=== PATIENT | female | born 1950 | race African-American/Black ===

== ENCOUNTER 2021-12-28 10:40 | Inpatient (IN) | payer MEDICARE, SELFPAY ==
[2021-12-28 11:19] VITALS: BP 149/77; BP 177/110; PULSE 91; PULSE 92; RESP 16; TEMP 36.7; O2SAT 92; O2SAT 99; BMI 21.9
[2021-12-28 11:50] LABS: Appearance Urine CLEAR; Color Urine STRAW; Glucose Urine UA NEG (NEG); Leukocyte Esterase Urine NEG (NEG); Nitrite Urine NEG (NEG); Urine Blood NEG (NEG); Urine Ketones NEG (NEG); Urine Protein TRACE MG/DL (NEG-TRACE)
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
[2021-12-28 12:11] LABS: Amphetamine Screen Urine Not Detected (Not Detect); Barbiturates, Urine Not Detected (Not Detect); Benzodiazepines Screen Urine Not Detected (Not Detect); Cocaine Screen Urine Not Detected (Not Detect); Opiate Screen Urine Not Detected (Not Detect); Phencyclidine Screen Urine Not Detected (Not Detect)
[2021-12-28 12:12] LABS: Cannabinoid Screen Urine Not Detected (Not Detect); Fentanyl, urine Not Detected (Not Detect)
[2021-12-28 14:20] LABS: MANUAL DIFF FLAG NO
[2021-12-28 14:29] LABS: Basophils Percent Auto 0.3 % (0-2); Eosinophils Absolute Auto 0.1 X10*3/uL (0.0-0.4); Eosinophils Percent Auto 0.9 % (0-4); Hematocrit 38.1 % (37.0-47.0); Hemoglobin 12.5 g/dl (12.0-16.0); Imm Gran Abs Auto 0.01 X10*3/uL (0.00-0.03); Imm Gran Pct Auto 0.2 % (0.0-0.4); Lymphocytes Absolute Auto 1.4 X10*3/uL (1.2-4.9); Lymphocytes Percent Auto 23.5 % (20-40); Mean Corpuscular HGB Conc 32.8 g/dl (31.0-35.0); Mean Corpuscular Hemoglobin 25.4 pg (27.0-33.0); Mean Corpuscular Volume 77.4 fL (80.0-98.0); Mean Platelet Volume 10.9 fL (9.4-12.3); Monocytes Absolute Auto 0.4 X10*3/uL (0.1-1.2); Monocytes Percent Auto 6.4 % (2-11); Neutrophils Percent Auto 68.7 % (45-73); Platelet Count 260 X10*3/uL (160-400); Red Blood Count 4.92 X10*6/uL (4.20-5.50); Red Cell Distribution Width 14.6 % (11.0-16.0); White Blood Count 5.8 X10*3/uL (4.8-10.8)
[2021-12-28 14:43] LABS: Alanine Aminotransferase 19 U/L (0-31); Albumin Level 4.1 g/dL (3.5-5.0); Alkaline Phosphatase 120 U/L (39-117); Anion Gap 12 (12-20); Aspartate Amino Transferase 28 U/L (5-31); Bilirubin Direct 0.2 mg/dL (0.0-0.5); Bilirubin Total 0.4 mg/dL (0.0-1.0); Blood Urea Nitrogen 53 mg/dL (9-16); Calcium 9.2 mg/dL (8.4-10.2); Carbon Dioxide 27 mmol/L (22-29); Chloride 107 mmol/L (96-108); Creatinine Clr Calc Pharmacy 30.9; Estimated Glomerular Filt Rate 39; Glucose Random 87 mg/dL (60-115); Potassium 3.9 mmol/L (3.3-5.1); Sodium 142 mmol/L (135-145); Total Protein 6.9 g/dL (6.5-8.0)
--- NOTE | 2021-12-28 16:02 | PC.NURSE ---
Pt noted to be vigorously self-dialoguing in the community room, muttering profanities, and generally appearing angry. Making paranoid statements about people killing her off .
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
[2021-12-28 19:09] VITALS: RESP 18
[2021-12-28] MEDS: Ziprasidone Mesylate 20 MG VIAL IM (19:09)
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
[2021-12-28 19:24] VITALS: RESP 16
[2021-12-28 19:39] VITALS: RESP 16
[2021-12-28 19:54] VITALS: RESP 12
[2021-12-28 20:09] VITALS: RESP 12
--- NOTE | 2021-12-28 21:39 | PHA.MEDREC ---
Patient not cooperative to interview, only able to verify amlodipine from pharmacy history Pharmacy Consult ? Medication Reconciliation Pharmacy has completed the medication reconciliation.
[2021-12-29] MEDS: OLANZapine ODT 10 MG TAB.RAPDIS 5 MG TRANSLINGU ×3 (00:32→19:57)
[2021-12-29 00:53] LABS: COVID-19 Test Negative (Negative); IDNOW Serial# 16C4AD1C
--- NOTE | 2021-12-29 06:21 | PC.NURSE ---
Patient received Geodon 20 mg IM at 1909 for aggressive behavior, with positive effect, @ 0017 patient loud and disruptive pRN Olanzapine 5 mg administered and followed by next dose 0610 with + effect, patient's thought content is paranoid, thought process tangential, behavior unpredictable, VSS, disposition per N is section 12 inpatient bed search, med rec completed/pending provider's approval, will continue to monitor.
[2021-12-29 06:35] VITALS: RESP 20
--- NOTE | 2021-12-29 07:18 | PC.NURSE ---
patient appears to remain asleep at present respirations are even and unlabored patient appears in no distress
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
[2021-12-29 07:48] VITALS: BP 118/74; PULSE 91; RESP 17; TEMP 36.2
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
[2021-12-29] MEDS: OLANZapine 10 MG VIAL IM (15:20)
[2021-12-29] MEDS: diphenhydrAMINE HCL 50 MG/ML VIAL IM (17:03)
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
[2021-12-30] VITALS (7 sets, daily range): BP systolic 89–129; BP diastolic 50–97; PULSE 76–116; RESP 15–20; TEMP 36.9–37; O2SAT 93–96
--- NOTE | 2021-12-30 09:00 | MHC.CLN ---
NUTRITION CHANGED DIET TO 2 GRAM SODIUM DUE TO DX CKD. BUN=54 (12/28/21).
[2021-12-30] MEDS: LORazepam 2 MG/ML VIAL IM (09:28)
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
[2021-12-30 14:10] LABS: MANUAL DIFF FLAG NO
[2021-12-30 14:13] LABS: Basophils Percent Auto 0.5 % (0-2); Eosinophils Absolute Auto 0.1 X10*3/uL (0.0-0.4); Hematocrit 36.8 % (37.0-47.0); Imm Gran Abs Auto 0.01 X10*3/uL (0.00-0.03); Imm Gran Pct Auto 0.2 % (0.0-0.4); Lymphocytes Percent Auto 22.4 % (20-40); Mean Corpuscular HGB Conc 32.6 g/dl (31.0-35.0); Mean Corpuscular Hemoglobin 25.4 pg (27.0-33.0); Mean Corpuscular Volume 77.8 fL (80.0-98.0); Mean Platelet Volume 10.6 fL (9.4-12.3); Monocytes Absolute Auto 0.3 X10*3/uL (0.1-1.2); Monocytes Percent Auto 6.1 % (2-11); Neutrophils Percent Auto 68.8 % (45-73); Platelet Count 211 X10*3/uL (160-400); Red Blood Count 4.73 X10*6/uL (4.20-5.50); Red Cell Distribution Width 14.8 % (11.0-16.0); White Blood Count 4.4 X10*3/uL (4.8-10.8)
[2021-12-30 14:31] LABS: Estimated Average Glucose 117 mg/dL; Hemoglobin A1c % 5.7 %
[2021-12-30 14:34] LABS: Alanine Aminotransferase 14 U/L (0-31); Albumin Level 3.5 g/dL (3.5-5.0); Alkaline Phosphatase 105 U/L (39-117); Anion Gap 10 (12-20); Aspartate Amino Transferase 28 U/L (5-31); Bilirubin Direct 0.2 mg/dL (0.0-0.5); Bilirubin Total 0.5 mg/dL (0.0-1.0); Blood Urea Nitrogen 24 mg/dL (9-16); Calcium 8.7 mg/dL (8.4-10.2); Carbon Dioxide 26 mmol/L (22-29); Chloride 112 mmol/L (96-108); Creatinine Clr Calc Pharmacy 33.8; Estimated Glomerular Filt Rate 43; Glucose Random 128 mg/dL (60-115); Sodium 144 mmol/L (135-145); Total Protein 6.1 g/dL (6.5-8.0)
[2021-12-30 14:50] LABS: Thyroid Stimulating Hormone 0.25 uIU/mL (0.32-4.0)
[2021-12-31 06:00] VITALS: BP 114/62; PULSE 80; RESP 18; TEMP 38; O2SAT 94
[2021-12-31 08:00] VITALS: TEMP 37.1
[2021-12-31] MEDS: chlorproMAZINE HCl 25 MG TABLET 50 MG PO (15:27)
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
[2021-12-31 20:04] VITALS: BP 140/75; PULSE 100; TEMP 36.9; O2SAT 95
[2022-01-01 05:57] VITALS: BMI 17.2
[2022-01-01 08:20] VITALS: BMI 17.3
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
--- NOTE | 2022-01-01 14:49 | MHC.CLN ---
NUTRITION DIET=2 GRAM SODIUM. PATIENT WITH CKD STAGE 3. HX DISORDERED EATING-RESTRICTING. ADDING ENSURE TID TO PROVIDE ADDITIONAL 1050 KCALS, 60 G PROTEIN. BMI=17.3, UNDERWEIGHT. FOLLOW FOR INTAKE AND WEIGHT.
[2022-01-01 14:51] VITALS: BMI 17.3
[2022-01-01 18:00] VITALS: RESP 17
--- NOTE | 2022-01-01 21:57 | PC.NURSE ---
Pt visible in the milieu, alternating between self dialoguing and making accusatory statements towards pt's and staff, calling others homicidal maniacs unable to be redirected. Refusing medications.
[2022-01-02] MEDS: diphenhydrAMINE HCL 50 MG/ML VIAL IM (11:24)
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
[2022-01-02] MEDS: chlorproMAZINE HCl 25 MG TABLET 50 MG PO ×2 (16:26→22:35)
[2022-01-02] MEDS: OLANZapine ODT 10 MG TAB.RAPDIS 5 MG TRANSLINGU (22:35)
[2022-01-03 06:00] VITALS: BP 134/74; PULSE 89; RESP 16; TEMP 36.6; O2SAT 98
--- NOTE | 2022-01-03 13:09 | HO.PSYCHPN ---
Subjective Subjective Date of Service: 01/03/22 Reason For Visit: Pychosis Agitation Subjective Notes: Section 12B Interim History: Per nursing, pt only slept 3 hrs. Continues to decline scheduled medications. Pt paranoid, and verbally aggressive when someone approaches her but is less intrusive to others today. When asked how she was doing pt told this marketing copywriter I'm fine leave me alone! Pt increasingly irritable as marketing copywriter asked questions. She continued talking to someone who is not there, very guarded and suspicious about others. Medication Compliance: No Side effects from medications: No Review of Systems Review of Systems Yes Unobtainable due to mental status and Other (Uncooperative) Mental Status Exam Mental Status Exam Narrative: Alert but not oriented, floridly psychotic. Petite, unkempt/ disheveled, frail, in hospital attire, appears older than stated age. Intense eye contact, inattentive. No Tics or Tremors. No abnormal involuntary movements. Agitated, uncooperative, difficult to engage. Speech is elevated, non-stop self dialoguing, raised vocal volume. No prolonged speech latency or dysarthria. Affect is animated. Denies SI/SIB/HI upon inquiry. Presents with AH, paranoia. Thoughts are disorganized. Insight/ Judgment is poor. Diagnostics Vital Signs (24Hr): Vital Signs - 24 hr 01/03/22 06:00 Temperature 97.9 F Pulse Rate 89 Respiratory Rate 16 Blood Pressure 134/74 Pulse Oximetry 98 Oxygen Delivery Method Room Air BMI result Body Mass Index 17.3 Labs Results: 12/30/21 14:06 12/30/21 14:06 Medications Medications Current Medications Acetaminophen (Acetaminophen 325 Mg Tablet) 650 mg PO Q6H PRN PRN Reason: Headache/Pain Mild Scale (1-3) Al Hydroxide/Mg Hydroxide (Magnesium Hydrox/Alum Hydrox 30 Ml Oral.Susp) 30 ml PO Q6H PRN PRN Reason: Heartburn/Nausea Chlorpromazine HCl (Chlorpromazine Hcl 25 Mg Tablet) 50 mg PO TID [facility] Last Admin: 01/03/22 08:56 Dose: Not Given Docusate Sodium (Docusate Sodium 100 Mg Capsule) 100 mg PO BID [facility] Last Admin: 01/03/22 08:36 Dose: Not Given Hydroxyzine HCl (Hydroxyzine Hcl 25 Mg Tablet) 25 mg PO Q6H PRN PRN Reason: Anxiety Magnesium Hydroxide (Milk Of Magnesia 30 Ml Oral.Susp) 30 ml PO DAILY PRN PRN Reason: Constipation Olanzapine (Olanzapine Odt 10 Mg Tab.Rapdis) 5 mg TRANSLINGU Q6H PRN PRN Reason: agitation, psychosis Last Admin: 12/29/21 06:10 Dose: 5 mg Olanzapine (Olanzapine Odt 10 Mg Tab.Rapdis) 5 mg TRANSLINGU BEDTIME [facility] Last Admin: 01/02/22 22:35 Dose: 5 mg Pharmacy Consult (Consult Rx Perform Med Rec) 1 each MISCELLANE ONCE PRN PRN Reason: Consult order Trazodone HCl (Trazodone Hcl 50 Mg Tablet) 50 mg PO BEDTIME PRN PRN Reason: Insomnia Allergies Allergies Allergy/AdvReac Type Severity Reaction Status Date / Time benztropine [From COGENTIN] Allergy Unknown STOMACHPAIN Verified 09/29/21 16:15 /SWELLING haloperidol [From HALDOL] Allergy Unknown STOMACH Verified 09/29/21 16:15 PAIN SWELLING Assessment & Plan Assessment & Plan (1) Schizophrenia, chronic condition: Status: Acute Code(s): F20.9 - Schizophrenia, unspecified (2) Benign essential hypertension: Status: Acute Code(s): I10 - Essential (primary) hypertension (3) Chronic kidney disease (CKD): Qualifiers: Chronic kidney disease stage: stage 3 (moderate) Chronic kidney disease stage 3 subtype: stage 3b (GFR 30-44) Qualified Code(s): N18.32 - Chronic kidney disease, stage 3b Status: Acute Code(s): N18.9 - Chronic kidney disease, unspecified (4) History of cervical cancer: Status: Acute Code(s): Z85.41 - Personal history of malignant neoplasm of cervix uteri Plan Elderly female with a long history of schizophrenia with several ancillary services provided by [facility] and connected with [facility] ACSS program. Plan 1. Gather collateral information. 2. Continue with psychotropics. 3. Start Thorazine 50 mg po tid. 4. Bloodwork with Cr wnl/. 5. Filing for 7 and 8 6. Chemical restraint today AM. 7. Colace 100 mg po bid 01/02- Thorazine 100mg IM for severe agitation/aggression. declines medications, paranoid delusions, talking to someone who is not there. Not sleeping, significant agitation. Pt declines scheduled medications. 01/03 continues to present as paranoid, guarded and suspicious of everyone on the unit, but less intrusive. Pt has not slept more than 3 hrs, in past 48hrs. declined EKG, monitor intake, labs I spent minutes with the patient and/or on the patient floor today, greater than?50% of which was spent counseling/coordinating care. Reason for contiued inpatient stay Substantial Risk for: harm to others and inability to function
[2022-01-04] MEDS: diphenhydrAMINE HCL 50 MG/ML VIAL IM (02:55)
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
[2022-01-04 06:00] VITALS: BP 144/81; PULSE 113; RESP 20; TEMP 36.4; O2SAT 91
[2022-01-04] MEDS: Docusate Sodium 100 MG CAPSULE PO (07:53)
[2022-01-04] MEDS: chlorproMAZINE HCl 25 MG TABLET 50 MG PO (07:53)
[2022-01-04 09:58] VITALS: BMI 17.4
[2022-01-04] MEDS: OLANZapine ODT 10 MG TAB.RAPDIS 5 MG TRANSLINGU (10:07)
[2022-01-04] MEDS: hydrOXYzine HCL 25 MG TABLET PO (10:08)
[2022-01-04 10:14] VITALS: BP 133/70; PULSE 104; RESP 16; TEMP 36.7; O2SAT 96
--- NOTE | 2022-01-04 11:35 | MHC.CLN ---
NUTRITION DIET=2 GRAM SODIUM. PATIENT WITH CKD STAGE 3. HX DISORDERED EATING-RESTRICTING. ENSURE TID PROVIDES ADDITIONAL 1050 KCALS, 60 G PROTEIN. BMI=17.3, UNDERWEIGHT. STAFF REPORTS THAT PATIENT IS EATING WELL. FOLLOW FOR INTAKE AND WEIGHT.
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
[2022-01-04 18:00] VITALS: BP 157/75; PULSE 104
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
[2022-01-05 18:00] VITALS: RESP 18
[2022-01-06] MEDS: chlorproMAZINE HCl 25 MG TABLET 50 MG PO (00:52)
[2022-01-06] MEDS: OLANZapine ODT 10 MG TAB.RAPDIS 5 MG TRANSLINGU (00:53)
--- NOTE | 2022-01-06 12:39 | MHC.CLN ---
F/U WEIGHT TODAY=43.4 KG. WEIGHT APPEARS STABLE SINCE ADMISSION. STAFF REPORTS THAT PATIENT DID NOT EAT MEALS YESTERDAY. DISLIKES/DOES NOT WANT SUPPLEMENT. DIET=2 GRAM SODIUM DUE TO DX CKD STAGE 3. HX DISORDERED EATING-RESTRICTING. CONTINUE TO FOLLOW WEIGHT AND INTAKE.
--- NOTE | 2022-01-06 14:24 | HO.PSYCHPN ---
Subjective Subjective Date of Service: 01/06/22 Reason For Visit: Pychosis Agitation Subjective Notes: Section 7, Section 8 and Section 12B Interim History: The nursing staff reported the patient has refused her medications, she slept poorly last night. On interview she reminds aggressive, hostile, delusional very difficult to be redirected. Mental Status Exam Mental Status Exam Patient Appearance: Disheveled and Unkempt Patient Orientation: Person Level of Consciousness: Restless and Inappropriate Patient Behavior: Guarded, Suspicious, Belligerent and Uncooperative Mood Description: Hostile Affect Description: Labile Ability to Follow Directions: Good Speech Pattern: Rapid and Loud Hallucinations: Auditory Delusions: Paranoid Ideation Thought Process: Distracted Thought Content: positive for [place], positive for Perseveration, positive for Thought Blocking and positive for Disorganized Judgement: Poor Diagnostics Vital Signs (24Hr): Vital Signs - 24 hr 01/05/22 18:00 Respiratory Rate 18 BMI result Body Mass Index 17.4 Labs Results: 12/30/21 14:06 12/30/21 14:06 Medications Medications Current Medications Acetaminophen (Acetaminophen 325 Mg Tablet) 650 mg PO Q6H PRN PRN Reason: Headache/Pain Mild Scale (1-3) Al Hydroxide/Mg Hydroxide (Magnesium Hydrox/Alum Hydrox 30 Ml Oral.Susp) 30 ml PO Q6H PRN PRN Reason: Heartburn/Nausea Chlorpromazine HCl (Chlorpromazine Hcl 25 Mg Tablet) 50 mg PO TID [facility] Last Admin: 01/06/22 08:42 Dose: Not Given Docusate Sodium (Docusate Sodium 100 Mg Capsule) 100 mg PO BID [facility] Last Admin: 01/06/22 08:43 Dose: Not Given Hydroxyzine HCl (Hydroxyzine Hcl 25 Mg Tablet) 25 mg PO Q6H PRN PRN Reason: Anxiety Last Admin: 01/04/22 10:08 Dose: 25 mg Magnesium Hydroxide (Milk Of Magnesia 30 Ml Oral.Susp) 30 ml PO DAILY PRN PRN Reason: Constipation Olanzapine (Olanzapine Odt 10 Mg Tab.Rapdis) 5 mg TRANSLINGU Q6H PRN PRN Reason: agitation, psychosis Last Admin: 01/04/22 10:07 Dose: 5 mg Olanzapine (Olanzapine Odt 10 Mg Tab.Rapdis) 5 mg TRANSLINGU BEDTIME [facility] Last Admin: 01/06/22 00:53 Dose: 5 mg Pharmacy Consult (Consult Rx Perform Med Rec) 1 each MISCELLANE ONCE PRN PRN Reason: Consult order Trazodone HCl (Trazodone Hcl 50 Mg Tablet) 50 mg PO BEDTIME PRN PRN Reason: Insomnia Allergies Allergies Allergy/AdvReac Type Severity Reaction Status Date / Time benztropine [From COGENTIN] Allergy Unknown STOMACHPAIN Verified 09/29/21 16:15 /SWELLING haloperidol [From HALDOL] Allergy Unknown STOMACH Verified 09/29/21 16:15 PAIN SWELLING Assessment & Plan Assessment & Plan (1) Schizophrenia, chronic condition: Status: Acute Code(s): F20.9 - Schizophrenia, unspecified (2) Benign essential hypertension: Status: Acute Code(s): I10 - Essential (primary) hypertension (3) Chronic kidney disease (CKD): Qualifiers: Chronic kidney disease stage: stage 3 (moderate) Chronic kidney disease stage 3 subtype: stage 3b (GFR 30-44) Qualified Code(s): N18.32 - Chronic kidney disease, stage 3b Status: Acute Code(s): N18.9 - Chronic kidney disease, unspecified (4) History of cervical cancer: Status: Acute Code(s): Z85.41 - Personal history of malignant neoplasm of cervix uteri Plan Elderly female with a long history of schizophrenia with several ancillary services provided by [facility] and connected with [facility] ACSS program. Plan 1. Gather collateral information. 2. Continue with psychotropics. 3. Start Thorazine 50 mg po tid. 4. Bloodwork with Cr wnl/. 5. Filing for 7 and 8 6. Get collateral information with [facility] regarding guardianship and [place] order I spent ___20_ minutes with the patient and/or on the patient floor today, greater than?50% of which was spent counseling/coordinating care. Reason for contiued inpatient stay Substantial Risk for: inability to function, rapid decompensation and med/psych decompensation
[2022-01-06 18:00] VITALS: RESP 16
[2022-01-07 07:30] VITALS: BP 125/61; PULSE 104; RESP 14; O2SAT 100
--- NOTE | 2022-01-07 11:08 | P.PNPSI_ITS ---
Subjective Subjective Date of Service: 01/07/22 Reason For Visit: Pychosis Agitation Subjective Notes: Section 7, Section 8 and Section 12B Interim History: The nursing staff reported the patient was awake all night long, she has refused her medications she remains very aggressive and delusional. She is aware that we have a court hearing today o'clock p.m.. Mental Status Exam Mental Status Exam Patient Appearance: Disheveled and Unkempt Patient Orientation: Person and Situation Level of Consciousness: Restless Patient Behavior: Suspicious Mood Description: Angry Affect Description: Labile Patient Cognition Impaired: Yes Ability to Follow Directions: Poor Speech Pattern: Rapid and Loud Hallucinations: Auditory Delusions: Paranoid Ideation and Grandiose Thought Process: Distracted Thought Content: positive for Poverty of Content Judgement: Poor Diagnostics Vital Signs (24Hr): Vital Signs - 24 hr 01/06/22 18:00 01/07/22 07:30 Pulse Rate 104 H Respiratory Rate 16 14 Blood Pressure 125/61 Pulse Oximetry 100 Oxygen Delivery Method Room Air BMI result Body Mass Index 17.4 Labs Results: 12/30/21 14:06 12/30/21 14:06 Medications Medications Current Medications Acetaminophen (Acetaminophen 325 Mg Tablet) 650 mg PO Q6H PRN PRN Reason: Headache/Pain Mild Scale (1-3) Al Hydroxide/Mg Hydroxide (Magnesium Hydrox/Alum Hydrox 30 Ml Oral.Susp) 30 ml PO Q6H PRN PRN Reason: Heartburn/Nausea Chlorpromazine HCl (Chlorpromazine Hcl 25 Mg Tablet) 50 mg PO TID [facility] Last Admin: 01/07/22 10:21 Dose: Not Given Docusate Sodium (Docusate Sodium 100 Mg Capsule) 100 mg PO BID REJI Last Admin: 01/07/22 10:21 Dose: Not Given Hydroxyzine HCl (Hydroxyzine Hcl 25 Mg Tablet) 25 mg PO Q6H PRN PRN Reason: Anxiety Last Admin: 01/04/22 10:08 Dose: 25 mg Magnesium Hydroxide (Milk Of Magnesia 30 Ml Oral.Susp) 30 ml PO DAILY PRN PRN Reason: Constipation Olanzapine (Olanzapine Odt 10 Mg Tab.Rapdis) 5 mg TRANSLINGU Q6H PRN PRN Reason: agitation, psychosis Last Admin: 01/04/22 10:07 Dose: 5 mg Olanzapine (Olanzapine Odt 10 Mg Tab.Rapdis) 5 mg TRANSLINGU BEDTIME REJI Last Admin: 01/07/22 00:57 Dose: Not Given Pharmacy Consult (Consult Rx Perform Med Rec) 1 each MISCELLANE ONCE PRN PRN Reason: Consult order Trazodone HCl (Trazodone Hcl 50 Mg Tablet) 50 mg PO BEDTIME PRN PRN Reason: Insomnia Allergies Allergies Allergy/AdvReac Type Severity Reaction Status Date / Time benztropine [From COGENTIN] Allergy Unknown STOMACHPAIN Verified 09/29/21 16:15 /SWELLING haloperidol [From HALDOL] Allergy Unknown STOMACH Verified 09/29/21 16:15 PAIN SWELLING Assessment & Plan Assessment & Plan (1) Schizophrenia, chronic condition: Status: Acute Code(s): F20.9 - Schizophrenia, unspecified (2) Benign essential hypertension: Status: Acute Code(s): I10 - Essential (primary) hypertension (3) Chronic kidney disease (CKD): Qualifiers: Chronic kidney disease stage: stage 3 (moderate) Chronic kidney disease stage 3 subtype: stage 3b (GFR 30-44) Qualified Code(s): N18.32 - Chronic kidney disease, stage 3b Status: Acute Code(s): N18.9 - Chronic kidney disease, unspecified (4) History of cervical cancer: Status: Acute Code(s): Z85.41 - Personal history of malignant neoplasm of cervix uteri Plan Elderly female with a long history of schizophrenia with several ancillary services provided by [facility] and connected with [facility] ACSS program. Plan 1. Gather collateral information. 2. Continue with psychotropics. 3. Start Thorazine 50 mg po tid. 4. Bloodwork with Cr wnl/. 5. Filing for 7 and 8 6. Get collateral information with [facility] regarding guardianship and [place] order I spent __20____ minutes with the patient and/or on the patient floor today, greater than?50% of which was spent counseling/coordinating care. Reason for contiued inpatient stay Substantial Risk for: harm to others, inability to function, rapid decompensation and med/psych decompensation
[2022-01-07 13:46] VITALS: BMI 17.5
--- NOTE | 2022-01-07 16:35 | HE.PHANOTE ---
RE DARYL SPOKE TO DR HARLEY. PATIENT IS ON INVEGA SUSTENNA AT HOME PER HIS OUTPATIENT SAMPLER RADIOACTIVE WASTE
[2022-01-07] MEDS: Midazolam HCl/PF 2 MG/2 ML VIAL 4 MG IM (17:05)
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
[2022-01-07 18:00] VITALS: RESP 16
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
[2022-01-08] MEDS: chlorproMAZINE HCl 25 MG TABLET 50 MG PO ×2 (08:22→20:30)
--- NOTE | 2022-01-08 11:26 | P.PNPSI_ITS ---
Subjective Subjective Date of Service: 01/08/22 Reason For Visit: Pychosis Agitation Subjective Notes: Conditional Voluntary Interim History: The nursing staff reported the patient was agitated in the morning and they called me early in the morning for medication restrain. She received IM so in an emergency basis last night and today in the morning. Today in the morning she was lower while, angry and grossly disorganized. We will start with Sharonda Wood as per court order. Mental Status Exam Mental Status Exam Patient Appearance: Unkempt Patient Orientation: Person and Situation Level of Consciousness: Alert Patient Behavior: Guarded and Verbal Threats Mood Description: Withdrawn Affect Description: Labile Patient Cognition Impaired: Yes Ability to Follow Directions: Good Speech Pattern: Clear Hallucinations: Auditory Delusions: Paranoid Ideation Thought Process: Illogical and Evasive Thought Content: positive for [place] Judgement: Poor Diagnostics Vital Signs (24Hr): Vital Signs - 24 hr 01/07/22 18:00 Respiratory Rate 16 BMI result Body Mass Index 17.5 Labs Results: 12/30/21 14:06 12/30/21 14:06 Medications Medications Current Medications Acetaminophen (Acetaminophen 325 Mg Tablet) 650 mg PO Q6H PRN PRN Reason: Headache/Pain Mild Scale (1-3) Al Hydroxide/Mg Hydroxide (Magnesium Hydrox/Alum Hydrox 30 Ml Oral.Susp) 30 ml PO Q6H PRN PRN Reason: Heartburn/Nausea Chlorpromazine HCl (Chlorpromazine Hcl 25 Mg Tablet) 50 mg PO TID [facility] Last Admin: 01/08/22 08:22 Dose: 50 mg Docusate Sodium (Docusate Sodium 100 Mg Capsule) 100 mg PO BID [facility] Last Admin: 01/07/22 22:12 Dose: Not Given Hydroxyzine HCl (Hydroxyzine Hcl 25 Mg Tablet) 25 mg PO Q6H PRN PRN Reason: Anxiety Last Admin: 01/04/22 10:08 Dose: 25 mg Magnesium Hydroxide (Milk Of Magnesia 30 Ml Oral.Susp) 30 ml PO DAILY PRN PRN Reason: Constipation Olanzapine (Olanzapine Odt 10 Mg Tab.Rapdis) 5 mg TRANSLINGU Q6H PRN PRN Reason: agitation, psychosis Last Admin: 01/04/22 10:07 Dose: 5 mg Olanzapine (Olanzapine Odt 10 Mg Tab.Rapdis) 5 mg TRANSLINGU BEDTIME [facility] Last Admin: 01/07/22 22:12 Dose: Not Given Pharmacy Consult (Consult Rx Perform Med Rec) 1 each MISCELLANE ONCE PRN PRN Reason: Consult order Trazodone HCl (Trazodone Hcl 50 Mg Tablet) 50 mg PO BEDTIME PRN PRN Reason: Insomnia Allergies Allergies Allergy/AdvReac Type Severity Reaction Status Date / Time benztropine [From COGENTIN] Allergy Unknown STOMACHPAIN Verified 09/29/21 16:15 /SWELLING haloperidol [From HALDOL] Allergy Unknown STOMACH Verified 09/29/21 16:15 PAIN SWELLING Assessment & Plan Assessment & Plan (1) Schizophrenia, chronic condition: Status: Acute Code(s): F20.9 - Schizophrenia, unspecified (2) Benign essential hypertension: Status: Acute Code(s): I10 - Essential (primary) hypertension (3) Chronic kidney disease (CKD): Qualifiers: Chronic kidney disease stage: stage 3 (moderate) Chronic kidney disease stage 3 subtype: stage 3b (GFR 30-44) Qualified Code(s): N18.32 - Chronic kidney disease, stage 3b Status: Acute Code(s): N18.9 - Chronic kidney disease, unspecified (4) History of cervical cancer: Status: Acute Code(s): Z85.41 - Personal history of malignant neoplasm of cervix uteri Plan Elderly female with a long history of schizophrenia with several ancillary services provided by [facility] and connected with [facility] ACSS program. Plan 1. Gather collateral information. 2. Continue with psychotropics. 3. Invega Sustenna 234 mg IM today and another 234 in 5 days. I spent ___20___ minutes with the patient and/or on the patient floor today, greater than?50% of which was spent counseling/coordinating care. Reason for contiued inpatient stay Substantial Risk for: inability to function, rapid decompensation and med/psych decompensation
[2022-01-08] MEDS: Paliperidone Palmitate 234 MG/1.5 ML SYRINGE IM (11:54)
--- NOTE | 2022-01-08 13:29 | MHC.CLN ---
F/U STAFF REPORTS PATIENT WITH VARIABLE INTAKE. DISLIKES/DOES NOT WANT SUPPLEMENT. DIET=2 GRAM SODIUM DUE TO DX CKD STAGE 3. HX DISORDERED EATING-RESTRICTING. CONTINUE TO PROVIDE FOOD PREFERENCES ABLE. CONTINUE TO FOLLOW WEIGHT AND INTAKE. RD TO FOLLOW WEEKLY.
[2022-01-08 18:00] VITALS: BP 147/58; PULSE 108; RESP 20; O2SAT 92
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
[2022-01-08] MEDS: OLANZapine ODT 10 MG TAB.RAPDIS 5 MG TRANSLINGU (20:46)
[2022-01-08] MEDS: traZODone HCL 50 MG TABLET PO (20:46)
[2022-01-08] MEDS: Docusate Sodium 100 MG CAPSULE PO (20:46)
[2022-01-09 08:20] VITALS: BP 133/69; PULSE 100; RESP 18; O2SAT 95
--- NOTE | 2022-01-09 09:29 | HO.PSYCHPN ---
Subjective Subjective Date of Service: 01/09/22 Reason For Visit: Pychosis Agitation Subjective Notes: Section 7 and Section 8 Interim History: According to the nursing staff, the patient has been up all night long and agitated and pacing the hallway. She received Thorazine IM several times in the last 48 hours with limited effectiveness. She to her medications at bedtime. On interview she remains delusional, aggressive and hostile. Needed to be medicated due to agitation. Mental Status Exam Mental Status Exam Patient Appearance: Appropriate Patient Orientation: Person and Situation Level of Consciousness: Awake Patient Behavior: Belligerent and Verbal Threats Mood Description: Hostile and Apprehensive Affect Description: Angry Patient Cognition Impaired: Yes Ability to Follow Directions: Poor Speech Pattern: Clear, Rapid and Loud Hallucinations: Auditory Delusions: Paranoid Ideation Thought Content: positive for Poverty of Content Judgement: Poor Diagnostics Vital Signs (24Hr): Vital Signs - 24 hr 01/08/22 18:00 01/09/22 08:20 Pulse Rate 108 H 100 Respiratory Rate 20 18 Blood Pressure 147/58 H 133/69 Pulse Oximetry 92 95 Oxygen Delivery Method Room Air Room Air BMI result Body Mass Index 17.5 Labs Results: 12/30/21 14:06 12/30/21 14:06 Medications Medications Current Medications Acetaminophen (Acetaminophen 325 Mg Tablet) 650 mg PO Q6H PRN PRN Reason: Headache/Pain Mild Scale (1-3) Al Hydroxide/Mg Hydroxide (Magnesium Hydrox/Alum Hydrox 30 Ml Oral.Susp) 30 ml PO Q6H PRN PRN Reason: Heartburn/Nausea Chlorpromazine HCl (Chlorpromazine Hcl 25 Mg Tablet) 50 mg PO TID [facility] Last Admin: 01/09/22 09:27 Dose: Not Given Docusate Sodium (Docusate Sodium 100 Mg Capsule) 100 mg PO BID [facility] Last Admin: 01/09/22 09:27 Dose: Not Given Hydroxyzine HCl (Hydroxyzine Hcl 25 Mg Tablet) 25 mg PO Q6H PRN PRN Reason: Anxiety Last Admin: 01/04/22 10:08 Dose: 25 mg Magnesium Hydroxide (Milk Of Magnesia 30 Ml Oral.Susp) 30 ml PO DAILY PRN PRN Reason: Constipation Olanzapine (Olanzapine Odt 10 Mg Tab.Rapdis) 5 mg TRANSLINGU Q6H PRN PRN Reason: agitation, psychosis Last Admin: 01/04/22 10:07 Dose: 5 mg Olanzapine (Olanzapine Odt 10 Mg Tab.Rapdis) 5 mg TRANSLINGU BEDTIME REJI Last Admin: 01/08/22 20:46 Dose: 5 mg Pharmacy Consult (Consult Rx Perform Med Rec) 1 each MISCELLANE ONCE PRN PRN Reason: Consult order Trazodone HCl (Trazodone Hcl 50 Mg Tablet) 50 mg PO BEDTIME PRN PRN Reason: Insomnia Last Admin: 01/08/22 20:46 Dose: 50 mg Allergies Allergies Allergy/AdvReac Type Severity Reaction Status Date / Time benztropine [From COGENTIN] Allergy Unknown STOMACHPAIN Verified 09/29/21 16:15 /SWELLING haloperidol [From HALDOL] Allergy Unknown STOMACH Verified 09/29/21 16:15 PAIN SWELLING Assessment & Plan Assessment & Plan (1) Schizophrenia, chronic condition: Status: Acute Code(s): F20.9 - Schizophrenia, unspecified (2) Benign essential hypertension: Status: Acute Code(s): I10 - Essential (primary) hypertension (3) Chronic kidney disease (CKD): Qualifiers: Chronic kidney disease stage: stage 3 (moderate) Chronic kidney disease stage 3 subtype: stage 3b (GFR 30-44) Qualified Code(s): N18.32 - Chronic kidney disease, stage 3b Status: Acute Code(s): N18.9 - Chronic kidney disease, unspecified (4) History of cervical cancer: Status: Acute Code(s): Z85.41 - Personal history of malignant neoplasm of cervix uteri Plan Elderly female with a long history of schizophrenia with several ancillary services provided by [facility] and connected with [facility] ACSS program. Plan 1. Gather collateral information. 2. Continue with psychotropics. 3. Invega Sustenna 234 mg IM today and another 234 in 5 days. 4. Thorazine 100 mg, Benadryl 50 mg and Versed 4 mg IM now I spent __20____ minutes with the patient and/or on the patient floor today, greater than?50% of which was spent counseling/coordinating care. Reason for contiued inpatient stay Substantial Risk for: inability to function, rapid decompensation and med/psych decompensation
[2022-01-09] MEDS: Midazolam HCl/PF 2 MG/2 ML VIAL 4 MG IM (11:30)
[2022-01-09] MEDS: diphenhydrAMINE HCL 50 MG/ML VIAL 100 MG IM (11:30)
[2022-01-09 11:45] VITALS: BP 113/55; PULSE 96; RESP 14; O2SAT 94
[2022-01-09 12:00] VITALS: BP 120/57; PULSE 90; RESP 16; TEMP 37.3; O2SAT 95
[2022-01-09 12:15] VITALS: PULSE 84; RESP 16
[2022-01-09 12:30] VITALS: BP 129/63; PULSE 88; RESP 16; O2SAT 96
[2022-01-09 20:00] VITALS: BP 118/59; PULSE 97; RESP 16; O2SAT 94
[2022-01-09] MEDS: Docusate Sodium 100 MG CAPSULE PO (20:15)
[2022-01-10 05:26] VITALS: BP 127/71; PULSE 94; RESP 20; TEMP 36.3; O2SAT 96
[2022-01-10 06:17] VITALS: BMI 17.4
[2022-01-10] MEDS: chlorproMAZINE HCl 25 MG TABLET 50 MG PO ×2 (08:35→20:31)
[2022-01-10] MEDS: Docusate Sodium 100 MG CAPSULE PO (08:35)
--- NOTE | 2022-01-10 10:00 | HO.PSYCHPN ---
Subjective Subjective Date of Service: 01/10/22 Reason For Visit: Pychosis Agitation Subjective Notes: Section 7 and Section 8 Interim History: The nursing staff reported the patient slept only 4 hours after being medicated IM yesterday in the morning due to agitation and violence. She was compliant partially of her treatment she was seen walking in the hallways but more pleasant and cooperative today in the morning. On interview the patient was less irritable than yesterday but later on, she was violent and agitated unable to descalate. Mental Status Exam Mental Status Exam Patient Appearance: Appropriate Patient Orientation: Person and Situation Level of Consciousness: Awake Patient Behavior: Guarded and Passive Mood Description: Suspicious Affect Description: Labile Patient Cognition Impaired: Yes Ability to Follow Directions: Good Speech Pattern: Clear Hallucinations: Auditory Delusions: Paranoid Ideation and Grandiose Perceptual Disturbances: Hallucinations Thought Process: Racing, Distracted and Evasive Thought Content: positive for Loose Associations Judgement: Fair Diagnostics Vital Signs (24Hr): Vital Signs - 24 hr 01/09/22 11:45 01/09/22 12:00 01/09/22 12:15 Temperature 99.1 F Pulse Rate 96 90 84 Respiratory Rate 14 16 16 Blood Pressure 113/55 L 120/57 L Pulse Oximetry 94 95 Oxygen Delivery Method Room Air Room Air 01/09/22 12:30 01/09/22 20:00 01/10/22 05:26 Temperature 97.4 F Pulse Rate 88 97 94 Respiratory Rate 16 16 20 Blood Pressure 129/63 118/59 L 127/71 Pulse Oximetry 96 94 96 Oxygen Delivery Method Room Air Room Air Room Air BMI result Body Mass Index 17.4 Labs Results: 12/30/21 14:06 12/30/21 14:06 Medications Medications Current Medications Acetaminophen (Acetaminophen 325 Mg Tablet) 650 mg PO Q6H PRN PRN Reason: Headache/Pain Mild Scale (1-3) Al Hydroxide/Mg Hydroxide (Magnesium Hydrox/Alum Hydrox 30 Ml Oral.Susp) 30 ml PO Q6H PRN PRN Reason: Heartburn/Nausea Chlorpromazine HCl (Chlorpromazine Hcl 25 Mg Tablet) 50 mg PO TID [facility] Last Admin: 01/10/22 08:35 Dose: 25 mg Docusate Sodium (Docusate Sodium 100 Mg Capsule) 100 mg PO BID [facility] Last Admin: 01/10/22 08:35 Dose: 100 mg Hydroxyzine HCl (Hydroxyzine Hcl 25 Mg Tablet) 25 mg PO Q6H PRN PRN Reason: Anxiety Last Admin: 01/04/22 10:08 Dose: 25 mg Magnesium Hydroxide (Milk Of Magnesia 30 Ml Oral.Susp) 30 ml PO DAILY PRN PRN Reason: Constipation Olanzapine (Olanzapine Odt 10 Mg Tab.Rapdis) 5 mg TRANSLINGU Q6H PRN PRN Reason: agitation, psychosis Last Admin: 01/04/22 10:07 Dose: 5 mg Olanzapine (Olanzapine Odt 10 Mg Tab.Rapdis) 5 mg TRANSLINGU BEDTIME REJI Last Admin: 01/09/22 20:16 Dose: Not Given Pharmacy Consult (Consult Rx Perform Med Rec) 1 each MISCELLANE ONCE PRN PRN Reason: Consult order Trazodone HCl (Trazodone Hcl 50 Mg Tablet) 50 mg PO BEDTIME PRN PRN Reason: Insomnia Last Admin: 01/08/22 20:46 Dose: 50 mg Allergies Allergies Allergy/AdvReac Type Severity Reaction Status Date / Time benztropine [From COGENTIN] Allergy Unknown STOMACHPAIN Verified 09/29/21 16:15 /SWELLING haloperidol [From HALDOL] Allergy Unknown STOMACH Verified 09/29/21 16:15 PAIN SWELLING Assessment & Plan Assessment & Plan (1) Schizophrenia, chronic condition: Status: Acute Code(s): F20.9 - Schizophrenia, unspecified (2) Benign essential hypertension: Status: Acute Code(s): I10 - Essential (primary) hypertension (3) Chronic kidney disease (CKD): Qualifiers: Chronic kidney disease stage: stage 3 (moderate) Chronic kidney disease stage 3 subtype: stage 3b (GFR 30-44) Qualified Code(s): N18.32 - Chronic kidney disease, stage 3b Status: Acute Code(s): N18.9 - Chronic kidney disease, unspecified (4) History of cervical cancer: Status: Acute Code(s): Z85.41 - Personal history of malignant neoplasm of cervix uteri Plan Elderly female with a long history of schizophrenia with several ancillary services provided by [facility] and connected with [facility] ACSS program. Plan 1. Gather collateral information. 2. Continue with psychotropics. 3. Invega Sustenna 234 mg IM today and another 234 in 5 days. 4. Observe behavior and try to medicated aggressively whenever she becomes aggressive with Thorazine 100 mg, Benadryl 100 mg and Versed 4 mg, there is no Ativan IM at this moment. I spent ___20___ minutes with the patient and/or on the patient floor today, greater than?50% of which was spent counseling/coordinating care. Reason for contiued inpatient stay Substantial Risk for: harm to self, harm to others, inability to function, rapid decompensation and med/psych decompensation
[2022-01-10] MEDS: Midazolam HCl/PF 2 MG/2 ML VIAL 4 MG IM (11:35)
[2022-01-10] MEDS: diphenhydrAMINE HCL 50 MG/ML VIAL 100 MG IM (11:35)
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
[2022-01-10 18:00] VITALS: BP 122/60; PULSE 96; RESP 20; TEMP 36.8; O2SAT 97
[2022-01-10] MEDS: OLANZapine ODT 10 MG TAB.RAPDIS 5 MG TRANSLINGU ×2 (20:29→20:30)
[2022-01-11] MEDS: chlorproMAZINE HCl 25 MG TABLET 50 MG PO (08:24)
[2022-01-11] MEDS: OLANZapine ODT 10 MG TAB.RAPDIS 5 MG TRANSLINGU (08:24)
[2022-01-11] MEDS: Docusate Sodium 100 MG CAPSULE PO (08:26)
[2022-01-11] MEDS: hydrOXYzine HCL 25 MG TABLET PO (08:26)
--- NOTE | 2022-01-11 11:31 | P.PNPSI_ITS ---
Subjective Subjective Date of Service: 01/11/22 Reason For Visit: Pychosis Agitation Subjective Notes: Section 7 and Section 8 Interim History: The patient remains aggressive and delusional, very loud. Today in the morning p.o. medications were offered and she took it. Even though, she remains grossly disorganized and loud. No changes in her mental status Mental Status Exam Mental Status Exam Patient Appearance: Unkempt Patient Orientation: Person and Situation Level of Consciousness: Restless Patient Behavior: Guarded and Suspicious Mood Description: Hostile Affect Description: Angry Patient Cognition Impaired: Yes Ability to Follow Directions: Poor Speech Pattern: Rapid and Loud Hallucinations: Auditory Delusions: Paranoid Ideation, Grandiose and Bizarre Thought Process: Illogical Thought Content: positive for Thought Blocking and positive for Incoherent Judgement: Poor Diagnostics Vital Signs (24Hr): Vital Signs - 24 hr 01/10/22 18:00 Temperature 98.3 F Pulse Rate 96 Respiratory Rate 20 Blood Pressure 122/60 Pulse Oximetry 97 Oxygen Delivery Method Room Air BMI result Body Mass Index 17.4 Labs Results: 12/30/21 14:06 12/30/21 14:06 Medications Medications Current Medications Acetaminophen (Acetaminophen 325 Mg Tablet) 650 mg PO Q6H PRN PRN Reason: Headache/Pain Mild Scale (1-3) Al Hydroxide/Mg Hydroxide (Magnesium Hydrox/Alum Hydrox 30 Ml Oral.Susp) 30 ml PO Q6H PRN PRN Reason: Heartburn/Nausea Chlorpromazine HCl (Chlorpromazine Hcl 25 Mg Tablet) 50 mg PO TID [facility] Last Admin: 01/11/22 08:24 Dose: 50 mg Docusate Sodium (Docusate Sodium 100 Mg Capsule) 100 mg PO BID [facility] Last Admin: 01/11/22 08:26 Dose: 100 mg Hydroxyzine HCl (Hydroxyzine Hcl 25 Mg Tablet) 25 mg PO Q6H PRN PRN Reason: Anxiety Last Admin: 01/11/22 08:26 Dose: 25 mg Magnesium Hydroxide (Milk Of Magnesia 30 Ml Oral.Susp) 30 ml PO DAILY PRN PRN Reason: Constipation Olanzapine (Olanzapine Odt 10 Mg Tab.Rapdis) 5 mg TRANSLINGU Q6H PRN PRN Reason: agitation, psychosis Last Admin: 01/11/22 08:24 Dose: 5 mg Olanzapine (Olanzapine Odt 10 Mg Tab.Rapdis) 5 mg TRANSLINGU BEDTIME [facility]JI Last Admin: 01/10/22 20:29 Dose: 5 mg Pharmacy Consult (Consult Rx Perform Med Rec) 1 each MISCELLANE ONCE PRN PRN Reason: Consult order Trazodone HCl (Trazodone Hcl 50 Mg Tablet) 50 mg PO BEDTIME PRN PRN Reason: Insomnia Last Admin: 01/08/22 20:46 Dose: 50 mg Allergies Allergies Allergy/AdvReac Type Severity Reaction Status Date / Time benztropine [From COGENTIN] Allergy Unknown STOMACHPAIN Verified 09/29/21 16:15 /SWELLING haloperidol [From HALDOL] Allergy Unknown STOMACH Verified 09/29/21 16:15 PAIN SWELLING Assessment & Plan Assessment & Plan (1) Schizophrenia, chronic condition: Status: Acute Code(s): F20.9 - Schizophrenia, unspecified (2) Benign essential hypertension: Status: Acute Code(s): I10 - Essential (primary) hypertension (3) Chronic kidney disease (CKD): Qualifiers: Chronic kidney disease stage: stage 3 (moderate) Chronic kidney disease stage 3 subtype: stage 3b (GFR 30-44) Qualified Code(s): N18.32 - Chronic kidney disease, stage 3b Status: Acute Code(s): N18.9 - Chronic kidney disease, unspecified (4) History of cervical cancer: Status: Acute Code(s): Z85.41 - Personal history of malignant neoplasm of cervix uteri Plan Elderly female with a long history of schizophrenia with several ancillary services provided by [facility] [place]NOTE 2] and connected with [facility] ACSS program. Plan 1. Gather collateral information. 2. Continue with psychotropics. 3. Invega Sustenna 234 mg IM today and another 234 in 5 days. 4. Observe behavior and try to medicated aggressively whenever she becomes a ggressive with Thorazine 100 mg, Benadryl 100 mg and Versed 4 mg, there is no Ativan IM at this moment. I spent __20____ minutes with the patient and/or on the patient floor today, greater than?50% of which was spent counseling/coordinating care. Reason for contiued inpatient stay Substantial Risk for: harm to others, inability to function, rapid decompensation and med/psych decompensation
[2022-01-11 18:00] VITALS: BP 111/56; PULSE 102; RESP 14; O2SAT 97
[2022-01-12 07:30] VITALS: BP 132/78; PULSE 99; RESP 16; TEMP 36.3; O2SAT 95
[2022-01-12] MEDS: chlorproMAZINE HCl 25 MG TABLET 50 MG PO (08:09)
--- NOTE | 2022-01-12 13:51 | P.PNPSI_ITS ---
Subjective Subjective Date of Service: 01/12/22 Reason For Visit: Pychosis Agitation Subjective Notes: Section 7 and Section 8 Interim History: The nursing staff reported the patient has taking medications in the morning. She remains delusional, hostile. Later in the morning she was disrespectful and intrusive I ordered p.o. medications that she refused but later she de-escaleted by herself no need of IM at this moment. Mental Status Exam Mental Status Exam Patient Appearance: Well Grooomed Patient Orientation: Person and Situation Level of Consciousness: Awake Patient Behavior: Belligerent Mood Description: Hostile and Angry Affect Description: Labile Patient Cognition Impaired: Yes Ability to Follow Directions: Good Speech Pattern: Clear, Rapid and Loud Hallucinations: Auditory Delusions: Paranoid Ideation Thought Process: Distracted Thought Content: positive for [place] Judgement: Poor Diagnostics Vital Signs (24Hr): Vital Signs - 24 hr 01/11/22 18:00 01/12/22 07:30 Temperature 97.4 F Pulse Rate 102 H 99 Respiratory Rate 14 16 Blood Pressure 111/56 L 132/78 Pulse Oximetry 97 95 Oxygen Delivery Method Room Air Room Air BMI result Body Mass Index 17.4 Labs Results: 12/30/21 14:06 12/30/21 14:06 Medications Medications Current Medications Acetaminophen (Acetaminophen 325 Mg Tablet) 650 mg PO Q6H PRN PRN Reason: Headache/Pain Mild Scale (1-3) Al Hydroxide/Mg Hydroxide (Magnesium Hydrox/Alum Hydrox 30 Ml Oral.Susp) 30 ml PO Q6H PRN PRN Reason: Heartburn/Nausea Chlorpromazine HCl (Chlorpromazine Hcl 25 Mg Tablet) 50 mg PO TID [facility] Last Admin: 01/12/22 08:09 Dose: 50 mg Docusate Sodium (Docusate Sodium 100 Mg Capsule) 100 mg PO BID [facility] Last Admin: 01/12/22 08:11 Dose: Not Given Hydroxyzine HCl (Hydroxyzine Hcl 25 Mg Tablet) 25 mg PO Q6H PRN PRN Reason: Anxiety Last Admin: 01/11/22 08:26 Dose: 25 mg Magnesium Hydroxide (Milk Of Magnesia 30 Ml Oral.Susp) 30 ml PO DAILY PRN PRN Reason: Constipation Olanzapine (Olanzapine Odt 10 Mg Tab.Rapdis) 5 mg TRANSLINGU Q6H PRN PRN Reason: agitation, psychosis Last Admin: 01/11/22 08:24 Dose: 5 mg Olanzapine (Olanzapine Odt 10 Mg Tab.Rapdis) 5 mg TRANSLINGU BEDTIME REJI Last Admin: 01/11/22 23:26 Dose: Not Given Pharmacy Consult (Consult Rx Perform Med Rec) 1 each MISCELLANE ONCE PRN PRN Reason: Consult order Trazodone HCl (Trazodone Hcl 50 Mg Tablet) 50 mg PO BEDTIME PRN PRN Reason: Insomnia Last Admin: 01/08/22 20:46 Dose: 50 mg Allergies Allergies Allergy/AdvReac Type Severity Reaction Status Date / Time benztropine [From COGENTIN] Allergy Unknown STOMACHPAIN Verified 09/29/21 16:15 /SWELLING haloperidol [From HALDOL] Allergy Unknown STOMACH Verified 09/29/21 16:15 PAIN SWELLING Assessment & Plan Assessment & Plan (1) Schizophrenia, chronic condition: Status: Acute Code(s): F20.9 - Schizophrenia, unspecified (2) Benign essential hypertension: Status: Acute Code(s): I10 - Essential (primary) hypertension (3) Chronic kidney disease (CKD): Qualifiers: Chronic kidney disease stage: stage 3 (moderate) Chronic kidney disease stage 3 subtype: stage 3b (GFR 30-44) Qualified Code(s): N18.32 - Chronic kidney disease, stage 3b Status: Acute Code(s): N18.9 - Chronic kidney disease, unspecified (4) History of cervical cancer: Status: Acute Code(s): Z85.41 - Personal history of malignant neoplasm of cervix uteri Plan Elderly female with a long history of schizophrenia with several ancillary services provided by [facility] and connected with [facility] ACSS program. Plan 1. Gather collateral information. 2. Continue with psychotropics. 3. Invega Sustenna 234 mg IM today and another 234 tomorrow. 4. Observe behavior and try to medicated aggressively whenever she becomes aggressive with Thorazine 100 mg, Benadryl 100 mg and Versed 4 mg, there is no Ativan IM at this moment. I spent ___20___ minutes with the patient and/or on the patient floor today, greater than?50% of which was spent counseling/coordinating care. Reason for contiued inpatient stay Substantial Risk for: inability to function, rapid decompensation and med/psych decompensation
[2022-01-13] MEDS: Docusate Sodium 100 MG CAPSULE PO ×2 (06:33→20:07)
[2022-01-13] MEDS: OLANZapine ODT 10 MG TAB.RAPDIS 5 MG TRANSLINGU ×2 (06:34→20:07)
[2022-01-13] MEDS: chlorproMAZINE HCl 25 MG TABLET 50 MG PO ×3 (09:04→20:07)
[2022-01-13] MEDS: Paliperidone Palmitate 234 MG/1.5 ML SYRINGE IM (10:09)
--- NOTE | 2022-01-13 11:55 | HO.PSYCHPN ---
Subjective Subjective Date of Service: 01/13/22 Reason For Visit: Pychosis Agitation Subjective Notes: Conditional Voluntary Interim History: The nursing staff reported that yesterday the patient was yelling to another peer for wearing a black hat. She has not slept last night but she has been able to take care of herself in his basic ADL less. Today in the morning she was loud but able to calm herself down. She took medications inconsistently. Mental Status Exam Mental Status Exam Patient Appearance: Appropriate Patient Orientation: Person and Situation Level of Consciousness: Awake Patient Behavior: Cooperative Mood Description: Withdrawn Affect Description: Constricted Patient Cognition Impaired: Yes Ability to Follow Directions: Good Speech Pattern: Clear Hallucinations: Auditory Delusions: Paranoid Ideation Thought Process: Distracted and Goal Oriented Thought Content: positive for [place] and positive for Poverty of Content Judgement: Fair Diagnostics Vital Signs (24Hr): Vital Signs - 24 hr 01/12/22 18:00 Oxygen Delivery Method Room Air BMI result Body Mass Index 17.4 Labs Results: 12/30/21 14:06 12/30/21 14:06 Medications Medications Current Medications Acetaminophen (Acetaminophen 325 Mg Tablet) 650 mg PO Q6H PRN PRN Reason: Headache/Pain Mild Scale (1-3) Al Hydroxide/Mg Hydroxide (Magnesium Hydrox/Alum Hydrox 30 Ml Oral.Susp) 30 ml PO Q6H PRN PRN Reason: Heartburn/Nausea Chlorpromazine HCl (Chlorpromazine Hcl 25 Mg Tablet) 50 mg PO TID [facility] Last Admin: 01/13/22 09:04 Dose: 50 mg Docusate Sodium (Docusate Sodium 100 Mg Capsule) 100 mg PO BID [facility] Last Admin: 01/13/22 06:33 Dose: 100 mg Hydroxyzine HCl (Hydroxyzine Hcl 25 Mg Tablet) 25 mg PO Q6H PRN PRN Reason: Anxiety Last Admin: 01/11/22 08:26 Dose: 25 mg Magnesium Hydroxide (Milk Of Magnesia 30 Ml Oral.Susp) 30 ml PO DAILY PRN PRN Reason: Constipation Olanzapine (Olanzapine Odt 10 Mg Tab.Rapdis) 5 mg TRANSLINGU Q6H PRN PRN Reason: agitation, psychosis Last Admin: 01/13/22 06:34 Dose: 5 mg Olanzapine (Olanzapine Odt 10 Mg Tab.Rapdis) 5 mg TRANSLINGU BEDTIME [facility] Last Admin: 01/13/22 00:24 Dose: Not Given Paliperidone Palmitate (Paliperidone Palmitate 234 Mg/1.5 Ml Syringe) 234 mg IM Q30D REJI Last Admin: 01/13/22 10:09 Dose: 234 mg Pharmacy Consult (Consult Rx Perform Med Rec) 1 each MISCELLANE ONCE PRN PRN Reason: Consult order Trazodone HCl (Trazodone Hcl 50 Mg Tablet) 50 mg PO BEDTIME PRN PRN Reason: Insomnia Last Admin: 01/08/22 20:46 Dose: 50 mg Allergies Allergies Allergy/AdvReac Type Severity Reaction Status Date / Time benztropine [From COGENTIN] Allergy Unknown STOMACHPAIN Verified 09/29/21 16:15 /SWELLING haloperidol [From HALDOL] Allergy Unknown STOMACH Verified 09/29/21 16:15 PAIN SWELLING Assessment & Plan Assessment & Plan (1) Schizophrenia, chronic condition: Status: Acute Code(s): F20.9 - Schizophrenia, unspecified (2) Benign essential hypertension: Status: Acute Code(s): I10 - Essential (primary) hypertension (3) Chronic kidney disease (CKD): Qualifiers: Chronic kidney disease stage: stage 3 (moderate) Chronic kidney disease stage 3 subtype: stage 3b (GFR 30-44) Qualified Code(s): N18.32 - Chronic kidney disease, stage 3b Status: Acute Code(s): N18.9 - Chronic kidney disease, unspecified (4) History of cervical cancer: Status: Acute Code(s): Z85.41 - Personal history of malignant neoplasm of cervix uteri Plan Elderly female with a long history of schizophrenia with several ancillary services provided by [facility] and connected with [facility] ACSS program. Plan 1. Gather collateral information. 2. Continue with psychotropics. 3. Invega Sustenna 234 mg IM today and another 234 tomorrow. 4. Observe behavior and try to medicated aggressively whenever she becomes aggressive with Thorazine 100 mg, Benadryl 100 mg and Versed 4 mg, there is no Ativan IM at this moment. I spent __20____ minutes with the patient and/or on the patient floor today, greater than?50% of which was spent counseling/coordinating care. Reason for contiued inpatient stay Substantial Risk for: inability to function, rapid decompensation and med/psych decompensation
[2022-01-13 18:00] VITALS: BP 135/69; PULSE 101; TEMP 37.5; O2SAT 95
[2022-01-14 06:00] VITALS: BP 124/83; PULSE 100; RESP 18; TEMP 36.4; O2SAT 98
[2022-01-14 06:40] VITALS: BMI 17.3
[2022-01-14] MEDS: Docusate Sodium 100 MG CAPSULE PO (09:41)
--- NOTE | 2022-01-14 10:56 | HO.PSYCHPN ---
Subjective Subjective Date of Service: 01/14/22 Reason For Visit: Pychosis Agitation Subjective Notes: Conditional Voluntary Interim History: The patient remains verbally abusive, paranoid and difficult to manage. She yesterday she had her 2nd dose of Invega Sustenna 234 to target psychosis as per Section 7 and 8. On interview the patient was irritable. Mental Status Exam Mental Status Exam Patient Appearance: Appropriate Patient Orientation: Person, Place and Situation Level of Consciousness: Awake Patient Behavior: Guarded and Cooperative Mood Description: Hostile Affect Description: Constricted Patient Cognition Impaired: Yes Ability to Follow Directions: Good Speech Pattern: Clear Hallucinations: Auditory Delusions: Paranoid Ideation and Grandiose Thought Process: Distracted and Evasive Thought Content: positive for [place] Judgement: Fair Diagnostics Vital Signs (24Hr): Vital Signs - 24 hr 01/13/22 18:00 Temperature 99.5 F Pulse Rate 101 H Blood Pressure 135/69 Pulse Oximetry 95 Oxygen Delivery Method Room Air BMI result Body Mass Index 17.3 Labs Results: 12/30/21 14:06 12/30/21 14:06 Medications Medications Current Medications Acetaminophen (Acetaminophen 325 Mg Tablet) 650 mg PO Q6H PRN PRN Reason: Headache/Pain Mild Scale (1-3) Al Hydroxide/Mg Hydroxide (Magnesium Hydrox/Alum Hydrox 30 Ml Oral.Susp) 30 ml PO Q6H PRN PRN Reason: Heartburn/Nausea Chlorpromazine HCl (Chlorpromazine Hcl 25 Mg Tablet) 50 mg PO TID [facility] Last Admin: 01/14/22 09:41 Dose: Not Given Docusate Sodium (Docusate Sodium 100 Mg Capsule) 100 mg PO BID [facility] Last Admin: 01/14/22 09:41 Dose: 100 mg Hydroxyzine HCl (Hydroxyzine Hcl 25 Mg Tablet) 25 mg PO Q6H PRN PRN Reason: Anxiety Last Admin: 01/11/22 08:26 Dose: 25 mg Magnesium Hydroxide (Milk Of Magnesia 30 Ml Oral.Susp) 30 ml PO DAILY PRN PRN Reason: Constipation Olanzapine (Olanzapine Odt 10 Mg Tab.Rapdis) 5 mg TRANSLINGU Q6H PRN PRN Reason: agitation, psychosis Last Admin: 01/13/22 06:34 Dose: 5 mg Olanzapine (Olanzapine Odt 10 Mg Tab.Rapdis) 5 mg TRANSLINGU BEDTIME [facility] Last Admin: 01/13/22 20:07 Dose: 5 mg Paliperidone Palmitate (Paliperidone Palmitate 234 Mg/1.5 Ml Syringe) 234 mg IM Q30D [facility]JI Last Admin: 01/13/22 10:09 Dose: 234 mg Pharmacy Consult (Consult Rx Perform Med Rec) 1 each MISCELLANE ONCE PRN PRN Reason: Consult order Trazodone HCl (Trazodone Hcl 50 Mg Tablet) 50 mg PO BEDTIME PRN PRN Reason: Insomnia Last Admin: 01/08/22 20:46 Dose: 50 mg Allergies Allergies Allergy/AdvReac Type Severity Reaction Status Date / Time benztropine [From COGENTIN] Allergy Unknown STOMACHPAIN Verified 09/29/21 16:15 /SWELLING haloperidol [From HALDOL] Allergy Unknown STOMACH Verified 09/29/21 16:15 PAIN SWELLING Assessment & Plan Assessment & Plan (1) Schizophrenia, chronic condition: Status: Acute Code(s): F20.9 - Schizophrenia, unspecified (2) Benign essential hypertension: Status: Acute Code(s): I10 - Essential (primary) hypertension (3) Chronic kidney disease (CKD): Qualifiers: Chronic kidney disease stage: stage 3 (moderate) Chronic kidney disease stage 3 subtype: stage 3b (GFR 30-44) Qualified Code(s): N18.32 - Chronic kidney disease, stage 3b Status: Acute Code(s): N18.9 - Chronic kidney disease, unspecified (4) History of cervical cancer: Status: Acute Code(s): Z85.41 - Personal history of malignant neoplasm of cervix uteri Plan Elderly female with a long history of schizophrenia with several ancillary services provided by [facility] and connected with [facility] ACSS program. Plan 1. Gather collateral information. 2. Continue with psychotropics. 3. Invega Sustenna 234 mg IM today and another 234 tomorrow. 4. Observe behavior and try to medicated aggressively whenever she becomes aggressive with Thorazine 100 mg, Benadryl 100 mg and Versed 4 mg, there is no Ativan IM at this moment. I spent ___20___ minutes with the patient and/or on the patient floor today, greater than?50% of which was spent counseling/coordinating care. Reason for contiued inpatient stay Substantial Risk for: harm to others, inability to function, rapid decompensation and med/psych decompensation
[2022-01-15] MEDS: Docusate Sodium 100 MG CAPSULE PO (08:01)
[2022-01-15 08:13] VITALS: BP 121/64; PULSE 103; RESP 16; TEMP 36.6; O2SAT 96
[2022-01-15] MEDS: chlorproMAZINE HCl 25 MG TABLET 50 MG PO ×2 (10:17→14:33)
--- NOTE | 2022-01-15 12:18 | HO.PSYCHPN ---
Subjective Subjective Date of Service: 01/15/22 Reason For Visit: Pychosis Agitation Subjective Notes: Section 7 and Section 8 Interim History: The nursing staff reported the patient has been yelling at staff, she has provocative and angry at times she has refused medications and she is very and unconsistent with her Thorazine p.o. she has already received 2 doses of Invega Sustenna last dose last Tuesday. On interview she remains angry, provocative and still psychotic. Mental Status Exam Mental Status Exam Patient Appearance: Appropriate Patient Orientation: Person and Situation Level of Consciousness: Inappropriate and Combative Patient Behavior: Aggressive and Restless Mood Description: Hostile Affect Description: Labile Patient Cognition Impaired: Yes Ability to Follow Directions: Good Speech Pattern: Clear Hallucinations: Auditory Delusions: Paranoid Ideation and Ideas of Reference Thought Process: Illogical and Distracted Thought Content: positive for [place] and positive for Loose Associations Judgement: Fair Diagnostics Vital Signs (24Hr): Vital Signs - 24 hr 01/14/22 18:00 01/15/22 08:13 Temperature 97.8 F Pulse Rate 103 H Respiratory Rate 16 Blood Pressure 121/64 Pulse Oximetry 96 Oxygen Delivery Method Room Air Room Air BMI result Body Mass Index 17.3 Labs Results: 12/30/21 14:06 12/30/21 14:06 Medications Medications Current Medications Acetaminophen (Acetaminophen 325 Mg Tablet) 650 mg PO Q6H PRN PRN Reason: Headache/Pain Mild Scale (1-3) Al Hydroxide/Mg Hydroxide (Magnesium Hydrox/Alum Hydrox 30 Ml Oral.Susp) 30 ml PO Q6H PRN PRN Reason: Heartburn/Nausea Chlorpromazine HCl (Chlorpromazine Hcl 25 Mg Tablet) 50 mg PO TID [facility] Last Admin: 01/15/22 10:17 Dose: 50 mg Docusate Sodium (Docusate Sodium 100 Mg Capsule) 100 mg PO BID [facility] Last Admin: 01/15/22 08:01 Dose: 100 mg Hydroxyzine HCl (Hydroxyzine Hcl 25 Mg Tablet) 25 mg PO Q6H PRN PRN Reason: Anxiety Last Admin: 01/11/22 08:26 Dose: 25 mg Magnesium Hydroxide (Milk Of Magnesia 30 Ml Oral.Susp) 30 ml PO DAILY PRN PRN Reason: Constipation Olanzapine (Olanzapine Odt 10 Mg Tab.Rapdis) 5 mg TRANSLINGU Q6H PRN PRN Reason: agitation, psychosis Last Admin: 01/13/22 06:34 Dose: 5 mg Olanzapine (Olanzapine Odt 10 Mg Tab.Rapdis) 5 mg TRANSLINGU BEDTIME [facility] Last Admin: 01/14/22 22:39 Dose: Not Given Paliperidone Palmitate (Paliperidone Palmitate 234 Mg/1.5 Ml Syringe) 234 mg IM Q30D [facility] Last Admin: 01/13/22 10:09 Dose: 234 mg Pharmacy Consult (Consult Rx Perform Med Rec) 1 each MISCELLANE ONCE PRN PRN Reason: Consult order Trazodone HCl (Trazodone Hcl 50 Mg Tablet) 50 mg PO BEDTIME PRN PRN Reason: Insomnia Last Admin: 01/08/22 20:46 Dose: 50 mg Allergies Allergies Allergy/AdvReac Type Severity Reaction Status Date / Time benztropine [From COGENTIN] Allergy Unknown STOMACHPAIN Verified 09/29/21 16:15 /SWELLING haloperidol [From HALDOL] Allergy Unknown STOMACH Verified 09/29/21 16:15 PAIN SWELLING Assessment & Plan Assessment & Plan (1) Schizophrenia, chronic condition: Status: Acute Code(s): F20.9 - Schizophrenia, unspecified (2) Benign essential hypertension: Status: Acute Code(s): I10 - Essential (primary) hypertension (3) Chronic kidney disease (CKD): Qualifiers: Chronic kidney disease stage: stage 3 (moderate) Chronic kidney disease stage 3 subtype: stage 3b (GFR 30-44) Qualified Code(s): N18.32 - Chronic kidney disease, stage 3b Status: Acute Code(s): N18.9 - Chronic kidney disease, unspecified (4) History of cervical cancer: Status: Acute Code(s): Z85.41 - Personal history of malignant neoplasm of cervix uteri Plan Elderly female with a long history of schizophrenia with several ancillary services provided by [facility] and connected with [facility] ACSS program. Plan 1. Gather collateral information. 2. Continue with psychotropics. 3. Invega Sustenna 234 mg IM today and another 234 tomorrow. 4. Observe behavior and try to medicated aggressively whenever she becomes aggressive with Thorazine 100 mg, Benadryl 100 mg and Versed 4 mg, there is no Ativan IM at this moment. I spent __20____ minutes with the patient and/or on the patient floor today, greater than?50% of which was spent counseling/coordinating care. Reason for contiued inpatient stay Substantial Risk for: inability to function, rapid decompensation and med/psych decompensation
--- NOTE | 2022-01-15 16:24 | MHC.CLN ---
F/U STAFF REPORTS PATIENT WITH VARIABLE INTAKE. NO CHANGES TO NUTRITIONAL INTAKE NOTED. DIET=2 GRAM SODIUM DUE TO DX CKD STAGE 3. HX DISORDERED EATING-RESTRICTING. CONTINUE TO PROVIDE FOOD PREFERENCES ABLE. CONTINUE TO FOLLOW WEIGHT AND INTAKE. RD TO FOLLOW WEEKLY.
[2022-01-16 09:45] VITALS: BP 126/85; PULSE 105; RESP 18; TEMP 36.9; O2SAT 95
[2022-01-16] MEDS: chlorproMAZINE HCl 25 MG TABLET 50 MG PO ×2 (09:45→15:40)
[2022-01-16] MEDS: Docusate Sodium 100 MG CAPSULE PO (13:33)
--- NOTE | 2022-01-16 17:46 | HO.PSYCHPN ---
Subjective Subjective Date of Service: 01/16/22 Reason For Visit: Pychosis Agitation Interim History: The nursing staff reported the patient continues irritable. On approach and when asking how patient is doing she says none of your business! in a hostile manner. She is dismissive and irritable. She is inconsistent with her Thorazine p.o. she has already received 2 doses of Invega Sustenna last dose last Tuesday. On interview she remains angry, provocative and still psychotic. Review of Systems Review of Systems Yes Unobtainable due to mental status and Other (Uncooperative) Mental Status Exam Mental Status Exam Narrative: Alert but not oriented, floridly psychotic. Petite, unkempt/ disheveled, frail, in hospital attire, appears older than stated age. Intense eye contact, inattentive. No Tics or Tremors. No abnormal involuntary movements. Agitated, uncooperative, difficult to engage. Speech is elevated, non-stop self dialoguing, raised vocal volume. No prolonged speech latency or dysarthria. Affect is animated. Denies SI/SIB/HI upon inquiry. Presents with AH, paranoia. Thoughts are disorganized. Insight/ Judgment is poor. Patient Appearance: Appropriate Patient Orientation: Person and Situation Level of Consciousness: Inappropriate and Combative Patient Behavior: Aggressive and Restless Mood Description: Hostile Affect Description: Labile Patient Cognition Impaired: Yes Ability to Follow Directions: Good Speech Pattern: Clear Diagnostics Vital Signs (24Hr): Vital Signs - 24 hr 01/16/22 09:45 Temperature 98.4 F Pulse Rate 105 H Respiratory Rate 18 Blood Pressure 126/85 Pulse Oximetry 95 Oxygen Delivery Method Room Air BMI result Body Mass Index 17.3 Labs Results: 12/30/21 14:06 12/30/21 14:06 Medications Medications Current Medications Acetaminophen (Acetaminophen 325 Mg Tablet) 650 mg PO Q6H PRN PRN Reason: Headache/Pain Mild Scale (1-3) Al Hydroxide/Mg Hydroxide (Magnesium Hydrox/Alum Hydrox 30 Ml Oral.Susp) 30 ml PO Q6H PRN PRN Reason: Heartburn/Nausea Chlorpromazine HCl (Chlorpromazine Hcl 25 Mg Tablet) 50 mg PO TID [facility] Last Admin: 01/16/22 15:40 Dose: 50 mg Docusate Sodium (Docusate Sodium 100 Mg Capsule) 100 mg PO BID [facility] Last Admin: 01/16/22 13:33 Dose: 100 mg Hydroxyzine HCl (Hydroxyzine Hcl 25 Mg Tablet) 25 mg PO Q6H PRN PRN Reason: Anxiety Last Admin: 01/11/22 08:26 Dose: 25 mg Magnesium Hydroxide (Milk Of Magnesia 30 Ml Oral.Susp) 30 ml PO DAILY PRN PRN Reason: Constipation Olanzapine (Olanzapine Odt 10 Mg Tab.Rapdis) 5 mg TRANSLINGU Q6H PRN PRN Reason: agitation, psychosis Last Admin: 01/13/22 06:34 Dose: 5 mg Olanzapine (Olanzapine Odt 10 Mg Tab.Rapdis) 5 mg TRANSLINGU BEDTIME [facility] Last Admin: 01/16/22 02:09 Dose: Not Given Paliperidone Palmitate (Paliperidone Palmitate 234 Mg/1.5 Ml Syringe) 234 mg IM Q30D [facility] Last Admin: 01/13/22 10:09 Dose: 234 mg Pharmacy Consult (Consult Rx Perform Med Rec) 1 each MISCELLANE ONCE PRN PRN Reason: Consult order Trazodone HCl (Trazodone Hcl 50 Mg Tablet) 50 mg PO BEDTIME PRN PRN Reason: Insomnia Last Admin: 01/08/22 20:46 Dose: 50 mg Allergies Allergies Allergy/AdvReac Type Severity Reaction Status Date / Time benztropine [From COGENTIN] Allergy Unknown STOMACHPAIN Verified 09/29/21 16:15 /SWELLING haloperidol [From HALDOL] Allergy Unknown STOMACH Verified 09/29/21 16:15 PAIN SWELLING Assessment & Plan Assessment & Plan (1) Schizophrenia, chronic condition: Status: Acute Code(s): F20.9 - Schizophrenia, unspecified (2) Benign essential hypertension: Status: Acute Code(s): I10 - Essential (primary) hypertension (3) Chronic kidney disease (CKD): Qualifiers: Chronic kidney disease stage: stage 3 (moderate) Chronic kidney disease stage 3 subtype: stage 3b (GFR 30-44) Qualified Code(s): N18.32 - Chronic kidney disease, stage 3b Status: Acute Code(s): N18.9 - Chronic kidney disease, unspecified (4) History of cervical cancer: Status: Acute Code(s): Z85.41 - Personal history of malignant neoplasm of cervix uteri Plan Elderly female with a long history of schizophrenia with several ancillary services provided by [facility] and connected with [facility] ACSS program. Plan 1. Gather collateral information. 2. Continue with psychotropics. 3. Invega Sustenna 234 mg IM today and another 234 tomorrow. 4. Observe behavior and try to medicated aggressively whenever she becomes aggressive with Thorazine 100 mg, Benadryl 100 mg and Versed 4 mg, there is no Ativan IM at this moment. 01/16: Continue current treatment plan. I spent minutes with the patient and/or on the patient floor today, greater than?50% of which was spent counseling/coordinating care. Reason for contiued inpatient stay Substantial Risk for: harm to others, inability to function and rapid decompensation
[2022-01-16 18:00] VITALS: RESP 16
[2022-01-17] MEDS: Docusate Sodium 100 MG CAPSULE PO ×2 (08:34→19:45)
--- NOTE | 2022-01-17 14:34 | P.PNPSI_ITS ---
Subjective Subjective Date of Service: 01/17/22 Reason For Visit: Pychosis Agitation Interim History: Patient loudly asks if this proposal writer is the doctor upon coming on the unit and says I don't need medications for mind control. I need medications for my heart. This is why we're going to the pretrial! Patient continues irritable and angry. She is paranoid and hostile. She is inconsistent with her Thorazine p.o. she has already received 2 doses of Invega Sustenna last dose last Tuesday. On interview she remains angry, provocative and still psychotic. Review of Systems Review of Systems Yes Unobtainable due to mental status and Other (Uncooperative) Mental Status Exam Mental Status Exam Narrative: Alert but not oriented, floridly psychotic. Petite, unkempt/ disheveled, frail, in hospital attire, appears older than stated age. Intense eye contact, inattentive. No Tics or Tremors. No abnormal involuntary movements. Agitated, u ncooperative, difficult to engage. Speech is elevated, non-stop self dialoguing, raised vocal volume. No prolonged speech latency or dysarthria. Affect is animated. Denies SI/SIB/HI upon inquiry. Presents with AH, paranoia. Thoughts are disorganized. Insight/ Judgment is poor. Patient Appearance: Appropriate Patient Orientation: Person and Situation Level of Consciousness: Inappropriate and Combative Patient Behavior: Aggressive and Restless Mood Description: Hostile Affect Description: Labile Patient Cognition Impaired: Yes Ability to Follow Directions: Good Speech Pattern: Clear Diagnostics Vital Signs (24Hr): Vital Signs - 24 hr 01/16/22 18:00 Respiratory Rate 16 BMI result Body Mass Index 17.3 Labs Results: 12/30/21 14:06 12/30/21 14:06 Medications Medications Current Medications Acetaminophen (Acetaminophen 325 Mg Tablet) 650 mg PO Q6H PRN PRN Reason: Headache/Pain Mild Scale (1-3) Al Hydroxide/Mg Hydroxide (Magnesium Hydrox/Alum Hydrox 30 Ml Oral.Susp) 30 ml PO Q6H PRN PRN Reason: Heartburn/Nausea Chlorpromazine HCl (Chlorpromazine Hcl 25 Mg Tablet) 50 mg PO TID [facility] Last Admin: 01/17/22 08:34 Dose: Not Given Docusate Sodium (Docusate Sodium 100 Mg Capsule) 100 mg PO BID [facility] Last Admin: 01/17/22 08:34 Dose: 100 mg Hydroxyzine HCl (Hydroxyzine Hcl 25 Mg Tablet) 25 mg PO Q6H PRN PRN Reason: Anxiety Last Admin: 01/11/22 08:26 Dose: 25 mg Magnesium Hydroxide (Milk Of Magnesia 30 Ml Oral.Susp) 30 ml PO DAILY PRN PRN Reason: Constipation Olanzapine (Olanzapine Odt 10 Mg Tab.Rapdis) 5 mg TRANSLINGU Q6H PRN PRN Reason: agitation, psychosis Last Admin: 01/13/22 06:34 Dose: 5 mg Olanzapine (Olanzapine Odt 10 Mg Tab.Rapdis) 5 mg TRANSLINGU BEDTIME [facility] Last Admin: 01/16/22 23:39 Dose: Not Given Paliperidone Palmitate (Paliperidone Palmitate 234 Mg/1.5 Ml Syringe) 234 mg IM Q30D [facility] Last Admin: 01/13/22 10:09 Dose: 234 mg Pharmacy Consult (Consult Rx Perform Med Rec) 1 each MISCELLANE ONCE PRN PRN Reason: Consult order Trazodone HCl (Trazodone Hcl 50 Mg Tablet) 50 mg PO BEDTIME PRN PRN Reason: Insomnia Last Admin: 01/08/22 20:46 Dose: 50 mg Allergies Allergies Allergy/AdvReac Type Severity Reaction Status Date / Time benztropine [From COGENTIN] Allergy Unknown STOMACHPAIN Verified 09/29/21 16:15 /SWELLING haloperidol [From HALDOL] Allergy Unknown STOMACH Verified 09/29/21 16:15 PAIN SWELLING Assessment & Plan Assessment & Plan (1) Schizophrenia, chronic condition: Status: Acute Code(s): F20.9 - Schizophrenia, unspecified (2) Benign essential hypertension: Status: Acute Code(s): I10 - Essential (primary) hypertension (3) Chronic kidney disease (CKD): Qualifiers: Chronic kidney disease stage: stage 3 (moderate) Chronic kidney disease stage 3 subtype: stage 3b (GFR 30-44) Qualified Code(s): N18.32 - Chronic kidney disease, stage 3b Status: Acute Code(s): N18.9 - Chronic kidney disease, unspecified (4) History of cervical cancer: Status: Acute Code(s): Z85.41 - Personal history of malignant neoplasm of cervix uteri Plan Elderly female with a long history of schizophrenia with several ancillary services provided by [facility] and connected with [facility] ACSS program. Plan 1. Gather collateral information. 2. Continue with psychotropics. 3. Invega Sustenna 234 mg IM today and another 234 tomorrow. 4. Observe behavior and try to medicated aggressively whenever she becomes aggressive with Thorazine 100 mg, Benadryl 100 mg and Versed 4 mg, there is no Ativan IM at this moment. 01/16: Continue current treatment plan. 01/17: Continue treatment plan. I spent minutes with the patient and/or on the patient floor today, greater than?50% of which was spent counseling/coordinating care. Reason for contiued inpatient stay Substantial Risk for: inability to function and rapid decompensation
[2022-01-17 19:21] VITALS: BP 130/61; PULSE 89; RESP 18; O2SAT 97
[2022-01-18 06:00] VITALS: BP 127/85; PULSE 96; RESP 18; TEMP 36.6; O2SAT 97
[2022-01-18] MEDS: chlorproMAZINE HCl 25 MG TABLET 50 MG PO ×3 (09:36→21:58)
[2022-01-18] MEDS: Docusate Sodium 100 MG CAPSULE PO ×2 (10:08→21:58)
--- NOTE | 2022-01-18 13:28 | P.PNPSI_ITS ---
Subjective Subjective Date of Service: 01/18/22 Reason For Visit: Pychosis Agitation Subjective Notes: Conditional Voluntary Interim History: The nursing staff reported the patient has been his out over the weekend, delusional confrontational at times but less violent. On Tuesday they tried to get that shower with encouragement. On interview the patient reports that she does not want to take medications and she needed to be redirected on boundaries. I explained her that I can not stop her Thorazine if she wants. According to the staff they have noticed some drooling. Mental Status Exam Mental Status Exam Patient Appearance: Disheveled Patient Orientation: Person and Situation Level of Consciousness: Awake Patient Behavior: Cooperative Mood Description: Withdrawn Affect Description: Blunted Patient Cognition Impaired: Yes Ability to Follow Directions: Fair Speech Pattern: Clear Hallucinations: None Delusions: Paranoid Ideation Thought Process: Distracted Thought Content: positive for [place] and positive for Loose Associations Judgement: Poor Diagnostics Vital Signs (24Hr): Vital Signs - 24 hr 01/17/22 19:21 01/18/22 06:00 Temperature 97.9 F Pulse Rate 89 96 Respiratory Rate 18 18 Blood Pressure 130/61 127/85 Pulse Oximetry 97 97 Oxygen Delivery Method Room Air Room Air BMI result Body Mass Index 17.3 Labs Results: 12/30/21 14:06 12/30/21 14:06 Medications Medications Current Medications Acetaminophen (Acetaminophen 325 Mg Tablet) 650 mg PO Q6H PRN PRN Reason: Headache/Pain Mild Scale (1-3) Al Hydroxide/Mg Hydroxide (Magnesium Hydrox/Alum Hydrox 30 Ml Oral.Susp) 30 ml PO Q6H PRN PRN Reason: Heartburn/Nausea Chlorpromazine HCl (Chlorpromazine Hcl 25 Mg Tablet) 50 mg PO TID [facility] Last Admin: 01/18/22 09:36 Dose: 50 mg Docusate Sodium (Docusate Sodium 100 Mg Capsule) 100 mg PO BID [facility] Last Admin: 01/18/22 10:08 Dose: 100 mg Hydroxyzine HCl (Hydroxyzine Hcl 25 Mg Tablet) 25 mg PO Q6H PRN PRN Reason: Anxiety Last Admin: 01/11/22 08:26 Dose: 25 mg Magnesium Hydroxide (Milk Of Magnesia 30 Ml Oral.Susp) 30 ml PO DAILY PRN PRN Reason: Constipation Olanzapine (Olanzapine Odt 10 Mg Tab.Rapdis) 5 mg TRANSLINGU Q6H PRN PRN Reason: agitation, psychosis Last Admin: 01/13/22 06:34 Dose: 5 mg Olanzapine (Olanzapine Odt 10 Mg Tab.Rapdis) 5 mg TRANSLINGU BEDTIME [facility] Last Admin: 01/17/22 19:47 Dose: Not Given Paliperidone Palmitate (Paliperidone Palmitate 234 Mg/1.5 Ml Syringe) 234 mg IM Q30D [facility] Last Admin: 01/13/22 10:09 Dose: 234 mg Pharmacy Consult (Consult Rx Perform Med Rec) 1 each MISCELLANE ONCE PRN PRN Reason: Consult order Trazodone HCl (Trazodone Hcl 50 Mg Tablet) 50 mg PO BEDTIME PRN PRN Reason: Insomnia Last Admin: 01/08/22 20:46 Dose: 50 mg Allergies Allergies Allergy/AdvReac Type Severity Reaction Status Date / Time benztropine [From COGENTIN] Allergy Unknown STOMACHPAIN Verified 09/29/21 16:15 /SWELLING haloperidol [From HALDOL] Allergy Unknown STOMACH Verified 09/29/21 16:15 PAIN SWELLING Assessment & Plan Assessment & Plan (1) Schizophrenia, chronic condition: Status: Acute Code(s): F20.9 - Schizophrenia, unspecified (2) Benign essential hypertension: Status: Acute Code(s): I10 - Essential (primary) hypertension (3) Chronic kidney disease (CKD): Qualifiers: Chronic kidney disease stage: stage 3 (moderate) Chronic kidney disease stage 3 subtype: stage 3b (GFR 30-44) Qualified Code(s): N18.32 - Chronic kidney disease, stage 3b Status: Acute Code(s): N18.9 - Chronic kidney disease, unspecified (4) History of cervical cancer: Status: Acute Code(s): Z85.41 - Personal history of malignant neoplasm of cervix uteri Plan Elderly female with a long history of schizophrenia with several ancillary services provided by [facility] and connected with [facility] ACSS program. Plan 1. Gather collateral information. 2. Discontinue Thorazine due to EPS 3. Invega Sustenna 234 mg IM today and another 234 tomorrow. 4. Observe behavior and try to medicated aggressively whenever she becomes aggressive with Thorazine 100 mg, Benadryl 100 mg and Versed 4 mg, there is no Ativan IM at this moment. I spent __20____ minutes with the patient and/or on the patient floor today, greater than?50% of which was spent counseling/coordinating care. Reason for contiued inpatient stay Substantial Risk for: inability to function, rapid decompensation and med/psych decompensation
[2022-01-18 18:00] VITALS: BP 104/57; PULSE 81; TEMP 36.6; O2SAT 96
[2022-01-18] MEDS: OLANZapine ODT 10 MG TAB.RAPDIS 5 MG TRANSLINGU (21:58)
[2022-01-19 06:00] VITALS: BP 133/83; PULSE 108; RESP 18; TEMP 36.7; O2SAT 95
[2022-01-19] MEDS: Docusate Sodium 100 MG CAPSULE PO (07:38)
[2022-01-19] MEDS: chlorproMAZINE HCl 25 MG TABLET 50 MG PO (07:38)
--- NOTE | 2022-01-19 11:11 | P.PNPSI_ITS ---
Subjective Subjective Date of Service: 01/19/22 Reason For Visit: Pychosis Agitation Subjective Notes: Section 7 and Section 8 Interim History: The nursing staff reported the patient slept well. Had been medication compliant but still with verbal outburst and angry at times. Today in the morning she was more pleasant and cooperative she looks slightly sedated with some EPS so I tell her to stop the Thorazine. No new symptoms Mental Status Exam Mental Status Exam Patient Appearance: Well Grooomed Patient Orientation: Person and Situation Level of Consciousness: Awake and Alert Patient Behavior: Guarded and Suspicious Mood Description: Withdrawn Affect Description: Constricted Patient Cognition Impaired: Yes Ability to Follow Directions: Good Speech Pattern: Clear Hallucinations: None Delusions: Not Present Thought Process: Distracted Thought Content: positive for [place] and positive for Poverty of Content Judgement: Fair Diagnostics Vital Signs (24Hr): Vital Signs - 24 hr 01/18/22 18:00 01/19/22 06:00 Temperature 97.8 F 98.1 F Pulse Rate 81 108 H Respiratory Rate 18 Blood Pressure 104/57 L 133/83 Pulse Oximetry 96 95 Oxygen Delivery Method Room Air BMI result Body Mass Index 17.3 Labs Results: 12/30/21 14:06 12/30/21 14:06 Medications Medications Current Medications Acetaminophen (Acetaminophen 325 Mg Tablet) 650 mg PO Q6H PRN PRN Reason: Headache/Pain Mild Scale (1-3) Al Hydroxide/Mg Hydroxide (Magnesium Hydrox/Alum Hydrox 30 Ml Oral.Susp) 30 ml PO Q6H PRN PRN Reason: Heartburn/Nausea Docusate Sodium (Docusate Sodium 100 Mg Capsule) 100 mg PO BID [facility] Last Admin: 01/19/22 07:38 Dose: 100 mg Hydroxyzine HCl (Hydroxyzine Hcl 25 Mg Tablet) 25 mg PO Q6H PRN PRN Reason: Anxiety Last Admin: 01/11/22 08:26 Dose: 25 mg Magnesium Hydroxide (Milk Of Magnesia 30 Ml Oral.Susp) 30 ml PO DAILY PRN PRN Reason: Constipation Olanzapine (Olanzapine Odt 10 Mg Tab.Rapdis) 5 mg TRANSLINGU Q6H PRN PRN Reason: agitation, psychosis Last Admin: 01/13/22 06:34 Dose: 5 mg Olanzapine (Olanzapine Odt 10 Mg Tab.Rapdis) 5 mg TRANSLINGU BEDTIME [facility] Last Admin: 08/08/22 21:58 Dose: 5 mg Paliperidone Palmitate (Paliperidone Palmitate 234 Mg/1.5 Ml Syringe) 234 mg IM Q30D [facility] Last Admin: 01/13/22 10:09 Dose: 234 mg Pharmacy Consult (Consult Rx Perform Med Rec) 1 each MISCELLANE ONCE PRN PRN Reason: Consult order Trazodone HCl (Trazodone Hcl 50 Mg Tablet) 50 mg PO BEDTIME PRN PRN Reason: Insomnia Last Admin: 01/08/22 20:46 Dose: 50 mg Allergies Allergies Allergy/AdvReac Type Severity Reaction Status Date / Time benztropine [From COGENTIN] Allergy Unknown STOMACHPAIN Verified 09/29/21 16:15 /SWELLING haloperidol [From HALDOL] Allergy Unknown STOMACH Verified 09/29/21 16:15 PAIN SWELLING Assessment & Plan Assessment & Plan (1) Schizophrenia, chronic condition: Status: Acute Code(s): F20.9 - Schizophrenia, unspecified (2) Benign essential hypertension: Status: Acute Code(s): I10 - Essential (primary) hypertension (3) Chronic kidney disease (CKD): Qualifiers: Chronic kidney disease stage: stage 3 (moderate) Chronic kidney disease stage 3 subtype: stage 3b (GFR 30-44) Qualified Code(s): N18.32 - Chronic kidney disease, stage 3b Status: Acute Code(s): N18.9 - Chronic kidney disease, unspecified (4) History of cervical cancer: Status: Acute Code(s): Z85.41 - Personal history of malignant neoplasm of cervix uteri Plan Elderly female with a long history of schizophrenia with several ancillary services provided by [facility] and connected with [facility] ACSS program. Plan 1. Gather collateral information. 2. Discontinue Thorazine due to EPS 3. Invega Sustenna 234 mg IM once a month. 4. Observe behavior and try to medicated aggressively whenever she becomes aggr essive with Thorazine 100 mg, Benadryl 100 mg and Versed 4 mg, there is no Ativan IM at this moment. 5. Bloodowork for tomorrow. I spent __20____ minutes with the patient and/or on the patient floor today, greater than?50% of which was spent counseling/coordinating care. Reason for contiued inpatient stay Substantial Risk for: inability to function, rapid decompensation and med/psych decompensation
[2022-01-19 20:11] VITALS: RESP 19
[2022-01-20 09:14] LABS: MANUAL DIFF FLAG NO
[2022-01-20 09:24] LABS: Hematocrit 36.1 % (37.0-47.0); Hemoglobin 11.6 g/dl (12.0-16.0); Imm Gran Abs Auto 0.01 X10*3/uL (0.00-0.03); Imm Gran Pct Auto 0.2 % (0.0-0.4); Lymphocytes Percent Auto 22.2 % (20-40); Mean Corpuscular HGB Conc 32.1 g/dl (31.0-35.0); Mean Corpuscular Hemoglobin 25.1 pg (27.0-33.0); Mean Platelet Volume 9.9 fL (9.4-12.3); Monocytes Absolute Auto 0.4 X10*3/uL (0.1-1.2); Monocytes Percent Auto 7.7 % (2-11); Neutrophils Absolute Auto 3.2 x10*3/uL (2.0-8.3); Neutrophils Percent Auto 69.9 % (45-73); Red Blood Count 4.63 X10*6/uL (4.20-5.50); Red Cell Distribution Width 14.6 % (11.0-16.0); White Blood Count 4.5 X10*3/uL (4.8-10.8)
[2022-01-20 09:25] LABS: Estimated Average Glucose 123 mg/dL; Hemoglobin A1c % 5.9 %
[2022-01-20 09:32] LABS: Alanine Aminotransferase 11 U/L (0-31); Albumin Level 3.5 g/dL (3.5-5.0); Alkaline Phosphatase 96 U/L (39-117); Anion Gap 14 (12-20); Aspartate Amino Transferase 16 U/L (5-31); Bilirubin Direct < 0.2 mg/dL (0.0-0.5); Bilirubin Total 0.2 mg/dL (0.0-1.0); Blood Urea Nitrogen 20 mg/dL (9-16); Carbon Dioxide 27 mmol/L (22-29); Chloride 106 mmol/L (96-108); Cholesterol 164 mg/dL; Estimated Glomerular Filt Rate 51; Glucose Random 123 mg/dL (60-115); HDL Cholesterol 49 mg/dL; LDL Cholesterol Calculated 104 mg/dl; Potassium 4.7 mmol/L (3.3-5.1); Sodium 142 mmol/L (135-145); Total Protein 6.6 g/dL (6.5-8.0); Triglycerides 55 mg/dL
[2022-01-20 09:35] LABS: Platelet Count 419 X10*3/uL (160-400)
[2022-01-20 09:52] LABS: Thyroid Stimulating Hormone 0.13 uIU/mL (0.32-4.0)
[2022-01-20] MEDS: Docusate Sodium 100 MG CAPSULE PO ×2 (11:13→19:37)
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
--- NOTE | 2022-01-20 14:30 | PC.NURSE ---
Patient visible on unit. Interacting appropriately with peers. Presents as cheerful and cooperative. Good behavioral control. Attended/participated in groups. Med compliant.
[2022-01-20 17:55] VITALS: BMI 17.5
[2022-01-20 18:00] VITALS: BP 100/57; PULSE 84; RESP 16; TEMP 36.5; O2SAT 96
[2022-01-20] MEDS: OLANZapine ODT 10 MG TAB.RAPDIS 5 MG TRANSLINGU (19:36)
[2022-01-21 06:00] VITALS: BP 124/63; PULSE 91; RESP 17; TEMP 35.9; O2SAT 97
[2022-01-21] MEDS: Docusate Sodium 100 MG CAPSULE PO ×2 (09:42→21:04)
--- NOTE | 2022-01-21 11:29 | P.PNPSI_ITS ---
Subjective Subjective Date of Service: 01/21/22 Reason For Visit: Pychosis Agitation Subjective Notes: Conditional Voluntary Interim History: The nursing staff reported the patient had a good day yesterday she was slightly anxious and angry but easily redirectable, less psychotic and a violent. On interview the patient denies new symptoms she feels better. We discussed the possibility of discontinuing Zyprexa since she is doing very well with Invega Sustenna Mental Status Exam Mental Status Exam Patient Appearance: Appropriate Patient Orientation: Person Level of Consciousness: Awake Patient Behavior: Cooperative Mood Description: Withdrawn Affect Description: Labile Patient Cognition Impaired: Yes Ability to Follow Directions: Good Speech Pattern: Clear Hallucinations: None Delusions: Paranoid Ideation Thought Process: Distracted and Evasive Thought Content: positive for [place] and positive for Loose Associations Judgement: Fair Diagnostics Vital Signs (24Hr): Vital Signs - 24 hr 01/20/22 18:00 01/21/22 06:00 Temperature 97.7 F 96.7 F L Pulse Rate 84 91 Respiratory Rate 16 17 Blood Pressure 100/57 L 124/63 Pulse Oximetry 96 97 Oxygen Delivery Method Room Air Room Air BMI result Body Mass Index 17.5 Labs Results: 01/20/22 09:08 01/20/22 09:08 Labs: Laboratory Results - last 48 hr 01/20/22 01/20/22 01/20/22 09:08 09:08 09:08 WBC 4.5 L RBC 4.63 Hgb 11.6 L Hct 36.1 L MCV 78.0 L MCH 25.1 L MCHC 32.1 RDW 14.6 Plt Count 419 H D MPV 9.9 Immature Gran % (Auto) 0.2 Neut % (Auto) 69.9 Lymph % (Auto) 22.2 Gates % (Auto) 7.7 Eos % (Auto) 0.0 Baso % (Auto) 0.0 Lymph # (Auto) 1.0 L Gates # (Auto) 0.4 Eos # (Auto) 0.0 Baso # (Auto) 0.0 Abs Immat Gran (auto) 0.01 Absolute Neuts (auto) 3.2 Absolute Nucleated RBC 0.000 Nucleated RBC % (auto) 0.0 Sodium 142 Potassium 4.7 Chloride 106 Carbon Dioxide 27 Anion Gap 14 BUN 20 H Creatinine 1.06 Estim Creat Clear Calc 34.0 Estimated GFR 51 Random Glucose 123 H Estimat Average Glucose 123 Hemoglobin A1c % 5.9 Calcium 9.0 Total Bilirubin 0.2 Direct Bilirubin < 0.2 AST 16 D ALT 11 Alkaline Phosphatase 96 Total Protein 6.6 Albumin 3.5 Triglycerides 55 Cholesterol 164 LDL Cholesterol, Calc 104 HDL Cholesterol 49 TSH 0.13 L Medications Medications Current Medications Acetaminophen (Acetaminophen 325 Mg Tablet) 650 mg PO Q6H PRN PRN Reason: Headache/Pain Mild Scale (1-3) Al Hydroxide/Mg Hydroxide (Magnesium Hydrox/Alum Hydrox 30 Ml Oral.Susp) 30 ml PO Q6H PRN PRN Reason: Heartburn/Nausea Docusate Sodium (Docusate Sodium 100 Mg Capsule) 100 mg PO BID [facility] Last Admin: 01/21/22 09:42 Dose: 100 mg Hydroxyzine HCl (Hydroxyzine Hcl 25 Mg Tablet) 25 mg PO Q6H PRN PRN Reason: Anxiety Last Admin: 01/11/22 08:26 Dose: 25 mg Magnesium Hydroxide (Milk Of Magnesia 30 Ml Oral.Susp) 30 ml PO DAILY PRN PRN Reason: Constipation Olanzapine (Olanzapine Odt 10 Mg Tab.Rapdis) 5 mg TRANSLINGU Q6H PRN PRN Reason: agitation, psychosis Last Admin: 01/13/22 06:34 Dose: 5 mg Olanzapine (Olanzapine Odt 10 Mg Tab.Rapdis) 5 mg TRANSLINGU BEDTIME [facility] Last Admin: 01/20/22 19:36 Dose: 5 mg Paliperidone Palmitate (Paliperidone Palmitate 234 Mg/1.5 Ml Syringe) 234 mg IM Q30D [facility] Last Admin: 01/13/22 10:09 Dose: 234 mg Pharmacy Consult (Consult Rx Perform Med Rec) 1 each MISCELLANE ONCE PRN PRN Reason: Consult order Trazodone HCl (Trazodone Hcl 50 Mg Tablet) 50 mg PO BEDTIME PRN PRN Reason: Insomnia Last Admin: 01/08/22 20:46 Dose: 50 mg Allergies Allergies Allergy/AdvReac Type Severity Reaction Status Date / Time benztropine [From COGENTIN] Allergy Unknown STOMACHPAIN Verified 09/29/21 16:15 /SWELLING haloperidol [From HALDOL] Allergy Unknown STOMACH Verified 09/29/21 16:15 PAIN SWELLING Assessment & Plan Assessment & Plan (1) Schizophrenia, chronic condition: Status: Acute Code(s): F20.9 - Schizophrenia, unspecified (2) Benign essential hypertension: Status: Acute Code(s): I10 - Essential (primary) hypertension (3) Chronic kidney disease (CKD): Qualifiers: Chronic kidney disease stage: stage 3 (moderate) Chronic kidney disease stage 3 subtype: stage 3b (GFR 30-44) Qualified Code(s): N18.32 - Chronic kidney disease, stage 3b Status: Acute Code(s): N18.9 - Chronic kidney disease, unspecified (4) History of cervical cancer: Status: Acute Code(s): Z85.41 - Personal history of malignant neoplasm of cervix uteri Plan Elderly female with a long history of schizophrenia with several ancillary services provided by [facility] and connected with [facility] ACSS program. Plan 1. Gather collateral information. 2. Discontinue Thorazine due to EPS 3. Invega Sustenna 234 mg IM once a month. 4. Observe behavior and try to medicated aggressively whenever she becomes aggressive with Thorazine 100 mg, Benadryl 100 mg and Versed 4 mg, there is no Ativan IM at this moment. 5. Bloodowork normal and CT scan within normal limits 6. Zyprexa was discontinued today due to over-sedation. I spent ____20__ minutes with the patient and/or on the patient floor today, greater than?50% of which was spent counseling/coordinating care. Reason for contiued inpatient stay Substantial Risk for: inability to function, rapid decompensation and med/psych decompensation
[2022-01-21 18:00] VITALS: BP 123/68; PULSE 90; RESP 18; TEMP 36.2; O2SAT 92
[2022-01-22] MEDS: Docusate Sodium 100 MG CAPSULE PO ×2 (08:02→19:51)
--- NOTE | 2022-01-22 13:41 | MHC.CLN ---
F/U DIET=2 GRAM SODIUM DUE TO DX CKD STAGE 3. HX DISORDERED EATING-RESTRICTING. CONTINUE TO PROVIDE FOOD PREFERENCES ABLE. CONTINUES WITH VARIABLE INTAKE. REVIEW OF WEIGHT HX SHOWS WEIGHT STABLE SINCE ADMISSION TO UNIT (EXCLUDING WEIGHT IN ED). CONTINUE TO FOLLOW WEIGHT AND INTAKE. RD TO FOLLOW WEEKLY.
--- NOTE | 2022-01-22 17:33 | P.PNPSI_ITS ---
Subjective Subjective Date of Service: 01/22/22 Reason For Visit: Pychosis Agitation Subjective Notes: Johnson Warning Interim History: Spoke with team, pt is overall cooperative, calm, no behavioral concerns. Per RN, she does perseverate on her weight when she is being weighed. I spoke with pt, sleep is good, she is eating alright. Mood is good. Pt insists she talked to Dr. Woodard today even though it was explained he is out today and I am covering, says she doesnt want to talk to me. Although she is able to ask me for a multivitamin, which was started. Medication Compliance: Yes Side effects from medications: No Attending Groups: Intermittent Review of Systems Acute medical concerns: No Medical Review of Systems: unchanged Mental Status Exam Mental Status Exam Narrative: Patient Appearance: Appropriate Patient Orientation: Person Level of Consciousness: Awake Patient Behavior: Cooperative Mood Description: Withdrawn Affect Description: Labile Patient Cognition Impaired: Yes Ability to Follow Directions: Good Speech Pattern: Clear Hallucinations: None Delusions: Paranoid Ideation Thought Process: Distracted and Evasive Thought Content: positive for [place] and positive for Loose Associations Judgement: Fair Diagnostics Vital Signs (24Hr): Vital Signs - 24 hr 01/21/22 18:00 Temperature 97.2 F Pulse Rate 90 Respiratory Rate 18 Blood Pressure 123/68 Pulse Oximetry 92 Oxygen Delivery Method Room Air BMI result Body Mass Index 17.5 Labs Results: 01/20/22 09:08 01/20/22 09:08 Medications Medications Current Medications Acetaminophen (Acetaminophen 325 Mg Tablet) 650 mg PO Q6H PRN PRN Reason: Headache/Pain Mild Scale (1-3) Al Hydroxide/Mg Hydroxide (Magnesium Hydrox/Alum Hydrox 30 Ml Oral.Susp) 30 ml PO Q6H PRN PRN Reason: Heartburn/Nausea Docusate Sodium (Docusate Sodium 100 Mg Capsule) 100 mg PO BID [facility] Last Admin: 01/22/22 08:02 Dose: 100 mg Hydroxyzine HCl (Hydroxyzine Hcl 25 Mg Tablet) 25 mg PO Q6H PRN PRN Reason: Anxiety Last Admin: 01/11/22 08:26 Dose: 25 mg Magnesium Hydroxide (Milk Of Magnesia 30 Ml Oral.Susp) 30 ml PO DAILY PRN PRN Reason: Constipation Olanzapine (Olanzapine Odt 10 Mg Tab.Rapdis) 5 mg TRANSLINGU Q6H PRN PRN Reason: agitation, psychosis Last Admin: 01/13/22 06:34 Dose: 5 mg Paliperidone Palmitate (Paliperidone Palmitate 234 Mg/1.5 Ml Syringe) 234 mg IM Q30D [facility] Last Admin: 01/13/22 10:09 Dose: 234 mg Pharmacy Consult (Consult Rx Perform Med Rec) 1 each MISCELLANE ONCE PRN PRN Reason: Consult order Trazodone HCl (Trazodone Hcl 50 Mg Tablet) 50 mg PO BEDTIME PRN PRN Reason: Insomnia Last Admin: 01/08/22 20:46 Dose: 50 mg Allergies Allergies Allergy/AdvReac Type Severity Reaction Status Date / Time benztropine [From COGENTIN] Allergy Unknown STOMACHPAIN Verified 09/29/21 16:15 /SWELLING haloperidol [From HALDOL] Allergy Unknown STOMACH Verified 09/29/21 16:15 PAIN SWELLING Assessment & Plan Assessment & Plan (1) Schizophrenia, chronic condition: Status: Acute Code(s): F20.9 - Schizophrenia, unspecified (2) Benign essential hypertension: Status: Acute Code(s): I10 - Essential (primary) hypertension (3) Chronic kidney disease (CKD): Qualifiers: Chronic kidney disease stage: stage 3 (moderate) Chronic kidney disease stage 3 subtype: stage 3b (GFR 30-44) Qualified Code(s): N18.32 - Chronic kidney disease, stage 3b Status: Acute Code(s): N18.9 - Chronic kidney disease, unspecified (4) History of cervical cancer: Status: Acute Code(s): Z85.41 - Personal history of malignant neoplasm of cervix uteri Plan Elderly female with a long history of schizophrenia with several ancillary services provided by [facility] and connected with [facility] ACSS program. Plan 1. Gather collateral information. 2. Discontinue Thorazine due to EPS 3. Invega Sustenna 234 mg IM once a month. 4. Observe behavior and try to medicated aggressively whenever she becomes aggressive with Thorazine 100 mg, Benadryl 100 mg and Versed 4 mg, there is no Ativan IM at this moment. 5. Bloodowork normal and CT scan within normal limits 6. Zyprexa was discontinued today due to over-sedation. I spent minutes with the patient and/or on the patient floor today, greater than?50% of which was spent counseling/coordinating care. Patient educated on: medication risk/benefits and therapeutic strategies Reason for contiued inpatient stay Substantial Risk for: inability to function and med/psych decompensation
[2022-01-22 18:00] VITALS: BP 113/61; PULSE 87; RESP 17; TEMP 36.6; O2SAT 99
[2022-01-23 07:30] VITALS: BP 135/70; PULSE 89; RESP 18; TEMP 36.2; O2SAT 100
[2022-01-23] MEDS: Multivitamin TABLET 1 TAB PO (08:24)
[2022-01-23] MEDS: Docusate Sodium 100 MG CAPSULE PO ×2 (08:24→20:16)
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
[2022-01-24 07:30] VITALS: BP 132/68; PULSE 88; RESP 18; TEMP 36.2; O2SAT 96
[2022-01-24] MEDS: Docusate Sodium 100 MG CAPSULE PO (08:20)
[2022-01-24] MEDS: Multivitamin TABLET 1 TAB PO (08:20)
--- NOTE | 2022-01-24 09:51 | HO.PSYCHPN ---
Subjective Subjective Date of Service: 01/24/22 Reason For Visit: Pychosis Agitation Interim History: Pleasant. Engaged. Reports that she is feeling more calm and well cared for. Denies feeling paranoid. No depression. No medication concerns. Asking appropriate questions around dispo planning and would like Jordin Mckeon as part of discharge meeting. Medication Compliance: Yes Side effects from medications: No Attending Groups: Yes Review of Systems Acute medical concerns: No Review of Systems Review of Systems Unremarkable Mental Status Exam Mental Status Exam Narrative: Pleasant. Engaged. Organized. Euthymic. No SI. No HI. No overt psychosis. Insight and judgment appears fair Diagnostics Vital Signs (24Hr): Vital Signs - 24 hr 01/24/22 07:30 Temperature 97.1 F Pulse Rate 88 Respiratory Rate 18 Blood Pressure 132/68 Pulse Oximetry 96 Oxygen Delivery Method Room Air BMI result Body Mass Index 17.5 Labs Results: 01/20/22 09:08 01/20/22 09:08 Medications Medications Current Medications Acetaminophen (Acetaminophen 325 Mg Tablet) 650 mg PO Q6H PRN PRN Reason: Headache/Pain Mild Scale (1-3) Al Hydroxide/Mg Hydroxide (Magnesium Hydrox/Alum Hydrox 30 Ml Oral.Susp) 30 ml PO Q6H PRN PRN Reason: Heartburn/Nausea Docusate Sodium (Docusate Sodium 100 Mg Capsule) 100 mg PO BID [facility] Last Admin: 01/24/22 08:20 Dose: 100 mg Hydroxyzine HCl (Hydroxyzine Hcl 25 Mg Tablet) 25 mg PO Q6H PRN PRN Reason: Anxiety Last Admin: 01/11/22 08:26 Dose: 25 mg Magnesium Hydroxide (Milk Of Magnesia 30 Ml Oral.Susp) 30 ml PO DAILY PRN PRN Reason: Constipation Multivitamins/Vitamin C (Multivitamin Tablet) 1 tab PO DAILY [facility] Last Admin: 01/24/22 08:20 Dose: 1 tab Olanzapine (Olanzapine Odt 10 Mg Tab.Rapdis) 5 mg TRANSLINGU Q6H PRN PRN Reason: agitation, psychosis Last Admin: 01/13/22 06:34 Dose: 5 mg Paliperidone Palmitate (Paliperidone Palmitate 234 Mg/1.5 Ml Syringe) 234 mg IM Q30D [facility] Last Admin: 01/13/22 10:09 Dose: 234 mg Pharmacy Consult (Consult Rx Perform Med Rec) 1 each MISCELLANE ONCE PRN PRN Reason: Consult order Trazodone HCl (Trazodone Hcl 50 Mg Tablet) 50 mg PO BEDTIME PRN PRN Reason: Insomnia Last Admin: 01/08/22 20:46 Dose: 50 mg Allergies Allergies Allergy/AdvReac Type Severity Reaction Status Date / Time benztropine [From COGENTIN] Allergy Unknown STOMACHPAIN Verified 09/29/21 16:15 /SWELLING haloperidol [From HALDOL] Allergy Unknown STOMACH Verified 09/29/21 16:15 PAIN SWELLING Assessment & Plan Assessment & Plan (1) Schizophrenia, chronic condition: Status: Acute Code(s): F20.9 - Schizophrenia, unspecified (2) Benign essential hypertension: Status: Acute Code(s): I10 - Essential (primary) hypertension (3) Chronic kidney disease (CKD): Qualifiers: Chronic kidney disease stage: stage 3 (moderate) Chronic kidney disease stage 3 subtype: stage 3b (GFR 30-44) Qualified Code(s): N18.32 - Chronic kidney disease, stage 3b Status: Acute Code(s): N18.9 - Chronic kidney disease, unspecified (4) History of cervical cancer: Status: Acute Code(s): Z85.41 - Personal history of malignant neoplasm of cervix uteri Plan Elderly female with a long history of schizophrenia with several ancillary services provided by [facility] and connected with [facility] ACSS program. Plan 1. Gather collateral information. 2. Discontinue Thorazine due to EPS 3. Invega Sustenna 234 mg IM once a month. 4. Observe behavior and try to medicated aggressively whenever she becomes aggressive with Thorazine 100 mg, Benadryl 100 mg and Versed 4 mg, there is no Ativan IM at this moment. 5. Bloodowork normal and CT scan within normal limits 6. Zyprexa was discontinued today due to over-sedation. 01/24/2022: Would like Jordin Mckeon as part of discharge meeting. I spent minutes with the patient and/or on the patient floor today, greater than?50% of which was spent counseling/coordinating care. Reason for contiued inpatient stay Substantial Risk for: rapid decompensation
[2022-01-24 18:00] VITALS: RESP 14
--- NOTE | 2022-01-24 18:20 | PC.NURSE ---
PATIENT PRESENTS PLEASANT AND COOPERATIVE. GOOD BEHAVIORAL CONTROL. PARTICIPATING IN GROUPS. INTERACTING APPROPRIATELY WITH PEERS. HAS GAINED INSIGHT INTO HER SITUATION ACKNOWLEDGING THE REASONS SHE IS HERE ACCURATELY. PATIENT STATED TO TW, I AM SANE. I KNOW WHY I WAS BROUGHT HERE AND I AM READY TO LEAVE.' PATIENT IS PERSEVERATING ON WEIGHT AND REQUESTING TO BE WEIGHED MULTIPLE TIMES DURING THE SHIFT. SHE HAS BEEN TOLD SHE MAY BE WEIGHED NO MORE THAN 2 TIMES DAILY.
[2022-01-25] MEDS: Docusate Sodium 100 MG CAPSULE PO ×3 (01:55→21:49)
[2022-01-25 06:00] VITALS: BP 119/61; PULSE 107; RESP 16; TEMP 36.6; O2SAT 95
[2022-01-25] MEDS: Multivitamin TABLET 1 TAB PO (09:10)
--- NOTE | 2022-01-25 14:58 | P.PNPSI_ITS ---
Subjective Subjective Date of Service: 01/25/22 Reason For Visit: Pychosis Agitation Subjective Notes: Section 7 and Section 8 Interim History: The nursing staff reported the patient has being miss violent, still irritable at times but very easily redirectable. Occupational therapy reported that she has attended a few groups that she participates fairly well. The social work faculty member reported will have a provider meeting next . Mental Status Exam Mental Status Exam Patient Appearance: Well Grooomed Patient Orientation: Person and Situation Level of Consciousness: Awake Patient Behavior: Cooperative Mood Description: Withdrawn Affect Description: Labile Patient Cognition Impaired: Yes Ability to Follow Directions: Good Speech Pattern: Clear Hallucinations: None Delusions: Not Present Thought Process: Distracted Thought Content: positive for [place] and positive for [place] Judgement: Fair Diagnostics Vital Signs (24Hr): Vital Signs - 24 hr 01/24/22 18:00 01/25/22 06:00 Temperature 97.8 F Pulse Rate 107 H Respiratory Rate 14 16 Blood Pressure 119/61 Pulse Oximetry 95 Oxygen Delivery Method Room Air BMI result Body Mass Index 17.5 Labs Results: 01/20/22 09:08 01/20/22 09:08 Medications Medications Current Medications Acetaminophen (Acetaminophen 325 Mg Tablet) 650 mg PO Q6H PRN PRN Reason: Headache/Pain Mild Scale (1-3) Al Hydroxide/Mg Hydroxide (Magnesium Hydrox/Alum Hydrox 30 Ml Oral.Susp) 30 ml PO Q6H PRN PRN Reason: Heartburn/Nausea Docusate Sodium (Docusate Sodium 100 Mg Capsule) 100 mg PO BID [facility] Last Admin: 01/25/22 09:10 Dose: 100 mg Hydroxyzine HCl (Hydroxyzine Hcl 25 Mg Tablet) 25 mg PO Q6H PRN PRN Reason: Anxiety Last Admin: 01/11/22 08:26 Dose: 25 mg Magnesium Hydroxide (Milk Of Magnesia 30 Ml Oral.Susp) 30 ml PO DAILY PRN PRN Reason: Constipation Multivitamins/Vitamin C (Multivitamin Tablet) 1 tab PO DAILY [facility] Last Admin: 01/25/22 09:10 Dose: 1 tab Olanzapine (Olanzapine Odt 10 Mg Tab.Rapdis) 5 mg TRANSLINGU Q6H PRN PRN Reason: agitation, psychosis Last Admin: 01/13/22 06:34 Dose: 5 mg Paliperidone Palmitate (Paliperidone Palmitate 234 Mg/1.5 Ml Syringe) 234 mg IM Q30D [facility] Last Admin: 01/13/22 10:09 Dose: 234 mg Pharmacy Consult (Consult Rx Perform Med Rec) 1 each MISCELLANE ONCE PRN PRN Reason: Consult order Trazodone HCl (Trazodone Hcl 50 Mg Tablet) 50 mg PO BEDTIME PRN PRN Reason: Insomnia Last Admin: 01/08/22 20:46 Dose: 50 mg Allergies Allergies Allergy/AdvReac Type Severity Reaction Status Date / Time benztropine [From COGENTIN] Allergy Unknown STOMACHPAIN Verified 09/29/21 16:15 /SWELLING haloperidol [From HALDOL] Allergy Unknown STOMACH Verified 09/29/21 16:15 PAIN SWELLING Assessment & Plan Assessment & Plan (1) Schizophrenia, chronic condition: Status: Acute Code(s): F20.9 - Schizophrenia, unspecified (2) Benign essential hypertension: Status: Acute Code(s): I10 - Essential (primary) hypertension (3) Chronic kidney disease (CKD): Qualifiers: Chronic kidney disease stage: stage 3 (moderate) Chronic kidney disease stage 3 subtype: stage 3b (GFR 30-44) Qualified Code(s): N18.32 - Chronic kidney disease, stage 3b Status: Acute Code(s): N18.9 - Chronic kidney disease, unspecified (4) History of cervical cancer: Status: Acute Code(s): Z85.41 - Personal history of malignant neoplasm of cervix uteri Plan Elderly female with a long history of schizophrenia with several ancillary services provided by [facility] and connected with [facility] ACSS program. Plan 1. Gather collateral information. 2. Discontinue Thorazine due to EPS 3. Invega Sustenna 234 mg IM once a month. 4. Observe behavior and try to medicated aggressively whenever she becomes aggressive with Thorazine 100 mg, Benadryl 100 mg and Versed 4 mg, there is no Ativan IM at this moment. 5. Bloodowork normal and CT scan within normal limits 6. Zyprexa was discontinued due to over-sedation. 01/24/2022: Would like Jordin Mckeon as part of discharge meeting. I spent __20____ minutes with the patient and/or on the patient floor today, greater than?50% of which was spent counseling/coordinating care. Reason for contiued inpatient stay Substantial Risk for: inability to function, rapid decompensation and med/psych decompensation
[2022-01-25 18:00] VITALS: RESP 16
[2022-01-26 06:00] VITALS: BP 123/65; PULSE 88; RESP 16; TEMP 36.4; O2SAT 95
[2022-01-26] MEDS: Docusate Sodium 100 MG CAPSULE PO ×2 (08:04→21:30)
[2022-01-26] MEDS: Multivitamin TABLET 1 TAB PO (08:04)
--- NOTE | 2022-01-26 15:28 | HO.PSYCHPN ---
Subjective Subjective Date of Service: 01/26/22 Reason For Visit: Pychosis Agitation Subjective Notes: Section 7 and Section 8 Interim History: The nursing staff reported the patient slept well, she has been taking her medications and she was more appropriate yesterday. The social insurance administrator reported that she had an interview with her yesterday and she is excited to wait for that and providers meeting next . On interview the patient denies new symptoms she looks more organized but still internally preoccupied Mental Status Exam Mental Status Exam Patient Appearance: Well Grooomed Patient Orientation: Person and Situation Level of Consciousness: Awake Patient Behavior: Cooperative Mood Description: Withdrawn Affect Description: Labile Patient Cognition Impaired: Yes Ability to Follow Directions: Good Speech Pattern: Clear Hallucinations: None Delusions: Paranoid Ideation Thought Process: Distracted Thought Content: positive for [place] Judgement: Fair Diagnostics Vital Signs (24Hr): Vital Signs - 24 hr 01/25/22 18:00 01/26/22 06:00 Temperature 97.5 F Pulse Rate 88 Respiratory Rate 16 16 Blood Pressure 123/65 Pulse Oximetry 95 Oxygen Delivery Method Room Air BMI result Body Mass Index 17.5 Labs Results: 01/20/22 09:08 01/20/22 09:08 Medications Medications Current Medications Acetaminophen (Acetaminophen 325 Mg Tablet) 650 mg PO Q6H PRN PRN Reason: Headache/Pain Mild Scale (1-3) Al Hydroxide/Mg Hydroxide (Magnesium Hydrox/Alum Hydrox 30 Ml Oral.Susp) 30 ml PO Q6H PRN PRN Reason: Heartburn/Nausea Docusate Sodium (Docusate Sodium 100 Mg Capsule) 100 mg PO BID [facility] Last Admin: 01/26/22 08:04 Dose: 100 mg Hydroxyzine HCl (Hydroxyzine Hcl 25 Mg Tablet) 25 mg PO Q6H PRN PRN Reason: Anxiety Last Admin: 01/11/22 08:26 Dose: 25 mg Magnesium Hydroxide (Milk Of Magnesia 30 Ml Oral.Susp) 30 ml PO DAILY PRN PRN Reason: Constipation Multivitamins/Vitamin C (Multivitamin Tablet) 1 tab PO DAILY REJI Last Admin: 01/26/22 08:04 Dose: 1 tab Olanzapine (Olanzapine Odt 10 Mg Tab.Rapdis) 5 mg TRANSLINGU Q6H PRN PRN Reason: agitation, psychosis Last Admin: 01/13/22 06:34 Dose: 5 mg Paliperidone Palmitate (Paliperidone Palmitate 234 Mg/1.5 Ml Syringe) 234 mg IM Q30D [facility] Last Admin: 01/13/22 10:09 Dose: 234 mg Pharmacy Consult (Consult Rx Perform Med Rec) 1 each MISCELLANE ONCE PRN PRN Reason: Consult order Trazodone HCl (Trazodone Hcl 50 Mg Tablet) 50 mg PO BEDTIME PRN PRN Reason: Insomnia Last Admin: 01/08/22 20:46 Dose: 50 mg Allergies Allergies Allergy/AdvReac Type Severity Reaction Status Date / Time benztropine [From COGENTIN] Allergy Unknown STOMACHPAIN Verified 09/29/21 16:15 /SWELLING haloperidol [From HALDOL] Allergy Unknown STOMACH Verified 09/29/21 16:15 PAIN SWELLING Assessment & Plan Assessment & Plan (1) Schizophrenia, chronic condition: Status: Acute Code(s): F20.9 - Schizophrenia, unspecified (2) Benign essential hypertension: Status: Acute Code(s): I10 - Essential (primary) hypertension (3) Chronic kidney disease (CKD): Qualifiers: Chronic kidney disease stage: stage 3 (moderate) Chronic kidney disease stage 3 subtype: stage 3b (GFR 30-44) Qualified Code(s): N18.32 - Chronic kidney disease, stage 3b Status: Acute Code(s): N18.9 - Chronic kidney disease, unspecified (4) History of cervical cancer: Status: Acute Code(s): Z85.41 - Personal history of malignant neoplasm of cervix uteri Plan Elderly female with a long history of schizophrenia with several ancillary services provided by [facility] and connected with [facility] ACSS program. Plan 1. Gather collateral information. 2. Discontinue Thorazine due to EPS 3. Invega Sustenna 234 mg IM once a month. 4. Observe behavior and try to medicated aggressively whenever she becomes aggressive with Thorazine 100 mg, Benadryl 100 mg and Versed 4 mg, there is no Ativan IM at this moment. 5. Bloodowork normal and CT scan within normal limits 6. Zyprexa was discontinued due to over-sedation. 01/24/2022: Would like Jordin Mckeon as part of discharge meeting. I spent ___20___ minutes with the patient and/or on the patient floor today, greater than?50% of which was spent counseling/coordinating care. Reason for contiued inpatient stay Substantial Risk for: inability to function, rapid decompensation and med/psych decompensation
[2022-01-27 06:00] VITALS: BP 128/72; PULSE 92; RESP 16; TEMP 36.1; O2SAT 97
[2022-01-27] MEDS: Multivitamin TABLET 1 TAB PO (07:46)
[2022-01-27] MEDS: Docusate Sodium 100 MG CAPSULE PO ×2 (07:46→20:19)
--- NOTE | 2022-01-27 13:34 | HO.PSYCHPN ---
Subjective Subjective Date of Service: 01/27/22 Reason For Visit: Pychosis Agitation Interim History: The nursing staff reported the patient has been more organized, even insightful into her condition and the circumstances how she ended up here. On interview the patient was excited that she is going to have a meeting with her providers in the community tomorrow. Mental Status Exam Mental Status Exam Patient Appearance: Appropriate Patient Orientation: Person and Situation Level of Consciousness: Awake Patient Behavior: Cooperative Mood Description: Withdrawn Affect Description: Constricted Patient Cognition Impaired: Yes Ability to Follow Directions: Good Speech Pattern: Clear Hallucinations: None Delusions: Paranoid Ideation Thought Process: Distracted and Slowed Thinking Thought Content: positive for [place] and positive for Circumstantial Judgement: Fair Diagnostics Vital Signs (24Hr): Vital Signs - 24 hr 01/27/22 06:00 Temperature 96.9 F Pulse Rate 92 Respiratory Rate 16 Blood Pressure 128/72 Pulse Oximetry 97 Oxygen Delivery Method Room Air BMI result Body Mass Index 17.5 Labs Results: 01/20/22 09:08 01/20/22 09:08 Medications Medications Current Medications Acetaminophen (Acetaminophen 325 Mg Tablet) 650 mg PO Q6H PRN PRN Reason: Headache/Pain Mild Scale (1-3) Al Hydroxide/Mg Hydroxide (Magnesium Hydrox/Alum Hydrox 30 Ml Oral.Susp) 30 ml PO Q6H PRN PRN Reason: Heartburn/Nausea Docusate Sodium (Docusate Sodium 100 Mg Capsule) 100 mg PO BID [facility] Last Admin: 01/27/22 07:46 Dose: 100 mg Hydroxyzine HCl (Hydroxyzine Hcl 25 Mg Tablet) 25 mg PO Q6H PRN PRN Reason: Anxiety Last Admin: 01/11/22 08:26 Dose: 25 mg Magnesium Hydroxide (Milk Of Magnesia 30 Ml Oral.Susp) 30 ml PO DAILY PRN PRN Reason: Constipation Multivitamins/Vitamin C (Multivitamin Tablet) 1 tab PO DAILY [facility] Last Admin: 01/27/22 07:46 Dose: 1 tab Olanzapine (Olanzapine Odt 10 Mg Tab.Rapdis) 5 mg TRANSLINGU Q6H PRN PRN Reason: agitation, psychosis Last Admin: 01/13/22 06:34 Dose: 5 mg Paliperidone Palmitate (Paliperidone Palmitate 234 Mg/1.5 Ml Syringe) 234 mg IM Q30D [facility] Last Admin: 01/13/22 10:09 Dose: 234 mg Pharmacy Consult (Consult Rx Perform Med Rec) 1 each MISCELLANE ONCE PRN PRN Reason: Consult order Trazodone HCl (Trazodone Hcl 50 Mg Tablet) 50 mg PO BEDTIME PRN PRN Reason: Insomnia Last Admin: 01/08/22 20:46 Dose: 50 mg Allergies Allergies Allergy/AdvReac Type Severity Reaction Status Date / Time benztropine [From COGENTIN] Allergy Unknown STOMACHPAIN Verified 09/29/21 16:15 /SWELLING haloperidol [From HALDOL] Allergy Unknown STOMACH Verified 09/29/21 16:15 PAIN SWELLING Assessment & Plan Assessment & Plan (1) Schizophrenia, chronic condition: Status: Acute Code(s): F20.9 - Schizophrenia, unspecified (2) Benign essential hypertension: Status: Acute Code(s): I10 - Essential (primary) hypertension (3) Chronic kidney disease (CKD): Qualifiers: Chronic kidney disease stage: stage 3 (moderate) Chronic kidney disease stage 3 subtype: stage 3b (GFR 30-44) Qualified Code(s): N18.32 - Chronic kidney disease, stage 3b Status: Acute Code(s): N18.9 - Chronic kidney disease, unspecified (4) History of cervical cancer: Status: Acute Code(s): Z85.41 - Personal history of malignant neoplasm of cervix uteri Plan Elderly female with a long history of schizophrenia with several ancillary services provided by [facility] and connected with [facility] ACSS program. Plan 1. Gather collateral information. 2. Discontinue Thorazine due to EPS 3. Invega Sustenna 234 mg IM once a month. 4. Observe behavior and try to medicated aggressively whenever she becomes aggressive with Thorazine 100 mg, Benadryl 100 mg and Versed 4 mg, there is no Ativan IM at this moment. 5. Bloodowork normal and CT scan within normal limits 6. Zyprexa was discontinued due to over-sedation. 7. Meeting tomorrow with providers of the community I spent ___20___ minutes with the patient and/or on the patient floor today, greater than?50% of which was spent counseling/coordinating care. Reason for contiued inpatient stay Substantial Risk for: inability to function, rapid decompensation and med/psych decompensation
[2022-01-28 05:41] VITALS: BMI 17.2
[2022-01-28 06:00] VITALS: BP 129/58; PULSE 89; RESP 16; TEMP 36.1; O2SAT 96
[2022-01-28 07:00] VITALS: BMI 17.2
[2022-01-28] MEDS: Docusate Sodium 100 MG CAPSULE PO ×2 (08:08→21:57)
[2022-01-28] MEDS: Multivitamin TABLET 1 TAB PO (08:08)
--- NOTE | 2022-01-28 12:27 | P.PNPSI_ITS ---
Subjective Subjective Date of Service: 01/28/22 Reason For Visit: Pychosis Agitation Subjective Notes: Section 7 and Section 8 Interim History: The nursing staff reported the patient has been focusing on her weight she wants to wait up to 3 times a day. No evidence of exacerbation of psychosis, she slept well. OT reported that she refused to the [place] she scored tree 0.5 on the Regulo test. Today we had a meeting with providers from [facility] and apparently she is not at baseline yet she is much better but she is not 100% functional with residual psychosis. During the meeting it was clear that the patient does not have any insight into her condition and she stated that she does not want to have medications that she does not have a mental illness and she is waiting for the hearing on February. Apparently, according to [facility] staff, Invega Sustenna was not covered but I called [facility] and it is covered. Mental Status Exam Mental Status Exam Patient Appearance: Appropriate Patient Orientation: Person and Situation Level of Consciousness: Awake Patient Behavior: Cooperative Mood Description: Withdrawn Affect Description: Constricted Patient Cognition Impaired: Yes Ability to Follow Directions: Good Speech Pattern: Clear Memory Description: Intact Hallucinations: None Delusions: Paranoid Ideation Thought Process: Slowed Thinking Thought Content: positive for [place] Judgement: Poor Diagnostics Vital Signs (24Hr): Vital Signs - 24 hr 01/28/22 06:00 Temperature 97 F Pulse Rate 89 Respiratory Rate 16 Blood Pressure 129/58 L Pulse Oximetry 96 Oxygen Delivery Method Room Air BMI result Body Mass Index 17.2 Labs Results: 01/20/22 09:08 01/20/22 09:08 Medications Medications Current Medications Acetaminophen (Acetaminophen 325 Mg Tablet) 650 mg PO Q6H PRN PRN Reason: Headache/Pain Mild Scale (1-3) Al Hydroxide/Mg Hydroxide (Magnesium Hydrox/Alum Hydrox 30 Ml Oral.Susp) 30 ml PO Q6H PRN PRN Reason: Heartburn/Nausea Docusate Sodium (Docusate Sodium 100 Mg Capsule) 100 mg PO BID [facility] Last Admin: 01/28/22 08:08 Dose: 100 mg Hydroxyzine HCl (Hydroxyzine Hcl 25 Mg Tablet) 25 mg PO Q6H PRN PRN Reason: Anxiety Last Admin: 01/11/22 08:26 Dose: 25 mg Magnesium Hydroxide (Milk Of Magnesia 30 Ml Oral.Susp) 30 ml PO DAILY PRN PRN Reason: Constipation Multivitamins/Vitamin C (Multivitamin Tablet) 1 tab PO DAILY [facility] Last Admin: 01/28/22 08:08 Dose: 1 tab Olanzapine (Olanzapine Odt 10 Mg Tab.Rapdis) 5 mg TRANSLINGU Q6H PRN PRN Reason: agitation, psychosis Last Admin: 01/13/22 06:34 Dose: 5 mg Paliperidone Palmitate (Paliperidone Palmitate 234 Mg/1.5 Ml Syringe) 234 mg IM Q30D [facility] Last Admin: 01/13/22 10:09 Dose: 234 mg Pharmacy Consult (Consult Rx Perform Med Rec) 1 each MISCELLANE ONCE PRN PRN Reason: Consult order Trazodone HCl (Trazodone Hcl 50 Mg Tablet) 50 mg PO BEDTIME PRN PRN Reason: Insomnia Last Admin: 01/08/22 20:46 Dose: 50 mg Allergies Allergies Allergy/AdvReac Type Severity Reaction Status Date / Time benztropine [From COGENTIN] Allergy Unknown STOMACHPAIN Verified 09/29/21 16:15 /SWELLING haloperidol [From HALDOL] Allergy Unknown STOMACH Verified 09/29/21 16:15 PAIN SWELLING Assessment & Plan Assessment & Plan (1) Schizophrenia, chronic condition: Status: Acute Code(s): F20.9 - Schizophrenia, unspecified (2) Benign essential hypertension: Status: Acute Code(s): I10 - Essential (primary) hypertension (3) Chronic kidney disease (CKD): Qualifiers: Chronic kidney disease stage: stage 3 (moderate) Chronic kidney disease stage 3 subtype: stage 3b (GFR 30-44) Qualified Code(s): N18.32 - Chronic kidney disease, stage 3b Status: Acute Code(s): N18.9 - Chronic kidney disease, unspecified (4) History of cervical cancer: Status: Acute Code(s): Z85.41 - Personal history of malignant neoplasm of cervix uteri Plan Elderly female with a long history of schizophrenia with several ancillary services provided by [facility] and connected with [facility] ACSS program. Plan 1. Gather collateral information. 2. Discontinue Thorazine due to EPS 3. Invega Sustenna 234 mg IM once a month. 4. Observe behavior and try to medicated aggressively whenever she becomes aggressive with Thorazine 100 mg, Benadryl 100 mg and Versed 4 mg, there is no Ativan IM at this moment. 5. Bloodowork normal and CT scan within normal limits 6. Zyprexa was discontinued due to over-sedation. 7. Meeting tomorrow with providers of the community I spent ___20___ minutes with the patient and/or on the patient floor today, greater than?50% of which was spent counseling/coordinating care. Reason for contiued inpatient stay Substantial Risk for: inability to function, rapid decompensation and med/psych decompensation
[2022-01-29 07:30] VITALS: BP 143/67; PULSE 88; RESP 16; TEMP 36.8; O2SAT 95
[2022-01-29] MEDS: Multivitamin TABLET 1 TAB PO (07:46)
[2022-01-29] MEDS: Docusate Sodium 100 MG CAPSULE PO ×2 (07:46→22:47)
--- NOTE | 2022-01-29 11:19 | HO.PSYCHPN ---
Subjective Subjective Date of Service: 01/29/22 Reason For Visit: Pychosis Agitation Subjective Notes: Section 7 and Section 8 Interim History: The nursing staff reported the patient requests to wait herself several times a day. According to [facility], she had a past history of anorexia nervosa. Yesterday in the meeting, the staff that knows her for several years reported that she is not at her baseline and she still is slightly irritable. She refused to have the [place] yesterday. On interview the patient denies new symptoms she is aware of the discharge plan for next week. Mental Status Exam Mental Status Exam Patient Appearance: Appropriate Patient Orientation: Person and Situation Level of Consciousness: Awake Patient Behavior: Cooperative Mood Description: Withdrawn Affect Description: Labile Patient Cognition Impaired: Yes Ability to Follow Directions: Good Speech Pattern: Clear Hallucinations: None Delusions: Paranoid Ideation Thought Process: Distracted Thought Content: positive for [place] Judgement: Fair Diagnostics Vital Signs (24Hr): BMI result Body Mass Index 17.2 Labs Results: 01/20/22 09:08 01/20/22 09:08 Medications Medications Current Medications Acetaminophen (Acetaminophen 325 Mg Tablet) 650 mg PO Q6H PRN PRN Reason: Headache/Pain Mild Scale (1-3) Al Hydroxide/Mg Hydroxide (Magnesium Hydrox/Alum Hydrox 30 Ml Oral.Susp) 30 ml PO Q6H PRN PRN Reason: Heartburn/Nausea Docusate Sodium (Docusate Sodium 100 Mg Capsule) 100 mg PO BID [facility] Last Admin: 01/29/22 07:46 Dose: 100 mg Hydroxyzine HCl (Hydroxyzine Hcl 25 Mg Tablet) 25 mg PO Q6H PRN PRN Reason: Anxiety Last Admin: 01/11/22 08:26 Dose: 25 mg Magnesium Hydroxide (Milk Of Magnesia 30 Ml Oral.Susp) 30 ml PO DAILY PRN PRN Reason: Constipation Multivitamins/Vitamin C (Multivitamin Tablet) 1 tab PO DAILY [facility] Last Admin: 01/29/22 07:46 Dose: 1 tab Olanzapine (Olanzapine Odt 10 Mg Tab.Rapdis) 5 mg TRANSLINGU Q6H PRN PRN Reason: agitation, psychosis Last Admin: 01/13/22 06:34 Dose: 5 mg Paliperidone Palmitate (Paliperidone Palmitate 234 Mg/1.5 Ml Syringe) 234 mg IM Q30D [facility] Last Admin: 01/13/22 10:09 Dose: 234 mg Pharmacy Consult (Consult Rx Perform Med Rec) 1 each MISCELLANE ONCE PRN PRN Reason: Consult order Trazodone HCl (Trazodone Hcl 50 Mg Tablet) 50 mg PO BEDTIME PRN PRN Reason: Insomnia Last Admin: 01/08/22 20:46 Dose: 50 mg Allergies Allergies Allergy/AdvReac Type Severity Reaction Status Date / Time benztropine [From COGENTIN] Allergy Unknown STOMACHPAIN Verified 09/29/21 16:15 /SWELLING haloperidol [From HALDOL] Allergy Unknown STOMACH Verified 09/29/21 16:15 PAIN SWELLING Assessment & Plan Assessment & Plan (1) Schizophrenia, chronic condition: Status: Acute Code(s): F20.9 - Schizophrenia, unspecified (2) Benign essential hypertension: Status: Acute Code(s): I10 - Essential (primary) hypertension (3) Chronic kidney disease (CKD): Qualifiers: Chronic kidney disease stage: stage 3 (moderate) Chronic kidney disease stage 3 subtype: stage 3b (GFR 30-44) Qualified Code(s): N18.32 - Chronic kidney disease, stage 3b Status: Acute Code(s): N18.9 - Chronic kidney disease, unspecified (4) History of cervical cancer: Status: Acute Code(s): Z85.41 - Personal history of malignant neoplasm of cervix uteri Plan Elderly female with a long history of schizophrenia with several ancillary services provided by [facility] and connected with [facility] ACSS program. Plan 1. Gather collateral information. 2. Discontinue Thorazine due to EPS 3. Invega Sustenna 234 mg IM once a month. 4. Observe behavior and try to medicated aggressively whenever she becomes aggressive with Thorazine 100 mg, Benadryl 100 mg and Versed 4 mg, there is no Ativan IM at this moment. 5. Bloodowork normal and CT scan within normal limits 6. Zyprexa was discontinued due to over-sedation. 7. Meeting tomorrow with providers of the community I spent ___20___ minutes with the patient and/or on the patient floor today, greater than?50% of which was spent counseling/coordinating care. Reason for contiued inpatient stay Substantial Risk for: inability to function, rapid decompensation and med/psych decompensation
--- NOTE | 2022-01-29 14:19 | MHC.CLN ---
F/U DIET=2 GRAM SODIUM DUE TO DX CKD STAGE 3. HX DISORDERED EATING-RESTRICTING. CONTINUES WITH VARIABLE INTAKE. CURRENTLY FIXATED ON BEING WEIGHED THREE TIMES PER DAY. WEIGHT APPEARS STABLE SINCE ADMISSION (EXCLUDING WEIGHT IN ED). PATIENT WITH HX OF NOT WANTING SUPPLEMENT. CONTINUE TO FOLLOW WEIGHT AND INTAKE. RD TO FOLLOW WEEKLY.
--- NOTE | 2022-01-29 16:19 | PC.NURSE ---
Pt. perseverating over being weighed multiple times. Noted to only eat one of 2 bananas at breakfast and some liquids. Pt. reports her desire is to go down to a weight of 94 pounds even, vs. the 94.2 she currently weighs. Pt. with known hx. of eating disorder. When staff attempted to discuss preoccupation with weight she initially became agitated and defensive, but then reapproached staff and divulged that she did have an active eating disorder and understood that she has been making poor choices. She worked with [employer] to modify her food orders to incorporate more protein and agreed to a dietary consult, which was placed. Pt. also with good insight into situation that led to her hospitalization, but states she does not want a guardian.
[2022-01-29 18:00] VITALS: BP 106/62; PULSE 86; RESP 18; TEMP 36.3; O2SAT 93
[2022-01-30 06:00] VITALS: BP 133/78; PULSE 83; RESP 16; TEMP 36.3; O2SAT 97
[2022-01-30] MEDS: Docusate Sodium 100 MG CAPSULE PO ×2 (08:16→20:49)
[2022-01-30] MEDS: Multivitamin TABLET 1 TAB PO (08:16)
--- NOTE | 2022-01-30 09:02 | P.PNPSI_ITS ---
Subjective Subjective Date of Service: 01/30/22 Reason For Visit: Pychosis Agitation Subjective Notes: [place] Warning Interim History: I spoke with pt's team, she is focused on her weight, slept well. I spoke with pt. She says she wants a nutritional consult, however per staff reporter this has already occurred. States she is leaving . Mood is pretty good. Says she doesnt want to eat more today. Feels safe. No med changes. Medication Compliance: Yes Side effects from medications: No Attending Groups: Intermittent Review of Systems Acute medical concerns: No Medical Review of Systems: unchanged Mental Status Exam Mental Status Exam Narrative: Patient Appearance: Appropriate Patient Orientation: Person and Situation Level of Consciousness: Awake Patient Behavior: Cooperative Mood Description: Withdrawn Affect Description: Labile Patient Cognition Impaired: Yes Ability to Follow Directions: Good Speech Pattern: Clear Hallucinations: None Delusions: Paranoid Ideation Thought Process: Distracted Thought Content: positive for [place] Judgement: Fair Diagnostics Vital Signs (24Hr): Vital Signs - 24 hr 01/29/22 18:00 Temperature 97.3 F Pulse Rate 86 Respiratory Rate 18 Blood Pressure 106/62 Pulse Oximetry 93 Oxygen Delivery Method Room Air BMI result Body Mass Index 17.2 Labs Results: 01/20/22 09:08 01/20/22 09:08 Medications Medications Current Medications Acetaminophen (Acetaminophen 325 Mg Tablet) 650 mg PO Q6H PRN PRN Reason: Headache/Pain Mild Scale (1-3) Al Hydroxide/Mg Hydroxide (Magnesium Hydrox/Alum Hydrox 30 Ml Oral.Susp) 30 ml PO Q6H PRN PRN Reason: Heartburn/Nausea Docusate Sodium (Docusate Sodium 100 Mg Capsule) 100 mg PO BID [facility] Last Admin: 01/30/22 08:16 Dose: 100 mg Hydroxyzine HCl (Hydroxyzine Hcl 25 Mg Tablet) 25 mg PO Q6H PRN PRN Reason: Anxiety Last Admin: 01/11/22 08:26 Dose: 25 mg Magnesium Hydroxide (Milk Of Magnesia 30 Ml Oral.Susp) 30 ml PO DAILY PRN PRN Reason: Constipation Multivitamins/Vitamin C (Multivitamin Tablet) 1 tab PO DAILY [facility] Last Admin: 01/30/22 08:16 Dose: 1 tab Olanzapine (Olanzapine Odt 10 Mg Tab.Rapdis) 5 mg TRANSLINGU Q6H PRN PRN Reason: agitation, psychosis Last Admin: 01/13/22 06:34 Dose: 5 mg Paliperidone Palmitate (Paliperidone Palmitate 234 Mg/1.5 Ml Syringe) 234 mg IM Q30D [facility] Last Admin: 01/13/22 10:09 Dose: 234 mg Pharmacy Consult (Consult Rx Perform Med Rec) 1 each MISCELLANE ONCE PRN PRN Reason: Consult order Trazodone HCl (Trazodone Hcl 50 Mg Tablet) 50 mg PO BEDTIME PRN PRN Reason: Insomnia Last Admin: 01/08/22 20:46 Dose: 50 mg Allergies Allergies Allergy/AdvReac Type Severity Reaction Status Date / Time benztropine [From COGENTIN] Allergy Unknown STOMACHPAIN Verified 09/29/21 16:15 /SWELLING haloperidol [From HALDOL] Allergy Unknown STOMACH Verified 09/29/21 16:15 PAIN SWELLING Assessment & Plan Assessment & Plan (1) Schizophrenia, chronic condition: Status: Acute Code(s): F20.9 - Schizophrenia, unspecified (2) Benign essential hypertension: Status: Acute Code(s): I10 - Essential (primary) hypertension (3) Chronic kidney disease (CKD): Qualifiers: Chronic kidney disease stage: stage 3 (moderate) Chronic kidney disease stage 3 subtype: stage 3b (GFR 30-44) Qualified Code(s): N18.32 - Chronic kidney disease, stage 3b Status: Acute Code(s): N18.9 - Chronic kidney disease, unspecified (4) History of cervical cancer: Status: Acute Code(s): Z85.41 - Personal history of malignant neoplasm of cervix uteri Plan Elderly female with a long history of schizophrenia with several ancillary services provided by [facility] and connected with [facility] ACSS program. Plan 1. Gather collateral information. 2. Discontinue Thorazine due to EPS 3. Invega Sustenna 234 mg IM once a month. 4. Observe behavior and try to medicated aggressively whenever she becomes aggressive with Thorazine 100 mg, Benadryl 100 mg and Versed 4 mg, there is no Ativan IM at this moment. 5. Bloodowork normal and CT scan within normal limits 6. Zyprexa was discontinued due to over-sedation. 7. Meeting tomorrow with providers of the community I spent minutes with the patient and/or on the patient floor today, greater than?50% of which was spent counseling/coordinating care. Patient educated on: other Reason for contiued inpatient stay Substantial Risk for: inability to function and med/psych decompensation
[2022-01-30 18:00] VITALS: BP 123/60; PULSE 77; RESP 18; TEMP 36.2; O2SAT 94
[2022-01-31 06:00] VITALS: BP 129/61; PULSE 73; RESP 17; TEMP 36.9; O2SAT 98
[2022-01-31] MEDS: Docusate Sodium 100 MG CAPSULE PO ×2 (08:45→19:55)
[2022-01-31] MEDS: Multivitamin TABLET 1 TAB PO (08:45)
--- NOTE | 2022-01-31 17:42 | HO.PSYCHPN ---
Subjective Subjective Date of Service: 01/31/22 Reason For Visit: Pychosis Agitation Interim History: I spoke with pt's team, she slept well, is fixated on her weight, otherwise social and visible with milieu. I spoke with pt, she says she worries about her weight, wants a kaiawhina for when she leaves, ate dinner, mood is good, she is pleasant. Says she feels safe. Denies SI/SIB/HI. No med changes. Mental Status Exam Mental Status Exam Narrative: Patient Appearance: Appropriate Patient Orientation: Person and Situation Level of Consciousness: Awake Patient Behavior: Cooperative Mood Description: Withdrawn Affect Description: Labile Patient Cognition Impaired: Yes Ability to Follow Directions: Good Speech Pattern: Clear Hallucinations: None Delusions: Paranoid Ideation Thought Process: Distracted Thought Content: positive for [place] Judgement: Fair Diagnostics Vital Signs (24Hr): Vital Signs - 24 hr 01/30/22 18:00 01/31/22 06:00 Temperature 97.1 F 98.4 F Pulse Rate 77 73 Respiratory Rate 18 17 Blood Pressure 123/60 129/61 Pulse Oximetry 94 98 Oxygen Delivery Method Room Air Room Air BMI result Body Mass Index 17.2 Labs Results: 01/20/22 09:08 01/20/22 09:08 Medications Medications Current Medications Acetaminophen (Acetaminophen 325 Mg Tablet) 650 mg PO Q6H PRN PRN Reason: Headache/Pain Mild Scale (1-3) Al Hydroxide/Mg Hydroxide (Magnesium Hydrox/Alum Hydrox 30 Ml Oral.Susp) 30 ml PO Q6H PRN PRN Reason: Heartburn/Nausea Docusate Sodium (Docusate Sodium 100 Mg Capsule) 100 mg PO BID [facility] Last Admin: 01/31/22 08:45 Dose: 100 mg Hydroxyzine HCl (Hydroxyzine Hcl 25 Mg Tablet) 25 mg PO Q6H PRN PRN Reason: Anxiety Last Admin: 01/11/22 08:26 Dose: 25 mg Magnesium Hydroxide (Milk Of Magnesia 30 Ml Oral.Susp) 30 ml PO DAILY PRN PRN Reason: Constipation Multivitamins/Vitamin C (Multivitamin Tablet) 1 tab PO DAILY [facility] Last Admin: 01/31/22 08:45 Dose: 1 tab Olanzapine (Olanzapine Odt 10 Mg Tab.Rapdis) 5 mg TRANSLINGU Q6H PRN PRN Reason: agitation, psychosis Last Admin: 01/13/22 06:34 Dose: 5 mg Paliperidone Palmitate (Paliperidone Palmitate 234 Mg/1.5 Ml Syringe) 234 mg IM Q30D REJI Last Admin: 01/13/22 10:09 Dose: 234 mg Pharmacy Consult (Consult Rx Perform Med Rec) 1 each MISCELLANE ONCE PRN PRN Reason: Consult order Trazodone HCl (Trazodone Hcl 50 Mg Tablet) 50 mg PO BEDTIME PRN PRN Reason: Insomnia Last Admin: 01/08/22 20:46 Dose: 50 mg Allergies Allergies Allergy/AdvReac Type Severity Reaction Status Date / Time benztropine [From COGENTIN] Allergy Unknown STOMACHPAIN Verified 09/29/21 16:15 /SWELLING haloperidol [From HALDOL] Allergy Unknown STOMACH Verified 09/29/21 16:15 PAIN SWELLING Assessment & Plan Assessment & Plan (1) Schizophrenia, chronic condition: Status: Acute Code(s): F20.9 - Schizophrenia, unspecified (2) Benign essential hypertension: Status: Acute Code(s): I10 - Essential (primary) hypertension (3) Chronic kidney disease (CKD): Qualifiers: Chronic kidney disease stage: stage 3 (moderate) Chronic kidney disease stage 3 subtype: stage 3b (GFR 30-44) Qualified Code(s): N18.32 - Chronic kidney disease, stage 3b Status: Acute Code(s): N18.9 - Chronic kidney disease, unspecified (4) History of cervical cancer: Status: Acute Code(s): Z85.41 - Personal history of malignant neoplasm of cervix uteri Plan Elderly female with a long history of schizophrenia with several ancillary services provided by [facility] and connected with [facility] ACSS program. Plan 1. Gather collateral information. 2. Discontinue Thorazine due to EPS 3. Invega Sustenna 234 mg IM once a month. 4. Observe behavior and try to medicated aggressively whenever she becomes aggressive with Thorazine 100 mg, Benadryl 100 mg and Versed 4 mg, there is no Ativan IM at this moment. 5. Bloodowork normal and CT scan within normal limits 6. Zyprexa was discontinued due to over-sedation. 7. Meeting tomorrow with providers of the community I spent minutes with the patient and/or on the patient floor today, greater than?50% of which was spent counseling/coordinating care. Reason for contiued inpatient stay Substantial Risk for: inability to function, rapid decompensation and med/psych decompensation
[2022-01-31 18:00] VITALS: BP 114/56; PULSE 85; RESP 16; TEMP 36.8; O2SAT 94
[2022-02-01 06:00] VITALS: BP 116/69; PULSE 71; RESP 16; TEMP 36.6; O2SAT 97
[2022-02-01] MEDS: Multivitamin TABLET 1 TAB PO (08:01)
[2022-02-01] MEDS: Docusate Sodium 100 MG CAPSULE PO ×2 (08:01→20:16)
--- NOTE | 2022-02-01 15:49 | HO.PSYCHPN ---
Subjective Subjective Date of Service: 02/01/22 Reason For Visit: Pychosis Agitation Interim History: The nursing staff reported that the patient has some residual irritability, she has attended to several groups. Last night she was up all night. She wants to wait 3 times a day and we explained her that is not good for her mental health, she will be only went once a day. According to [facility] staff, the patient has an eating disorder. On interview she looks chronically psychotic but easily redirectable. No involuntary movements no evidence of EPS with the current dose of Invega Mental Status Exam Mental Status Exam Patient Appearance: Well Grooomed Patient Orientation: Person and Situation Level of Consciousness: Awake Patient Behavior: Cooperative Mood Description: Withdrawn Affect Description: Labile Patient Cognition Impaired: Yes Ability to Follow Directions: Good Speech Pattern: Clear and Appropriate Hallucinations: None Delusions: Paranoid Ideation Thought Process: Distracted and Evasive Thought Content: positive for [place] and positive for Obsessional Thoughts Judgement: Fair Diagnostics Vital Signs (24Hr): Vital Signs - 24 hr 01/31/22 18:00 02/01/22 06:00 Temperature 98.3 F 97.8 F Pulse Rate 85 71 Respiratory Rate 16 16 Blood Pressure 114/56 L 116/69 Pulse Oximetry 94 97 Oxygen Delivery Method Room Air Room Air BMI result Body Mass Index 17.2 Labs Results: 01/20/22 09:08 01/20/22 09:08 Medications Medications Current Medications Acetaminophen (Acetaminophen 325 Mg Tablet) 650 mg PO Q6H PRN PRN Reason: Headache/Pain Mild Scale (1-3) Al Hydroxide/Mg Hydroxide (Magnesium Hydrox/Alum Hydrox 30 Ml Oral.Susp) 30 ml PO Q6H PRN PRN Reason: Heartburn/Nausea Docusate Sodium (Docusate Sodium 100 Mg Capsule) 100 mg PO BID [facility] Last Admin: 02/01/22 08:01 Dose: 100 mg Hydroxyzine HCl (Hydroxyzine Hcl 25 Mg Tablet) 25 mg PO Q6H PRN PRN Reason: Anxiety Last Admin: 01/11/22 08:26 Dose: 25 mg Magnesium Hydroxide (Milk Of Magnesia 30 Ml Oral.Susp) 30 ml PO DAILY PRN PRN Reason: Constipation Multivitamins/Vitamin C (Multivitamin Tablet) 1 tab PO DAILY REJI Last Admin: 02/01/22 08:01 Dose: 1 tab Olanzapine (Olanzapine Odt 10 Mg Tab.Rapdis) 5 mg TRANSLINGU Q6H PRN PRN Reason: agitation, psychosis Last Admin: 01/13/22 06:34 Dose: 5 mg Paliperidone Palmitate (Paliperidone Palmitate 234 Mg/1.5 Ml Syringe) 234 mg IM Q30D REJI Last Admin: 01/13/22 10:09 Dose: 234 mg Pharmacy Consult (Consult Rx Perform Med Rec) 1 each MISCELLANE ONCE PRN PRN Reason: Consult order Trazodone HCl (Trazodone Hcl 50 Mg Tablet) 50 mg PO BEDTIME PRN PRN Reason: Insomnia Last Admin: 01/08/22 20:46 Dose: 50 mg Allergies Allergies Allergy/AdvReac Type Severity Reaction Status Date / Time benztropine [From COGENTIN] Allergy Unknown STOMACHPAIN Verified 09/29/21 16:15 /SWELLING haloperidol [From HALDOL] Allergy Unknown STOMACH Verified 09/29/21 16:15 PAIN SWELLING Assessment & Plan Assessment & Plan (1) Schizophrenia, chronic condition: Status: Acute Code(s): F20.9 - Schizophrenia, unspecified (2) Benign essential hypertension: Status: Acute Code(s): I10 - Essential (primary) hypertension (3) Chronic kidney disease (CKD): Qualifiers: Chronic kidney disease stage: stage 3 (moderate) Chronic kidney disease stage 3 subtype: stage 3b (GFR 30-44) Qualified Code(s): N18.32 - Chronic kidney disease, stage 3b Status: Acute Code(s): N18.9 - Chronic kidney disease, unspecified (4) History of cervical cancer: Status: Acute Code(s): Z85.41 - Personal history of malignant neoplasm of cervix uteri Plan Elderly female with a long history of schizophrenia with several ancillary services provided by [facility] and connected with [facility] ACSS program. Plan 1. Gather collateral information. 2. Discontinue Thorazine due to EPS 3. Invega Sustenna 234 mg IM once a month. 4. Observe behavior and try to medicated aggressively whenever she becomes aggressive with Thorazine 100 mg, Benadryl 100 mg and Versed 4 mg, there is no Ativan IM at this moment. 5. Bloodowork normal and CT scan within normal limits 6. Zyprexa was discontinued due to over-sedation. 7. Possibility of discharge at the end of the week. I spent __20____ minutes with the patient and/or on the patient floor today, greater than?50% of which was spent counseling/coordinating care. Reason for contiued inpatient stay Substantial Risk for: inability to function, rapid decompensation and med/psych decompensation
[2022-02-01 18:00] VITALS: BP 129/66; PULSE 92; RESP 18; TEMP 37.2; O2SAT 95
[2022-02-02 06:00] VITALS: BP 122/72; PULSE 63; RESP 16; TEMP 36.2; O2SAT 99
[2022-02-02] MEDS: Multivitamin TABLET 1 TAB PO (07:44)
[2022-02-02] MEDS: Docusate Sodium 100 MG CAPSULE PO ×2 (07:44→20:36)
--- NOTE | 2022-02-02 16:25 | P.PNPSI_ITS ---
Subjective Subjective Date of Service: 02/02/22 Reason For Visit: Pychosis Agitation Subjective Notes: Section 7 and Section 8 Interim History: The nursing staff reported the patient has attended a few groups. On interview the patient remains obsessed with her weight and now she is complaining of drooling. She agreed to take glycopyrrolate for excessive salivation. We are planning discharge by the end of the week Mental Status Exam Mental Status Exam Patient Appearance: Well Grooomed Patient Orientation: Person and Situation Level of Consciousness: Awake Patient Behavior: Cooperative Mood Description: Calm Affect Description: Constricted Patient Cognition Impaired: Yes Ability to Follow Directions: Good Speech Pattern: Clear Hallucinations: None Delusions: Not Present Thought Process: Distracted Thought Content: positive for [place]um[place] Judgement: Fair Diagnostics Vital Signs (24Hr): Vital Signs - 24 hr 02/01/22 18:00 02/02/22 06:00 Temperature 98.9 F 97.2 F Pulse Rate 92 63 Respiratory Rate 18 16 Blood Pressure 129/66 122/72 Pulse Oximetry 95 99 Oxygen Delivery Method Room Air Room Air BMI result Body Mass Index 17.2 Labs Results: 01/20/22 09:08 01/20/22 09:08 Medications Medications Current Medications Acetaminophen (Acetaminophen 325 Mg Tablet) 650 mg PO Q6H PRN PRN Reason: Headache/Pain Mild Scale (1-3) Al Hydroxide/Mg Hydroxide (Magnesium Hydrox/Alum Hydrox 30 Ml Oral.Susp) 30 ml PO Q6H PRN PRN Reason: Heartburn/Nausea Docusate Sodium (Docusate Sodium 100 Mg Capsule) 100 mg PO BID [facility] Last Admin: 02/02/22 07:44 Dose: 100 mg Glycopyrrolate (Glycopyrrolate 1 Mg Tablet) 1 mg PO BID [facility] Hydroxyzine HCl (Hydroxyzine Hcl 25 Mg Tablet) 25 mg PO Q6H PRN PRN Reason: Anxiety Last Admin: 01/11/22 08:26 Dose: 25 mg Magnesium Hydroxide (Milk Of Magnesia 30 Ml Oral.Susp) 30 ml PO DAILY PRN PRN Reason: Constipation Multivitamins/Vitamin C (Multivitamin Tablet) 1 tab PO DAILY [facility] Last Admin: 02/02/22 07:44 Dose: 1 tab Olanzapine (Olanzapine Odt 10 Mg Tab.Rapdis) 5 mg TRANSLINGU Q6H PRN PRN Reason: agitation, psychosis Last Admin: 01/13/22 06:34 Dose: 5 mg Paliperidone Palmitate (Paliperidone Palmitate 234 Mg/1.5 Ml Syringe) 234 mg IM Q30D REJI Last Admin: 01/13/22 10:09 Dose: 234 mg Pharmacy Consult (Consult Rx Perform Med Rec) 1 each MISCELLANE ONCE PRN PRN Reason: Consult order Trazodone HCl (Trazodone Hcl 50 Mg Tablet) 50 mg PO BEDTIME PRN PRN Reason: Insomnia Last Admin: 01/08/22 20:46 Dose: 50 mg Allergies Allergies Allergy/AdvReac Type Severity Reaction Status Date / Time benztropine [From COGENTIN] Allergy Unknown STOMACHPAIN Verified 09/29/21 16:15 /SWELLING haloperidol [From HALDOL] Allergy Unknown STOMACH Verified 09/29/21 16:15 PAIN SWELLING Assessment & Plan Assessment & Plan (1) Schizophrenia, chronic condition: Status: Acute Code(s): F20.9 - Schizophrenia, unspecified (2) Benign essential hypertension: Status: Acute Code(s): I10 - Essential (primary) hypertension (3) Chronic kidney disease (CKD): Qualifiers: Chronic kidney disease stage: stage 3 (moderate) Chronic kidney disease stage 3 subtype: stage 3b (GFR 30-44) Qualified Code(s): N18.32 - Chronic kidney disease, stage 3b Status: Acute Code(s): N18.9 - Chronic kidney disease, unspecified (4) History of cervical cancer: Status: Acute Code(s): Z85.41 - Personal history of malignant neoplasm of cervix uteri Plan Elderly female with a long history of schizophrenia with several ancillary services provided by [facility] and connected with [facility] ACSS program. Plan 1. Gather collateral information. 2. Discontinue Thorazine due to EPS 3. Invega Sustenna 234 mg IM once a month. 4. Observe behavior and try to medicated aggressively whenever she becomes aggr essive with Thorazine 100 mg, Benadryl 100 mg and Versed 4 mg, there is no Ativan IM at this moment. 5. Bloodowork normal and CT scan within normal limits 6. Zyprexa was discontinued due to over-sedation. 7. Possibility of discharge at the end of the week. 8. At glycopyrrolate b.i.d. I spent __20____ minutes with the patient and/or on the patient floor today, greater than?50% of which was spent counseling/coordinating care. Reason for contiued inpatient stay Substantial Risk for: inability to function, rapid decompensation and med/psych decompensation
[2022-02-02 18:00] VITALS: BP 134/66; PULSE 79; RESP 16; TEMP 36.6; O2SAT 94
[2022-02-02] MEDS: Glycopyrrolate 1 MG TABLET PO (20:36)
[2022-02-03 07:30] VITALS: BP 134/64; PULSE 67; RESP 15; TEMP 36.2; O2SAT 98
[2022-02-03] MEDS: Docusate Sodium 100 MG CAPSULE PO ×2 (08:12→23:35)
[2022-02-03] MEDS: Glycopyrrolate 1 MG TABLET PO ×2 (08:12→23:35)
[2022-02-03] MEDS: Multivitamin TABLET 1 TAB PO (08:12)
--- NOTE | 2022-02-03 13:09 | P.PNPSI_ITS ---
Subjective Subjective Date of Service: 02/03/22 Reason For Visit: Pychosis Agitation Subjective Notes: Conditional Voluntary Interim History: The nursing staff reported the patient slept well last night. She remains obsessive with her weight. On interview the patient denies new symptoms she is ready for discharge. The team will discharge her tomorrow. Unfortunately, her insurance does not cover Invega Sustenna she will receive Invega Sustenna today and I will inform his outpatient providers Kevin Miranda about this problem. Mental Status Exam Mental Status Exam Patient Appearance: Well Grooomed Patient Orientation: Person and Situation Level of Consciousness: Awake Patient Behavior: Cooperative Mood Description: Constricted Affect Description: Labile Patient Cognition Impaired: Yes Ability to Follow Directions: Good Speech Pattern: Clear Hallucinations: None Delusions: Paranoid Ideation Thought Process: Distracted Thought Content: positive for [place] Judgement: Fair Diagnostics Vital Signs (24Hr): Vital Signs - 24 hr 02/02/22 18:00 02/03/22 07:30 Temperature 97.8 F 97.1 F Pulse Rate 79 67 Respiratory Rate 16 15 Blood Pressure 134/66 134/64 Pulse Oximetry 94 98 Oxygen Delivery Method Room Air Room Air BMI result Body Mass Index 17.2 Labs Results: 01/20/22 09:08 01/20/22 09:08 Medications Medications Current Medications Acetaminophen (Acetaminophen 325 Mg Tablet) 650 mg PO Q6H PRN PRN Reason: Headache/Pain Mild Scale (1-3) Al Hydroxide/Mg Hydroxide (Magnesium Hydrox/Alum Hydrox 30 Ml Oral.Susp) 30 ml PO Q6H PRN PRN Reason: Heartburn/Nausea Docusate Sodium (Docusate Sodium 100 Mg Capsule) 100 mg PO BID [facility] Last Admin: 02/03/22 08:12 Dose: 100 mg Glycopyrrolate (Glycopyrrolate 1 Mg Tablet) 1 mg PO BID REJI Last Admin: 02/03/22 08:12 Dose: 1 mg Hydroxyzine HCl (Hydroxyzine Hcl 25 Mg Tablet) 25 mg PO Q6H PRN PRN Reason: Anxiety Last Admin: 01/11/22 08:26 Dose: 25 mg Magnesium Hydroxide (Milk Of Magnesia 30 Ml Oral.Susp) 30 ml PO DAILY PRN PRN Reason: Constipation Multivitamins/Vitamin C (Multivitamin Tablet) 1 tab PO DAILY [facility] Last Admin: 02/03/22 08:12 Dose: 1 tab Olanzapine (Olanzapine Odt 10 Mg Tab.Rapdis) 5 mg TRANSLINGU Q6H PRN PRN Reason: agitation, psychosis Last Admin: 01/13/22 06:34 Dose: 5 mg Paliperidone Palmitate (Paliperidone Palmitate 234 Mg/1.5 Ml Syringe) 234 mg IM Q30D REJI Last Admin: 01/13/22 10:09 Dose: 234 mg Pharmacy Consult (Consult Rx Perform Med Rec) 1 each MISCELLANE ONCE PRN PRN Reason: Consult order Trazodone HCl (Trazodone Hcl 50 Mg Tablet) 50 mg PO BEDTIME PRN PRN Reason: Insomnia Last Admin: 01/08/22 20:46 Dose: 50 mg Allergies Allergies Allergy/AdvReac Type Severity Reaction Status Date / Time benztropine [From COGENTIN] Allergy Unknown STOMACHPAIN Verified 09/29/21 16:15 /SWELLING haloperidol [From HALDOL] Allergy Unknown STOMACH Verified 09/29/21 16:15 PAIN SWELLING Assessment & Plan Assessment & Plan (1) Schizophrenia, chronic condition: Status: Acute Code(s): F20.9 - Schizophrenia, unspecified (2) Benign essential hypertension: Status: Acute Code(s): I10 - Essential (primary) hypertension (3) Chronic kidney disease (CKD): Qualifiers: Chronic kidney disease stage: stage 3 (moderate) Chronic kidney disease stage 3 subtype: stage 3b (GFR 30-44) Qualified Code(s): N18.32 - Chronic kidney disease, stage 3b Status: Acute Code(s): N18.9 - Chronic kidney disease, unspecified (4) History of cervical cancer: Status: Acute Code(s): Z85.41 - Personal history of malignant neoplasm of cervix uteri Plan Elderly female with a long history of schizophrenia with several ancillary services provided by [facility] and connected with [facility] ACSS program. Plan 1. Gather collateral information. 2. Discontinue Thorazine due to EPS 3. Invega Sustenna 234 mg IM once a month. 4. Observe behavior and try to medicated aggressively whenever she becomes aggressive with Thorazine 100 mg, Benadryl 100 mg and Versed 4 mg, there is no Ativan IM at this moment. 5. Bloodowork normal and CT scan within normal limits 6. Zyprexa was discontinued due to over-sedation. 7. Possibility of discharge at the end of the week. 8. At glycopyrrolate b.i.d. I spent ___20___ minutes with the patient and/or on the patient floor today, greater than?50% of which was spent counseling/coordinating care. Reason for contiued inpatient stay Substantial Risk for: inability to function, rapid decompensation and med/psych decompensation
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
[2022-02-03] MEDS: Paliperidone Palmitate 234 MG/1.5 ML SYRINGE IM (18:04)
[2022-02-03 23:45] VITALS: BP 128/68; PULSE 82; RESP 17; O2SAT 92
[2022-02-04 06:00] VITALS: BP 108/60; PULSE 73; RESP 16; TEMP 36.1; O2SAT 97
[2022-02-04] MEDS: Glycopyrrolate 1 MG TABLET PO (09:39)
[2022-02-04] MEDS: Docusate Sodium 100 MG CAPSULE PO (09:39)
[2022-02-04] MEDS: Multivitamin TABLET 1 TAB PO (09:39)
== END 2022-02-04 11:00 | disposition home health service (06) | DRG 885 ==
LOC: HO.ED 15:47 → HO.PGERI 12-29 19:01
PROVIDERS: Internal Medicine; Admitting Provider Social Worker; Emergency Provider Emergency Medicine; PCP Internal Medicine; Visit Provider Psychiatry & Neurology Psychiatry
DX: F20.9 Schizophrenia, unspecified (principal); I12.9 Hypertensive chronic kidney disease with stage 1 through stage 4 chronic kidney disease, or unspecified chronic kidney disease; N18.9 Chronic kidney disease, unspecified; E78.5 Hyperlipidemia, unspecified; Z20.822 Contact with and (suspected) exposure to COVID-19; Z91.14 Patient's other noncompliance with medication regimen; Z85.41 Personal history of malignant neoplasm of cervix uteri; Z88.8 Allergy status to other drugs, medicaments and biological substances; Z79.899 Other long term (current) drug therapy
CPT/HCPCS: 36415; 80048; 80061; 80076; 80307; 81003; 83036; 84443; 85025; 87635; 96372; 99285; J1200; J2060; J2250; J2426; J3230; J3486

== ENCOUNTER 2022-06-15 20:16 | Inpatient (IN) | payer OTHER, SELFPAY ==
--- OUTSIDE RECORDS SUMMARY | 2022-06-15 20:19 | XMS_ITS | Continuity of Care Document ---
:1950 Author Organization [facility] Address [address] [place] [address]- Care Team Providers Name Role Phone Pelon Kemp MD Primary Care Physician Encounter [facility] Date(s): 04/07/20 - 04/14/[address] [address]- [facility] Encounter Diagnosis Agitation (Final) - 04/07/20 Discharge Disposition: A-D/C Home Attending Physician: Nancy Ch MD Admitting Physician: Lovely Hillman MD Referring Physician: Not on Staff, Referring MD Allergies, Adverse Reactions, Alerts Substance Reaction Severity Status Cogentin Active Haldol Active Immunizations Given and Recorded Vaccine Date Status Refusal Reason influenza virus vaccine, inactivated 06/30/17 Given Not Given Vaccine Date Status Refusal Reason pneumococcal 13-valent vaccine 10/09/19 Not Given P atient Refuses Medications divalproex sodium 250 mg oral enteric coated tablet 1 tablet = 250 mg, By Mouth, 2 times a day, # 60 tablet, 0 Refills, Maintenance, 11/02/19 9:37:00 EDT, Tablet, [facility]/pharmacy #[id number], 158, cm, 11/02/19 7:53:00 EDT, Height, 47.4, kg, 11/02/19 7:53:00 EDT,Dry Weight Start Date: 11/02/19 Status: Orderedfurosemide 20 mg oral tablet 20 mg, 1, tablet, By Mouth, Daily, # 30 tablet, Refills 0, Tot. Refills 0, Maintenance, 11/02/19 9:37:00 EDT, Route to Pharmacy Electronically, [facility]/pharmacy #[id number], 158, cm, 11/02/19 7:53:00 EDT, Height, 47.4, kg, 11/02/19 7:53:00 EDT, Dry Weight Start Date: 11/02/19 Status: Orderedglycopyrrolate 1 mg oral tablet 1 mg, 1, tablet, By Mouth, 2 times a day, # 60 tablet, Refills 0, Tot. Refills 0, Maintenance, 11/02/19 9:37:00 EDT, [id number], cm, 11/02/19 7:53:00 EDT,Height, 47.4, kg, 11/02/19 7:53:00 EDT, Dry Weight Start Date: 11/02/19 Status: Orderedmultivitamin Multiple Vitamins oral tablet 1 tablet, By Mouth, Daily, # 30 tablet, 0 Refills, Maintenance, 11/02/19 9:36:00 EDT, [id number], 1 tablet By Mouth Daily,x30 days, 158, cm, 11/02/19 7:53:00 EDT, Height, 47.4, kg, 11/02/19 7:53:00 EDT, Dry Weight Start Date: 11/02/19 Stop Date: 12/02/19 Status: OrderedrisperiDONE 2 mg oral tablet 2 mg, 1, tablet, By Mouth, Daily in AM, # 30 tablet, Refills 0, Tot. Refills 0, Maintenance, 11/02/19 9:36:00 EDT, [id number], cm, 11/02/19 7:53:00 EDT, Height, 47.4, kg, 11/02/19 7:53:00 EDT, Dry Weight Start Date: 11/02/19 Status: OrderedrisperiDONE 3 mg oral tablet 3 mg, 1, tablet, By Mouth, Daily at bedtime, # 30 tablet, Refills 0, Tot. Refills 0, Maintenance, 11/02/19 9:36:00 EDT, Route to Pharmacy Electronically, [facility]/pharmacy #[id number], 158, cm, 11/02/19 7:53:00 EDT, Height, 47.4, kg, 11/02/19 7:53:00 EDT, Dry We... Start Date: 11/02/19 Status: OrderedtraZODone 150 mg oral tablet 1 tablet = 150 mg, By Mouth, Daily at bedtime, # 30 tablet, 0 Refills, Maintenance, 11/02/19 9:38:00EDT, Tablet, [id number], may substitute if you do not have 150 mg tablets available, 158, cm, 11/02/19 7:53:00 EDT, Height, 47.4, kg, 11/02/19... Start Date: 11/02/19 Status: Ordered Problem List Condition Effective Dates Status Health Status Informant Low TSH level(Confirmed) Active History of hyperlipidemia(Confirmed) Active Hypernatremia(Confirmed) Active Abnormal liver enzymes(Confirmed) Active Psychosis(Confirmed) Active Schizoaffective disorder, bipolar Active type(Confirmed) Vital Signs Most recent to oldest 1 2 3 [Reference Range]: Oxygen Saturation [94-100 %] 99 % 100 % 100 % (04/13/20 4:00 PM) (04/13/20 8:00 AM) (04/12/20 10 :00 PM) Pulse Rate [55-90 bpm] 92 bpm 92 bpm 89 bpm *H* *H* (04/13/20 8:00 AM ) (04/14/20 8:44 AM) (04/13/20 4:00 PM) Blood Pressure [90-138/55-84 108/64 mm Hg 108/62 mm Hg 108 /77 mm Hg mm Hg] (04/14/20 8:44 AM) (04/13/20 4:00 PM) (04/13/20 8:0 0 AM) Respiratory Rate [16-30 18 br/min 20 br/min 20 br/mi n br/min] (04/13/20 4:00 PM) (04/13/20 8:00 AM) (04/12/20 10 :00 PM) Temperature [96.8-100.4 DegF] 97.9 DegF 98.1 DegF 98 .2 DegF (04/13/20 4:00 PM) (04/13/20 8:00 AM) (04/12/20 10 :00 PM) Mode of Delivery (Oxygen) Room air Room air Room a ir (04/13/20 4:00 PM) (04/13/20 8:00 AM) (04/12/20 10 :00 PM) Blood pressure sites Arm, left Arm, left Arm, left (04/14/20 8:44 AM) (04/13/20 4:00 PM) (04/11/20 3: 00 PM) Temperature Route Oral Oral Oral (04/13/20 4:00 PM) (04/13/20 8:00 AM) (04/12/20 10 :00 PM) Social History Social History Type Response Smoking Status Current every day smoker; Ty pe: Cigarettes; Tobacco use times per day: 1 PPD; entered on: 04/10/17 Sex Female
--- OUTSIDE RECORDS SUMMARY | 2022-06-15 20:19 | XMS_ITS | Continuity of Care Document ---
:1950 Author Organization [facility] Address [address] [place] [address]- Care Team Providers Name Role Phone Pelon Kemp MD Primary Care Physician Encounter [facility] Date(s): 10/15/19 - 11/14/19 [facility] [address] [place] [address]- [facility] Attending Physician: Admevelyn, Kelsey Admitting Physician: AdmtrKelsey Referring Physician: Admtr, Ar8 Allergies, Adverse Reactions, Alerts Substance Reaction Severity [...] 0 Refills, Maintenance, 11/02/19 9:37:00 EDT, Tablet, [facility]/pharmacy #[id number], 158, cm, 11/02/19 7:53:00 EDT, Height, 47.4, kg, 11/02/19 7:53:00 EDT,Dry Weight Start Date: 11/02/19 Status: Orderedfurosemide 20 mg oral tablet 20 mg, 1, tablet, By Mouth, Daily, # 30 tablet, Refills 0, Tot. Refills 0, Maintenance, 11/02/19 9:37:00 EDT, Route to Pharmacy Electronically, [facility]/pharmacy #[id number], 158, cm, 11/02/19 7:53:00 EDT, Height, 47.4, kg, 11/02/19 7:53:00 EDT, Dry Weight Start Date: 11/02/19 Status: Orderedglycopyrrolate 1 mg oral tablet 1 mg, 1, tablet, By Mouth, 2 times a day, # 60 tablet, Refills 0, Tot. Refills 0, Maintenance, 11/02/19 9:37:00 EDT, [id number], cm, 11/02/19 7:53:00 EDT,Height, 47.4, kg, 11/02/19 7:53:00 EDT, Dry Weight Start Date: 11/02/19 Status: Orderedmultivitamin Multiple Vitamins oral tablet 1 tablet, By Mouth, Daily, # 30 tablet, 0 Refills, Maintenance, 11/02/19 9:36:00 EDT, [id number], 1 tablet By Mouth Daily,x30 days, 158, cm, 11/02/19 7:53:00 EDT, Height, 47.4, kg, 11/02/19 7:53:00 EDT, Dry Weight Start Date: 11/02/19 Stop Date: 12/02/19 Status: OrderedrisperiDONE 2 mg oral tablet 2 mg, 1, tablet, By Mouth, Daily in AM, # 30 tablet, Refills 0, Tot. Refills 0, Maintenance, 11/02/19 9:36:00 EDT, [id number], cm, 11/02/19 7:53:00 EDT, Height, 47.4, kg, 11/02/19 7:53:00 EDT, Dry Weight Start Date: 11/02/19 Status: OrderedrisperiDONE 3 mg oral tablet 3 mg, 1, tablet, By Mouth, Daily at bedtime, # 30 tablet, Refills 0, Tot. Refills 0, Maintenance, 11/02/19 9:36:00 EDT, Route to Pharmacy Electronically, [facility]/pharmacy #[id number], 158, cm, 11/02/19 7:53:00 EDT, Height, 47.4, kg, 11/02/19 7:53:00 EDT, Dry We... Start Date: 11/02/19 Status: OrderedtraZODone 150 mg oral tablet 1 tablet = 150 mg, By Mouth, Daily at bedtime, # 30 tablet, 0 Refills, Maintenance, 11/02/19 9:38:00EDT, Tablet, [facility]/pharmacy #[id number], may substitute if you do not have 150 mg tablets available, 158, cm, 11/02/19 7:53:00 EDT, Height, 47.4, kg, 11/02/19... Start Date: 11/02/19 Status: Ordered Problem List Condition Effective Dates Status Health Status Informant Low TSH level(Confirmed) Active History of hyperlipidemia(Confirmed) Active Hypernatremia(Confirmed) Active Abnormal liver enzymes(Confirmed) Active Psychosis(Confirmed) Active Schizoaffective disorder, bipolar Active type(Confirmed) Social History Social History Type Response Smoking Status Current every day smoker; Ty pe: Cigarettes; Tobacco use times per day: 1 PPD; entered on: 04/10/17 Sex
--- OUTSIDE RECORDS SUMMARY | 2022-06-15 20:19 | XMS_ITS | Continuity of Care Document ---
:1950 Author Organization [facility] Address [address] [place] [address]- Care Team Providers Name Role Phone Pelon Kemp MD Primary Care Physician Encounter [facility] Date(s): 04/12/21 - 04/15/[address] [address]- Encounter Diagnosis Agitated (Final) - 04/12/21 Discharge Disposition: Transfer to [facility] Facility Attending Physician: Tim Villarreal MD Admitting Physician: Tim Villarreal MD Referring Physician: Not on Staff, Referring MD Allergies, Adverse Reactions, Alerts Substance Reaction Severity Status Cogentin Active Haldol Active Immunizations Given and Recorded Vaccine Date Status Refusal Reason influenza virus vaccine, inactivated 06/30/17 Given Not Given Vaccine Date Status Refusal Reason influenza virus vaccine, inactivated 04/15/20 Not Given Patient Refuses pneumococcal 13-valent vaccine 04/15/20 Not Given P atient Refuses pneumococcal 13-valent vaccine 10/09/19 Not Given P atient Refuses Medications calcium carbonate 500 mg (200 mg elemental calcium) oral tablet, chewable 500 mg, 1, tablet, Chew, 2 times a day with meals, take 1 tablet (=500 mg) twice a day with meals, #60 tablet, Refills 0, Tot. Refills 0, Maintenance, 05/05/20 15:35:00 EST, Route to Pharmacy Electronically, [facility], Partial fill upo... Start Date: 05/05/20 Stop Date: 06/04/20 Status: Ordereddivalproex sodium 250 mg oral enteric coated tablet 1 tablet = 250 mg, By Mouth, 2 times a day, take 1 tablet (=250 mg) twice a day, # 60 tablet, 0 Refills, Maintenance, 05/05/20 15:27:00 EST, Tablet, [facility] 3, Partial fill upon patient request, 152, cm, 05/04/20 21:22:00 EST, Height, 4... Start Date: 05/05/20 Stop Date: 06/04/20 Status: Orderedfurosemide 20 mg oral tablet 20 mg, 1, tablet, By Mouth, Daily, # 30 tablet, Refills 0, Tot. Refills 0, Maintenance, 05/05/20 15:27:00 EST, Route to Pharmacy Electronically, [facility] 3, Partial fill upon patient request, 152, cm, 05/04/20 21:22:00 EST, Height, 46.4,... Start Date: 05/05/20 Stop Date: 06/04/20 Status: Orderedmultivitamin Multiple Vitamins oral tablet 1 tablet, By Mouth, Daily, # 30 tablet, 0 Refills, Maintenance, 05/05/20 15:28:00 EST, Tablet, [facility] 3, Partial fill upon patient request, 1 tablet By Mouth Daily,x30 days, 152, cm, 05/04/20 21:22:00 EST, Height, 46.4, kg, 04/28/20 12... Start Date: 05/05/20 Stop Date: 06/04/20 Status: OrderedRisperDAL 1 mg oral tablet 1 mg, 1, tablet, By Mouth, Daily, take 1 tablet (=1 mg) daily in the morning, # 30 tablet, Refills 0, Tot. Refills 0, Maintenance, 05/12/20 11:30:00 EST, Route to Pharmacy Electronically, [facility] [id number], Partial fill up... Start Date: 05/12/20 Stop Date: 06/11/20 Status: OrderedRisperDAL 2 mg oral tablet 2 mg, 1, tablet, By Mouth, Daily, take 1 tablet (=2 mg) daily at bedtime, # 30 tablet, Refills 0, Tot. Refills 0, Maintenance, 05/12/20 11:31:00 EST, Route to Pharmacy Electronically, [facility] [id number], Partial fill upon p... Start Date: 05/12/20 Stop Date: 06/11/20 Status: OrderedrisperiDONE 1 mg oral tablet See Instructions, Take 1 tablet (= 1 mg) daily in the AM and 2 tablets (=2 mg) daily at bedtime, fora total of 3 tablets a day, # 90 tablet, Refills 0, Tot. Refills 0, Maintenance, 05/05/20 15:30:00 EST, Instructions Replace Required Details, Route t... Start Date: 05/05/20 Status: OrderedtraZODone 50 mg oral tablet 150 mg, 3, tablet, By Mouth, Daily at bedtime, take 3 tablets (=150 mg) daily at bedtime, # 90 tablet, Refills 0, Tot. Refills 0, Maintenance, 05/05/20 15:30:00 EST, Route to Pharmacy Electronically, [facility], Partial fill upon patient... Start Date: 05/05/20 Status: Ordered Problem List Condition Effective Dates Status Health Status Informant Low TSH level(Confirmed) Active History of hyperlipidemia(Confirmed) Active Hypernatremia(Confirmed) Active Abnormal liver enzymes(Confirmed) Active Psychosis(Confirmed) Active Schizoaffective disorder, bipolar Active type(Confirmed) Vital Signs Most recent to oldest 1 2 3 [Reference Range]: Oxygen Saturation [94-100 %] 99 % 94 % 99 % (04/15/21 6:11 AM) (04/14/21 8:00 AM) (04/13/21 6:1 5 AM) Pulse Rate [55-90 bpm] 68 bpm 58 bpm 97 bpm (04/15/21 6:11 AM) (04/14/21 8:00 AM) *H* (04/13/21 6:15 AM ) Blood Pressure [90-138/55-84 mm 157/99 mm Hg 160/101 mm Hg 170/85 mm Hg Hg] *H* *H* *H* (04/15/21 6:11 AM) (04/14/21 8:00 AM) (04/13/21 6:1 5 AM) Respiratory Rate [16-30 br/min] 16 br/min 17 br/min 18 br/min (04/15/21 6:11 AM) (04/14/21 8:00 AM) (04/13/21 6:1 5 AM) Temperature [96.8-100.4 DegF] 98.8 DegF 98 DegF 98 .3 DegF (04/15/21 6:11 AM) (04/14/21 8:00 AM) (04/13/21 1:2 3 AM) Mode of Delivery (Oxygen) Room air Room air Room a ir (04/15/21 6:11 AM) (04/14/21 8:00 AM) (04/13/21 6:1 5 AM) Blood pressure sites Arm, right (04/15/21 6:11 AM) Temperature Route Oral Oral Oral (04/15/21 6:11 AM) (04/14/21 8:00 AM) (04/13/21 1:2 3 AM) Social History Social History Type Response Smoking Status Current every day smoker; Ty pe: Cigarettes; Tobacco use times per day: 1 PPD; entered on: 04/10/17 Sex Female
--- OUTSIDE RECORDS SUMMARY | 2022-06-15 20:19 | XMS_ITS | Continuity of Care Document ---
:[address] [facility] Address [address] [place] [address]- Care Team Providers Name Role Phone Pelon Kemp MD Primary Care Physician Encounter [facility] Date(s): 07/17/19 - 11/14/19 [facility] [address] [place] [address]- [facility] Attending Physician: Sarina Wade NP Allergies, Adverse Reactions, Alerts Substance Reaction Severity [...] 0 Refills, Maintenance, 11/02/19 9:37:00 EDT, Tablet, [facility]/pharmacy #[id number], 158, cm, 11/02/19 7:53:00 EDT, Height, 47.4, kg, 11/02/19 7:53:00 EDT,Dry Weight Start Date: 11/02/19 Status: Orderedfurosemide 20 mg oral tablet 20 mg, 1, tablet, By Mouth, Daily, # 30 tablet, Refills 0, Tot. Refills 0, Maintenance, 11/02/19 9:37:00 EDT, Route to Pharmacy Electronically, [facility]/pharmacy #[id number], 158, cm, 11/02/19 7:53:00 EDT, Height, 47.4, kg, 11/02/19 7:53:00 EDT, Dry Weight Start Date: 11/02/19 Status: Orderedglycopyrrolate 1 mg oral tablet 1 mg, 1, tablet, By Mouth, 2 times a day, # 60 tablet, Refills 0, Tot. Refills 0, Maintenance, 11/02/19 9:37:00 EDT, [id number], cm, 11/02/19 7:53:00 EDT,Height, 47.4, kg, 11/02/19 7:53:00 EDT, Dry Weight Start Date: 11/02/19 Status: Orderedmultivitamin Multiple Vitamins oral tablet 1 tablet, By Mouth, Daily, # 30 tablet, 0 Refills, Maintenance, 11/02/19 9:36:00 EDT, Tablet, [facility]/pharmacy #[id number], 1 tablet By Mouth Daily,x30 days, 158, cm, 11/02/19 7:53:00 EDT, Height, 47.4, kg, 11/02/19 7:53:00 EDT, Dry Weight Start Date: 11/02/19 Stop Date: 12/02/19 Status: OrderedrisperiDONE 2 mg oral tablet 2 mg, 1, tablet, By Mouth, Daily in AM, # 30 tablet, Refills 0, Tot. Refills 0, Maintenance, 11/02/19 9:36:00 EDT, [id number], cm, 11/02/19 7:53:00 EDT, Height, 47.4, kg, 11/02/19 7:53:00 EDT, Dry Weight Start Date: 11/02/19 Status: OrderedrisperiDONE 3 mg oral tablet 3 mg, 1, tablet, By Mouth, Daily at bedtime, # 30 tablet, Refills 0, Tot. Refills 0, Maintenance, 11/02/19 9:36:00 EDT, Route to Pharmacy Electronically, [facility]/pharmacy #[id number], 158, cm, 11/02/19 7:53:00 EDT, Height, 47.4, kg, 11/02/19 7:53:00 EDT, Dry We... Start Date: 11/02/19 Status: OrderedtraZODone 150 mg oral tablet 1 tablet = 150 mg, By Mouth, Daily at bedtime, # 30 tablet, 0 Refills, Maintenance, 11/02/19 9:38:00EDT, Tablet, [id number], may substitute if you do not have [...]
[2022-06-15 21:48] VITALS: BP 129/77; PULSE 74; RESP 18
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
[2022-06-16 03:56] VITALS: BMI 17.6
--- NOTE | 2022-06-16 09:26 | HO.PM.IMCN ---
History of Present Illness Data of Consult Service Date: 06/16/22 Primary Care Provider: Pelon Kemp MD HPI Reason for consult: routine medical H&P after transfer from outside facility 72 F admitted to the [facility]. Medical consult requested for routine medical H&P as the patient is transferred from outside facility. Pt is refusing medical H&P. She states that she has her annual physical exam with Dr. Kemp and does not want me to interview/examine her. Review of Systems Review of Systems: unable to review, pt refusing PMFSH Medical History Benign essential hypertension Chronic kidney disease (CKD) Constipation History of cervical cancer Hyperlipidemia Schizoaffective disorder Family History Father Cancer Mother Cancer Hypertension Sister No problems noted. Surgical History No significant past surgical history Social History Household Members: None Housing: Apartment Do you presently have visiting nurse or other home services: No Unable to assess alcohol history related to: Unknown Alcohol intake: current Alcohol intake frequency: holidays/special occasions only Patient Tobacco Use Status: Tobacco use Unknown Smoked in Last 30 Days: No Patient Interested in Nicotine Replacement: No Second Hand Smoke Exposure: Yes Use of substances other than those prescribed or required for medical reasons: Unknown Currently Displaying Signs/Symptoms of Drug Intoxication Withdrawal: No Any prior treatment program specific to substance use: No Do you feel safe in your current relationship?: No Current Relationship Is there a partner from a previous relationship who is making you feel unsafe now?: No Are you made to feel afraid or neglected: No Spiritual Healthcare Practices: NA [facility] Practices: Prayer Cultural Healthcare Practices: NA Advance Directives: No Advance Directives Information Provided: No Do you have thoughts of harming others: None Do you have a plan to hurt others: No Plan Recently lost weight without trying: Unsure Nutrition Risks: Poor intake 0-25% >4 days Patient : No : No Poor oral hygiene: No service: No Current occupational status: disabled Sexual orientation: Straight/Heterosexual Cognitive needs: No Hearing needs: No Vision needs: No Meds Allergies Allergy/AdvReac Type Severity Reaction Status Date / Time benztropine [From COGENTIN] Allergy Unknown STOMACHPAIN Verified 09/29/21 16:15 /SWELLING haloperidol [From HALDOL] Allergy Unknown STOMACH Verified 09/29/21 16:15 PAIN SWELLING Active Medications: Current Medications Acetaminophen (Acetaminophen 325 Mg Tablet) 650 mg PO Q6H PRN PRN Reason: Headache/Pain Mild Scale (1-3) Al Hydroxide/Mg Hydroxide (Magnesium Hydrox/Alum Hydrox 30 Ml Oral.Susp) 30 ml PO Q6H PRN PRN Reason: Heartburn/Nausea Divalproex Sodium (Divalproex Sodium Er 250 Mg Tab.Er.24h) 250 mg PO BEDTIME [facility] Last Admin: 06/15/22 22:08 Dose: Not Given Magnesium Hydroxide (Milk Of Magnesia 30 Ml Oral.Susp) 30 ml PO DAILY PRN PRN Reason: Constipation Nicotine Polacrilex (Nicotine Polacrilex 2 Mg Gum) 4 mg BUCCAL Q2H PRN PRN Reason: Nicotine Cravings Olanzapine (Olanzapine 5 Mg Tablet) 5 mg PO TID PRN PRN Reason: agitation Risperidone (Risperidone 1 Mg Tablet) 1 mg PO BID [facility] Last Admin: 06/15/22 22:09 Dose: Not Given Trazodone HCl (Trazodone Hcl 50 Mg Tablet) 50 mg PO BEDTIME PRN PRN Reason: Insomnia Physical Exam Vital Signs and Narrative: Vital Signs: Last Vital Signs Pulse 74 06/15/22 21:48 Resp 18 06/15/22 21:48 BP 129/77 06/15/22 21:48 BMI result Body Mass Index 17.6 Const: Other: awake and alert ambulating on the unit Assessment and Plan (1) Routine medical exam: Status: Acute Plan 72 F admitted to [facility]. Medical consult requested for routine medical H&P. Pt is refusing history and physical. Would recommend to continu her baseline antihypertensives Otherwise, can reconsult as needed or once pt improved psychiatrically. Time Spent With Patient Time: Total time managing care of this patient today ____ minutes.
[2022-06-16 09:40] VITALS: BP 147/80; PULSE 86; RESP 16; TEMP 36.7; O2SAT 99
[2022-06-16 13:11] VITALS: BMI 17.6
--- NOTE | 2022-06-16 13:16 | MHC.CLN ---
PT IS UNDER WT FOR HT PT IS 89% IBW WITH BMI 17.6 WITH NONCOMPLIANT WITH PSYCH MEDS IN COMMUNITY AND HX DISORDERED EATING UNABLE TO COMPLETE NFPE SINCE PATIENT IS COMBATIVE AND PHYSICAL WITH STAFF; APPEARS THIN PT FAMILIAR TO FACILITY LAST SEEN 01/01/22 UNDER WT FOR HT PREVIOUS WT HX 42.8KG (01/01/22) WT UP 1.8KG SINCE LAST ASSESSMENT DIET RX: REGULAR-CONSIDER 2GM NA R/T HTN AND CKD RECOMMEND ADDING ENSURE BID TO INCREASE KCALS SUPP PROVIDES 700KCALS, 40G PROTEIN FOLLOW FOR INTAKE OF MEALS AND SUPPLEMENT. FOLLOW WEIGHTS SEE ALSO FULL CLINICAL NUTRITION ASSESSMENT
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
[2022-06-17 06:00] VITALS: BP 108/76; PULSE 79; RESP 18; TEMP 36.6; O2SAT 99
[2022-06-17 06:40] VITALS: BMI 17.8
[2022-06-17 11:44] VITALS: BMI 17.9
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
[2022-06-17 18:00] VITALS: BP 113/60; PULSE 96; RESP 18; TEMP 36.6; O2SAT 95
[2022-06-18 09:00] VITALS: BP 133/76; PULSE 79; RESP 14; TEMP 36.8; O2SAT 100
--- NOTE | 2022-06-18 12:24 | MHC.CLN ---
F/U PT IS UNDER WT FOR HT SEE ALSO FULL CLINICAL NUTRITION ASSESSMENT DATED 06/16/22 PT FAMILIAR TO FACILITY LAST SEEN 01/01/22 UNDER WT FOR HT PREVIOUS WT HX 42.8KG (01/01/22) WT UP 1.8KG SINCE LAST ASSESSMENT PER PT IS HOSTILE, ANGRY, VERY LOUD, AND DISORGANIZED DIET RX: REGULAR-APPROPRIATE PT RECEIVING ENSURE BID TO INCREASE KCALS SUPP PROVIDES 700KCALS, 40G PROTEIN FOLLOW FOR INTAKE, ENCOURAGE SUPPLEMENT AND MONITOR WEIGHTS
--- NOTE | 2022-06-18 16:13 | HO.PSYCHPN ---
Subjective Subjective Date of Service: 06/18/22 Reason For Visit: Schizoaffective disorder type Subjective Notes: Johnson Warning, Conditional Voluntary and 3 Day Interim History: The nursing staff reported the patient has refused medications she states that she does not have any medical or psychiatric condition. Today we have a long conversation at the patient stated that she wants to leave, I explained her that she signed conditional voluntary and because of that she consent 3 day notice. The patient was very guarded and psychotic irritable at times and she signed a 3 day notice. We were filed for Section 7 and 8. He [facility] reported that there are looking for guardianship of role years order, she has a hearing on July 05 probably. Mental Status Exam Mental Status Exam Patient Appearance: Disheveled and Unkempt Patient Orientation: Person, Place and Situation Level of Consciousness: Awake Patient Behavior: Guarded, Restless and Belligerent Mood Description: Hostile and Angry Affect Description: Labile Patient Cognition Impaired: Yes Ability to Follow Directions: Good Speech Pattern: Clear Hallucinations: None Delusions: Paranoid Ideation and Grandiose Thought Process: Illogical and Evasive Thought Content: positive for Poverty of Content, positive for Loose Associations and positive for Thought Blocking Judgement: Poor Diagnostics Vital Signs (24Hr): Vital Signs - 24 hr 06/17/22 18:00 06/18/22 09:00 Temperature 97.9 F 98.3 F Pulse Rate 96 79 Respiratory Rate 18 14 Blood Pressure 113/60 133/76 Pulse Oximetry 95 100 Oxygen Delivery Method Room Air Room Air BMI result Body Mass Index 17.9 Medications Medications Current Medications Acetaminophen (Acetaminophen 325 Mg Tablet) 650 mg PO Q6H PRN PRN Reason: Headache/Pain Mild Scale (1-3) Al Hydroxide/Mg Hydroxide (Magnesium Hydrox/Alum Hydrox 30 Ml Oral.Susp) 30 ml PO Q6H PRN PRN Reason: Heartburn/Nausea Divalproex Sodium (Divalproex Sodium Er 250 Mg Tab.Er.24h) 250 mg PO BEDTIME [facility] Last Admin: 06/17/22 20:12 Dose: Not Given Magnesium Hydroxide (Milk Of Magnesia 30 Ml Oral.Susp) 30 ml PO DAILY PRN PRN Reason: Constipation Nicotine Polacrilex (Nicotine Polacrilex 2 Mg Gum) 4 mg BUCCAL Q2H PRN PRN Reason: Nicotine Cravings Olanzapine (Olanzapine 5 Mg Tablet) 5 mg PO TID PRN PRN Reason: agitation Risperidone (Risperidone 1 Mg Tablet) 1 mg PO BID [facility] Last Admin: 06/18/22 10:22 Dose: Not Given Trazodone HCl (Trazodone Hcl 50 Mg Tablet) 50 mg PO BEDTIME PRN PRN Reason: Insomnia Allergies Allergies Allergy/AdvReac Type Severity Reaction Status Date / Time benztropine [From COGENTIN] Allergy Unknown STOMACHPAIN Verified 09/29/21 16:15 /SWELLING haloperidol [From HALDOL] Allergy Unknown STOMACH Verified 09/29/21 16:15 PAIN SWELLING Assessment & Plan Assessment & Plan (1) Schizophrenia, chronic condition: Status: Acute Code(s): F20.9 - Schizophrenia, unspecified (2) Chronic kidney disease (CKD): Qualifiers: Chronic kidney disease stage: stage 3 (moderate) Chronic kidney disease stage 3 subtype: stage 3b (GFR 30-44) Qualified Code(s): N18.32 - Chronic kidney disease, stage 3b Status: Acute Code(s): N18.9 - Chronic kidney disease, unspecified (3) Benign essential hypertension: Status: Acute Code(s): I10 - Essential (primary) hypertension (4) History of cervical cancer: Status: Acute Code(s): Z85.41 - Personal history of malignant neoplasm of cervix uteri (5) Hyperlipidemia: Qualifiers: Hyperlipidemia type: pure hypercholesterolemia Qualified Code(s): E78.00 - Pure hypercholesterolemia, unspecified Status: Acute Code(s): E78.5 - Hyperlipidemia, unspecified Plan The patient is an elderly female with a long history of schizoaffective disorder bipolar type, admitted for exacerbation of psychosis in the context of noncompliance. At the moment of the admission there was no collateral information who could provide does prior treatment. The patient is very well known by this team since she was admitted a few months ago with a similar presentation. Plan 1. Gather collateral information. 2. Risperdal 1 mg p.o. b.i.d., we will contact [facility] to find out her current medication treatment plan. According to his provider, the patient had been noncompliance since her last admission. Apparently [facility] she seeking for guardianship and treatment over objection on court. 3. Continue with regular medications as prescribed. 4. Filing for Section 7 and 8 since she sign a 3 day notice on urinary 6. Johnson warning was provided. Reason for contiued inpatient stay Substantial Risk for: harm to self, harm to others, inability to function, rapid decompensation and med/psych decompensation Time Spent With Patient Time: Total time managing care of this patient today _20___ minutes.
[2022-06-18 18:00] VITALS: BP 132/72; PULSE 95; RESP 19; TEMP 36.8; O2SAT 96
[2022-06-19 08:30] VITALS: BP 136/70; PULSE 101; RESP 16; TEMP 36.5; O2SAT 100
--- NOTE | 2022-06-19 09:55 | PC.NURSE ---
Patient appears to have visual edema in BLE. LLE appears to be more edematous than Right. Patient yelled at this RN when asked to assess it dont you come near me and try to do that when I have a 3 day notice
--- NOTE | 2022-06-19 17:36 | HO.PSYCHPN ---
Subjective Subjective Date of Service: 06/19/22 Reason For Visit: Schizoaffective disorder type Interim History: Patient irritable on approach and difficult to engage. Locomotive Repairer Diesel introduced self; patient asked are you a psychiatrist? Locomotive Repairer Diesel affirmed and patient glare did and in parker tone I will not take any medication... I signed a 3 day notice... I am going home next week... I will not take any medication, do you understand? Patient then dismissed comic book writer and would not engage further. Nursing staff said that patient had some leg swelling but would not allow nursing to check; comic book writer inquired and patient would not discuss this with comic book writer Mental Status Exam Mental Status Exam Narrative: Pt is alert and oriented; behavior is irritable, guarded; not cooperative; patient is not in distress; dressed in hospital attire with unkempt hair; mood is described as irritable and affect congruent; eye contact glaring; Speech is normal rate, with increased volume but normal prosody and not pressured; some psychomotor agitation present; thought process is goal directed; Thought content is on discharge; denies any SI/HI. Patients insight and judgment impaired. Diagnostics Vital Signs (24Hr): Vital Signs - 24 hr 06/18/22 18:00 06/19/22 08:30 Temperature 98.3 F 97.7 F Pulse Rate 95 101 H Respiratory Rate 19 16 Blood Pressure 132/72 136/70 Pulse Oximetry 96 100 Oxygen Delivery Method Room Air Room Air BMI result Body Mass Index 17.9 Medications Medications Current Medications Acetaminophen (Acetaminophen 325 Mg Tablet) 650 mg PO Q6H PRN PRN Reason: Headache/Pain Mild Scale (1-3) Al Hydroxide/Mg Hydroxide (Magnesium Hydrox/Alum Hydrox 30 Ml Oral.Susp) 30 ml PO Q6H PRN PRN Reason: Heartburn/Nausea Divalproex Sodium (Divalproex Sodium Er 250 Mg Tab.Er.24h) 250 mg PO BEDTIME [facility] Last Admin: 06/18/22 21:07 Dose: Not Given Magnesium Hydroxide (Milk Of Magnesia 30 Ml Oral.Susp) 30 ml PO DAILY PRN PRN Reason: Constipation Nicotine Polacrilex (Nicotine Polacrilex 2 Mg Gum) 4 mg BUCCAL Q2H PRN PRN Reason: Nicotine Cravings Olanzapine (Olanzapine 5 Mg Tablet) 5 mg PO TID PRN PRN Reason: agitation Risperidone (Risperidone 1 Mg Tablet) 1 mg PO BID [facility] Last Admin: 06/19/22 08:20 Dose: Not Given Trazodone HCl (Trazodone Hcl 50 Mg Tablet) 50 mg PO BEDTIME PRN PRN Reason: Insomnia Allergies Allergies Allergy/AdvReac Type Severity Reaction Status Date / Time benztropine [From COGENTIN] Allergy Unknown STOMACHPAIN Verified 09/29/21 16:15 /SWELLING haloperidol [From HALDOL] Allergy Unknown STOMACH Verified 09/29/21 16:15 PAIN SWELLING Assessment & Plan Assessment & Plan (1) Schizophrenia, chronic condition: Status: Acute Code(s): F20.9 - Schizophrenia, unspecified (2) Chronic kidney disease (CKD): Qualifiers: Chronic kidney disease stage: stage 3 (moderate) Chronic kidney disease stage 3 subtype: stage 3b (GFR 30-44) Qualified Code(s): N18.32 - Chronic kidney disease, stage 3b Status: Acute Code(s): N18.9 - Chronic kidney disease, unspecified (3) Benign essential hypertension: Status: Acute Code(s): I10 - Essential (primary) hypertension (4) History of cervical cancer: Status: Acute Code(s): Z85.41 - Personal history of malignant neoplasm of cervix uteri (5) Hyperlipidemia: Qualifiers: Hyperlipidemia type: pure hypercholesterolemia Qualified Code(s): E78.00 - Pure hypercholesterolemia, unspecified Status: Acute Code(s): E78.5 - Hyperlipidemia, unspecified Plan The patient is an elderly female with a long history of schizoaffective disorder bipolar type, admitted for exacerbation of psychosis in the context of noncompliance. At the moment of the admission there was no collateral information who could provide does prior treatment. The patient is very well known by this team since she was admitted a few months ago with a similar presentation. 06/19/2022 Patient refusing psychiatric medication; irritable on approach and difficult to engage No change in treatment plan Plan 1. Gather collateral information. 2. Risperdal 1 mg p.o. b.i.d., we will contact [facility] to find out her current medication treatment plan. According to his provider, the patient had been noncompliance since her last admission. Apparently [facility] she seeking for guardianship and treatment over objection on court. 3. Continue with regular medications as prescribed. 4. Filing for Section 7 and 8 since she sign a 3 day notice on urinary 6. Johnson warning was provided. Reason for contiued inpatient stay Substantial Risk for: inability to function Time Spent With Patient Time: Total time managing care of this patient today ____ minutes.
[2022-06-19 18:00] VITALS: BP 116/68; PULSE 101; RESP 18; TEMP 37; O2SAT 96
[2022-06-19 18:06] VITALS: BMI 18.7
[2022-06-20 06:00] VITALS: BP 119/64; PULSE 93; RESP 17; TEMP 36.2; O2SAT 99
--- NOTE | 2022-06-20 10:12 | PC.NURSE ---
Pt refused AM risperdal, stated I will never take medicine, I signed a three day notice and I am leaving on Tuesday . Pt with observed 2+ edema, unsure if it is pitting or non-pitting as the pt refused hands on assessment. Pt refusing to elevate her lower extremities, or lie down in her bed.
--- NOTE | 2022-06-20 17:07 | HO.PSYCHPN ---
Subjective Subjective Date of Service: 06/20/22 Reason For Visit: Schizoaffective disorder type Interim History: Late entry note for patient seen 06/20/22 On approach patient yelled at keno writer/runner shut up and started to walk away. Hospice Care Transitions Coordinator inquired and patient yelled louder shut up and continued to walk away Mental Status Exam Mental Status Exam Narrative: Pt is alert and oriented; behavior is irritable, guarded; not cooperative; patient is not in distress; dressed in hospital attire with unkempt hair; mood is described as irritable and affect congruent; eye contact glaring; Speech is normal rate, with increased volume but normal prosody and not pressured; some psychomotor agitation present; thought process is goal directed; Thought content is on discharge; denies any SI/HI. Patients insight and judgment impaired. Diagnostics Vital Signs (24Hr): Vital Signs - 24 hr 06/20/22 18:00 Temperature 97.8 F Pulse Rate 120 H Respiratory Rate 18 Blood Pressure 134/63 Pulse Oximetry 93 Oxygen Delivery Method Room Air BMI result Body Mass Index 18.8 Medications Medications Current Medications Acetaminophen (Acetaminophen 325 Mg Tablet) 650 mg PO Q6H PRN PRN Reason: Headache/Pain Mild Scale (1-3) Al Hydroxide/Mg Hydroxide (Magnesium Hydrox/Alum Hydrox 30 Ml Oral.Susp) 30 ml PO Q6H PRN PRN Reason: Heartburn/Nausea Divalproex Sodium (Divalproex Sodium Er 250 Mg Tab.Er.24h) 250 mg PO BEDTIME [facility] Last Admin: 06/20/22 22:10 Dose: Not Given Magnesium Hydroxide (Milk Of Magnesia 30 Ml Oral.Susp) 30 ml PO DAILY PRN PRN Reason: Constipation Nicotine Polacrilex (Nicotine Polacrilex 2 Mg Gum) 4 mg BUCCAL Q2H PRN PRN Reason: Nicotine Cravings Olanzapine (Olanzapine 5 Mg Tablet) 5 mg PO TID PRN PRN Reason: agitation Risperidone (Risperidone 1 Mg Tablet) 1 mg PO BID [facility] Last Admin: 06/20/22 22:10 Dose: Not Given Trazodone HCl (Trazodone Hcl 50 Mg Tablet) 50 mg PO BEDTIME PRN PRN Reason: Insomnia Allergies Allergies Allergy/AdvReac Type Severity Reaction Status Date / Time benztropine [From COGENTIN] Allergy Unknown STOMACHPAIN Verified 09/29/21 16:15 /SWELLING haloperidol [From HALDOL] Allergy Unknown STOMACH Verified 09/29/21 16:15 PAIN SWELLING Assessment & Plan Assessment & Plan (1) Schizophrenia, chronic condition: Status: Acute Code(s): F20.9 - Schizophrenia, unspecified (2) Chronic kidney disease (CKD): Qualifiers: Chronic kidney disease stage: stage 3 (moderate) Chronic kidney disease stage 3 subtype: stage 3b (GFR 30-44) Qualified Code(s): N18.32 - Chronic kidney disease, stage 3b Status: Acute Code(s): N18.9 - Chronic kidney disease, unspecified (3) Benign essential hypertension: Status: Acute Code(s): I10 - Essential (primary) hypertension (4) History of cervical cancer: Status: Acute Code(s): Z85.41 - Personal history of malignant neoplasm of cervix uteri (5) Hyperlipidemia: Qualifiers: Hyperlipidemia type: pure hypercholesterolemia Qualified Code(s): E78.00 - Pure hypercholesterolemia, unspecified Status: Acute Code(s): E78.5 - Hyperlipidemia, unspecified Plan The patient is an elderly female with a long history of schizoaffective disorder bipolar type, admitted for exacerbation of psychosis in the context of noncompliance. At the moment of the admission there was no collateral information who could provide does prior treatment. The patient is very well known by this team since she was admitted a few months ago with a similar presentation. 06/19/2022 Patient refusing psychiatric medication; irritable on approach and difficult to engage; No change in treatment plan 06/20/22 remains irritable and would not engage with keno writer/runner; no change in treatment plan Plan 1. Gather collateral information. 2. Risperdal 1 mg p.o. b.i.d., we will contact [facility] to find out her current medication treatment plan. According to his provider, the patient had been noncompliance since her last admission. Apparently [facility] she seeking for guardianship and treatment over objection on court. 3. Continue with regular medications as prescribed. 4. Filing for Section 7 and 8 since she sign a 3 day notice on urinary 6. Johnson warning was provided. Reason for contiued inpatient stay Substantial Risk for: inability to function Time Spent With Patient Time: Total time managing care of this patient today ____ minutes.
[2022-06-20 18:00] VITALS: BP 134/63; PULSE 120; RESP 18; TEMP 36.6; O2SAT 93
--- NOTE | 2022-06-20 18:05 | PC.NURSE ---
Pt with 1 lb weight car changer 24 hours, encouraged to elevate legs when seated/lying down. Helped pt sit in chair with feet propped up on another chair. Pt with 2+ edema to bilat lower extremities. Pt refusing hands on assessment, not sure if edema is pitting or non-pitting.
[2022-06-20 18:07] VITALS: BMI 18.9
[2022-06-21 05:58] VITALS: BMI 18.8
[2022-06-21 07:30] VITALS: BP 124/60; PULSE 93; RESP 16; TEMP 36.3; O2SAT 99
--- NOTE | 2022-06-21 13:21 | MHC.CLN ---
F/U DIET=REGULAR WITH ENSURE BID. SUPPLEMENT PROVIDES ADDITIONAL 700 KCALS, 40 G PROTEIN. WEIGHT GAIN SINCE ADMISSION WITH 2+ BILATERAL LOWER EXTREMITY EDEMA. TOOK LUNCH TODAY IN DINING ROOM. CONTINUE TO FOLLOW WEIGHT AND INTAKE.
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
[2022-06-21] MEDS: chlorproMAZINE HCl 25 MG/ML AMPUL 50 MG IM (15:05)
[2022-06-21] MEDS: LORazepam 2 MG/ML VIAL IM (15:05)
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
[2022-06-21 18:00] VITALS: BP 109/57; PULSE 78; RESP 18; TEMP 37.3; O2SAT 95
[2022-06-22] MEDS: LORazepam 2 MG/ML VIAL IM (15:19)
[2022-06-22] MEDS: chlorproMAZINE HCl 25 MG/ML AMPUL 50 MG IM (15:20)
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
[2022-06-22 18:00] VITALS: RESP 26
[2022-06-23 06:00] VITALS: BP 123/72; PULSE 130; RESP 16; O2SAT 100
--- NOTE | 2022-06-23 13:06 | MHC.CLN ---
F/U DIET=REGULAR WITH ENSURE BID. SUPPLEMENT PROVIDES ADDITIONAL 700 KCALS, 40 G PROTEIN. DOES NOT CONSISTENTLY EAT WELL AT MEALS BUT ACCEPTS SNACKS THROUGHOUT DAY. CONTINUE TO FOLLOW WEIGHT AND INTAKE.
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
--- NOTE | 2022-06-24 01:56 | PC.NURSE ---
after coming out of report, pt has returned to room and is compliant to instruction. she states she will take a nap.
[2022-06-24 02:21] VITALS: BP 155/70; PULSE 114; RESP 16; O2SAT 96
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
[2022-06-24 06:00] VITALS: BP 130/70; PULSE 90; RESP 15; TEMP 36.1; O2SAT 100
[2022-06-24 07:00] VITALS: BMI 19.3
--- NOTE | 2022-06-24 16:31 | HO.PSYCHPN ---
Subjective Subjective Date of Service: 06/24/22 Reason For Visit: Schizoaffective disorder type Subjective Notes: Johnson Warning, Section 7 and Section 8 Interim History: The nursing staff reported the patient has refused treatment, she does not want to take any medications. Today in the morning she to her breakfast return back to her room. On interview the patient stated that she wants to be discharged I tried to explain her again about Section 7 and 8 but she is unable to process it. She is very angry loud and disrespect good with peers and staff. Johnson warning was provided Mental Status Exam Mental Status Exam Patient Appearance: Appropriate Patient Orientation: Person, Place and Situation Level of Consciousness: Awake and Appropriate Patient Behavior: Guarded Mood Description: Hostile Affect Description: Hostile and Labile Patient Cognition Impaired: Yes Ability to Follow Directions: Fair Speech Pattern: Loud Hallucinations: None Delusions: Paranoid Ideation Thought Process: Illogical and Slowed Thinking Thought Content: positive for Linear, positive for Loose Associations and positive for Thought Blocking Judgement: Fair Diagnostics Vital Signs (24Hr): Vital Signs - 24 hr 06/24/22 02:21 06/24/22 06:00 Temperature 97.0 F Pulse Rate 114 H 90 Respiratory Rate 16 15 Blood Pressure 155/70 H 130/70 Pulse Oximetry 96 100 Oxygen Delivery Method Room Air Room Air BMI result Body Mass Index 19.3 Medications Medications Current Medications Acetaminophen (Acetaminophen 325 Mg Tablet) 650 mg PO Q6H PRN PRN Reason: Headache/Pain Mild Scale (1-3) Al Hydroxide/Mg Hydroxide (Magnesium Hydrox/Alum Hydrox 30 Ml Oral.Susp) 30 ml PO Q6H PRN PRN Reason: Heartburn/Nausea Divalproex Sodium (Divalproex Sodium Er 250 Mg Tab.Er.24h) 250 mg PO BEDTIME [facility] Last Admin: 06/23/22 23:02 Dose: Not Given Magnesium Hydroxide (Milk Of Magnesia 30 Ml Oral.Susp) 30 ml PO DAILY PRN PRN Reason: Constipation Nicotine Polacrilex (Nicotine Polacrilex 2 Mg Gum) 4 mg BUCCAL Q2H PRN PRN Reason: Nicotine Cravings Olanzapine (Olanzapine 5 Mg Tablet) 5 mg PO TID PRN PRN Reason: agitation Risperidone (Risperidone 1 Mg Tablet) 1 mg PO BID [facility] Last Admin: 06/24/22 10:17 Dose: Not Given Trazodone HCl (Trazodone Hcl 50 Mg Tablet) 50 mg PO BEDTIME PRN PRN Reason: Insomnia Allergies Allergies Allergy/AdvReac Type Severity Reaction Status Date / Time benztropine [From COGENTIN] Allergy Unknown STOMACHPAIN Verified 09/29/21 16:15 /SWELLING haloperidol [From HALDOL] Allergy Unknown STOMACH Verified 09/29/21 16:15 PAIN SWELLING Assessment & Plan Assessment & Plan (1) Schizophrenia, chronic condition: Status: Acute Code(s): F20.9 - Schizophrenia, unspecified (2) Chronic kidney disease (CKD): Qualifiers: Chronic kidney disease stage: stage 3 (moderate) Chronic kidney disease stage 3 subtype: stage 3b (GFR 30-44) Qualified Code(s): N18.32 - Chronic kidney disease, stage 3b Status: Acute Code(s): N18.9 - Chronic kidney disease, unspecified (3) Benign essential hypertension: Status: Acute Code(s): I10 - Essential (primary) hypertension (4) History of cervical cancer: Status: Acute Code(s): Z85.41 - Personal history of malignant neoplasm of cervix uteri (5) Hyperlipidemia: Qualifiers: Hyperlipidemia type: pure hypercholesterolemia Qualified Code(s): E78.00 - Pure hypercholesterolemia, unspecified Status: Acute Code(s): E78.5 - Hyperlipidemia, unspecified Plan The patient is an elderly female with a long history of schizoaffective disorder bipolar type, admitted for exacerbation of psychosis in the context of noncompliance. At the moment of the admission there was no collateral information who could provide does prior treatment. The patient is very well known by this team since she was admitted a few months ago with a similar presentation. 06/19/2022 Patient refusing psychiatric medication; irritable on approach and difficult to engage; No change in treatment plan 06/20/22 remains irritable and would not engage with investment underwriter; no change in treatment plan Plan 1. Gather collateral information. 2. Risperdal 1 mg p.o. b.i.d., we will contact [facility] to find out her current medication treatment plan. According to his provider, the patient had been noncompliance since her last admission. Apparently [facility] she seeking for guardianship and treatment over objection on court. 3. Continue with regular medications as prescribed. 4. Filing for Section 7 and 8 since she sign a 3 day notice on June 18. Johnson warning was provided. Reason for contiued inpatient stay Substantial Risk for: inability to function, rapid decompensation and med/psych decompensation Time Spent With Patient Time: Total time managing care of this patient today _20___ minutes.
[2022-06-24 18:00] VITALS: BP 119/66; PULSE 90; RESP 18; TEMP 36.6; O2SAT 97
[2022-06-25 05:59] VITALS: BP 126/66; PULSE 87; RESP 18; TEMP 36.8; O2SAT 96
--- NOTE | 2022-06-25 13:33 | MHC.CLN ---
F/U DIET=REGULAR WITH ENSURE BID. SUPPLEMENT PROVIDES ADDITIONAL 700 KCALS, 40 G PROTEIN. ACCEPTS FOOD/SNACKS THROUGHOUT DAY. CONTINUE TO FOLLOW WEIGHT AND INTAKE. RD TO FOLLOW WEEKLY.
--- NOTE | 2022-06-25 13:36 | HO.PSYCHPN ---
Subjective Subjective Date of Service: 06/25/22 Reason For Visit: Schizoaffective disorder type Subjective Notes: Johnson Warning, Section 7 and Section 8 Interim History: The nursing staff reported the patient yesterday showed a good behavior, she was less angry but still she showed psychotic symptoms elicited by poor sleep, she slept only 3 hours last night and she has been eating compulsively bananas and peanut butter sandwiches at night. Later on the staff has reported that the patient stated that she has the bone of [place] in my head and it keeps regenerating . Also she has reported that Gavin Inman is not and the my face hiding him. On interview I reviewed with her the finding of Section 7 and 8 and a smoking pipes cleaner will come to rule present her. She is pleasant and cooperative at this moment but her behavior is unpredictable. She has be refusing medications either for medical or psychiatric, her legs has worsened her edema has worsened in the last days and she refused medical care. Mental Status Exam Mental Status Exam Patient Appearance: Disheveled Patient Orientation: Person and Situation Level of Consciousness: Awake Patient Behavior: Guarded and Suspicious Mood Description: Withdrawn Affect Description: Labile Patient Cognition Impaired: Yes Ability to Follow Directions: Fair Speech Pattern: Clear Hallucinations: None Delusions: Paranoid Ideation Thought Process: Illogical and Slowed Thinking Thought Content: positive for Loose Associations, positive for Thought Blocking, positive for Tangential and positive for Disorganized Judgement: Fair Diagnostics Vital Signs (24Hr): Vital Signs - 24 hr 06/24/22 18:00 06/25/22 05:59 Temperature 98 F 98.2 F Pulse Rate 90 87 Respiratory Rate 18 18 Blood Pressure 119/66 126/66 Pulse Oximetry 97 96 Oxygen Delivery Method Room Air Room Air BMI result Body Mass Index 19.3 Medications Medications Current Medications Acetaminophen (Acetaminophen 325 Mg Tablet) 650 mg PO Q6H PRN PRN Reason: Headache/Pain Mild Scale (1-3) Al Hydroxide/Mg Hydroxide (Magnesium Hydrox/Alum Hydrox 30 Ml Oral.Susp) 30 ml PO Q6H PRN PRN Reason: Heartburn/Nausea Divalproex Sodium (Divalproex Sodium Er 250 Mg Tab.Er.24h) 250 mg PO BEDTIME [facility] Last Admin: 06/24/22 22:50 Dose: Not Given Magnesium Hydroxide (Milk Of Magnesia 30 Ml Oral.Susp) 30 ml PO DAILY PRN PRN Reason: Constipation Nicotine Polacrilex (Nicotine Polacrilex 2 Mg Gum) 4 mg BUCCAL Q2H PRN PRN Reason: Nicotine Cravings Olanzapine (Olanzapine 5 Mg Tablet) 5 mg PO TID PRN PRN Reason: agitation Risperidone (Risperidone 1 Mg Tablet) 1 mg PO BID [facility] Last Admin: 06/25/22 11:23 Dose: Not Given Trazodone HCl (Trazodone Hcl 50 Mg Tablet) 50 mg PO BEDTIME PRN PRN Reason: Insomnia Allergies Allergies Allergy/AdvReac Type Severity Reaction Status Date / Time benztropine [From COGENTIN] Allergy Unknown STOMACHPAIN Verified 09/29/21 16:15 /SWELLING haloperidol [From HALDOL] Allergy Unknown STOMACH Verified 09/29/21 16:15 PAIN SWELLING Assessment & Plan Assessment & Plan (1) Schizophrenia, chronic condition: Status: Acute Code(s): F20.9 - Schizophrenia, unspecified (2) Chronic kidney disease (CKD): Qualifiers: Chronic kidney disease stage: stage 3 (moderate) Chronic kidney disease stage 3 subtype: stage 3b (GFR 30-44) Qualified Code(s): N18.32 - Chronic kidney disease, stage 3b Status: Acute Code(s): N18.9 - Chronic kidney disease, unspecified (3) Benign essential hypertension: Status: Acute Code(s): I10 - Essential (primary) hypertension (4) History of cervical cancer: Status: Acute Code(s): Z85.41 - Personal history of malignant neoplasm of cervix uteri (5) Hyperlipidemia: Qualifiers: Hyperlipidemia type: pure hypercholesterolemia Qualified Code(s): E78.00 - Pure hypercholesterolemia, unspecified Status: Acute Code(s): E78.5 - Hyperlipidemia, unspecified Plan The patient is an elderly female with a long history of schizoaffective disorder bipolar type, admitted for exacerbation of psychosis in the context of noncompliance. At the moment of the admission there was no collateral information who could provide does prior treatment. The patient is very well known by this team since she was admitted a few months ago with a similar presentation. 06/19/2022 Patient refusing psychiatric medication; irritable on approach and difficult to engage; No change in treatment plan 06/20/22 remains irritable and would not engage with senior writer; no change in treatment plan Plan 1. Gather collateral information. 2. Risperdal 1 mg p.o. b.i.d., we will contact [facility]NOTE 3] to find out her current medication treatment plan. According to his provider, the patient had been noncompliance since her last admission. Apparently [facility] she seeking for guardianship and treatment over objection on court. 3. Continue with regular medications as prescribed. 4. Filing for Section 7 and 8 since she sign a 3 day notice on June 18. Johnson warning was provided. 5. According to [facility], she has a hearing for guardianship and treatment over a vision in the community on July 05. Reason for contiued inpatient stay Substantial Risk for: inability to function, rapid decompensation and med/psych decompensation Time Spent With Patient Time: Total time managing care of this patient today _20___ minutes.
--- NOTE | 2022-06-25 18:19 | PC.NURSE ---
Pt observed to make the statement I have [place] Norton's bone in my head, it helps me to regenerate and never . The pt also stated I'm going to Gavin Inman, he is not you know .
[2022-06-26 06:00] VITALS: BP 124/60; PULSE 93; RESP 20; TEMP 36.5; O2SAT 98
--- NOTE | 2022-06-26 17:16 | HO.PSYCHPN ---
Subjective Subjective Date of Service: 06/26/22 Reason For Visit: Schizoaffective disorder type Interim History: Patient lying in bed asleep however was easily aroused. Patient said hello and asked fiction and nonfiction writer prose to interview her and to make sure she told fiction and nonfiction writer prose certain things. On her own, patient told fiction and nonfiction writer prose her name and spelled it; she told fiction and nonfiction writer prose her address and telephone number (but acknowledged she was not sure if it was the correct number). She said I'm going to court and say I am not not psychotic. Patient told fiction and nonfiction writer prose she does not need medication. Discussed case with nursing who reports that earlier today patient says was saying she has [place]'s bone in her head. They report patient did not sleep at all last night. Mental Status Exam Mental Status Exam Patient Appearance: Appropriate Patient Orientation: Person and Situation Level of Consciousness: Awake and Appropriate Patient Behavior: Cooperative and Belligerent Mood Description: Calm and Labile Affect Description: Labile Patient Cognition Impaired: Yes Ability to Follow Directions: Fair Speech Pattern: Clear Hallucinations: None Delusions: Paranoid Ideation Thought Process: Goal Oriented Thought Content: positive for Obsessional Thoughts Judgement and Insight: Impaired Diagnostics Vital Signs (24Hr): Vital Signs - 24 hr 06/26/22 06:00 Temperature 97.7 F Pulse Rate 93 Respiratory Rate 20 Blood Pressure 124/60 Pulse Oximetry 98 Oxygen Delivery Method Room Air BMI result Body Mass Index 19.3 Medications Medications Current Medications Acetaminophen (Acetaminophen 325 Mg Tablet) 650 mg PO Q6H PRN PRN Reason: Headache/Pain Mild Scale (1-3) Al Hydroxide/Mg Hydroxide (Magnesium Hydrox/Alum Hydrox 30 Ml Oral.Susp) 30 ml PO Q6H PRN PRN Reason: Heartburn/Nausea Divalproex Sodium (Divalproex Sodium Er 250 Mg Tab.Er.24h) 250 mg PO BEDTIME [facility] Last Admin: 06/25/22 21:24 Dose: Not Given Magnesium Hydroxide (Milk Of Magnesia 30 Ml Oral.Susp) 30 ml PO DAILY PRN PRN Reason: Constipation Nicotine Polacrilex (Nicotine Polacrilex 2 Mg Gum) 4 mg BUCCAL Q2H PRN PRN Reason: Nicotine Cravings Olanzapine (Olanzapine 5 Mg Tablet) 5 mg PO TID PRN PRN Reason: agitation Risperidone (Risperidone 1 Mg Tablet) 1 mg PO BID [facility] Last Admin: 06/26/22 10:39 Dose: Not Given Trazodone HCl (Trazodone Hcl 50 Mg Tablet) 50 mg PO BEDTIME PRN PRN Reason: Insomnia Allergies Allergies Allergy/AdvReac Type Severity Reaction Status Date / Time benztropine [From COGENTIN] Allergy Unknown STOMACHPAIN Verified 09/29/21 16:15 /SWELLING haloperidol [From HALDOL] Allergy Unknown STOMACH Verified 09/29/21 16:15 PAIN SWELLING Assessment & Plan Assessment & Plan (1) Schizophrenia, chronic condition: Status: Acute Code(s): F20.9 - Schizophrenia, unspecified (2) Chronic kidney disease (CKD): Qualifiers: Chronic kidney disease stage: stage 3 (moderate) Chronic kidney disease stage 3 subtype: stage 3b (GFR 30-44) Qualified Code(s): N18.32 - Chronic kidney disease, stage 3b Status: Acute Code(s): N18.9 - Chronic kidney disease, unspecified (3) Benign essential hypertension: Status: Acute Code(s): I10 - Essential (primary) hypertension (4) History of cervical cancer: Status: Acute Code(s): Z85.41 - Personal history of malignant neoplasm of cervix uteri (5) Hyperlipidemia: Qualifiers: Hyperlipidemia type: pure hypercholesterolemia Qualified Code(s): E78.00 - Pure hypercholesterolemia, unspecified Status: Acute Code(s): E78.5 - Hyperlipidemia, unspecified Plan The patient is an elderly female with a long history of schizoaffective disorder bipolar type, admitted for exacerbation of psychosis in the context of noncompliance. At the moment of the admission there was no collateral information who could provide does prior treatment. The patient is very well known by this team since she was admitted a few months ago with a similar presentation. 06/19/2022 Patient refusing psychiatric medication; irritable on approach and difficult to engage; No change in treatment plan 06/20/22 remains irritable and would not engage with fiction and nonfiction writer prose; no change in treatment plan 06/26/22 continue current treatment plan Plan 1. Gather collateral information. 2. Risperdal 1 mg p.o. b.i.d., we will contact [facility] to find out her current medication treatment plan. According to his provider, the patient had been noncompliance since her last admission. Apparently [facility] she seeking for guardianship and treatment over objection on court. 3. Continue with regular medications as prescribed. 4. Filing for Section 7 and 8 since she sign a 3 day notice on June 18. Johnson warning was provided. 5. According to [facility], she has a hearing for guardianship and treatment over a vision in the community on July 05. Reason for contiued inpatient stay Substantial Risk for: inability to function Time Spent With Patient Time: Total time managing care of this patient today ____ minutes.
[2022-06-27 06:00] VITALS: BP 148/73; PULSE 85; RESP 16; TEMP 36.2; O2SAT 98
--- NOTE | 2022-06-27 15:48 | P.PNPSI_ITS ---
Subjective Subjective Date of Service: 06/27/22 Reason For Visit: Schizoaffective disorder type Interim History: On approach patient sleeping in bed, her torso visibly rising and falling with breaths. Pcas did not see utility in disturbing patient's sleep Discussed case with nursing who said patient was more calm today; continues to refuse medications. Vitals WNL Mental Status Exam Mental Status Exam Patient Appearance: Appropriate Patient Orientation: Person and Situation Level of Consciousness: Awake and Appropriate Patient Behavior: Guarded Mood Description: Withdrawn Affect Description: Labile Patient Cognition Impaired: Yes Ability to Follow Directions: Fair Speech Pattern: Clear Hallucinations: None Delusions: Paranoid Ideation Thought Process: Illogical and Distracted Thought Content: positive for [place] Judgement: Fair Diagnostics Vital Signs (24Hr): Vital Signs - 24 hr 06/27/22 06:00 Temperature 97.2 F Pulse Rate 85 Respiratory Rate 16 Blood Pressure 148/73 H Pulse Oximetry 98 Oxygen Delivery Method Room Air BMI result Body Mass Index 19.3 Medications Medications Current Medications Acetaminophen (Acetaminophen 325 Mg Tablet) 650 mg PO Q6H PRN PRN Reason: Headache/Pain Mild Scale (1-3) Al Hydroxide/Mg Hydroxide (Magnesium Hydrox/Alum Hydrox 30 Ml Oral.Susp) 30 ml PO Q6H PRN PRN Reason: Heartburn/Nausea Divalproex Sodium (Divalproex Sodium Er 250 Mg Tab.Er.24h) 250 mg PO BEDTIME [facility] Last Admin: 06/26/22 22:18 Dose: Not Given Magnesium Hydroxide (Milk Of Magnesia 30 Ml Oral.Susp) 30 ml PO DAILY PRN PRN Reason: Constipation Nicotine Polacrilex (Nicotine Polacrilex 2 Mg Gum) 4 mg BUCCAL Q2H PRN PRN Reason: Nicotine Cravings Olanzapine (Olanzapine 5 Mg Tablet) 5 mg PO TID PRN PRN Reason: agitation Risperidone (Risperidone 1 Mg Tablet) 1 mg PO BID [facility] Last Admin: 06/27/22 10:36 Dose: Not Given Trazodone HCl (Trazodone Hcl 50 Mg Tablet) 50 mg PO BEDTIME PRN PRN Reason: Insomnia Allergies Allergies Allergy/AdvReac Type Severity Reaction Status Date / Time benztropine [From COGENTIN] Allergy Unknown STOMACHPAIN Verified 09/29/21 16:15 /SWELLING haloperidol [From HALDOL] Allergy Unknown STOMACH Verified 09/29/21 16:15 PAIN SWELLING Assessment & Plan Assessment & Plan (1) Schizophrenia, chronic condition: Status: Acute Code(s): F20.9 - Schizophrenia, unspecified (2) Chronic kidney disease (CKD): Qualifiers: Chronic kidney disease stage: stage 3 (moderate) Chronic kidney disease stage 3 subtype: stage 3b (GFR 30-44) Qualified Code(s): N18.32 - Chronic kidney disease, stage 3b Status: Acute Code(s): N18.9 - Chronic kidney disease, unspecified (3) Benign essential hypertension: Status: Acute Code(s): I10 - Essential (primary) hypertension (4) History of cervical cancer: Status: Acute Code(s): Z85.41 - Personal history of malignant neoplasm of cervix uteri (5) Hyperlipidemia: Qualifiers: Hyperlipidemia type: pure hypercholesterolemia Qualified Code(s): E78.00 - Pure hypercholesterolemia, unspecified Status: Acute Code(s): E78.5 - Hyperlipidemia, unspecified Plan The patient is an elderly female with a long history of schizoaffective disorder bipolar type, admitted for exacerbation of psychosis in the context of noncompliance. At the moment of the admission there was no collateral information who could provide does prior treatment. The patient is very well known by this team since she was admitted a few months ago with a similar presentation. 06/19/2022 Patient refusing psychiatric medication; irritable on approach and difficult to engage; No change in treatment plan 06/20/22 remains irritable and would not engage with underwriter solicitation director; no change in treatment plan 06/26/22 continue current treatment plan 06/27/22 continue current treatment plan Plan 1. Gather collateral information. 2. Risperdal 1 mg p.o. b.i.d., we will contact [facility] to find out her current medication treatment plan. According to his provider, the patient had been noncompliance since her last admission. Apparently [facility] she seeking for guardianship and treatment over objection on court. 3. Continue with regular medications as prescribed. 4. Filing for Section 7 and 8 since she sign a 3 day notice on June 18. Johnson warning was provided. 5. According to [facility], she has a hearing for guardianship and treatment over a vision in the community on July 05. Reason for contiued inpatient stay Substantial Risk for: inability to function Time Spent With Patient Time: Total time managing care of this patient today ____ minutes.
[2022-06-27 18:00] VITALS: BP 146/77; PULSE 99; RESP 18; TEMP 36.7; O2SAT 95
[2022-06-28 06:00] VITALS: BP 142/70; PULSE 80; RESP 16; TEMP 36.6; O2SAT 96
--- NOTE | 2022-06-28 16:47 | HO.PSYCHPN ---
Subjective Subjective Date of Service: 06/28/22 Reason For Visit: Schizoaffective disorder type Subjective Notes: Conditional Voluntary Interim History: The nursing staff reported the patient had refused all her medications but he has able to hold together, she is sporadically verbally abusive but tries to isolate herself. Her vital signs have been slightly high, sometimes she refused to have vital signs. She is not sleeping at night an eating more at HS. On interview the patient denies new symptoms she states that she is not going to take any medications. Mental Status Exam Mental Status Exam Patient Appearance: Appropriate Patient Orientation: Person and Situation Level of Consciousness: Awake and Appropriate Patient Behavior: Guarded Mood Description: Withdrawn Affect Description: Labile Patient Cognition Impaired: Yes Ability to Follow Directions: Fair Speech Pattern: Clear Hallucinations: None Delusions: Paranoid Ideation Thought Process: Illogical and Distracted Thought Content: positive for [place] Judgement: Fair Diagnostics Vital Signs (24Hr): Vital Signs - 24 hr 06/27/22 18:00 06/28/22 06:00 Temperature 98.1 F 97.8 F Pulse Rate 99 80 Respiratory Rate 18 16 Blood Pressure 146/77 H 142/70 H Pulse Oximetry 95 96 Oxygen Delivery Method Room Air Room Air BMI result Body Mass Index 19.3 Medications Medications Current Medications Acetaminophen (Acetaminophen 325 Mg Tablet) 650 mg PO Q6H PRN PRN Reason: Headache/Pain Mild Scale (1-3) Al Hydroxide/Mg Hydroxide (Magnesium Hydrox/Alum Hydrox 30 Ml Oral.Susp) 30 ml PO Q6H PRN PRN Reason: Heartburn/Nausea Divalproex Sodium (Divalproex Sodium Er 250 Mg Tab.Er.24h) 250 mg PO BEDTIME [facility] Last Admin: 06/27/22 22:14 Dose: Not Given Magnesium Hydroxide (Milk Of Magnesia 30 Ml Oral.Susp) 30 ml PO DAILY PRN PRN Reason: Constipation Nicotine Polacrilex (Nicotine Polacrilex 2 Mg Gum) 4 mg BUCCAL Q2H PRN PRN Reason: Nicotine Cravings Olanzapine (Olanzapine 5 Mg Tablet) 5 mg PO TID PRN PRN Reason: agitation Risperidone (Risperidone 1 Mg Tablet) 1 mg PO BID [facility] Last Admin: 06/28/22 08:34 Dose: Not Given Trazodone HCl (Trazodone Hcl 50 Mg Tablet) 50 mg PO BEDTIME PRN PRN Reason: Insomnia Allergies Allergies Allergy/AdvReac Type Severity Reaction Status Date / Time benztropine [From COGENTIN] Allergy Unknown STOMACHPAIN Verified 09/29/21 16:15 /SWELLING haloperidol [From HALDOL] Allergy Unknown STOMACH Verified 09/29/21 16:15 PAIN SWELLING Assessment & Plan Assessment & Plan (1) Schizophrenia, chronic condition: Status: Acute Code(s): F20.9 - Schizophrenia, unspecified (2) Chronic kidney disease (CKD): Qualifiers: Chronic kidney disease stage: stage 3 (moderate) Chronic kidney disease stage 3 subtype: stage 3b (GFR 30-44) Qualified Code(s): N18.32 - Chronic kidney disease, stage 3b Status: Acute Code(s): N18.9 - Chronic kidney disease, unspecified (3) Benign essential hypertension: Status: Acute Code(s): I10 - Essential (primary) hypertension (4) History of cervical cancer: Status: Acute Code(s): Z85.41 - Personal history of malignant neoplasm of cervix uteri (5) Hyperlipidemia: Qualifiers: Hyperlipidemia type: pure hypercholesterolemia Qualified Code(s): E78.00 - Pure hypercholesterolemia, unspecified Status: Acute Code(s): E78.5 - Hyperlipidemia, unspecified Plan The patient is an elderly female with a long history of schizoaffective disorder bipolar type, admitted for exacerbation of psychosis in the context of noncompliance. At the moment of the admission there was no collateral information who could provide does prior treatment. The patient is very well known by this team since she was admitted a few months ago with a similar presentation. 06/19/2022 Patient refusing psychiatric medication; irritable on approach and difficult to engage; No change in treatment plan 06/20/22 remains irritable and would not engage with continuity writer; no change in treatment plan Plan 1. Gather collateral information. 2. Risperdal 1 mg p.o. b.i.d., we will contact [facility] to find out her current medication treatment plan. According to his provider, the patient had been noncompliance since her last admission. Apparently [facility] she seeking for guardianship and treatment over objection on court. 3. Continue with regular medications as prescribed. 4. Filing for Section 7 and 8 since she sign a 3 day notice on June 18. Johnson warning was provided. Court dated for Jul 01. 5. According to [facility], she has a hearing for guardianship and treatment over a vision in the community on July 05. Reason for contiued inpatient stay Substantial Risk for: inability to function, rapid decompensation and med/psych decompensation Time Spent With Patient Time: Total time managing care of this patient today __20__ minutes.
[2022-06-28 18:00] VITALS: BP 127/69; PULSE 94; RESP 16; TEMP 36.6; O2SAT 92
[2022-06-29 06:00] VITALS: BP 144/66; PULSE 90; RESP 16; TEMP 36.7; O2SAT 98
--- NOTE | 2022-06-29 15:21 | P.PNPSI_ITS ---
Subjective Subjective Date of Service: 06/29/22 Reason For Visit: Schizoaffective disorder type Subjective Notes: Section 7 and Section 8 Interim History: The nursing staff reported the patient had been cooperative and pleasant at times but noncompliant with any medications. The staff has noticed that she has been talking to herself. The occupational therapist reported the group she was extremely irritable when he choked and refused any help. She was unable to continue the whole group. On interview the patient denies new symptoms she is waiting for court. Mental Status Exam Mental Status Exam Patient Appearance: Appropriate Patient Orientation: Person, Place and Situation Level of Consciousness: Awake Patient Behavior: Guarded and Passive Mood Description: Withdrawn Affect Description: Labile Patient Cognition Impaired: Yes Ability to Follow Directions: Fair Speech Pattern: Clear Hallucinations: Auditory (Responding to internal stimuli at times) Delusions: Paranoid Ideation Thought Process: Slowed Thinking Thought Content: positive for [place] and positive for Circumstantial Judgement: Fair Diagnostics Vital Signs (24Hr): Vital Signs - 24 hr 06/28/22 18:00 06/29/22 06:00 Temperature 97.8 F 98.1 F Pulse Rate 94 90 Respiratory Rate 16 16 Blood Pressure 127/69 144/66 H Pulse Oximetry 92 98 Oxygen Delivery Method Room Air Room Air BMI result Body Mass Index 19.3 Medications Medications Current Medications Acetaminophen (Acetaminophen 325 Mg Tablet) 650 mg PO Q6H PRN PRN Reason: Headache/Pain Mild Scale (1-3) Al Hydroxide/Mg Hydroxide (Magnesium Hydrox/Alum Hydrox 30 Ml Oral.Susp) 30 ml PO Q6H PRN PRN Reason: Heartburn/Nausea Divalproex Sodium (Divalproex Sodium Er 250 Mg Tab.Er.24h) 250 mg PO BEDTIME [facility] Last Admin: 06/28/22 21:04 Dose: Not Given Magnesium Hydroxide (Milk Of Magnesia 30 Ml Oral.Susp) 30 ml PO DAILY PRN PRN Reason: Constipation Nicotine Polacrilex (Nicotine Polacrilex 2 Mg Gum) 4 mg BUCCAL Q2H PRN PRN Reason: Nicotine Cravings Olanzapine (Olanzapine 5 Mg Tablet) 5 mg PO TID PRN PRN Reason: agitation Risperidone (Risperidone 1 Mg Tablet) 1 mg PO BID [facility] Last Admin: 06/29/22 08:09 Dose: Not Given Trazodone HCl (Trazodone Hcl 50 Mg Tablet) 50 mg PO BEDTIME PRN PRN Reason: Insomnia Allergies Allergies Allergy/AdvReac Type Severity Reaction Status Date / Time benztropine [From COGENTIN] Allergy Unknown STOMACHPAIN Verified 09/29/21 16:15 /SWELLING haloperidol [From HALDOL] Allergy Unknown STOMACH Verified 09/29/21 16:15 PAIN SWELLING Assessment & Plan Assessment & Plan (1) Schizophrenia, chronic condition: Status: Acute Code(s): F20.9 - Schizophrenia, unspecified (2) Chronic kidney disease (CKD): Qualifiers: Chronic kidney disease stage: stage 3 (moderate) Chronic kidney disease stage 3 subtype: stage 3b (GFR 30-44) Qualified Code(s): N18.32 - Chronic kidney disease, stage 3b Status: Acute Code(s): N18.9 - Chronic kidney disease, unspecified (3) Benign essential hypertension: Status: Acute Code(s): I10 - Essential (primary) hypertension (4) History of cervical cancer: Status: Acute Code(s): Z85.41 - Personal history of malignant neoplasm of cervix uteri (5) Hyperlipidemia: Qualifiers: Hyperlipidemia type: pure hypercholesterolemia Qualified Code(s): E78.00 - Pure hypercholesterolemia, unspecified Status: Acute Code(s): E78.5 - Hyperlipidemia, unspecified Plan The patient is an elderly female with a long history of schizoaffective disorder bipolar type, admitted for exacerbation of psychosis in the context of noncompliance. At the moment of the admission there was no collateral information who could provide does prior treatment. The patient is very well known by this team since she was admitted a few months ago with a similar presentation. 06/19/2022 Patient refusing psychiatric medication; irritable on approach and difficult to engage; No change in treatment plan 06/20/22 remains irritable and would not engage with senior mortgage underwriter; no change in treatment plan 06/26/22 continue current treatment plan 06/27/22 continue current treatment plan Plan 1. Gather collateral information. 2. Risperdal 1 mg p.o. b.i.d., we will contact [facility] to find out her current medication treatment plan. According to his provider, the patient had been noncompliance since her last admission. Apparently [facility] she seeking for guardianship and treatment over objection on court. 3. Continue with regular medications as prescribed. 4. Filing for Section 7 and 8 since she sign a 3 day notice on June 18. Johnson warning was provided. 5. According to [facility], she has a hearing for guardianship and [place] in the community on July 05. Reason for contiued inpatient stay Substantial Risk for: harm to others, inability to function, rapid decompensation and med/psych decompensation Time Spent With Patient Time: Total time managing care of this patient today __20__ minutes.
[2022-06-30 08:13] VITALS: BP 118/78; PULSE 90; RESP 20; TEMP 36.7; O2SAT 100
--- NOTE | 2022-06-30 08:22 | P.PNPSI_ITS ---
Subjective Subjective Date of Service: 06/30/22 Reason For Visit: Schizoaffective disorder type Subjective Notes: Section 7 and Section 8 Interim History: The nursing staff reported the patient slept around 7 hours, she went to bed very early and she had been pacing early in the morning. She was seen wearing different outfits. She has been requesting to be waiting but she knows that we will do weights once a week as per protocol. In the evening, the staff reported the patient was watching TV stating that she was following the [place] market. On interview, the patient reports that she is doing fine and she wants to go to court tomorrow. She had refused all medications, including medical treatment. The patient has history of chronic renal disease and now she has mild edema.. Mental Status Exam Mental Status Exam Patient Appearance: Appropriate Patient Orientation: Person, Place and Situation Level of Consciousness: Awake Patient Behavior: Guarded and Passive Mood Description: Suspicious and Apprehensive Affect Description: Labile Patient Cognition Impaired: No Ability to Follow Directions: Fair Speech Pattern: Clear and Loud Hallucinations: None Delusions: Paranoid Ideation Thought Process: Distracted and Linear Thought Content: positive for [place] and positive for [place] of Content Judgement: Poor Diagnostics Vital Signs (24Hr): Vital Signs - 24 hr 06/30/22 08:13 Temperature 98.1 F Pulse Rate 90 Respiratory Rate 20 Blood Pressure 118/78 Pulse Oximetry 100 Oxygen Delivery Method Room Air BMI result Body Mass Index 19.3 Medications Medications Current Medications Acetaminophen (Acetaminophen 325 Mg Tablet) 650 mg PO Q6H PRN PRN Reason: Headache/Pain Mild Scale (1-3) Al Hydroxide/Mg Hydroxide (Magnesium Hydrox/Alum Hydrox 30 Ml Oral.Susp) 30 ml PO Q6H PRN PRN Reason: Heartburn/Nausea Divalproex Sodium (Divalproex Sodium Er 250 Mg Tab.Er.24h) 250 mg PO BEDTIME [facility] Last Admin: 06/29/22 23:30 Dose: Not Given Magnesium Hydroxide (Milk Of Magnesia 30 Ml Oral.Susp) 30 ml PO DAILY PRN PRN Reason: Constipation Nicotine Polacrilex (Nicotine Polacrilex 2 Mg Gum) 4 mg BUCCAL Q2H PRN PRN Reason: Nicotine Cravings Olanzapine (Olanzapine 5 Mg Tablet) 5 mg PO TID PRN PRN Reason: agitation Risperidone (Risperidone 1 Mg Tablet) 1 mg PO BID [facility] Last Admin: 06/29/22 23:30 Dose: Not Given Trazodone HCl (Trazodone Hcl 50 Mg Tablet) 50 mg PO BEDTIME PRN PRN Reason: Insomnia Allergies Allergies Allergy/AdvReac Type Severity Reaction Status Date / Time benztropine [From COGENTIN] Allergy Unknown STOMACHPAIN Verified 09/29/21 16:15 /SWELLING haloperidol [From HALDOL] Allergy Unknown STOMACH Verified 09/29/21 16:15 PAIN SWELLING Assessment & Plan Assessment & Plan (1) Schizophrenia, chronic condition: Status: Acute Code(s): F20.9 - Schizophrenia, unspecified (2) Chronic kidney disease (CKD): Qualifiers: Chronic kidney disease stage: stage 3 (moderate) Chronic kidney disease stage 3 subtype: stage 3b (GFR 30-44) Qualified Code(s): N18.32 - Chronic kidney disease, stage 3b Status: Acute Code(s): N18.9 - Chronic kidney disease, unspecified (3) Benign essential hypertension: Status: Acute Code(s): I10 - Essential (primary) hypertension (4) History of cervical cancer: Status: Acute Code(s): Z85.41 - Personal history of malignant neoplasm of cervix uteri (5) Hyperlipidemia: Qualifiers: Hyperlipidemia type: pure hypercholesterolemia Qualified Code(s): E78.00 - Pure hypercholesterolemia, unspecified Status: Acute Code(s): E78.5 - Hyperlipidemia, unspecified Plan The patient is an elderly female with a long history of schizoaffective disorder bipolar type, admitted for exacerbation of psychosis in the context of noncompliance. At the moment of the admission there was no collateral information who could provide does prior treatment. The patient is very well known by this team since she was admitted a few months ago with a similar presentation. 06/19/2022 Patient refusing psychiatric medication; irritable on approach and difficult to engage; No change in treatment plan 06/20/22 remains irritable and would not engage with typewriter operator automatic; no change in treatment plan 06/26/22 continue current treatment plan 06/27/22 continue current treatment plan Plan 1. Gather collateral information. 2. Risperdal 1 mg p.o. b.i.d., we will contact [facility] to find out her current medication treatment plan. According to his provider, the patient had been noncompliance since her last admission. Apparently [facility] she seeking for guardianship and treatment over objection on court. 3. Continue with regular medications as prescribed. 4. Filing for Section 7 and 8 since she sign a 3 day notice on June 18. Johnson warning was provided. 5. According to [facility], she has a hearing for guardianship and [place] in the community on July 05. Reason for contiued inpatient stay Substantial Risk for: inability to function, rapid decompensation and med/psych decompensation Time Spent With Patient Time: Total time managing care of this patient today __20__ minutes.
[2022-07-01 08:05] VITALS: BP 135/73; PULSE 81; RESP 16; TEMP 36.6; O2SAT 99
[2022-07-01 11:49] VITALS: BMI 18.0
--- NOTE | 2022-07-01 14:25 | P.PNPSI_ITS ---
Subjective Subjective Date of Service: 07/01/22 Reason For Visit: Schizoaffective disorder type Subjective Notes: Johnson Warning, Section 7 and Section 8 Interim History: The nursing staff reported that the patient has not been compliant with any medicatons. She was seen by the staff preparing for court, trying different outfits. She was been very angry at 4 AM since she wanted to watch TV. On interview, she stated that we will have court today. Denies any symptoms. Mental Status Exam Mental Status Exam Patient Appearance: Well Grooomed Patient Orientation: Person Level of Consciousness: Awake Patient Behavior: Guarded and Avoidant Mood Description: Apprehensive Affect Description: Labile Patient Cognition Impaired: Yes Ability to Follow Directions: Fair Speech Pattern: Clear Hallucinations: None Delusions: Paranoid Ideation and Ideas of Reference Thought Process: Distracted and Evasive Thought Content: positive for [place] Judgement: Poor Diagnostics Vital Signs (24Hr): Vital Signs - 24 hr 07/01/22 08:05 Pulse Rate 81 Respiratory Rate 16 Blood Pressure 135/73 Pulse Oximetry 99 Oxygen Delivery Method Room Air BMI result Body Mass Index 18.0 Medications Medications Current Medications Acetaminophen (Acetaminophen 325 Mg Tablet) 650 mg PO Q6H PRN PRN Reason: Headache/Pain Mild Scale (1-3) Al Hydroxide/Mg Hydroxide (Magnesium Hydrox/Alum Hydrox 30 Ml Oral.Susp) 30 ml PO Q6H PRN PRN Reason: Heartburn/Nausea Divalproex Sodium (Divalproex Sodium Er 250 Mg Tab.Er.24h) 250 mg PO BEDTIME [facility] Last Admin: 07/01/22 00:14 Dose: Not Given Magnesium Hydroxide (Milk Of Magnesia 30 Ml Oral.Susp) 30 ml PO DAILY PRN PRN Reason: Constipation Nicotine Polacrilex (Nicotine Polacrilex 2 Mg Gum) 4 mg BUCCAL Q2H PRN PRN Reason: Nicotine Cravings Olanzapine (Olanzapine 5 Mg Tablet) 5 mg PO TID PRN PRN Reason: agitation Risperidone (Risperidone 1 Mg Tablet) 1 mg PO BID [facility] Last Admin: 07/01/22 08:10 Dose: Not Given Trazodone HCl (Trazodone Hcl 50 Mg Tablet) 50 mg PO BEDTIME PRN PRN Reason: Insomnia Allergies Allergies Allergy/AdvReac Type Severity Reaction Status Date / Time benztropine [From COGENTIN] Allergy Unknown STOMACHPAIN Verified 09/29/21 16:15 /SWELLING haloperidol [From HALDOL] Allergy Unknown STOMACH Verified 09/29/21 16:15 PAIN SWELLING Assessment & Plan Assessment & Plan (1) Schizophrenia, chronic condition: Status: Acute Code(s): F20.9 - Schizophrenia, unspecified (2) Chronic kidney disease (CKD): Qualifiers: Chronic kidney disease stage: stage 3 (moderate) Chronic kidney disease stage 3 subtype: stage 3b (GFR 30-44) Qualified Code(s): N18.32 - Chronic kidney disease, stage 3b Status: Acute Code(s): N18.9 - Chronic kidney disease, unspecified (3) Benign essential hypertension: Status: Acute Code(s): I10 - Essential (primary) hypertension (4) History of cervical cancer: Status: Acute Code(s): Z85.41 - Personal history of malignant neoplasm of cervix uteri (5) Hyperlipidemia: Qualifiers: Hyperlipidemia type: pure hypercholesterolemia Qualified Code(s): E78.00 - Pure hypercholesterolemia, unspecified Status: Acute Code(s): E78.5 - Hyperlipidemia, unspecified Plan The patient is an elderly female with a long history of schizoaffective disorder bipolar type, admitted for exacerbation of psychosis in the context of noncompliance. At the moment of the admission there was no francisco ateral information who could provide does prior treatment. The patient is very well known by this team since she was admitted a few months ago with a similar presentation. 06/19/2022 Patient refusing psychiatric medication; irritable on approach and difficult to engage; No change in treatment plan 06/20/22 remains irritable and would not engage with brief writer; no change in treatment plan 06/26/22 continue current treatment plan 06/27/22 continue current treatment plan Plan 1. Gather collateral information. 2. Risperdal 1 mg p.o. b.i.d., we will contact [facility] to find out her current medication treatment plan. According to his provider, the patient had been noncompliance since her last admission. Apparently [facility] she seeking for guardianship and treatment over objection on court. 3. Continue with regular medications as prescribed. 4. Filing for Section 7 and 8 since she sign a 3 day notice on June 18. Johnson warning was provided. 5. According to [facility], she has a hearing for guardianship and [place] in the community on [address] today for section 7 and 8. Reason for contiued inpatient stay Substantial Risk for: inability to function, rapid decompensation and med/psych decompensation Time Spent With Patient Time: Total time managing care of this patient today __20__ minutes.
--- NOTE | 2022-07-01 16:19 | P.DS_ITS ---
DS: Providers Provider Date of Service: 07/01/22 Date of admission: 06/15/22 20:16 Date of discharge: 07/01/22 Primary care physician: Pelon Kemp MD Consults: 06/15/22 21:23 Consult to Hospitalist Routine Consulting Provider: Hospitalist Reason For Exam: admission physical Attending physician on discharge: Cruz Woodard DS: Diagnosis Discharge Diagnosis (1) Schizophrenia, chronic condition: Status: Acute (2) Chronic kidney disease (CKD): Status: Acute (3) Benign essential hypertension: Status: Acute (4) History of cervical cancer: Status: Acute (5) Hyperlipidemia: Status: Acute DS: Medications Discharge Medications Home Medications: Previous Rx's Medication Instructions Recorded amlodipine 10 mg tablet 10 mg PO DAILY 30 days #30 tabs 02/03/22 docusate sodium 100 mg capsule 100 mg PO BID 30 days #60 caps 02/03/22 multivitamin (Daily-Lucia tablet) 1 tab PO DAILY 30 days #30 tabs 02/03/22 paliperidone palmitate 234 mg/1.5 234 mg (1.5 mL) IM NOW #1.5 mL 02/03/22 mL intramuscular syringe (Invega Sustenna) glycopyrrolate 1 mg tablet 1 mg PO BID 30 days #60 tabs 03/18/22 Mental Status Exam Mental Status Exam Patient Appearance: Well Grooomed Patient Orientation: Person, Place and Situation Level of Consciousness: Awake Patient Behavior: Guarded Mood Description: Hostile Affect Description: Labile Patient Cognition Impaired: Yes Ability to Follow Directions: Fair Speech Pattern: Clear Hallucinations: Auditory Delusions: Paranoid Ideation Thought Process: Illogical and Evasive Thought Content: positive for [place] and positive for Circumstantial Judgement: Poor DS: Summary Hospital Course Hospital Course: The patient was admitted from the community after she floated her apartment. She is very well known by the team since she had been on compliant with medications and she had a previous admission last summer. The patient carries a diagnosis of schizoaffective disorder bipolar type, please see the HPI of the admission note for further details. On admission the patient was very angry that she was admitted against her will here she signed a conditional voluntary and then she signed a 3 day notice. We filed for Section 7 and 8 since the patient was refusing to take any medications. The patient has been delusive and disorganized and a certain point she needed to be chemically restrain twice. We filed for Section 7 and [address] the supervisor cutting and boning decided to let her go back to her apartment. The patient does not want to take any medications and she does not want to have on a aftercare from our side. She denies active suicidal or missile ideation. Time spent discussing smoking cessation with patient: 3 to 10 minutes Status at Discharge Cognitive/behavioral status at discharge: Impaired at baseline Functional status at discharge: independent ambulation Overall status at discharge: patient is back to baseline Time Spent with Patient Time attestation: Total time managing care of this patient today __20__ minutes. Time spent: Less than 30 minutes Discharge Plan Discharge Anticipated Discharge Date/Time: 07/01/22 16:22 Patient Disposition: Home, Self-Care Discharge Diagnosis: Schizoaffective disorder bipolar type Referrals: [facility] [Other] - 1 Week Pelon Kemp MD [Primary Care Provider] - 1 Week (Declined appointment, stating she will schedule own appointment if needed. ) Discharge Medications: Continued glycopyrrolate 1 mg tablet 1 mg PO BID 30 Days Qty: 60 0RF docusate sodium 100 mg Capsule 100 mg PO BID 30 Days Qty: 60 0RF multivitamin [Daily-Lucia] Tablet 1 tab PO DAILY 30 Days Qty: 30 0RF amlodipine 10 mg tablet 10 mg PO DAILY 30 Days Qty: 30 0RF Discontinued Invega Sustenna 234 mg/1.5 mL Syringe 234 mg IM NOW Qty: 1.5 0RF Rx Instructions: next dose on 03/06/2022 Discharge Orders: Discharge Order (Routine); Ordered 07/01/22 Ordered By: Cruz Woodard Diet: Advance to usual diet Activity on Discharge: As tolerated Stand Alone Forms: Patient Portal Discharge page Care Plan Goals: Care pLan goals not achieved, patient refused treatment Health Concerns: Continue outpatient treatment Plan of Treatment: Patient has refused medication management. Assessment: Elderly female with a long history of schizoaffective disorder admitted for psychosis, discharge since the supervisor cutting and boning did note agreed to Section 7 and 8, still symptomatic and psychotic. Discharged as per court order
== END 2022-07-01 17:00 | disposition home or self-care (01) | DRG 885 ==
PROVIDERS: Admitting Provider Psychiatry & Neurology Psychiatry; PCP Internal Medicine; Visit Provider Psychiatry & Neurology Psychiatry
DX: F25.0 Schizoaffective disorder, bipolar type (principal); E78.5 Hyperlipidemia, unspecified; N18.32 Chronic kidney disease, stage 3b; I12.9 Hypertensive chronic kidney disease with stage 1 through stage 4 chronic kidney disease, or unspecified chronic kidney disease; Z85.41 Personal history of malignant neoplasm of cervix uteri; Z91.14 Patient's other noncompliance with medication regimen; Z79.899 Other long term (current) drug therapy
CPT/HCPCS: J2060; J3230

== ENCOUNTER 2023-02-02 15:02 | Inpatient (IN) | payer MEDICARE, SELFPAY ==
[2023-02-02 15:26] VITALS: BMI 18.1
--- NOTE | 2023-02-02 15:35 | MHC.CARE ---
PT seen by [facility] in community, will be bedseearch once medically cleared. Please call [facility] to let them know pt has been medically cleared or if she is medically admitted.
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
--- NOTE | 2023-02-02 17:38 | ED_ITS ---
HPI - Altered Mental Status General Chief Complaint: Altered Mental Status Stated Complaint: AMS. psych eval Time Seen by Provider: 02/02/23 15:54 Source: EMS Mode of arrival: EMS Limitations: altered mental status History of Present Illness HPI narrative: Patient comes to emergency room via ambulance. Patient is paranoid, has history of schizophrenia, awake and alert, unable to give any history, screaming. Acc ording to EMS, patient's neighbors called the ambulance this patient was acting erratic and was being very loud, screaming, not making sense. Related Data Home Medications Medication Instructions Recorded Confirmed aripiprazole lauroxil 662 mg/2.4 See Rx Instructions IM PER PKG DIR 10/27/22 mL suspension, ext.rel. IM syringe (Aristada) divalproex 500 mg tablet,delayed 500 mg PO BID 10/27/22 release glycopyrrolate 1 mg tablet 1 mg PO TID 10/27/22 risperidone 2 mg tablet (Risperdal) 2 mg PO BID 10/27/22 Allergies Allergy/AdvReac Type Severity Reaction Status Date / Time benztropine [From COGENTIN] Allergy Unknown STOMACHPAIN Verified 02/02/23 15:25 /SWELLING haloperidol [From HALDOL] Allergy Unknown STOMACH Verified 02/02/23 15:25 PAIN SWELLING Review of Systems Review of Systems: Yes Unobtainable due to mental status PMFSH Past Medical History Medical History Benign essential hypertension Chronic kidney disease (CKD) Constipation History of cervical cancer Hyperlipidemia Schizoaffective disorder, bipolar type Schizophrenia, chronic condition Surgical History No significant past surgical history Family History Family History Father Cancer Mother Cancer Hypertension Sister No problems noted. Social History Social History Household Members: None Housing: Apartment Do you presently have visiting nurse or other home services: No Unable to assess alcohol history related to: Unknown Alcohol intake: unknown Patient Tobacco Use Status: Former Tobacco user e-Cigarette/Vaping Use: Never Used Second Hand Smoke Exposure: No Use of substances other than those prescribed or required for medical reasons: Unknown Advance Directives: No Advance Directives Information Provided: No service: No Current occupational status: disabled Sexual orientation: Straight/Heterosexual Cognitive needs: No Hearing needs: No Vision needs: No Physical Exam ED Vital Signs: BMI result Body Mass Index 18.1 Const Other: Appearance: Alert. Not making any sense Eyes: Pupils equal, round and reactive to light. ENT: Pharynx normal. Neck: Normal inspection. Neck supple. No lymph nodes noted. No crepitus CVS: Normal heart rate and rhythm. Pulses normal. Normal S1 and S2 Respiratory: No respiratory distress. Breath sounds normal. No Wheezing. No rales Abdomen: Soft and nontender. No rigidity. No distention. Skin: Skin warm and dry. Normal skin color. Normal skin turgor. Extremities: No lower extremity edema. No Lacerations. No Rash Neuro: Ambulatory Moving all extremities. No slurred speech. CN 2 through 12 grossly intact Psych: Initially calm, gradually becoming more agitated, pacing around the room, screaming, unable to hold a coherent conversation Course Course Course Narrative: -17:40, patient was very agitated, patient was given IM diphenhydramine, Ativan and ziprasidone -once patient because more calm and cooperative, will attempt getting urine and blood work. -care team consult pending -physician observation started at 17:50 Medications Administered Discontinued Medications Generic Name Dose Route Start Last Admin Trade Name Goldie PRN Reason Stop Dose Admin Diphenhydramine HCl 50 mg 02/02/23 17:27 02/02/23 17:41 Diphenhydramine Hcl 50 Mg/Ml Vial IM 02/02/23 17:28 50 mg ONCE ONE Administration Lorazepam 2 mg 02/02/23 17:27 02/02/23 17:40 Lorazepam 2 Mg/Ml Vial IM 02/02/23 17:28 2 mg STAT STA Administration Ziprasidone 10 mg 02/02/23 17:28 02/02/23 17:41 Ziprasidone Mesylate 20 Mg Vial IM 02/02/23 17:29 10 mg ONCE ONE Administration Medical Decision Making Medical Decision Making [facility] Narrative: -patient needs constant redirection -patient combative, patient had to be chemically restrained -overall, at this time 17:52, patient started to become more calm, sitting down in bed. Still arguing and hostile with nurses and techs Critical Care Time Critical Care Time Critical Care Time: Yes Total Critical Care Time: 60 Attestation: I have personally provided critical care time. Time includes review of lab data, radiology results, discussion with consultants, and monitoring for potential decompensation. Intervention performed as documented. Discharge Plan Discharge Clinical Impression: Schizophrenia, chronic condition, Altered mental status Patient Disposition: Still a Patient Prescriptions: No Action Aristada 662 mg/2.4 mL suspension,extended rel syring See Rx Instructions IM PER PKG DIR Rx Instructions: IM PER PKG DIR risperidone [Risperdal] 2 mg tablet 2 mg PO BID glycopyrrolate 1 mg tablet 1 mg PO TID divalproex 500 mg tablet,delayed release (DR/EC) 500 mg PO BID
[2023-02-02] MEDS: LORazepam 2 MG/ML VIAL IM (17:40)
[2023-02-02] MEDS: diphenhydrAMINE HCL 50 MG/ML VIAL IM (17:41)
[2023-02-02] MEDS: Ziprasidone Mesylate 20 MG VIAL 10 MG IM (17:41)
--- NOTE | 2023-02-02 17:43 | PC.NURSE ---
IM medications administered per provider order. pt still currently being aggressive and yelling at staff. will continue to monitor.
--- NOTE | 2023-02-02 18:18 | PC.NURSE ---
Pt transferred from main ED post chemical restraint administration, no report received from RN prior to patient arrival. No documented vitals or lab work available. Pt refusing vitals/medical interventions. Charge contacted regarding safety concerns. Pt brought back to behavioral health pod on foot. Due to medication administration and AMS, this RN was concerned for falls. Attempted verbal redirection ignored, pt increasingly agitated and asking to go home. Charge mentioned that patient was cleared medically by provider, pt has known comprehensive psych history, and stated that the patient does not do well in the main ED due to stimulus. This RN voiced concern that no baseline lab work or vitals were available. Chemical restraint documentation requested from main ED RN. 1:[address], patient remains uncooperative and agitated after IM sedative. HECTOR
--- NOTE | 2023-02-02 18:35 | MHC.EDTECH ---
pt walked to from main with security ED with no report given, no warning. pt was medicated IM in the main ED and brought to pod on foot. this pct concerned d/t pt's gait being unsteady post chemical restraint and pt being moved immediately post restraint with interruption in observation. pt extremely agitated, will not allow any assistance with walking. pt has no completed labs or vital signs, but is medically cleared per Margarita BOWIE. pt combative and confused post restraint. t/w greatly concerned for falls. charge machine operator notified.
[2023-02-02 22:11] LABS: MANUAL DIFF FLAG NO
[2023-02-02 22:12] LABS: Basophils Percent Auto 0.5 % (0-2); Hematocrit 37.3 % (37.0-47.0); Hemoglobin 12.4 g/dl (12.0-16.0); Imm Gran Abs Auto 0.01 X10*3/uL (0.00-0.03); Imm Gran Pct Auto 0.2 % (0.0-0.4); Lymphocytes Absolute Auto 1.8 X10*3/uL (1.2-4.9); Lymphocytes Percent Auto 29.2 % (20-40); Mean Corpuscular HGB Conc 33.2 g/dl (31.0-35.0); Mean Corpuscular Hemoglobin 26.2 pg (27.0-33.0); Mean Corpuscular Volume 78.7 fL (80.0-98.0); Monocytes Absolute Auto 0.5 X10*3/uL (0.1-1.2); Monocytes Percent Auto 7.9 % (2-11); Neutrophils Absolute Auto 3.8 x10*3/uL (2.0-8.3); Neutrophils Percent Auto 62.2 % (45-73); Platelet Count 259 X10*3/uL (160-400); Red Blood Count 4.74 X10*6/uL (4.20-5.50); Red Cell Distribution Width 13.4 % (11.0-16.0); White Blood Count 6.1 X10*3/uL (4.8-10.8)
[2023-02-02 22:23] LABS: IDNOW Serial# BCCEAD1C
[2023-02-02 22:24] LABS: COVID-19 Test Negative (Negative); Ethanol < 10 mg/dL
[2023-02-02 22:25] LABS: Alanine Aminotransferase 19 U/L (0-31); Albumin Level 3.8 g/dL (3.5-5.0); Alkaline Phosphatase 97 U/L (39-117); Anion Gap 14 (12-20); Aspartate Amino Transferase 29 U/L (5-31); Bilirubin Direct 0.1 mg/dL (0.0-0.5); Bilirubin Total 0.4 mg/dL (0.0-1.0); Blood Urea Nitrogen 32 mg/dL (9-16); Carbon Dioxide 25 mmol/L (22-29); Chloride 107 mmol/L (96-108); Creatinine Clr Calc Pharmacy 24.3; Estimated Glomerular Filt Rate 36; Glucose Random 141 mg/dL (60-115); Potassium 3.9 mmol/L (3.3-5.1); Sodium 142 mmol/L (135-145); Total Protein 6.9 g/dL (6.5-8.0)
[2023-02-03 07:35] LABS: Appearance Urine Clear; Color Urine Yellow; Glucose Urine UA Negative (Negative); Leukocyte Esterase Urine Trace (Negative); Nitrite Urine Negative (Negative); PH 5.5 (5.0-9.0); UMIC TRIGGER UACC YES; Urine Blood Negative (Negative); Urine Ketones Trace mg/dL (Negative); Urine Protein Trace mg/dL (Neg-Trace)
[2023-02-03 07:37] LABS: Amphetamine Screen Urine Not Detected (Not Detect); Barbiturates, Urine Not Detected (Not Detect); Benzodiazepines Screen Urine Not Detected (Not Detect); Cannabinoid Screen Urine Not Detected (Not Detect); Cocaine Screen Urine Not Detected (Not Detect); Fentanyl, urine Not Detected (Not Detect); Opiate Screen Urine Not Detected (Not Detect); Phencyclidine Screen Urine Not Detected (Not Detect)
[2023-02-03 07:40] LABS: Bacteria Urine None Seen (None Seen); Hyaline Casts Urine 0-2 /LPF (0-2); RBC Urine 0-2 /HPF (0-2); Squamous Epithelial Cell Urine 0-2 /HPF (0-2); WBC Urine 0-5 /HPF (0-5)
[2023-02-03] MEDS: LORazepam 2 MG/ML VIAL IM (10:06)
[2023-02-03] MEDS: Ziprasidone Mesylate 20 MG VIAL 10 MG IM (10:06)
--- NOTE | 2023-02-03 10:20 | PC.NURSE ---
Mickie observed pacing on unit this morning. Verbally aggressive with peers. Very intrusive. Agitating the unit, unable to be redirected or take space in her room. Mickie was offered PO medications and refused. IM Geodon 10mg and Lorazepam 2mg given at 1006. Mickie was given water and offered a snack after.
--- NOTE | 2023-02-03 12:40 | P.CNPS_ITS ---
History of Present Illness Date of Service: 02/03/23 Chief Complaint: AMS. psych eval Sources of Information: patient interviewed, chart reviewed and crisis/core team assessment reviewed HPI Narrative: Patient is a 72-year-old female with long history of schizoaffective disorder bipolar type, with frequent psychiatric admissions for exacerbation of psychosis in the context of noncompliance with medication which is why she has come to the emergency room now. Patient is psychotic and disorganized in speech and behavior. With television script writer she answered yes to her name but would otherwise not speak however, she is likely tired having recently received IM medications of Geodon and Ativan for verbally assaulting numerous peers to the point of agitation and risk to patient safety. Nursing staff reports she has been constantly verbally assaulting most who past by her and report that Patient could not be redirected and required IM for her safety. Hasher Machine Operator asked to review medication regimen as as plan is for patient to be admitted to geriatric psych unit once available bed. ? Past Psychiatric History: -Hx of IPLOC for psychosis and delusions. She also has hx of disordered eating i.e. restricting. Hx of decompensation when she is non- adherent on meds and when she is on medication she is not combative. -Remote hx of SA via lithium OD -She was last admitted to [facility] on S1 on 01/2022 and on M5 in 07/2017. Admission at [facility] from 04/15/2021 to 09/02/2021 on a section VIII. -Past med trials: zyprexa 15 mg HS (did not like wt gain), Trevro julian -Hx of OP psych services at [facility], psych provider is Kevin Miranda. Has [facility], ACCS. [facility] is currently in the process of having the pt appointed a legal guardian and acquiring a community zahira's order. [facility] Medical History Benign essential hypertension Chronic kidney disease (CKD) Constipation History of cervical cancer Hyperlipidemia Schizoaffective disorder, bipolar type Schizophrenia, chronic condition Surgical History No significant past surgical history Family History: Unclear Social History: -Per chart, is , lives by herself in an apartment. Has SSDI. -Pt was raised by her parents with her sister . She was born in [place] and moved to [place] one year later. Her family moved frequently and she [place] Trauma History: Unknown Diagnostics Vital Signs (24Hr): BMI result Body Mass Index 18.1 Labs 02/02/23 22:05 02/02/23 22:05 Labs: Laboratory Results - last 48 hr 02/02/23 02/02/23 02/02/23 22:05 22:05 22:05 WBC 6.1 RBC 4.74 Hgb 12.4 Hct 37.3 MCV 78.7 L MCH 26.2 L MCHC 33.2 RDW 13.4 Plt Count 259 D MPV 10.0 Immature Gran % (Auto) 0.2 Neut % (Auto) 62.2 Lymph % (Auto) 29.2 Hart % (Auto) 7.9 Eos % (Auto) 0.0 Baso % (Auto) 0.5 Lymph # (Auto) 1.8 Hart # (Auto) 0.5 Eos # (Auto) 0.0 Baso # (Auto) 0.0 Abs Immat Gran (auto) 0.01 Absolute Neuts (auto) 3.8 Absolute Nucleated RBC 0.000 Nucleated RBC % (auto) 0.0 Sodium 142 Potassium 3.9 Chloride 107 Carbon Dioxide 25 Anion Gap 14 BUN 32 H Creatinine 1.43 H Estim Creat Clear Calc 24.3 Estimated GFR 36 Random Glucose 141 H Calcium 10.0 D Total Bilirubin 0.4 Direct Bilirubin 0.1 AST 29 ALT 19 Alkaline Phosphatase 97 Total Protein 6.9 Albumin 3.8 Urine Color Urine Appearance Urine pH Ur Specific Ramer Urine Protein Urine Glucose (UA) Urine Ketones Urine Blood Urine Nitrite Ur Leukocyte Esterase Urine RBC Urine WBC Ur Squamous Epith Cells Urine Bacteria Hyaline Casts Urine Opiates Screen Urine Fentanyl Screen Ur Barbiturates Screen Ur Phencyclidine Scrn Ur Amphetamines Screen U Benzodiazepines Scrn Urine Cocaine Screen U Marijuana (THC) Screen Ethyl Alcohol COVID-19 ([facility]ANY) Negative COVID-19 Clin Com See Note 02/02/23 02/03/23 02/03/23 22:05 07:21 07:21 WBC RBC Hgb Hct MCV MCH MCHC RDW Plt Count MPV Immature Gran % (Auto) Neut % (Auto) Lymph % (Auto) Hart % (Auto) Eos % (Auto) Baso % (Auto) Lymph # (Auto) Hart # (Auto) Eos # (Auto) Baso # (Auto) Abs Immat Gran (auto) Absolute Neuts (auto) Absolute Nucleated RBC Nucleated RBC % (auto) Sodium Potassium Chloride Carbon Dioxide Anion Gap BUN Creatinine Estim Creat Clear Calc Estimated GFR Random Glucose Calcium Total Bilirubin Direct Bilirubin AST ALT Alkaline Phosphatase Total Protein Albumin Urine Color Yellow Urine Appearance Clear Urine pH 5.5 Ur Specific Ramer 1.010 Urine Protein Trace Urine Glucose (UA) Negative Urine Ketones Trace Urine Blood Negative Urine Nitrite Negative Ur Leukocyte Esterase Trace H Urine RBC 0-2 Urine WBC 0-5 Ur Squamous Epith Cells 0-2 Urine Bacteria None Seen Hyaline Casts 0-2 Urine Opiates Screen Not Detected Urine Fentanyl Screen Not Detected Ur Barbiturates Screen Not Detected Ur Phencyclidine Scrn Not Detected Ur Amphetamines Screen Not Detected U Benzodiazepines Scrn Not Detected Urine Cocaine Screen Not Detected U Marijuana (THC) Screen Not Detected Ethyl Alcohol < 10 COVID-19 ([facility]ITTANY) COVID-19 Clin Com Medications Allergies Allergies Allergy/AdvReac Type Severity Reaction Status Date / Time benztropine [From COGENTIN] Allergy Unknown STOMACHPAIN Verified 02/02/23 15:25 /SWELLING haloperidol [From HALDOL] Allergy Unknown STOMACH Verified 02/02/23 15:25 PAIN SWELLING Assessment & Plan Assessment & Plan (1) Schizoaffective disorder, bipolar type: Status: Acute Code(s): F25.0 - Schizoaffective disorder, bipolar type Plan Patient is a 72-year-old female with long history of schizoaffective disorder bipolar type, with frequent psychiatric admissions for exacerbation of psychosis in the context of noncompliance with medication which is why she has come to the emergency room now. Patient is psychotic and disorganized in speech and behavior. With television script writer she answered yes to her name but would otherwise not speak however, she is likely tired having recently received IM medications of Geodon and Ativan for verbally assaulting numerous peers to the point of agitation and risk to patient safety. Nursing staff reports she has been constantly verbally assaulting most who past by her and report that Patient could not be redirected and required IM for her safety. Will restart medication regimen from patient's last psychiatric admission PLAN: Patient waiting for geriatric psychiatric bed Restart Depakote ER 250 mg q.h.s. (Lft's WNL) Restart risperidone 1 mg b.i.d. Restart PRN Zydis 5 mg t.i.d. p.r.n. for agitation Total time managing care of this patient today ____ minutes.
[2023-02-03 14:19] VITALS: RESP 18
[2023-02-03] MEDS: OLANZapine ODT 10 MG TAB.RAPDIS 5 MG TRANSLINGU (18:44)
[2023-02-03 20:09] VITALS: BP 161/92; PULSE 95; RESP 18; O2SAT 95
--- NOTE | 2023-02-04 03:20 | PC.NURSE ---
Patient slept from 2114 to 129 for 4 hours 15 minutes and up since 129 wandering and standing in front of exit requiring multiple redirection, adamantly refused her night time medication, patient was assessed by [facility], disposition is section 12 inpatient bed search, VSS, behavior combative and uncooperative, will continue to monitor.
[2023-02-04 06:14] VITALS: BP 132/77; PULSE 97; RESP 16; TEMP 36.8; O2SAT 100
--- NOTE | 2023-02-04 16:47 | PC.NURSE ---
Pt remains difficult to redirect and easily agitated. While in POD she has spent much of the day responding to internal stimuli and pacing. Mickie can be combative when engaged and has required redirection about being intrusive with peers. Appetite fair.
--- NOTE | 2023-02-05 05:13 | PC.NURSE ---
Patient slept through the night, no distress observed/reported, adamantly refusing her medication, disposition per [facility] is section 12 inpatient bed search, possible S1 admission coming Tuesday, ambulates independently but gait unsteady elimination intact, appetite good, non concerning in general but loud disruptive at time, will continue to monitor.
[2023-02-05 06:25] VITALS: BP 143/81; PULSE 86; RESP 16; TEMP 36.5; O2SAT 95
--- NOTE | 2023-02-05 07:21 | PC.NURSE ---
Assumed care of this patient. Patient sitting in common area. No acute behavioral concerns at this time.
--- NOTE | 2023-02-05 08:31 | PC.NURSE ---
Pt refused scheduled 0900 Risperidal stating I do not need medications, I have not taken medications since 1984 .
[2023-02-05 15:45] VITALS: BP 128/68; PULSE 79; RESP 18; TEMP 36.8; O2SAT 96
--- NOTE | 2023-02-05 22:42 | PC.NURSE ---
Patient refused her night time medication, offered PRN olanzapine but refused as well, VSS, tangential and hyper-verbal, disposition per [facility] is [facility] inpatient bed search, behavior non concerning, appetite good, constantly drinking decaf tea, will continue to monitor.
[2023-02-05 23:04] VITALS: BP 141/82; PULSE 91; RESP 16; TEMP 36.9; O2SAT 98
--- NOTE | 2023-02-06 06:23 | PC.NURSE ---
Patient slept total 90 minutes through out night, no distress observed/reported, adamantly refusing her medication, disposition per [facility] is section 12 inpatient bed search, possible S1 admission coming Tuesday, ambulates independently but gait unsteady elimination intact, appetite good, behavior non concerning in general but loud, disruptive, and hyper-verbal mostly, will continue to monitor.
--- NOTE | 2023-02-06 07:04 | PC.NURSE ---
this RN assumed care of pt. pt sitting down eating breakfast. pt has no behavior concerns at this time. safety measures in place. [address]
--- NOTE | 2023-02-06 08:26 | PC.NURSE ---
Addendum entered by Roselyn Calderon 02/06/23 08:34: pt at this time states it is 2022 i am not taking my meds pt also states she is not SI/HI. Original Note: pt refused medications at this time. pt stated she has not taken her medications since 1984 . Provider made aware.
--- NOTE | 2023-02-06 09:30 | PC.NURSE ---
assumed care. pt calm, in common room, talking to self. no respir distress. coopeartive.
[2023-02-06 09:59] VITALS: RESP 18
--- NOTE | 2023-02-06 10:01 | PC.NURSE ---
Addendum entered by Paula Patel 02/06/23 10:13: pt able to give response to [place]. no si. Original Note: RN attempted to complete evaluations such as Randolph scale questions, VS, and offer morning meds again as refused last shift. pt refused med and vitals- began to yell at RN and yelled at her to get away because she is a cannibal. Continues to talk to self but not in distress. No respiratory issues- 18 respirations on room air. Skin with +CSM/warm/dry. No dizziness/CP reported. Walking in common room w/steady gait. MD's have been aware pt refusing meds this stay. Pt offered PO intake.
--- NOTE | 2023-02-06 11:16 | PC.NURSE ---
pt ate sandwhiches and po fluids well. continues in common room calm, coop.
--- NOTE | 2023-02-06 13:18 | PC.NURSE ---
eating lunch. talking to self. coopeartive. no distress. watching tv. respirations even/regular. +CSM.
[2023-02-06 13:19] VITALS: RESP 18
--- NOTE | 2023-02-06 14:00 | PC.NURSE ---
sleeping calmly with no distress after finishing lunch.
--- NOTE | 2023-02-06 16:52 | PC.NURSE ---
pt awake in common room watching TV. respirations equal, even. declines VS- started to yell at RN/tech absolutely not and becoming agitated when attempted. redirected with reassuring words and talking. +CSM. no distress noted. no si/hi reported.
[2023-02-06 16:55] VITALS: RESP 16
[2023-02-06 18:43] VITALS: RESP 16
--- NOTE | 2023-02-06 18:44 | PC.NURSE ---
eating lunch/po fluids well and watching tv. refusing VS- becomes agitated and tells staff to back away. +CSM. no respiratory distress. talking w/o issue.
--- NOTE | 2023-02-06 19:05 | PC.NURSE ---
assumed care of patient at 1900, pt wandering around BH pod, calm and cooperative with this RN, no apparent distress at this time
[2023-02-06 22:00] VITALS: RESP 13
--- NOTE | 2023-02-06 22:33 | PC.NURSE ---
patient refused medications this RN offered, pt yelled at this RN to leave. This RN was able to de-escalate patient with no issue. Pt in bed at this time sleeping, respirations even and unlabored, skin pwd, no apparent distress
--- NOTE | 2023-02-07 04:15 | PC.NURSE ---
patient slept from approximately 2115 to 2230. Pt has since been awake, wandering around BH pod. Often staring off into distance, having conversations with self. Pt has tangential thoughts and is easily disgruntled. Pt is re-directable with multiple prompts. Continue plan of care for potential S1 admission today 02/07
[2023-02-07 05:44] VITALS: RESP 14
--- NOTE | 2023-02-07 08:35 | PC.NURSE ---
patient approached by RN to do EKG, patient became aggressive and started yelling, patient refused EKG saying no one was going to touch her and to go away.
--- NOTE | 2023-02-07 11:38 | PC.NURSE ---
patient has remained calm and cooperative, requested a decaf tea. patient has been watching tv in community area.
[2023-02-07 15:22] VITALS: RESP 18
--- NOTE | 2023-02-07 16:31 | PC.NURSE ---
patient has remained calm and cooperative, sitting in community area, watching tv. patient has refused additional lab work
[2023-02-07 20:00] VITALS: BMI 18.9
--- NOTE | 2023-02-08 02:07 | PC.ADMIT ---
Patient is a 72years old female admitted to the unit from [facility] after referral from [facility] crisis for schizoaffective disorder. Patient arrived on unit via wheel chair at 19:22. Patientt's legal status is sec. 12B. Patient presented to [facility] secondary to being assessed in the community by [facility] due to residents calling police due to patient's yelling. Patient has periods of agitation, verbal aggression and talking out loud. Current presentation at time of admission is that, pt is uncooperative, verbally abusive to staff, and does not like to be touched as per patient. Patient also refused to sign all legal paperwork, was unable to complete most admission stuff due to patient's mental status, patient also refused vitals and HS meds. Dr De La Garza notified. Patient is oriented to self, place and date but disorganized in speech. Per crisis note, patient has a long hx of schizoaffective d/o bipolar type, with frequent psychiatric admissions for exacerbation of psychosis in the context of non-compliance with meds. patient ambulates independently with steady gait. pt is placed on 5mins safety checks.Will continue to monitor for patient's safety.
--- NOTE | 2023-02-08 08:32 | P.HPPS_ITS ---
HPI Date of Service: 02/08/23 Chief Complaint: disorganized/ psychotic Sources of Information: patient interviewed, chart reviewed and crisis/core team assessment reviewed HPI Subjective Notes: Johnson Warning (given and shows understanding) and Section 12B Narrative: Ms. Villa is a 72 year-old with hx of schizophrenia. Pt was assessed by [facility] crisis [facility] reporting increased intrusive paranoid and disruptive behaviors in the community. Per crisis, pt presented with paranoid delusions,of being kidnapped, of people trying to poison her and get her sick. In the ED, pt combative and intrusive to peers and staff without insight of other peers reactions. Utox was negative. On the unit, pt presents as combative, verbally abusive towards staff and peers, accusing them of being part of her being kidnapped. She is asking this public relations writer to give her cell phone as she does not trust phone on the unit because she believes they are tapped. She refused to talk with this public relations writer stating you're stupid, why should I hear you? Past Psychiatric History: -Hx of IPLOC : S1 01/2022, S1 06/2022, [facility] 08/2022, multiple in the past. -Remote hx of SA via lithium OD -She was last admitted to [facility] on S1 on 01/2022 and on M5 in 07/2017. Admission at [facility] from 04/15/2021 to 09/02/2021 on a section VIII. -Past med trials: zyprexa 15 mg HS (did not like wt gain), Trevor julian -Hx of OP psych services at [facility], psych provider is Kevin Miranda. Has DMH, ACCS. [facility] is currently in the process of having the pt appointed a legal guardian and acquiring a community wang's order. Medical Evaluation Reviewed: Yes [facility] Medical History Benign essential hypertension Chronic kidney disease (CKD) Constipation History of cervical cancer Hyperlipidemia Schizoaffective disorder, bipolar type Schizophrenia, chronic condition Surgical History No significant past surgical history Family History: Unclear Social History: -Per chart, is , lives by herself in an apartment. Has SSDI. -Pt was raised by her parents with her sister . She was born in [facility] and moved to [place] one year later. Her family moved frequently and [place] Trauma History: Unknown Diagnostics Vital Signs (24Hr): Vital Signs - 24 hr 02/07/23 15:22 Respiratory Rate 18 BMI result Body Mass Index 18.9 Labs 02/02/23 22:05 02/02/23 22:05 Meds/Allergies Meds Home Medications Medication Instructions Recorded Confirmed Type aripiprazole lauroxil 662 mg/2.4 662 mg IM QMONTH 02/02/23 02/02/23 History mL suspension, ext.rel. IM syringe (st) divalproex 500 mg tablet,extended 500 mg PO BID 02/02/23 02/02/23 History release 24 hr glycopyrrolate 1 mg tablet 1 mg PO BID 02/02/23 02/02/23 History risperidone 2 mg tablet 2 mg PO BID 02/02/23 02/02/23 History Allergies Allergies Allergy/AdvReac Type Severity Reaction Status Date / Time benztropine [From COGENTIN] Allergy Unknown STOMACHPAIN Verified 02/02/23 15:25 /SWELLING haloperidol [From HALDOL] Allergy Unknown STOMACH Verified 02/02/23 15:25 PAIN SWELLING Mental Status Exam Mental Status Exam Narrative: Appearance: behavior: Speech: Psychomotor: Mood: fine Affect: labile, paranoid SI: declines to respond HI: vague threats to others Delusions: paranoid delusions Insight/judgment: Memory/cog: alert, oriented to place, not situation. Assessment & Plan Assessment & Plan (1) Schizoaffective disorder, bipolar type: Status: Acute Code(s): F25.0 - Schizoaffective disorder, bipolar type Plan Mr. Villa is a 72 year-old is schizophrenia, hx of extensive inpatient hospitalization. She does have a Wang's in the community. Pt was assessed in the community by [facility] crisis after housing called 911 due to pt presenting as more paranoid, combative and intrusive with residents. Pt had last CARRERA of Aristada in October 2022. Per collateral information, pt has been decompensated since then. She does have a Wang's that includes Invega Sustenna (which was d/c due to creatinine clearance between 40-30), loxapine and risperidone (oral only, no CARRERA). PLAN 1. Admit to S1, sect 12b, 5 minutes checks 2. administer Aristada 882mg mg IM qmonthly- to aim for an equivalent oral dose of 20mg po daily 3. obtain collateral information 4. Aftercare planning Patient educated on: diagnosis, medication risk/benefits and substance abuse Reason for continued inpatient stay Substantial Risk for: harm to self, harm to others and inability to function Statement Statement: I have reviewed the history and physical and performed a pertinent examination on my patient. No changes have occurred unless specified. If the History and Physical was not performed prior to admission, the Hospitalist's service will be consulted for completing the admission physical. Time Spent With Patient Time: Total time managing care of this patient today ____ minutes.
[2023-02-08 13:55] VITALS: BMI 18.9
[2023-02-09 06:54] VITALS: BP 134/94; PULSE 90; RESP 16; TEMP 36.4; O2SAT 96
--- NOTE | 2023-02-09 10:59 | PC.NURSE ---
contacted pharmacy to obtain [place] ordered Q30 IM medication. Pharmacy reports the medication must be ordered and it should arrive 02/10/23. Provider, Torri Travis notified via [facility] [employer].
[2023-02-09 18:00] VITALS: BP 151/81; PULSE 98; RESP 18; TEMP 36.4; O2SAT 95
[2023-02-09] MEDS: Divalproex Sodium ER 250 MG TAB.ER.24H PO (20:35)
[2023-02-09] MEDS: risperiDONE 1 MG TABLET PO (20:36)
[2023-02-09] MEDS: traZODone HCL 25 MG HALFTAB PO (20:36)
--- NOTE | 2023-02-09 21:37 | HO.PSYCHPN ---
Subjective Subjective Date of Service: 02/09/23 Reason For Visit: disorganized/ psychotic Subjective Notes: Section 12B Interim History: Pt slept through the night. She had been calling the police on using pts phone reporting that she had been kidnapped. When I met with pt, she was outside, calm, she asked this screenplay writer to sit. She reports she is fine I just have to go home. She denied SI/HI. No insight into psychiatric symptoms or need for treatment. Per nursing, pt slept through the night. awaiting Aristada to be brought in by team, not in our formulary. Medication Compliance: No Review of Systems Review of Systems Yes Unobtainable due to mental status Mental Status Exam Mental Status Exam Narrative: Appearance:thin, casually groomed, in NAD behavior:guarded, but calmer Speech:clear, regular rate, spontaneous Psychomotor: less agitated Mood: fine Affect: labile, paranoid SI: declines to respond HI: vague threats to others Delusions: paranoid delusions VH/AH: talking to someone who was not there. Insight/judgment: Memory/cog: alert, oriented to place, not situation. Diagnostics Vital Signs (24Hr): Vital Signs - 24 hr 02/09/23 06:54 Temperature 97.6 F Pulse Rate 90 Respiratory Rate 16 Blood Pressure 134/94 H Pulse Oximetry 96 Oxygen Delivery Method Room Air BMI result Body Mass Index 18.9 Labs 02/02/23 22:05 02/02/23 22:05 Medications Medications Current Medications Acetaminophen (Acetaminophen 325 Mg Tablet) 650 mg PO Q6H PRN PRN Reason: Headache/Pain Mild Scale (1-3) Al Hydroxide/Mg Hydroxide (Magnesium Hydrox/Alum Hydrox 30 Ml Oral.Susp) 30 ml PO Q6H PRN PRN Reason: Heartburn/Nausea Aripiprazole Lauroxil (Aripiprazole Lauroxil Er 662 Mg/2.4 Ml Suser.Syr) 662 mg IM Q30D [facility] Last Admin: 02/09/23 07:44 Dose: Not Given Divalproex Sodium (Divalproex Sodium Er 250 Mg Tab.Er.24h) 250 mg PO BEDTIME [facility] Last Admin: 02/09/23 20:35 Dose: 250 mg Magnesium Hydroxide (Milk Of Magnesia 30 Ml Oral.Susp) 30 ml PO DAILY PRN PRN Reason: Constipation Risperidone (Risperidone 1 Mg Tablet) 1 mg PO BID REJI Last Admin: 02/09/23 20:36 Dose: 1 mg Trazodone HCl (Trazodone Hcl 25 Mg Halftab) 25 mg PO BEDTIME MRX1 PRN PRN Reason: Insomnia Last Admin: 02/09/23 20:36 Dose: 25 mg Allergies Allergies Allergy/AdvReac Type Severity Reaction Status Date / Time benztropine [From COGENTIN] Allergy Unknown STOMACHPAIN Verified 02/02/23 15:25 /SWELLING haloperidol [From HALDOL] Allergy Unknown STOMACH Verified 02/02/23 15:25 PAIN SWELLING Assessment & Plan Assessment & Plan (1) Schizoaffective disorder, bipolar type: Status: Acute Code(s): F25.0 - Schizoaffective disorder, bipolar type Plan Mr. Villa is a 72 year-old is schizophrenia, hx of extensive inpatient hospitalization. She does have a Wang's in the community. Pt was assessed in the community by [facility] crisis after housing called 911 due to pt presenting as more paranoid, combative and intrusive with residents. Pt had last CARRERA of Aristada in October 2022. Per collateral information, pt has been decompensated since then. She does have a Wang's that includes Invega Sustenna (which was d/c due to creatinine clearance between 40-30), loxapine and risperidone (oral only, no CARRERA). PLAN 1. Admit to S1, sect 12b, 5 minutes checks 2. administer Aristada 882mg mg IM qmonthly- to aim for an equivalent oral dose of 20mg po daily 3. obtain collateral information 4. Aftercare planning 02/09 pt slightly calmer, pending CARRERA Abilify. Reason for continued inpatient stay Substantial Risk for: inability to function Time Spent With Patient Time: Total time managing care of this patient today ____ minutes.
[2023-02-10 07:00] VITALS: BMI 18.5
--- NOTE | 2023-02-10 20:01 | HO.PSYCHPN ---
Subjective Subjective Date of Service: 02/10/23 Reason For Visit: disorganized/ psychotic Subjective Notes: Section 7 Interim History: Pt for involuntary treatment filed. Pt continues as paranoid, less irritable but still yelling at peers and staff. She declined to speak with this senior underwriter, asking me to go to [facility] She received Aristada 662mg IM qmonthly. Medication Compliance: Yes Diagnostics Vital Signs (24Hr): BMI result Body Mass Index 18.5 Labs 02/02/23 22:05 02/02/23 22:05 Medications Medications Current Medications Acetaminophen (Acetaminophen 325 Mg Tablet) 650 mg PO Q6H PRN PRN Reason: Headache/Pain Mild Scale (1-3) Al Hydroxide/Mg Hydroxide (Magnesium Hydrox/Alum Hydrox 30 Ml Oral.Susp) 30 ml PO Q6H PRN PRN Reason: Heartburn/Nausea Amlodipine Besylate (Amlodipine Besylate 2.5 Mg Tablet) 2.5 mg PO DAILY [facility]JI; Protocol Aripiprazole (Aripiprazole 20 Mg Tablet) 20 mg PO DAILY [facility]I Aripiprazole Lauroxil (Aripiprazole Lauroxil Er 662 Mg/2.4 Ml Suser.Syr) 662 mg IM Q30D [facility]I Last Admin: 02/10/23 15:58 Dose: 662 mg Divalproex Sodium (Divalproex Sodium Er 250 Mg Tab.Er.24h) 250 mg PO BEDTIME [facility]I Last Admin: 02/09/23 20:35 Dose: 250 mg Magnesium Hydroxide (Milk Of Magnesia 30 Ml Oral.Susp) 30 ml PO DAILY PRN PRN Reason: Constipation Risperidone (Risperidone 2 Mg Tablet) 2 mg PO BID REJI Trazodone HCl (Trazodone Hcl 25 Mg Halftab) 25 mg PO BEDTIME MRX1 PRN PRN Reason: Insomnia Last Admin: 02/09/23 20:36 Dose: 25 mg Allergies Allergies Allergy/AdvReac Type Severity Reaction Status Date / Time benztropine [From COGENTIN] Allergy Unknown STOMACHPAIN Verified 02/02/23 15:25 /SWELLING haloperidol [From HALDOL] Allergy Unknown STOMACH Verified 02/02/23 15:25 PAIN SWELLING Assessment & Plan Assessment & Plan (1) Schizoaffective disorder, bipolar type: Status: Acute Code(s): F25.0 - Schizoaffective disorder, bipolar type Plan Mr. Villa is a 72 year-old is schizophrenia, hx of extensive inpatient hospitalization. She does have a Wang's in the community. Pt was assessed in the community by [facility] crisis after housing called 911 due to pt presenting as more paranoid, combative and intrusive with residents. Pt had last CARRERA of Aristada in October 2022. Per collateral information, pt has been decompensated since then. She does have a Wang's that includes Invega Sustenna (which was d/c due to creatinine clearance between 40-30), loxapine and risperidone (oral only, no CARRERA). PLAN 1. Admit to S1, sect 12b, 5 minutes checks 2. administer Aristada 882mg mg IM qmonthly- to aim for an equivalent oral dose of 20mg po daily 3. obtain collateral information 4. Aftercare planning 02/09 pt slightly calmer, pending CARRERA Abilify. 02/10 received CARRERA Aristada. Reason for continued inpatient stay Substantial Risk for: inability to function Time Spent With Patient Time: Total time managing care of this patient today ____ minutes.
--- NOTE | 2023-02-11 15:16 | P.PNPSI_ITS ---
Subjective Subjective Date of Service: 02/11/23 Reason For Visit: disorganized/ psychotic Subjective Notes: Section 7 Interim History: Pt present calmer, continues to have paranoid delusions of people trying to hurt her and give her medications that are poison. Pt slept through the night. she has been visible on the unit, social with select peers. She denies SI/HI. She reports she found an criminal defense attorney and working to finally stop medications. Review of Systems Review of Systems Yes Unobtainable due to mental status Mental Status Exam Mental Status Exam Narrative: Appearance:thin, casually groomed, in NAD behavior:guarded, but calmer Speech:clear, regular rate, spontaneous Psychomotor: less agitated Mood: fine Affect: labile, paranoid SI: declines to respond HI: vague threats to others Delusions: paranoid delusions VH/AH: talking to someone who was not there. Insight/judgment: Memory/cog: alert, oriented to place, not situation. Diagnostics Vital Signs (24Hr): BMI result Body Mass Index 18.5 Labs 02/02/23 22:05 02/02/23 22:05 Medications Medications Current Medications Acetaminophen (Acetaminophen 325 Mg Tablet) 650 mg PO Q6H PRN PRN Reason: Headache/Pain Mild Scale (1-3) Al Hydroxide/Mg Hydroxide (Magnesium Hydrox/Alum Hydrox 30 Ml Oral.Susp) 30 ml PO Q6H PRN PRN Reason: Heartburn/Nausea Amlodipine Besylate (Amlodipine Besylate 2.5 Mg Tablet) 2.5 mg PO DAILY [facility]; Pr otocol Last Admin: 02/11/23 10:01 Dose: Not Given Aripiprazole (Aripiprazole 20 Mg Tablet) 20 mg PO DAILY [facility] Last Admin: 02/11/23 10:01 Dose: Not Given Aripiprazole Lauroxil (Aripiprazole Lauroxil Er 662 Mg/2.4 Ml Suser.Syr) 662 mg IM Q30D [facility] Last Admin: 02/10/23 15:58 Dose: 662 mg Divalproex Sodium (Divalproex Sodium Er 250 Mg Tab.Er.24h) 250 mg PO BEDTIME [facility] Last Admin: 02/10/23 23:29 Dose: Not Given Magnesium Hydroxide (Milk Of Magnesia 30 Ml Oral.Susp) 30 ml PO DAILY PRN PRN Reason: Constipation Risperidone (Risperidone 2 Mg Tablet) 2 mg PO BID [facility] Last Admin: 02/11/23 10:01 Dose: Not Given Trazodone HCl (Trazodone Hcl 25 Mg Halftab) 25 mg PO BEDTIME MRX1 PRN PRN Reason: Insomnia Last Admin: 02/09/23 20:36 Dose: 25 mg Allergies Allergies Allergy/AdvReac Type Severity Reaction Status Date / Time benztropine [From COGENTIN] Allergy Unknown STOMACHPAIN Verified 02/02/23 15:25 /SWELLING haloperidol [From HALDOL] Allergy Unknown STOMACH Verified 02/02/23 15:25 PAIN SWELLING Assessment & Plan Assessment & Plan (1) Schizoaffective disorder, bipolar type: Status: Acute Code(s): F25.0 - Schizoaffective disorder, bipolar type Plan Mr. Villa is a 72 year-old is schizophrenia, hx of extensive inpatient hospitalization. She does have a Wang's in the community. Pt was assessed in the community by [facility] crisis after housing called 911 due to pt presenting as more paranoid, combative and intrusive with residents. Pt had last CARRERA of Aristada in October 2022. Per collateral information, pt has been decompensated since then. She does have a Wang's that includes Invega Sustenna (which was d/c due to creatinine clearance between 40-30), loxapine and risperidone (oral only, no CARRERA). PLAN 1. Admit to S1, sect 12b, 5 minutes checks 2. administer Aristada 882mg mg IM qmonthly- to aim for an equivalent oral dose of 20mg po daily 3. obtain collateral information 4. Aftercare planning 02/09 pt slightly calmer, pending CARRERA Abilify. 02/10 received CARRERA Aristada. 02/11 continue tx. there is no back IM for risperidone on her Wang's- she refuses oral risperidone Reason for continued inpatient stay Substantial Risk for: inability to function Time Spent With Patient Time: Total time managing care of this patient today ____ minutes.
--- NOTE | 2023-02-12 12:40 | P.PNPSI_ITS ---
Subjective Subjective Date of Service: 02/12/23 Reason For Visit: disorganized/ psychotic Subjective Notes: Section 7 Interim History: Patient was seen and discussed in rounds today. Records and plans were reviewed. She has been doing a little better and has been calmer. She continues to be psychotic, disorganized and paranoid. She is angry at times. She refuses meds, ADLs and care. Not sleeping well. Eating adequately. Medication Compliance: No Side effects from medications: No Review of Systems Review of Systems Yes Unobtainable due to mental status Mental Status Exam Mental Status Exam Narrative: In today's visit she is alert, mostly pleasant and interactive. Normal speech. Moderate eye contact. Affect is tense and little irritable. Thought processes are disorganized. Could not assess safety and suicidality. Judgment is impaired and Diagnostics Vital Signs (24Hr): BMI result Body Mass Index 18.5 Labs 02/02/23 22:05 02/02/23 22:05 Medications Medications Current Medications Acetaminophen (Acetaminophen 325 Mg Tablet) 650 mg PO Q6H PRN PRN Reason: Headache/Pain Mild Scale (1-3) Al Hydroxide/Mg Hydroxide (Magnesium Hydrox/Alum Hydrox 30 Ml Oral.Susp) 30 ml PO Q6H PRN PRN Reason: Heartburn/Nausea Amlodipine Besylate (Amlodipine Besylate 2.5 Mg Tablet) 2.5 mg PO DAILY [facility]; Protocol Last Admin: 02/12/23 09:26 Dose: Not Given Aripiprazole (Aripiprazole 20 Mg Tablet) 20 mg PO DAILY [facility] Last Admin: 02/12/23 09:26 Dose: Not Given Aripiprazole Lauroxil (Aripiprazole Lauroxil Er 662 Mg/2.4 Ml Suser.Syr) 662 mg IM Q30D [facility] Last Admin: 02/10/23 15:58 Dose: 662 mg Divalproex Sodium (Divalproex Sodium Er 250 Mg Tab.Er.24h) 250 mg PO BEDTIME [facility] Last Admin: 02/11/23 19:52 Dose: Not Given Magnesium Hydroxide (Milk Of Magnesia 30 Ml Oral.Susp) 30 ml PO DAILY PRN PRN Reason: Constipation Risperidone (Risperidone 2 Mg Tablet) 2 mg PO BID [facility] Last Admin: 02/12/23 09:26 Dose: Not Given Trazodone HCl (Trazodone Hcl 25 Mg Halftab) 25 mg PO BEDTIME MRX1 PRN PRN Reason: Insomnia Last Admin: 02/09/23 20:36 Dose: 25 mg Allergies Allergies Allergy/AdvReac Type Severity Reaction Status Date / Time benztropine [From COGENTIN] Allergy Unknown STOMACHPAIN Verified 02/02/23 15:25 /SWELLING haloperidol [From HALDOL] Allergy Unknown STOMACH Verified 02/02/23 15:25 PAIN SWELLING Assessment & Plan Assessment & Plan (1) Schizoaffective disorder, bipolar type: Status: Acute Code(s): F25.0 - Schizoaffective disorder, bipolar type Plan Mr. Villa is a 72 year-old is schizophrenia, hx of extensive inpatient hospitalization. She does have a Wang's in the community. Pt was assessed in the community by [facility] crisis after housing called 911 due to pt presenting as more paranoid, combative and intrusive with residents. Pt had last CARRERA of Arist ada in October 2022. Per collateral information, pt has been decompensated since then. She does have a Wang's that includes Invega Sustenna (which was d/c due to creatinine clearance between 40-30), loxapine and risperidone (oral only, no CARRERA). PLAN 1. Admit to S1, sect 12b, 5 minutes checks 2. administer Aristada 882mg mg IM qmonthly- to aim for an equivalent oral dose of 20mg po daily 3. obtain collateral information 4. Aftercare planning 02/09 pt slightly calmer, pending CARRERA Abilify. 02/10 received CARRERA Aristada. 02/11 continue tx. there is no back IM for risperidone on her Wang's- she refuses oral risperidone 02/12: Continue current regimen and plans Reason for continued inpatient stay Substantial Risk for: inability to function Time Spent With Patient Time: Total time managing care of this patient today ____ minutes.
--- NOTE | 2023-02-13 10:40 | HO.PSYCHPN ---
Subjective Subjective Date of Service: 02/13/23 Reason For Visit: disorganized/ psychotic Subjective Notes: Section 7 Interim History: Patient was seen and discussed in rounds today. Records and plans were reviewed. She has been doing a little better and had a better day. Continues to be psychotic and disorganized. Eating and sleeping adequately. No complaints. No changes were made today Medication Compliance: No Side effects from medications: No Review of Systems Review of Systems Yes all other systems are reviewed and are negative Mental Status Exam Mental Status Exam Narrative: In today's visit she is alert, mostly pleasant and interactive. Normal speech. Moderate eye contact. Affect is tense and little irritable. Thought processes are disorganized. Could not assess safety and suicidality. Judgment is impaired and Diagnostics Vital Signs (24Hr): BMI result Body Mass Index 18.5 Labs 02/02/23 22:05 02/02/23 22:05 Medications Medications Current Medications Acetaminophen (Acetaminophen 325 Mg Tablet) 650 mg PO Q6H PRN PRN Reason: Headache/Pain Mild Scale (1-3) Al Hydroxide/Mg Hydroxide (Magnesium Hydrox/Alum Hydrox 30 Ml Oral.Susp) 30 ml PO Q6H PRN PRN Reason: Heartburn/Nausea Amlodipine Besylate (Amlodipine Besylate 2.5 Mg Tablet) 2.5 mg PO DAILY [facility]; Protocol Last Admin: 02/13/23 09:01 Dose: Not Given Aripiprazole (Aripiprazole 20 Mg Tablet) 20 mg PO DAILY [facility] Last Admin: 02/13/23 09:01 Dose: Not Given Aripiprazole Lauroxil (Aripiprazole Lauroxil Er 662 Mg/2.4 Ml Suser.Syr) 662 mg IM Q30D [facility] Last Admin: 02/10/23 15:58 Dose: 662 mg Divalproex Sodium (Divalproex Sodium Er 250 Mg Tab.Er.24h) 250 mg PO BEDTIME [facility] Last Admin: 02/12/23 20:32 Dose: Not Given Magnesium Hydroxide (Milk Of Magnesia 30 Ml Oral.Susp) 30 ml PO DAILY PRN PRN Reason: Constipation Risperidone (Risperidone 2 Mg Tablet) 2 mg PO BID [facility] Last Admin: 02/13/23 09:01 Dose: Not Given Trazodone HCl (Trazodone Hcl 25 Mg Halftab) 25 mg PO BEDTIME MRX1 PRN PRN Reason: Insomnia Last Admin: 02/09/23 20:36 Dose: 25 mg Allergies Allergies Allergy/AdvReac Type Severity Reaction Status Date / Time benztropine [From COGENTIN] Allergy Unknown STOMACHPAIN Verified 02/02/23 15:25 /SWELLING haloperidol [From HALDOL] Allergy Unknown STOMACH Verified 02/02/23 15:25 PAIN SWELLING Assessment & Plan Assessment & Plan (1) Schizoaffective disorder, bipolar type: Status: Acute Code(s): F25.0 - Schizoaffective disorder, bipolar type Plan Mr. Villa is a 72 year-old is schizophrenia, hx of extensive inpatient hospitalization. She does have a Wang's in the community. Pt was assessed in the community by [facility] crisis after housing called 911 due to pt presenting as more paranoid, combative and intrusive with residents. Pt had last CARRERA of Aristada in October 2022. Per collateral information, pt has been decompensated since then. She does have a Wang's that includes Invega Sustenna (which was d/c due to creatinine clearance between 40-30), loxapine and risperidone (oral only, no CARRERA). PLAN 1. Admit to S1, sect 12b, 5 minutes checks 2. administer Aristada 882mg mg IM qmonthly- to aim for an equivalent oral dose of 20mg po daily 3. obtain collateral information 4. Aftercare planning 02/09 pt slightly calmer, pending CARRERA Abilify. 02/10 received CARRERA Aristada. 02/11 continue tx. there is no back IM for risperidone on her Wang's- she refuses oral risperidone 02/12: Continue current regimen and plans 02/13: Continue current regimen and plan Reason for continued inpatient stay Substantial Risk for: rapid decompensation Time Spent With Patient Time: Total time managing care of this patient today ____ minutes.
[2023-02-13 18:00] VITALS: PULSE 84; RESP 16; O2SAT 100
--- NOTE | 2023-02-14 09:00 | MHC.CLN ---
NUTRITION DIET=REGULAR WITH ENSURE BID. SUPPLEMENT PROVIDES ADDITIONAL 700 KCALS, 40 GRAMS PROTEIN. PO REPORTED ADEQUATE. RD TO FOLLOW WEEKLY.
--- NOTE | 2023-02-14 09:41 | P.PNPSI_ITS ---
Subjective Subjective Date of Service: 02/14/23 Reason For Visit: disorganized/ psychotic Subjective Notes: Section 7 Interim History: Patient was seen and discussed in rounds today. Records and plans were reviewed. She appears to be less labile. She is able to hold conversation a little better. She refused her meds last night. She has been eating a lot of f ruits. No complaints or side effects. No changes were made today Medication Compliance: No Side effects from medications: No Review of Systems Review of Systems Yes all other systems are reviewed and are negative Mental Status Exam Mental Status Exam Narrative: In today's visit she is alert, mostly pleasant and interactive. Normal speech. Moderate eye contact. Affect is tense and little irritable. Thought processes are disorganized. Could not assess safety and suicidality. Judgment is im paired and Diagnostics Vital Signs (24Hr): Vital Signs - 24 hr 02/13/23 18:00 Pulse Rate 84 Respiratory Rate 16 Pulse Oximetry 100 Oxygen Delivery Method Room Air BMI result Body Mass Index 18.5 Labs 02/02/23 22:05 02/02/23 22:05 Medications Medications Current Medications Acetaminophen (Acetaminophen 325 Mg Tablet) 650 mg PO Q6H PRN PRN Reason: Headache/Pain Mild Scale (1-3) Al Hydroxide/Mg Hydroxide (Magnesium Hydrox/Alum Hydrox 30 Ml Oral.Susp) 30 ml PO Q6H PRN PRN Reason: Heartburn/Nausea Amlodipine Besylate (Amlodipine Besylate 2.5 Mg Tablet) 2.5 mg PO DAILY [facility]; Protocol Last Admin: 02/14/23 08:30 Dose: Not Given Aripiprazole (Aripiprazole 20 Mg Tablet) 20 mg PO DAILY [facility] Last Admin: 02/14/23 08:30 Dose: Not Given Aripiprazole Lauroxil (Aripiprazole Lauroxil Er 662 Mg/2.4 Ml Suser.Syr) 662 mg IM Q30D [facility] Last Admin: 02/10/23 15:58 Dose: 662 mg Divalproex Sodium (Divalproex Sodium Er 250 Mg Tab.Er.24h) 250 mg PO BEDTIME [facility] Last Admin: 02/13/23 20:37 Dose: Not Given Magnesium Hydroxide (Milk Of Magnesia 30 Ml Oral.Susp) 30 ml PO DAILY PRN PRN Reason: Constipation Risperidone (Risperidone 2 Mg Tablet) 2 mg PO BID [facility] Last Admin: 02/14/23 08:30 Dose: Not Given Trazodone HCl (Trazodone Hcl 25 Mg Halftab) 25 mg PO BEDTIME MRX1 PRN PRN Reason: Insomnia Last Admin: 02/09/23 20:36 Dose: 25 mg Allergies Allergies Allergy/AdvReac Type Severity Reaction Status Date / Time benztropine [From COGENTIN] Allergy Unknown STOMACHPAIN Verified 02/02/23 15:25 /SWELLING haloperidol [From HALDOL] Allergy Unknown STOMACH Verified 02/02/23 15:25 PAIN SWELLING Assessment & Plan Assessment & Plan (1) Schizoaffective disorder, bipolar type: Status: Acute Code(s): F25.0 - Schizoaffective disorder, bipolar type Plan Mr. Villa is a 72 year-old is schizophrenia, hx of extensive inpatient hospitalization. She does have a Wang's in the community. Pt was assessed in the community by [facility] crisis after housing called 911 due to pt presenting as mor e paranoid, combative and intrusive with residents. Pt had last CARRERA of Aristada in October 2022. Per collateral information, pt has been decompensated since then. She does have a Wang's that includes Invega Sustenna (which was d/c due to creatinine clearance between 40-30), loxapine and risperidone (oral only, no CARRERA). PLAN 1. Admit to S1, sect 12b, 5 minutes checks 2. administer Aristada 882mg mg IM qmonthly- to aim for an equivalent oral dose of 20mg po daily 3. obtain collateral information 4. Aftercare planning 02/09 pt slightly calmer, pending CARRERA Abilify. 02/10 received CARRERA Aristada. 02/11 continue tx. there is no back IM for risperidone on her Wang's- she refuses oral risperidone 02/12: Continue current regimen and plans 02/13: Continue current regimen and plan 02/14: Continue current regimen and plans Reason for continued inpatient stay Substantial Risk for: rapid decompensation Time Spent With Patient Time: Total time managing care of this patient today ____ minutes.
[2023-02-15 08:00] VITALS: BP 127/74; PULSE 96; RESP 20; TEMP 526.1; TEMP 979; O2SAT 96
--- NOTE | 2023-02-15 10:30 | P.PNPSI_ITS ---
Subjective Subjective Date of Service: 02/15/23 Reason For Visit: disorganized/ psychotic Subjective Notes: Section 7 Interim History: Pt irritable this moring, yelling at peers and this proposal manager writer when attempted to meet with her. Get away, you are not my friend, I am not talking to you! Pt had some difficulty falling asleep. She refuses oral medications including risperidone, amlodipine, abilify. She did receive Aristada- but there is a 2 week delay in onset of action. No back up IM on manley to enforce oral medication as they do not come in IM formulation. Medication Compliance: No Mental Status Exam Mental Status Exam Narrative: Pt irritable and guarded, declined talking with this proposal manager writer. Pt continues to present as paranoid, less intrusive but still yelling at peers, threatening. Diagnostics Vital Signs (24Hr): Vital Signs - 24 hr 02/15/23 08:00 Temperature 979 F H Pulse Rate 96 Respiratory Rate 20 Blood Pressure 127/74 Pulse Oximetry 96 Oxygen Delivery Method Room Air BMI result Body Mass Index 18.5 Labs 02/02/23 22:05 02/02/23 22:05 Medications Medications Current Medications Acetaminophen (Acetaminophen 325 Mg Tablet) 650 mg PO Q6H PRN PRN Reason: Headache/Pain Mild Scale (1-3) Al Hydroxide/Mg Hydroxide (Magnesium Hydrox/Alum Hydrox 30 Ml Oral.Susp) 30 ml PO Q6H PRN PRN Reason: Heartburn/Nausea Amlodipine Besylate (Amlodipine Besylate 2.5 Mg Tablet) 2.5 mg PO DAILY [facility]; Protocol Last Admin: 02/15/23 09:13 Dose: Not Given Aripiprazole (Aripiprazole 20 Mg Tablet) 20 mg PO DAILY [facility] Last Admin: 02/15/23 09:13 Dose: Not Given Aripiprazole Lauroxil (Aripiprazole Lauroxil Er 662 Mg/2.4 Ml Suser.Syr) 662 mg IM Q30D [facility] Last Admin: 02/10/23 15:58 Dose: 662 mg Divalproex Sodium (Divalproex Sodium Er 250 Mg Tab.Er.24h) 250 mg PO BEDTIME [facility] Last Admin: 02/14/23 20:17 Dose: Not Given Magnesium Hydroxide (Milk Of Magnesia 30 Ml Oral.Susp) 30 ml PO DAILY PRN PRN Reason: Constipation Risperidone (Risperidone 2 Mg Tablet) 2 mg PO BID [facility] Last Admin: 02/15/23 09:13 Dose: Not Given Trazodone HCl (Trazodone Hcl 25 Mg Halftab) 25 mg PO BEDTIME MRX1 PRN PRN Reason: Insomnia Last Admin: 02/09/23 20:36 Dose: 25 mg Allergies Allergies Allergy/AdvReac Type Severity Reaction Status Date / Time benztropine [From COGENTIN] Allergy Unknown STOMACHPAIN Verified 02/02/23 15:25 /SWELLING haloperidol [From HALDOL] Allergy Unknown STOMACH Verified 02/02/23 15:25 PAIN SWELLING Assessment & Plan Assessment & Plan (1) Schizoaffective disorder, bipolar type: Status: Acute Code(s): F25.0 - Schizoaffective disorder, bipolar type Plan Mr. Villa is a 72 year-old is schizophrenia, hx of extensive inpatient hospitalization. She does have a Wang's in the community. Pt was assessed in the community by [facility] crisis after housing called 911 due to pt presenting as more paranoid, combative and intrusive with residents. Pt had last CARRERA of Aristada in October 2022. Per collateral information, pt has been decompensated since then. She does have a Wang's that includes Invega Sustenna (which was d/c due to creatinine clearance between 40-30), loxapine and risperidone (oral only, no CARRERA). PLAN 1. Admit to S1, sect 12b, 5 minutes checks 2. administer Aristada 882mg mg IM qmonthly- to aim for an equivalent oral dose of 20mg po daily 3. obtain collateral information 4. Aftercare planning 02/09 pt slightly calmer, pending CARRERA Abilify. 02/10 received CARRERA Aristada. 02/11 continue tx. there is no back IM for risperidone on her Wang's- she refuses oral risperidone 02/12: Continue current regimen and plans 02/13: Continue current regimen and plan 02/14: Continue current regimen and plans 02/15 continue current medications. Reason for continued inpatient stay Substantial Risk for: harm to others and inability to function Time Spent With Patient Time: Total time managing care of this patient today ____ minutes.
--- NOTE | 2023-02-16 14:58 | P.PNPSI_ITS ---
Subjective Subjective Date of Service: 02/16/23 Reason For Visit: disorganized/ psychotic Subjective Notes: Section 7 Interim History: Pt yelling at this ticket writer: drop , drop , I don't need to talk with you. She has been yelling at peers, unprovoked. She has also been yelling at staff. She declined oral medications. She declines VS. She slept through the night. No property destruction. No physical aggression towards self or others. Diagnostics Vital Signs (24Hr): BMI result Body Mass Index 18.5 Labs 02/02/23 22:05 02/02/23 22:05 Medications Medications Current Medications Acetaminophen (Acetaminophen 325 Mg Tablet) 650 mg PO Q6H PRN PRN Reason: Headache/Pain Mild Scale (1-3) Al Hydroxide/Mg Hydroxide (Magnesium Hydrox/Alum Hydrox 30 Ml Oral.Susp) 30 ml PO Q6H PRN PRN Reason: Heartburn/Nausea Amlodipine Besylate (Amlodipine Besylate 2.5 Mg Tablet) 2.5 mg PO DAILY [facility]; Protocol Last Admin: 02/16/23 08:25 Dose: Not Given Aripiprazole (Aripiprazole 20 Mg Tablet) 20 mg PO DAILY [facility] Last Admin: 02/16/23 08:25 Dose: Not Given Aripiprazole Lauroxil (Aripiprazole Lauroxil Er 662 Mg/2.4 Ml Suser.Syr) 662 mg IM Q30D [facility] Last Admin: 02/10/23 15:58 Dose: 662 mg Divalproex Sodium (Divalproex Sodium Er 250 Mg Tab.Er.24h) 250 mg PO BEDTIME [facility] Last Admin: 02/15/23 20:39 Dose: Not Given Magnesium Hydroxide (Milk Of Magnesia 30 Ml Oral.Susp) 30 ml PO DAILY PRN PRN Reason: Constipation Risperidone (Risperidone 2 Mg Tablet) 2 mg PO BID [facility] Last Admin: 02/16/23 08:25 Dose: Not Given Trazodone HCl (Trazodone Hcl 25 Mg Halftab) 25 mg PO BEDTIME MRX1 PRN PRN Reason: Insomnia Last Admin: 02/09/23 20:36 Dose: 25 mg Allergies Allergies Allergy/AdvReac Type Severity Reaction Status Date / Time benztropine [From COGENTIN] Allergy Unknown STOMACHPAIN Verified 02/02/23 15:25 /SWELLING haloperidol [From HALDOL] Allergy Unknown STOMACH Verified 02/02/23 15:25 PAIN SWELLING Assessment & Plan Assessment & Plan (1) Schizoaffective disorder, bipolar type: Status: Acute Code(s): F25.0 - Schizoaffective disorder, bipolar type Plan Mr. Villa is a 72 year-old is schizophrenia, hx of extensive inpatient hospitalization. She does have a Wang's in the community. Pt was assessed in the community by [facility] crisis after housing called 911 due to pt presenting as more paranoid, combative and intrusive with residents. Pt had last CARRERA of Aristada in October 2022. Per collateral information, pt has been decompensated since then. She does have a Wang's that includes Invega Sustenna (which was d/c due to creatinine clearance between 40-30), loxapine and risperidone (oral only, no CARRERA). PLAN 1. Admit to S1, sect 12b, 5 minutes checks 2. administer Aristada 882mg mg IM qmonthly- to aim for an equivalent oral dose of 20mg po daily 3. obtain collateral information 4. Aftercare planning 02/09 pt slightly calmer, pending CARRERA Abilify. 02/10 received CARRERA Aristada. 02/11 continue tx. there is no back IM for risperidone on her Wang's- she refuses oral risperidone 02/12: Continue current regimen and plans 02/13: Continue current regimen and plan 02/14: Continue current regimen and plans 02/15 continue current medications. 02/16 continue tx. 02/[address] sect 7 Reason for continued inpatient stay Substantial Risk for: inability to function Time Spent With Patient Time: Total time managing care of this patient today ____ minutes.
[2023-02-17 03:47] VITALS: BMI 19.5
--- NOTE | 2023-02-17 10:48 | P.DS_ITS ---
DS: Providers Provider Date of Service: 02/17/23 Date of admission: 02/07/23 19:04 Primary care physician: Pelon Kemp MD DS: Diagnosis Discharge Diagnosis (1) Schizoaffective disorder, bipolar type: Status: Acute DS: Medications Discharge Medications Home Medications: Home Medications Medication Instructions Recorded Confirmed aripiprazole lauroxil 662 mg/2.4 662 mg IM QMONTH 02/02/23 02/02/23 mL suspension, ext.rel. IM syringe (Aristada) divalproex 500 mg tablet,extended 500 mg PO BID 02/02/23 02/02/23 release 24 hr glycopyrrolate 1 mg tablet 1 mg PO BID 02/02/23 02/02/23 risperidone 2 mg tablet 2 mg PO BID 02/02/23 02/02/23 Mental Status Exam Mental Status Exam Narrative: Pt irritable and guarded, declined talking with this literary writer. Pt continues to present as paranoid, less intrusive but still yelling at peers. NO SI/HI continues to present with paranoid delusions, talking to herself. No aggression towards self or others. No insight into mental illness and need for treatment. She is oriented to place, month, year not to situation (thinks she was kidnapped). DS: Summary Hospital Course Hospital Course: HPI: Subjective Notes: Johnson Warning (given and shows understanding) and Section 12B Narrative: Ms. Villa is a 72 year-old with hx of schizophrenia. Pt was assessed by [facility] crisis after personnel from [facility] called 911 reporting increased intrusive paranoid and disruptive behaviors in the community. Per crisis, pt presented with paranoid delusions,of being kidnapped, of people trying to poison her and get her sick. In the ED, pt combative and intrusive to peers and staff w ithout insight of other peers reactions. Utox was negative. On the unit, pt presents as combative, verbally abusive towards staff and peers, accusing them of being part of her being kidnapped. She is asking this literary writer to give her cell phone as she does not trust phone on the unit because she believes they are tapped. She refused to talk with this literary writer stating you're stupid, why should I hear you? Past Psychiatric History: -Hx of IPLOC : S1 01/2022, S1 06/2022, [facility] 08/2022, multiple in the past. HOSPITAL COURSE On the unit, pt was admitted on a Sect 12b. She was placed on 15 minutes checks for safety. Pt presented as paranoid, reporting she had been kidnapped. She reported [place] trying to harm her. She denied having mental illness or needing psychiatric medications. She was yelling at staff and peers, unprovoked due to her paranoid. She did received while in the ED geodone 20mg IM with ativan 2mg IM due to intrusive and agitated behaviors. Geodone did appear to calm her down enough when she arrived to the unit. She does have a Wang's order that include Invega Sustenna, which was discontinued due to low creatinine clearance. She also has on Wang's- risperidone only oral, loxapine. Neither one of these medications come in a IM formulation. She also has Aristada CARRERA. She received Aristada 662mg IM q monthly on 02/10/2023. Since she had not been on Aristada since October 2022, it will take 2 weeks to see therapeutic benefit. In the meantime, although pt had risperidone 2mg po BID prescribed, she did not take it and there was no way to enforce it as she does n ot have antipsychotic medication that comes in IM formulation. few days prior to discharged, pt's yelling and irritability increased. However, she was not physically aggressive towards self or others and with much encouragement able to be redirected. I suspect worsening in last few days prior to discharge is due to delay onset of action of Aristada and fact that she had received in the ED Geodone IM due to agitation. Treatment team filed for involuntary treatment when sect 12b was up, however, given that there was no imminent safety concerns in terms of harm to self or others despite active and ongoing symptoms of psychosis and paranoia, pt was discharged prior to court hearing. Pt does have ACCS services through [facility]. She will be picked up by her [employer] vocational case manager to bring her home. She does have a safe place to live and she has a guardian who oversees her medical care. Status at Discharge Cognitive/behavioral status at discharge: Pt continues to present as paranoid and irritable. She is yelling to staff and peers, unprovoked but able to be redirected with much encouragement. No signs of aggression towards self or others. No SI/HI. She continues to appear internally preoccupied, talking to someone who is not there. She is sleeping and eating well. Functional status at discharge: independent ambulation Time Spent with Patient Time attestation: Total time managing care of this patient today __30__ minutes. Time spent: Greater than 30 minutes Discharge Plan Discharge Anticipated Discharge Date/Time: 02/17/23 11:31 Patient Disposition: Home, Self-Care Discharge Diagnosis: Schizoaffective Disorder Referrals: Dr. Pelon Kemp - PCP [Other] - 03/04/23 10:30 am (Patient is scheduled to see; Debbie Baires 03/04/2023 @ 10:30am ) Kevin Miranda APRN @ [facility] [Other] - 03/16/23 1:20 pm (Appointment: 03/16/2023 @ 1:20pm ) Pelon Kemp MD [Primary Care Provider] - 1 Week Discharge Medications: New Aristada 662 mg/2.4 mL Suspension,Extended Rel Syring 662 mg IM Q30D Qty: 2.4 0RF Rx Instructions: last dose 02/10/2023 risperidone 2 mg Tablet 2 mg PO BID Qty: 60 0RF Discontinued glycopyrrolate 1 mg tablet 1 mg PO BID risperidone 2 mg tablet 2 mg PO BID Aristada 662 mg/2.4 mL suspension,extended rel syring 662 mg IM QMONTH divalproex 500 mg tablet extended release 24 hr 500 mg PO BID Discharge Orders: Discharge Order (Routine); Ordered 02/17/23 Ordered By: Torri Travis Diet: Regular diet Activity on Discharge: As tolerated Stand Alone Forms: Patient Portal Discharge page Care Plan Goals: 1. Maintain mood 2. No SI/HI 3. No aggression towards self or others Health Concerns: Follow up with PCP Plan of Treatment: 1. Take medications as prescribed 2. Go to nearest ED or 911 in event of emergency Assessment: Pt continues to present with paranoid delusions, yelling at people and irritable. No physical aggression towards herself or others. Pt sleeping most of the night. She is eating well. No imminent safety concern in terms of harm to self or others due to ongoing psychiatric symptoms of paranoid delusions. No insight into mental illness nor need for ongoing psychiatric treatment.
--- NOTE | 2023-02-17 13:21 | PC.NURSE ---
Pt. A & O X 3. Poor insight into situation. Declines answering questions, but volunteers that she is ready to go home. Declines this nurse reviewing discharge instructions, opting to review written materials provided on her own. Pt. left unit at 13:12 accompanied by community spring encaser.
== END 2023-02-17 13:12 | disposition home or self-care (01) | DRG 885 ==
LOC: HO.ED 02-04 06:48 → HO.PGERI 02-07 19:16
PROVIDERS: Emergency Medicine; Admitting Provider Psychiatry & Neurology Psychiatry; Emergency Provider Emergency Medicine Emergency Medical Services; PCP Internal Medicine; Visit Provider Social Worker
DX: F25.0 Schizoaffective disorder, bipolar type (principal); Z91.148 Patient's other noncompliance with medication regimen for other reason; Z20.822 Contact with and (suspected) exposure to COVID-19; Z87.891 Personal history of nicotine dependence; Z79.899 Other long term (current) drug therapy
CPT/HCPCS: 36415; 80048; 80076; 80307; 81001; 85025; 87635; 99285; J1200; J1944; J2060; J3486

== ENCOUNTER → 2023-02-02 15:42 | Outpatient (BNV) | payer OTHER, SELFPAY | PROVIDERS: Emergency Provider Emergency Medicine; PCP Internal Medicine; Visit Provider Psychiatry & Neurology Psychiatry | DX: F25.0 Schizoaffective disorder, bipolar type (principal) | CPT/HCPCS: 90792; 99222; 99231; 99232; 99239 ==

== ENCOUNTER 2023-03-04 10:20 | Outpatient (AMB) | payer MEDICARE, SELFPAY ==
--- NOTE | 2023-03-04 10:27 | MHC.PC.OV ---
Vital Signs 03/04/23 10:29 Height 5 ft 2 in Weight 95 lb 8 oz BMI 17.5 BP 100/74 Blood Pressure Location Lt brachial Position Sitting Pulse 56 Pulse Source Pulse Oximeter Pulse Oximetry (%) 99 Oxygen Delivery Method Room Air Intake Visit Reasons: 02/17/23 [facility] Physic Unit(Bipolar schizophrenic) Intake Note: Patient is here for hospital discharge follow up. Patient was discharged from [facility] on 02/17/23. 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: No Key Punch Operator: Present Accompanied by: Staff Allergies benztropine [From COGENTIN] Allergy (Unknown, Verified 03/04/23 10:28) STOMACHPAIN/SWELLING haloperidol [From HALDOL] Allergy (Unknown, Verified 03/04/23 10:28) STOMACH PAIN SWELLING Tobacco use date assessed: 03/04/23 Fall risk assessment: No Falls in past year Last assessed Fall Risk: 03/04/23 Dental Screening Dental Screen Date: 03/04/23 Did you have a dental visit in the last 12 months?: No Did you have a dental problem in the last 6 months where you did not have access to dental care?: No Was dental information given to patient?: No HPI HPI Comments History of Present Illness Details 72 year old female with history of hld, htn, ckd stage 3, bipolar schizoaffective disorder, and medication nonadherence.Patient of Dr. Kemp presents today for hospital discharge follow-up for psychiatric admission on 02/17/2023 from [facility] Patient was assessed by [facility] creases after apartment complex called 911 reporting increased intrusive paranoid and disruptive behaviors in the community. Per crisis patient presented with paranoid delusions of being kidnapped and people trying to poison her to get her sick. In the emergency room patient was combative and intrusive. Utox was negative. On psychiatric unit patient was also combative, verbally abusive to staff and peers accusing them of kidnapping her. Patient has had multiple psych admissions in the past and has had section 8 admission back in August. Patient currently has [facility] out treat worker's. Per discharged home patient currently following with Dr. Miranda psychiatry. Patient presents to the appointment today with see [facility] worker. Bring in his initial presentation to this appointment patient was asked if she was here for hospital discharge follow-up patient denies any recent admission to hospital. Patient defensive when asked if she currently follows with Dr. Ruth asif, patient states she does not follow with him anymore and she states she does not take any of her previously prescribed medications per discharge summary patient was on Aristada Im [id number]. Upon review future notes patient was previously under [facility] order however they cannot get this renewed by a nurse midwife/clinical instructor. Patient reports she has bump under right armpit x1 week. Patient denies any fever, chills, sob cough. Small superficial abscess noted to right axilla, mild erythema and warmth. Patient advised to apply warm compresses to promote drainage in will send antibiotic to pharmacy. Patient fighting with [facility] worker to send prescription to [facility] [address] check BP and not to [place] as recommended by stove bottom worker. Patient states she can get her own medication. [facility] Medical History Benign essential hypertension Chronic kidney disease (CKD) Constipation History of cervical cancer Hyperlipidemia Schizoaffective disorder, bipolar type Schizophrenia, chronic condition Surgical History No significant past surgical history Family History (Updated 03/04/23 @ 10:28 by ANA MARIA Tompkins) Father Cancer Mother Cancer Hypertension Sister No problems noted. Social History (Updated 03/04/23 @ 10:34 by ANA MARIA Tompkins) Household Members: None Housing: Apartment Do you presently have visiting nurse or other home services: No Unable to assess alcohol history related to: Refusing to respond Alcohol intake: never Patient Tobacco Use Status: Former Tobacco user e-Cigarette/Vaping Use: Never Used Second Hand Smoke Exposure: No service: No Current occupational status: disabled Sexual orientation: Don't Know Cognitive needs: No Hearing needs: No Vision needs: No Questionnaire Thrive Questionnaire Date Thrive assessed: 10/27/22 MARK-7 AMB Questionnaire MARK-7 Date MARK - 7 assessed: 10/27/22 Source: Developed by Drs. Parker Bhatti, Cathie Segura, Robby Javed and colleagues, with an educational aramis from [employer] Review of Systems Const Denies chills, Denies fatigue, Denies fever(s) and Denies poor appetite Eyes Denies no additional complaints ENT Reports Normal hearing present Card Denies chest pain, Denies syncope, Denies rapid heart rate and Denies dyspnea Resp Denies cough and Denies dyspnea GI Denies change in stool character, Denies constipation, Denies diarrhea, Denies nausea and Denies vomiting Denies urinary frequency, Denies dysuria and Denies urinary urgency Neuro Reports Normal hearing present, Denies confusion and Denies syncope Psych Denies confusion Endo Denies fatigue Physical exam (Primary Care) Vital Signs: Last Vital Signs Pulse 56 03/04/23 10:29 BP 100/74 03/04/23 10:29 Pulse Ox 99 03/04/23 10:29 Oxygen Delivery Method Room Air 03/04/23 10:29 BMI result Body Mass Index 17.5 Tobacco/Smoking Status: Tobacco use Status Tobacco use date assessed 03/04/23 03/04/23 10:35 Patient Tobacco Use Status Former Tobacco user 03/04/23 10:35 e-Cigarette/Vaping Use Never Used 03/04/23 10:35 Thrive Assessment: Date of Thrive Assessment Date Thrive assessed 10/27/22 03/04/23 10:35 Const General: No confusion Orientation/consciousness: No confusion HENMT Head: Yes normocephalic and Yes atraumatic Eyes Conjunctivae: conjunctivae normal Chest Chest palpation & inspection: normal inspection of the chest Chest/axillae images: 1. small superficial abscess with white head mild surrounding erythema. Resp Effort & Inspection: normal respiratory effort Auscultation: clear to auscultation bilaterally, no crackles, no rhonchi and no wheezes Cardio Rate: regular rate Rhythm: regular rhythm Heart sounds: S1 normal heart sound present and S2 normal heart sound present GI Inspection: Yes normal to inspection Neuro General: No confusion Cranial nerves: Yes Normal hearing present Extrem General: No edema Assessment and Plan Assessment & Plan (1) Schizoaffective disorder, bipolar type: Code(s): F25.0 - Schizoaffective disorder, bipolar type Plan: As noted in HPI patient should be following with Dr. Miranda psychiatry however she reports she is not following with him anymore and [facility] aware patient is not following with. Does not appear that patient is compliant with her recommended medications. (2) Hyperlipidemia: Code(s): E78.5 - Hyperlipidemia, unspecified Qualifiers: Hyperlipidemia type: pure hypercholesterolemia Qualified Code(s): E78.00 - Pure hypercholesterolemia, unspecified Plan: Continue to follow low-cholesterol diet. (3) Skin abscess: Code(s): L02.91 - Cutaneous abscess, unspecified Plan: Keflex 500 mg b.i.d. x7 days sent to patient's pharmacy. Patient advised to apply work on for assist area to promote drainage of abscess. [facility] in [place] as requested by patient as patient stated she can get her old medication from there and she did not want sent to [facility] as noted in HPI. Plan Follow-up with PCP in 3 months. Medications: New cephalexin 500 mg PO BID 14 caps 0RF L02.91 - Cutaneous abscess, unspecified Coding Level of Care Code Est Pt Level 3 (74691) Diagnoses Schizoaffective disorder, bipolar type F25.0 Pure hypercholesterolemia E78.00 Hyperlipidemia type: pure hypercholesterolemia Skin abscess L02.91
[2023-03-04 10:29] VITALS: BP 100/74; PULSE 56; O2SAT 99; BMI 17.5
== END 2023-03-04 10:55 | disposition home or self-care (01) ==
PROVIDERS: PCP Internal Medicine; Visit Provider Nurse Practitioner Family
DX: F25.0 Schizoaffective disorder, bipolar type (principal); E78.00 Pure hypercholesterolemia, unspecified; L02.91 Cutaneous abscess, unspecified
CPT/HCPCS: 99213

== ENCOUNTER 2023-06-03 11:54 | Outpatient (AMB) | payer MEDICARE, SELFPAY ==
[2023-06-03 12:33] VITALS: BP 132/80; PULSE 79; O2SAT 85; BMI 17.3
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
== END 2023-06-03 14:31 | disposition home or self-care (01) ==
PROVIDERS: PCP Internal Medicine; Visit Provider Internal Medicine
DX: I12.9 Hypertensive chronic kidney disease with stage 1 through stage 4 chronic kidney disease, or unspecified chronic kidney disease (principal); N18.32 Chronic kidney disease, stage 3b; E78.00 Pure hypercholesterolemia, unspecified; F25.0 Schizoaffective disorder, bipolar type
CPT/HCPCS: 99214

== ENCOUNTER 2023-10-03 11:45 | Outpatient (REF) | payer MEDICARE, SELFPAY ==
--- NOTE | ~2023-10-03 | XR_ITS ---
EXAMINATION: XR THORACIC SPINE XR LUMBAR SPINE CLINICAL INFORMATION: Upper and lower back pain, no trauma or injury. COMPARISON: Bilateral hips 12/21/2014, KUB 08/07/2015. TECHNIQUE: 3 views of the thoracic spine. 3 views of the lumbar spine. FINDINGS: THORACIC SPINE: Degenerative changes on very limited images of the cervical spine could be evaluated with dedicated cervical spine radiographs. Severe S-shaped thoracolumbar scoliosis. Moderate multilevel degenerative changes in the thoracic spine. LUMBAR SPINE: Levoscoliosis of the lumbar spine. Moderate degenerative changes in the bilateral sacroiliac joints. Degenerative changes on limited views of bilateral hips. Facet arthritis in the fuf-jo-wmirr lumbar spine. Multilevel degenerative changes in the lumbar spine with loss of disc space height and hypertrophic change. XR/XR lumbar spine 2-3V IMPRESSION: 1. Severe S-shaped thoracolumbar scoliosis. Moderate multilevel degenerative changes in the thoracic spine. 2. Advanced multilevel lumbar spondylosis. 3. Facet arthritis in the jkt-wi-xkaxe lumbar spine.
--- NOTE | ~2023-10-03 | XR_ITS ---
EXAMINATION: XR THORACIC SPINE XR LUMBAR SPINE CLINICAL INFORMATION: Upper and lower back pain, no trauma or injury. COMPARISON: Bilateral hips 12/21/2014, KUB 08/07/2015. TECHNIQUE: 3 views of the thoracic spine. 3 views of the lumbar spine. FINDINGS: THORACIC SPINE: Degenerative changes on very limited images of the cervical spine could be evaluated with dedicated cervical spine radiographs. Severe S-shaped thoracolumbar scoliosis. Moderate multilevel degenerative changes in the thoracic spine. LUMBAR SPINE: Levoscoliosis of the lumbar spine. Moderate degenerative changes in the bilateral sacroiliac joints. Degenerative changes on limited views of bilateral hips. Facet arthritis in the llk-jj-llzzi lumbar spine. Multilevel degenerative changes in the lumbar spine with loss of disc space height and hypertrophic change. XR/XR thoracic spine 3V IMPRESSION: 1. Severe S-shaped thoracolumbar scoliosis. Moderate multilevel degenerative changes in the thoracic spine. 2. Advanced multilevel lumbar spondylosis. 3. Facet arthritis in the nmg-ms-uewey lumbar spine.
== END 2023-10-03 11:46 | disposition home or self-care (01) ==
LOC: HO.LAB 11:45
PROVIDERS: PCP Internal Medicine; Visit Provider Internal Medicine
DX: M54.9 Dorsalgia, unspecified (principal); M41.9 Scoliosis, unspecified; M54.50 Low back pain, unspecified
CPT/HCPCS: 72072; 72100

== ENCOUNTER 2023-11-11 20:01 | Inpatient (IN) | payer MEDICARE, SELFPAY ==
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
--- OUTSIDE RECORDS SUMMARY | 2023-11-11 20:05 | XMS_ITS | Continuity of Care Document ---
Author Organization [facility] Address [address] [place] [id number]- Care Team Providers Care Medical Records Receptionist Name Role Phone Pelon Kemp MD Primary Care Physician [phone] Encounter [facility] Date(s): 08/31/22 - 08/31/[address] [address]- Encounter Diagnosis Rectal prolapse(Final) - 08/31/22 Discharge Disposition: Transfer to [facility] Facility Attending Physician: Kush Brown MD Admitting Physician: Kush Brown MD Referring Physician: Not on Staff, Referring MD Allergies, Adverse Reactions, Alerts Substance Reaction Severity Status Cogentin Active Haldol Active Immunizations Given and Recorded Vaccine Date Status Refusal Reason influenza virus vaccine, inactivated 06/30/17 Give n Not Given Vaccine Date Status Refusal Reason influenza virus vaccine, inactivated 04/15/20 Not Given Patient Refuses pneumococcal 13-valent vaccine 04/15/20 Not Given Patient Refuses pneumococcal 13-valent vaccine 10/09/19 Not Given Patient Refuses Medications chlorproMAZINE 50 mg oral tablet 2 tablet = 100 mg, By Mouth, 4 times a day, PRN Agitation, 0 Refills, Maintenance, 08/31/22 13:47:00 EDT, Tablet, Partial fill upon patient request if the prescription is for a schedule II opioid drug. Start Date: 08/31/22 Status: Ordered divalproex sodium 500 mg oral enteric coated tablet = 500 mg, By Mouth, 2 times a day, 0 Refills, Maintenance, 08/31/22 13:47:00 EDT, Tablet, Partial fill upon patient request if the prescription is for a schedule II opioid drug. Start Date: 08/31/22 Status: Ordered glycopyrrolate 1 mg oral tablet 1 mg, 1, tablet, By Mouth, 2 times a day, Refills 0, Maintenance, 08/31/22 13:47:00 EDT, Partial fill upon patient request if the prescription is for a schedule II opioid drug. Start Date: 08/31/22 Status: Ordered LORazepam 1 mg oral tablet 1 tablet = 1 mg, By Mouth, 3 times a day, PRN Anxiety, 0 Refills, Maintenance, 08/31/22 13:47:00 EDT, Tablet, Partial fill upon patient request if the prescription is for a schedule II opioid drug. Start Date: 08/31/22 Status: Ordered risperiDONE 1 mg oral tablet, disintegrating = 1 mg, By Mouth, 2 times a day, 0 Refills, Maintenance, 08/31/22 13:47:00 EDT, DIS Tablet, Partialfill upon patient request if the prescription is for a schedule II opioid drug. Start Date: 08/31/22 Status: Ordered Problem List Condition Confirmation Course Effective Dates Status H ealth Status Informant Low TSH level Confirmed Active History of hyperlipidemia Confirmed Active Hypernatremia Confirmed Active Abnormal liver enzymes Confirmed Active Psychosis Confirmed Active Schizoaffective disorder, bipolar type Confirmed Active Underweight Confirmed Active Vital Signs Most recent to oldest [Reference Range]: 1 2 Height 159 cm (08/31/22 10:26 PM) 159 cm (08/31/22 5:23 PM) Weight 47.3 kg (08/31/22 10:26 PM) 47.3 kg (08/31/22 5:23 PM) Oxygen Saturation [94-100 %] 98 % (08/31/22 4:35 PM) Pulse Rate [55-90 bpm] 78 bpm (08/31/22 4:35 PM) Blood Pressure [90-138/55-84 mm Hg] 140/ 86mm Hg *H* (08/31/22 4:35 PM) Respiratory Rate [16-30 br/min] 19 br/mi n (08/31/22 4:35 PM) Temperature [96.8-100.4 DegF] 98.6 DegF (08/31/22 4:35 PM) Mode of Delivery (Oxygen) Room air (08/31/22 4:35 PM) Temperature Route Oral (08/31/22 4:35 PM) Dry Weight 47.3 kg (08/31/22 10:26 PM) 47.3 kg (08/31/22 5:23 PM) Weight Obtained Via Patient/family state d (08/31/22 5:23 PM) Dry Weight Obtained Via Patient/family s tated (08/31/22 5:23 PM) Social History Social History Type Response Smoking Status Current every day cindy rajendra; Type: Cigarettes; Tobacco use times per day: 1 PPD; entered on: 04/10/17 Sex Note * Ozzy Shine DO: PERFORM Event Display: Patient Education Leaflets Authored Date: [id number] Rectal Prolapse ?? [id number] Rectal Prolapse Rectal prolapse means the rectum has fallen out of position. In many cases, rectal tissue sags out of the anus. This happens when the rectum becomes stretched out, pushes down, and sags out through the anus. A reddish mass of tissue may be seen or felt at the opening of the anus. The tissue may stick out beyond the anus. This may happen after a bowel movement and then go away for a time. Or it may be there all the time. Stool or mucus may also leak out of the anus. Rectal prolapse happens when the structures and muscles in the pelvis and anus are weakened. It's not common. It does occur more often in older women. But it can happen in people of all ages. and childbirth can make it more likely. So can repeated straining to have a bowel movement. Often people have a hemorrhoid, which they think is a prolapse. That's because they see or feel something abnormal, and many of the symptoms are the same. The following are symptoms of a rectal prolapse: ??? Diarrhea or constipation ??? Stool leaking out ??? Mucus or blood in the stool ??? Incomplete bowel movements ??? Belly (abdominal) or rectal discomfort Talk with your healthcare provider before trying to return the rectum back into place, by using gentle pressure. It will likely prolapse again. So for long-term treatment, you may need surgery. In some people, other organs also prolapse, such as the bladder or uterus. You'll likely be referred to aspecialist who can examine you and tell you about your treatment options. Home care Straining during bowel movements is often a cause of prolapse. To help ease and prevent constipation, take these steps: ??? Laxatives, stool softeners, or bulking agents may be prescribed. Take these as directed. You may need them daily. ??? Add more fruits, vegetables, and whole grains to your diet. Eat less high-fatfoods and processed foods such as packaged snack foods. A fiber supplement can be added if you're not getting enough fiber in your diet. The goal is 20 to 30 grams of fiber daily. ??? Don't ignore the urge to have a bowel movement. Once a day, set aside time after a meal for an undisturbed visit tothe toilet. ??? Don't strain or push hard to pass stool. ??? Don't spend more than a few minutes onthe toilet to have a bowel movement. ??? If you smoke, get help to quit. If you have a prolapse, contact your healthcare provider: To return a prolapsed rectum back into place, first wash your hands well. Wet a soft cloth with warm water. Then lie on your side with your knees to your chest. Hold the cloth to the anus and use gentle pressure to push the rectum back into place. When you???re done, call your provider. If you can't push the prolapse back or are uncomfortable doing so, call your provider. Or go to the emergency room. ?? Follow-up care Follow up with your healthcare provider, or as advised. If you've been referred to a specialist,??make the appointment right away. ?? Call 911 Call 911 if any of the following occur: ??? Heavy bleeding ??? Severe belly (abdominal) pain or swelling ??? Severe rectal pain ??? Fainting or loss of consciousness ??? Rapid heart rate ?? When to get medical care Call your healthcare provider right away if any of these occur: ??? Return of the prolapse ??? Fever of 100.4??F (38??C) or higher, or as advised by your provider ??? Blood in stool ??? Belly pain orswelling ??? Repeated vomiting ??? You can't have a bowel movement or can't control bowel movements ?? Last Reviewed Date: 2021 ?? 6886-5723 [employer]. All rights reserved. This information is not intended as a substitute for professional medical care. Always follow your healthcare professional's instructions. ?? Patient Care team information Care Team Personnel Name: Mateo Medina RN Position: [facility] RN Member Role: Primary Care Nurse Name: Pelon Kemp MD Position: Reference Physician Member Role: PCP Address: Address: [address] [place] [address] [address] [place] [address]- [place] Name: Cheri Clark RN Position: [facility] AMB Nurse Member Role: Primary Care Nurse Name: Fatmata Ty RN Position: [facility] SN RN Member Role: Primary Care Nurse Name: Royce Lynch RN Position: [facility] RN Member Role: Primary Care Nurse Name: Dixie Thomas NP Position: [facility] Associate Professional Member Role: Primary Care Nurse Address: Address: [address] [place] [address]- Name: Isha Williamson RN Position: [facility] RN Member Role: Primary Care Nurse Name: Adelia Vasquez RN Position: [facility] RN Member Role: Primary Care Nurse Name: Barrington Velásquez RN Position: [facility] RN Member Role: Primary Care Nurse Name: Adriel Doss RN Position: [facility] ED RN W/OE and Tasks Member Role: Primary Care Nurse Name: Beth Yuan RN Position: [facility] RN Member Role: Primary Care Nurse Name: Mariana Meadows RN Position: [facility] RN Member Role: Primary Care Nurse Name: Suellen Murray RN Position: [facility] ED RN W/OE and Tasks Member Role: Primary Care Nurse Name: Parker Pritchard III, RN Position: [facility] RN Member Role: Primary Care Nurse Name: Paula Guidry RN Position: [facility] RN Member Role: Primary Care Nurse Name: Ozzy Shine DO Position: [facility] Resident Member Role: Resident Address: Address: [address] [place] [address]- Name: Kimi Morillo Position: [facility] ED [facility] Name: Kush Brown MD Position: [facility] ED Medicine MD Member Role: Admitting Physician Address: Address: [address] [place] [address]- Care Team Related Persons Name: PT STATES, NO ONE
--- OUTSIDE RECORDS SUMMARY | 2023-11-11 20:05 | XMS_ITS | Continuity of Care Document ---
Author Organization [facility] Address [address] [place] [address]- Care Team Providers Care Airport Representative Name Role Phone Pelon Kemp MD Primary Care Physician Encounter [facility] Date(s): 06/10/22 - 06/15/[address] [address]- Discharge Disposition: Transfer to [facility] Facility Attending Physician: Tim Villarreal MD Admitting [...] vaccine 10/09/19 Not Given Patient Refuses Medications calcium carbonate 500 mg (200 mg elemental calcium) oral tablet, chewable 500 mg, 1, tablet, Chew, 2 times a day with meals, take 1 tablet (=500 mg) twice a day with meals, # 60 tablet, Refills 0, Tot. Refills 0, Maintenance, 05/05/20 15:35:00 EST, Route to Pharmacy Electronically, [facility], Partial fill upo... Start Date: 05/05/20 Stop Date: 06/04/20 Status: Ordered divalproex sodium 250 mg oral enteric coated tablet 1 tablet = 250 mg, By Mouth, 2 times a day, take 1 tablet (=250 mg) twice a day, # 60 tablet, 0 Refills, Maintenance, 05/05/20 15:27:00 EST, Tablet, [facility], Partial fill upon patient request, 152, cm, 05/04/20 21:22:00 EST, Height, 4... Start Date: 05/05/20 Stop Date: 06/04/20 Status: Ordered furosemide 20 mg oral tablet 20 mg, 1, tablet, By Mouth, Daily, # 30 tablet, Refills 0, Tot. Refills 0, Maintenance, 05/05/20 15:27:00 EST, Route to Pharmacy Electronically, [facility], Partial fill upon patient request, 152, cm, 05/04/20 21:22:00 EST, Height, 46.4,... Start Date: 05/05/20 Stop Date: 06/04/20 Status: Ordered multivitamin Multiple Vitamins oral tablet 1 tablet, By Mouth, Daily, # 30 tablet, 0 Refills, Maintenance, 05/05/20 15:28:00 EST, Tablet, [facility], Partial fill upon patient request, 1 tablet By Mouth Daily,x30 days, 152, cm, 05/04/20 21:22:00 EST, Height, 46.4, kg, 04/28/20 12... Start Date: 05/05/20 Stop Date: 06/04/20 Status: Ordered RisperDAL 1 mg oral tablet 1 mg, 1, tablet, By Mouth, Daily, take 1 tablet (=1 mg) daily in the morning, # 30 tablet, Refills 0, Tot. Refills 0, Maintenance, 05/12/20 11:30:00 EST, Route to Pharmacy Electronically, [facility] [id number], Partial fill up... Start Date: 05/12/20 Stop Date: 06/11/20 Status: Ordered RisperDAL 2 mg oral tablet 2 mg, 1, tablet, By Mouth, Daily, take 1 tablet (=2 mg) daily at bedtime, # 30 tablet, Refills 0, Tot. Refills 0, Maintenance, 05/12/20 11:31:00 EST, Route to Pharmacy Electronically, [facility] [id number], Partial fill upon p... Start Date: 05/12/20 Stop Date: 06/11/20 Status: Ordered risperiDONE 1 mg oral tablet See Instructions, Take 1 tablet (= 1 mg) daily in the AM and 2 tablets (=2 mg) daily at bedtime, for a total of 3 tablets a day, # 90 tablet, Refills 0, Tot. Refills 0, Maintenance, 05/05/20 15:30:00EST, Instructions Replace Required Details, Route t... Start Date: 05/05/20 Status: Ordered traZODone 50 mg oral tablet 150 mg, 3, tablet, By Mouth, Daily at bedtime, take 3 tablets (=150 mg) daily at bedtime, # 90 tablet, Refills 0, Tot. Refills 0, Maintenance, 05/05/20 15:30:00 EST, Route to Pharmacy Electronically,[facility], Partial fill upon patient... Start Date: 05/05/20 Status: Ordered Problem List Condition Confirmation Course Effective Dates Status H ealth Status Informant Low TSH level Confirmed Active History of hyperlipidemia Confirmed Active Hypernatremia Confirmed Active Abnormal liver enzymes Confirmed Active Psychosis Confirmed Active Schizoaffective disorder, bipolar type Confirmed Active Vital Signs Most recent to oldest [Reference Range]: 1 2 3 Oxygen Saturation [94-100 %] 100 % (06/15/22 6:41 AM) 67 % *L* (06/14/22 6:46 AM) 96 % (06/12/22 10:02 AM) Pulse Rate [55-90 bpm] 86 bpm (06/15/22 6:41 AM) 98 bpm *H* (06/14/22 6:46 AM) 84 bpm (06/12/22 10:02 AM) Blood Pressure [90-138/55-84 mm Hg] 125/85mm Hg (06/15/22 6:41 AM) 165/95mm Hg *H* (06/14/22 6:46 AM) 128/74mm Hg (06/12/22 10:02 AM) Respiratory Rate [16-30 br/min] 18 br/min (06/15/22 6:41 AM) 16 br/min (06/14/22 6:46 AM) 16 br/min (06/12/22 10:02 AM) Temperature [96.8-100.4 DegF] 97.4 DegF (06/15/22 6:41 AM) 97.6 DegF (06/14/22 6:46 AM) 97.8 DegF (06/12/22 10:02 AM) Liters per Minute 2 L/min (06/11/22 12:23 AM) Mode of Delivery (Oxygen) Room air (06/15/22 6:41 AM) Room air (06/14/22 6:46 AM) Room air (06/12/22 10:02 AM) Blood pressure sites Arm, left (06/14/22 6:46 AM) Arm, left (06/12/22 10:02 AM) Arm, right (06/11/22 12:23 AM) Temperature Route Oral (06/15/22 6:41 AM) Oral (06/14/22 6:46 AM) Oral (06/12/22 10:02 AM) Social History Social History Type Response Smoking Status Current every day cindy drew; Type: Cigarettes; Tobacco use times per day: 1 PPD; entered on: 04/10/17 Sex Patient Care team information Care Team Personnel Name: Mateo Medina RN Position: [facility] RN Member Role: Primary Care Nurse Name: Pelon Kemp MD Position: Reference Physician Member Role: PCP Address: Address: [address] [place] [address] [place] [address]- Name: Cheri Clark RN Position: [facility] AMB Nurse Member Role: Primary Care Nurse Name: Fatmata Ty RN Position: [facility] SN RN Member Role: Primary Care Nurse Name: Dixie Thomas NP Position: [facility] Associate Professional Member Role: Primary Care Nurse Address: Address: [address] [place] [phone]- Name: Adelia Vasquez RN Position: [facility] RN Member Role: Primary Care Nurse Name: Barrington Velásquez RN Position: [facility] RN Member Role: Primary Care Nurse Name: Adriel Doss RN Position: [facility] ED RN W/OE and Tasks Member Role: Primary Care Nurse Name: Mariana Meadows RN Position: [facility] RN Member Role: Primary Care Nurse Name: Suellen Murray RN Position: [facility] ED RN W/OE and Tasks Member Role: Primary Care Nurse Name: Parker Pritchard III, RN Position: [facility] RN Member Role: Primary Care Nurse Name: Paula Guidry RN Position: [facility] RN Member Role: Primary Care [facility] Attending Position: [facility] ED Attendings Patient Name: Сергей Yuan RN Position: [facility] ED RN W/OE and Tasks Member Role: Patient Care Provider Name: Tim Villarreal MD Position: [facility] ED Medicine MD Member Role: Admitting Physician Address: Address: [address] [place] [address] Care Team Related Persons Name: PT STATES, NO ONE
--- OUTSIDE RECORDS SUMMARY | 2023-11-11 20:05 | XMS_ITS | Continuity of Care Document ---
Author Organization [facility] Address [address] [place] [id number]- Care Team Providers Care Vision Care Associate Name Role Phone Pelon Kemp MD Primary Care Physician [phone] Encounter [facility] Date(s): 08/11/22 - 08/13/[address] [address]- Encounter Diagnosis Agitation(Final) - 08/11/22 Discharge Disposition: Transfer to [facility] Facility Attending Physician: Gricelda Fitzgerald DO Admitting Physician: Gricelda Fitzgerald DO Referring Physician: Not on Staff, Referring MD [...] 05/05/20 15:35:00 EST, Route to Pharmacy Electronically, [facility], Partial fill upo... Start Date: 05/05/20 Stop Date: 06/04/20 Status: Ordered divalproex sodium 250 mg oral enteric coated tablet 1 tablet = 250 mg, By Mouth, 2 times a day, take 1 tablet (=250 mg) twice a day, # 60 tablet, 0 Refills, Maintenance, 05/05/20 15:27:00 EST, Tablet, [facility], Partial fill upon patient request, 152, cm, 05/04/20 21:22:00 EST, Height, 4... Start Date: 05/05/20 Stop Date: 06/04/20 Status: Ordered furosemide 20 mg oral tablet 20 mg, 1, tablet, By Mouth, Daily, # 30 tablet, Refills 0, Tot. Refills 0, Maintenance, 05/05/20 15:27:00 EST, Route to Pharmacy Electronically, [facility], Partial fill upon patient request, 152, cm, 05/04/20 21:22:00 EST, Height, 46.4,... Start Date: 05/05/20 Stop Date: 06/04/20 Status: Ordered multivitamin Multiple Vitamins oral tablet 1 tablet, By Mouth, Daily, # 30 tablet, 0 Refills, Maintenance, 05/05/20 15:28:00 EST, Tablet, [facility], Partial fill upon patient request, [...] 05/12/20 11:30:00 EST, Route to Pharmacy Electronically, [facility] [id number], Partial fill up... Start Date: 05/12/20 Stop Date: 06/11/20 Status: Ordered RisperDAL 2 mg oral tablet 2 mg, 1, tablet, By Mouth, Daily, take 1 tablet (=2 mg) daily at bedtime, # 30 tablet, Refills 0, Tot. Refills 0, Maintenance, 05/12/20 11:31:00 EST, Route to Pharmacy Electronically, [facility] [id number], Partial fill upon p... Start Date: 05/12/20 [...] Maintenance, 05/05/20 15:30:00 EST, Route to Pharmacy Electronically,[facility], Partial fill upon patient... [...] to oldest [Reference Range]: 1 2 3 Height 165 cm (08/13/22 11:21 AM) 165 cm (08/12/22 5:38 AM) 165 cm (08/11/22 7:59 AM) Weight 42 kg (08/13/22 11:21 AM) 42 kg (08/12/22 5:38 AM) 42 kg (08/11/22 7:59 AM) Oxygen Saturation [94-100 %] 95 % (08/12/22 8:40 PM) 97 % (08/12/22 5:38 AM) 97 % (08/11/22 12:59 PM) Pulse Rate [55-90 bpm] 113 bpm *H* (08/13/22 11:21 AM) 113 bpm *H* (08/12/22 8:40 PM) 116 bpm 1 *H* (08/12/22 5:38 AM) Body Mass Index [18.5-24.99 kg/m2] 15.43 kg/m2 *L* (08/13/22 11:21 AM) 15.43 kg/m2 *L* (08/12/22 5:38 AM) Blood Pressure [90-138/55-84 mm Hg] 151/82mm Hg *H* (08/13/22 11:21 AM) 173/93mm Hg *H* (08/12/22 8:40 PM) 173/91mm Hg *H* (08/12/22 5:38 AM) Respiratory Rate [16-30 br/min] 18 br/min (08/13/22 11:21 AM) 18 br/min (08/12/22 8:40 PM) 23 br/min (08/12/22 5:38 AM) Temperature [96.8-100.4 DegF] 97.8 DegF (08/12/22 8:40 PM) 97.8 DegF (08/12/22 5:38 AM) 98.0 DegF (08/11/22 12:59 PM) Mode of Delivery (Oxygen) Room air (08/12/22 8:40 PM) Room air (08/12/22 5:38 AM) Blood pressure sites Arm, right (08/13/22 11:21 AM) Arm, left (08/12/22 5:38 AM) Temperature Route Oral (08/12/22 8:40 PM) Oral (08/12/22 5:38 AM) Oral (08/11/22 7:59 AM) Dry Weight 42 kg (08/13/22 11:21 AM) 42 kg (08/12/22 5:38 AM) 42 kg (08/11/22 7:59 AM) Weight Obtained Via Patient/family state d (08/11/22 7:59 AM) 1Result Comment: PT was screaming and yelling during this time Social History Social History Type Response Smoking Status Current every day sm oker; Type: Cigarettes; Tobacco use times per day: 1 PPD; entered on: 04/10/17 Sex EKG study * Event Display: ECG 12-Lead Authored Date: Please click on pdf link to open report * Event Display: ECG 12-Lead Authored Date: Ventricular Rate: 52 BPM Atrial Rate: 52 BPM P-R Interval: 172 ms QRS Duration: 72 ms Q-T Interval: 406 ms QTC Calculation(Bazett): 377 ms P [place]: 81 degrees R [place]: -55 degrees T [place]: 65 degrees Sinus bradycardia with Fusion complexes Left axis deviation Cannot rule out Inferior infarct , age undetermined Possible Anterior infarct , age undetermined Abnormal ECG When compared with ECG of 23-OCT-2019 12:31, Fusion complexes are now Present Vent. rate has decreased BY 39 BPM QRS axis Shifted left QT has shortened Confirmed by DASH KENNEDY MD ([id number]) on 08/11/2022 2:12:46 PM [place]: [facility] * Mook Moore DO: PERFORM Event Display: Progress Note Hospital Authored Date: Patient: ??MARINO CASTLE ? Age:??72 Years?Sex:??Female?:??1950?? Subjective Chief complaint:? You can shove those meds down your throat! ?? Patient seen, chart reviewed, and discussed with treatment team.? Interval History: Patient is seen this morning alongside nursing and MHC in E- pod. She remains quite belligerent, hostile and uncooperative. Received a total of 25 mg of Zyprexa in the last 24 hours due to episodes of agitation with limited effect. Intermittently in seclusion this morning due to threatening to hurt others. Thankfully, she has been taking her scheduled Risperdal and Depakote. No reported adverse effects on current medication regimen. She did not report any suicidal ideation nor desires??for self-injurious behaviors.? Review of Systems Pertinent positives as listed above in HPI. ??Otherwise, remainder of review of systems negative. Objective Measurements?? Height: 165 cm (08/12/22) Weight: 42 kg (08/12/22) Dry Weight: 42 kg (08/12/22) Body Mass Index:??15.43 kg/m2??Low (08/12/22) ? Vital Signs?? Temperature: 97.8 DegF (08/12/22 05:38:00) Temperature Route: Oral (08/12/22 05:38:00) Pulse Rate:??116 bpm??High (08/12/22 05:38:00) Respiratory Rate: 23 br/min (08/12/22 05:38:00) Systolic Blood Pressure:??173 mm Hg??High (08/12/22 05:38:00) Diastolic Blood Pressure:??91 mm Hg??High (08/12/22 05:38:00) Blood pressure sites: Arm, left (08/12/22 05:38:00) Mean Arterial Pressure: 118 mm Hg (08/12/22 05:38:00) Pulse Pressure: 82 mm Hg (08/12/22 05:38:00) Oxygen Saturation: 97 % (08/12/22 05:38:00) Mode of Delivery (Oxygen): Room air (08/12/22 05:38:00) ? Physical Exam Mental Status Exam Appearance: Thin, disheveled Eye contact: Purposefully averted Attitude: Uncooperative, hostile Motor Activity: Psychomotor agitation Mood: Unable to assess Affect: Intense, angry Speech: Nonspontaneous, short/brief response, latency Perception: No reported AVH;?? appears internally preoccupied Orientation: Unable to assess Memory: Unable to assess Thought Process: Disorganized Thought Content: Delusions, paranoia Medication Adherence: Impaired Reliability: Poor historian Insight: Impaired Judgment: Impaired?? Impulse control: Impaired as evident by recent behavioral dysregulation necessitating chemical sedation Suicidality/Self-destructive Behavior: None currently Homicidality/Violence: None currently, but recent combative behaviors??precipitating this ED presentation. Muscle strength/tone: Antigravity. Moving all four extremities spontaneously. Not observed ambulating. _ Inpatient Medications Medications (7) Active SCHEDULED: (2) Divalproex Sodium (Depakote Tablet) ??375 mg, By Mouth, 2 times a day Risperidone (RisperDAL 1 mg oral tablet) ??1.5 mg, By Mouth, 2 times a day CONTINUOUS: (0) PRN: (5) Acetaminophen 325 mg Tablet (Acetaminophen Tablet) ??650 mg, By Mouth, Every 8 hours Al hydroxide/Mg hydroxide/simethicone 200 mg-200 mg-20 mg/5 mL Susp UD (Maalox Plus Liquid) ??30 mL, By Mouth, Every 8 hours Olanzapine 10 mg Inj (Olanzapine Inj) ??5 mg, Intramuscular, Every 6 hours Olanzapine 5 mg Tablet (olanzapine 5 mg oral tablet) ??5 mg, By Mouth, Every 6 hours Trazodone 50 mg Tablet (traZODone 50 mg oral tablet) ??50 mg, By Mouth, Daily at bedtime ? Assessment/Plan Assessment:?In brief, this is a 72-year-old??female, well known to the [facility] psychiatry service from prior evaluations, with past medical history as noted in above HPI and past psychiatric history significant for??schizoaffective disorder, bipolar type,??medication nonadherence (previously on a community Wang's order, but not currently), and multiple inpatient psychiatric hospitalizations for treatment of the same, who initially presented to [facility] on 08/11/2022??for evaluation of??disorganized??and bizarre behaviors, pressured speech,??delusions, and agitation concerning for??an acute psychotic episode. At this point in time, the patient has been medically cleared and referred to Crisis Services??for evaluation and assistance with disposition for potential inpatient psychiatric hospitalization. The emergency psychiatry service was consulted for assistance withmedication management. Based on initial psychiatric evaluation concerning for acute psychotic illness, particularly in the context of ongoing agitation requiring chemical sedation, paranoid stance with hospital/treatment providers, and??risk of harm to self by nature of impaired judgment 2/2 acute mental illness,??anticipate that Marino will require inpatient psychiatric hospitalization for stabilization. In the interim, will re-start Risperdal and Depakote as the patient had historically done well on these agents and there are no known allergies nor adverse effects on them that we are aware of. Explained to the patient the differential diagnoses, treatment options, risks of untreated illness, and??risks/benefits??of treatment. See below for additional details??on treatment recommendations. ? 08/12/22: Marino continues to present psychotic, unchanged from yesterday's initial evaluation. Given her age and prolonged medication nonadherence, would hope to titrate medications over a longer period of time, but she has been quite agitated on the unit, frequently in seclusion and requiring additional neuroleptic medication supports. Due to ongoing??concerns for patient and staff safety, will optimize Risperdal and Depakote to decrease reliance on PRN Zyprexa. Remains a bed search for IPLOC. ? Diagnoses: Schizoaffective disorder, bipolar type ??(F25.0) Agitation ??(R45.1) Paranoid delusion ??(F22) Nonadherence to medication ??(Z91.14) History of abnormal liver enzymes ? Recommendations: -Disposition as per Crisis Services, albeit currently a bed search for inpatient psychiatric hospitalization. -Potential barriers to placement: Recent chemical sedation for psychomotor agitation -Titrating Risperdal from 1 to 1.5 mg PO twice daily with further optimization as indicated for psychosis / mood stabilization. -Titrating Depakote from 250 to 375??mg PO twice daily with further optimization as indicated for mood stabilization. Plan for Depakote level this weekend, as early as 08/14/22 for therapeutic drug monitoring. -We will keep a low threshold for??converting both Risperdal and Depakote to oral dissolving tablets and syrups respectively??due to??historic medication nonadherence. -Marino??is not currently on an active community Wang's order, as confirmed by collateral contact Kevin Miranda [facility] today, 08/11/22. As such, despite the ongoing need for treatment of psychosis, Marino??may refuse these psychotropic medication agents. -Initiating trazodone??50 mg PO daily at bedtime PRN anxiety/insomnia. -Can also utilize Zyprexa 5 mg PO/IM Q6H PRN agitation/psychosis.??The preference is for PO medications, but if the patient refuses the oral medications and there is sufficient acute safety concern, can judiciously utilize IM equivalents for severe agitation.?? -Would note that these medications are only being utilized in the ER while the patient awaits placement. Long-term need for these medications will need to be assessed by the patient's future treatingpsychiatrist. ? Thank you for allowing us to participate in this patient's care. We will continue to follow the patient as needed by the primary team. Please feel free to contact the Psychiatry consult service ([phone] or page [phone]) with any questions or concerns.? Recommendations??cortexted to Dr. Amor. ? Mook Moore D.O. Emergency Psychiatry Services Division of Consultation-Liaison Psychiatry Department of Psychiatry [facility]? Patient Care team information Care Team Personnel Name: Mateo Medina RN Position: [facility] RN Member Role: Primary Care Nurse Name: Pelon Kemp MD Position: Reference Physician Member Role: PCP Address: Address: [address] [place] [address] [place] [id number]- [place] Name: Cheri Clark RN Position: [facility] AMB Nurse Member Role: Primary Care Nurse Name: Fatmata Ty RN Position: [facility] SN RN Member Role: Primary Care Nurse Name: Royce Lynch RN Position: [facility] RN Member Role: Primary Care Nurse Name: Dixie Thomas NP Position: [facility] Associate Professional Member Role: Primary Care Nurse Address: Address: [address] [place] [address]- Name: Adelia Vasquez RN Position: [facility] RN Member Role: Primary Care Nurse Name: Barrington Velásquez RN Position: [facility] RN Member Role: Primary Care Nurse Name: Adriel Doss RN Position: [facility] ED RN W/OE and Tasks Member Role: Primary Care Nurse Name: Beth Yuan RN Position: [facility] RN Member Role: Primary Care Nurse Name: Mariana Meadows RN Position: [facility] RN Member Role: Primary Care Nurse Name: Suellen Murray RN Position: [facility] ED RN W/OE and Tasks Member Role: Primary Care Nurse Name: Parker Pritchard III, RN Position: [facility] RN Member Role: Primary Care Nurse Name: Paula Guidry RN Position: [facility] RN Member Role: Primary Care Nurse [facility] Attending Position: [facility] ED Attendings Patient Name: Mimi Matute RN Position: [facility] ED RN W/OE and Tasks Member Role: Patient Care Provider Name: Gricelda Fitzgerald DO L Position: [facility] Resident Member Role: Admitting Physician Address: Address: [address] [place] [id number]- Care Team Related Persons Name: PT STATES, NO ONE
--- NOTE | 2023-11-12 05:34 | PC.ADMIT ---
Mickie is a 73 y/o female with past psychiatric history of Schizoaffective Disorder, bipolar type. She is historically medication non compliant and is on a Community Wang's which initially on 09/11/2023 but has been extended until 12/05/2019. She initially presented to [facility] on 11/07/2023 for evaluationof bizarre disorganized behaviors, pressured speech, delusions of persecution and agitation. She was transferred to [facility] via ambulance and presented at the door of with a legal status of 12A. She was redirected to patient registration and returned to the unit with a legal status of 12B. Patient was essentially unable to participate in the admission process due to her disorganization. She did present with pressured speech, agitation and delusions. Her past medical records which came with her were used to complete as much of the admission process as possible as well as a list of most recent home medications specified on the Community Wang's Order.
[2023-11-12 05:55] VITALS: BMI 20.5
[2023-11-12 08:00] VITALS: BP 147/85; PULSE 100; TEMP 36.9
--- NOTE | 2023-11-12 11:33 | P.CONHOSP_ITS ---
History of Present Illness Data of Consult Service Date: 11/12/23 Primary Care Provider: Unknown Physician HPI Reason for consult: Admission H&P Pt is a 73-year-old female with a PMH significant for HLD, CKD 3, bipolar schizoaffective disorder, and medication nonadherence previously on [facility] order who is admitted to psychiatry unit for disorganized and bizarre behaviors with pressured speech, delusions, and agitation concerning for acute psychotic episode. Medical consult for admission H&P. Patient is acutely psychotic/manic and not amenable to history and exam. Patient does not report any acute medical concerns at this time, though wishes to only speak about her ?perfect 20/20 vision?. It is otherwise difficult to get any other useful medical history from patient. Labs from [facility] reviewed, grossly unremarkable. Patient mildly hypertensive, vitals otherwise WNL. Review of Systems Review of Systems: Unable to obtain due to patient's mentation [facility] Medical History Schizoaffective disorder, bipolar type Constipation Benign essential hypertension Chronic kidney disease (CKD) History of cervical cancer Hyperlipidemia Family History Father Cancer Mother Cancer Hypertension Sister No problems noted. Surgical History No significant past surgical history Social History Household Members: Caregiver Housing: Apartment Do you presently have visiting nurse or other home services: No Unable to assess alcohol history related to: Refusing to respond Alcohol intake: current Alcohol intake frequency: holidays/special occasions only Comment: 15 Patient Tobacco Use Status: Former Tobacco user e-Cigarette/Vaping Use: Never Used Second Hand Smoke Exposure: No Use of substances other than those prescribed or required for medical reasons: Unknown Currently Displaying Signs/Symptoms of Drug Intoxication Withdrawal: No Advance Directives: No Advance Directives Information Provided: No Do you have thoughts of harming others: None Do you have a plan to hurt others: No Plan Recently lost weight without trying: Unsure Nutrition Risks: Dental problems and Emaciation/Cachexia Patient : No : No Poor oral hygiene: Yes service: No Current occupational status: disabled Sexual orientation: Don't Know Cognitive needs: No Hearing needs: No Vision needs: No Meds Allergies Allergy/AdvReac Type Severity Reaction Status Date / Time benztropine [From COGENTIN] Allergy Unknown STOMACHPAIN Verified 10/03/23 11:30 /SWELLING haloperidol [From HALDOL] Allergy Unknown STOMACH Verified 10/03/23 11:30 PAIN SWELLING Active Medications: Current Medications Acetaminophen (Acetaminophen 325 Mg Tablet) 650 mg PO Q6H PRN PRN Reason: Headache/Pain Mild Scale (1-3) Al Hydroxide/Mg Hydroxide (Magnesium Hydrox/Alum Hydrox 30 Ml Oral.Susp) 30 ml PO Q6H PRN PRN Reason: Heartburn/Nausea Amlodipine Besylate (Amlodipine Besylate 10 Mg Tablet) 10 mg PO DAILY [facility]; Protocol Last Admin: 11/12/23 10:47 Dose: Not Given Divalproex Sodium (Divalproex Sodium Er 250 Mg Tab.Er.24h) 250 mg PO BID [facility] Last Admin: 11/12/23 10:22 Dose: Not Given Docusate Sodium (Docusate Sodium 100 Mg Capsule) 100 mg PO BID [facility] Last Admin: 11/12/23 10:22 Dose: Not Given Hydroxyzine HCl (Hydroxyzine Hcl 25 Mg Tablet) 25 mg PO Q6H PRN PRN Reason: Anxiety Ibuprofen (Ibuprofen 400 Mg Tablet) 400 mg PO Q8H PRN PRN Reason: Pain, Moderate(Pain Scale 4-6) Lorazepam (Lorazepam 1 Mg Tablet) 1 mg PO Q8H PRN PRN Reason: Anxiety Magnesium Hydroxide (Milk Of Magnesia 30 Ml Oral.Susp) 30 ml PO DAILY PRN PRN Reason: Constipation Melatonin (Melatonin 3 Mg Tablet) 9 mg PO BEDTIME PRN PRN Reason: Sleep Olanzapine (Olanzapine 5 Mg Tablet) 5 mg PO Q4H PRN PRN Reason: psychosis, agitation Polyethylene Glycol (Polyethylene Glycol 3350 17 Gm Powd.Pack) 17 gm PO DAILY PRN PRN Reason: Constipation Risperidone (Risperidone 1 Mg Tablet) 1 mg PO BID [facility] Trazodone HCl (Trazodone Hcl 50 Mg Tablet) 50 mg PO BEDTIME MRX1 PRN PRN Reason: Insomnia Home Medications ?Medication ?Instructions ?Recorded ?Confirmed ?Last Taken ?Type aripiprazole lauroxil 662 mg/2.4 See Rx Instructions IM Q30D 06/03/23 10/03/23 Unknown History mL suspension, ext.rel. IM syringe Maalox Plus 30 ml PO Q8H PRN Heartburn/Nausea 11/11/23 11/11/23 Unknown History docusate sodium PO BID constipation 11/11/23 Unknown History ibuprofen PO Q8H PRN Pain 11/11/23 Unknown History Depakote ER 500 mg PO 2XD Mood Stabilizer 11/12/23 11/12/23 Unknown History Miralax 17 g PO 1XD PRN Constipation 11/12/23 11/12/23 Unknown History Risperdal 2 mg PO 2XD 11/12/23 11/12/23 Unknown History amlodipine 10 mg PO 1XD Hypertension 11/12/23 11/12/23 Unknown History melatonin 9 mg PO BEDTIME PRN Insomnia 11/12/23 11/12/23 Unknown History senna 8.6 mg PO 2XD PRN Constipation 11/12/23 11/12/23 Unknown History trazodone 50 mg PO 2XD PRN Insomnia 11/12/23 11/12/23 Unknown History Physical Exam Vital Signs and Narrative: Vital Signs: Last Vital Signs Temp 98.4 F 11/12/23 08:00 Pulse 100 11/12/23 08:00 BP 147/85 H 11/12/23 08:00 O2 Del Method Room Air 11/12/23 08:00 BMI result Body Mass Index 20.5 Patient refused physical exam Assessment and Plan (1) Medical clearance for psychiatric admission: Status: Acute Plan Pt is a 73-year-old female with a PMH significant for HTN, CKD 3, bipolar schizoaffective disorder, and medication nonadherence previously on [facility] order who is admitted to [facility] psychiatry unit for disorganized and bizarre behaviors with pressured speech, delusions, and agitation concerning for acute psychotic episode. Medical consult for admission H&P. Patient is acutely psychotic/manic and not amenable to history and exam. Mood disorder Plan as per psychiatry HTN Continue amlodipine Chronic constipation Continue bowel regimen Pt otherwise does not appear to be on medications for chronic medical conditions. Will sign off at this time. Thank you for allowing us to participate in the care of this patient. Please re-consult if any acute issue or questions arise.
[2023-11-12] MEDS: LORazepam 2 MG/ML VIAL 1 MG IM (14:50)
[2023-11-12] MEDS: OLANZapine 10 MG VIAL IM (14:50)
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
--- NOTE | 2023-11-12 16:07 | PC.NURSE ---
Throughout the shift Mickie became increasingly agitated and aggressive. She called 911 three times and RN was put on the phone to talk to the dispatcher. Dispatcher told RN to relay the message to Mickie that if she did not stop calling charges would be filed against her for abuse of the emergency response system. Around 2:30 ,Angela became more agitated and began throwing food at staff. Provider entered orders for a medication restraint. Security responded to the floor, Mickie went to her room where she sat on her bed, security held each of her arms without resistance and ordered medications were administered. Mickie refused to stay in her room and continue to argue with staff and was placed on 1:1 observation for safety. Restraint paperwork completed.
[2023-11-12 20:00] VITALS: BP 129/101; PULSE 112; RESP 20; TEMP 36.8; O2SAT 99
[2023-11-13 07:37] VITALS: RESP 18
--- NOTE | 2023-11-13 10:59 | P.PNPSI_ITS ---
Subjective Subjective Date of Service: 11/13/23 Reason For Visit: Schizoaffective disorder, Bipolar type Interim History: Agitated, Verbal and physical aggression to all. Spit at team x 2 without provocation. Olanzapine 10 mg, Lorazepam 1 mg IM given. Calmer later in the day. Significant anger- I have a temper, you need to tolerate it, I will do what I want. Hostile, verbally caustic, confrontive, dismissive Overall presentation appears manic. Refusing medications. Medication Compliance: No Side effects from medications: No Attending Groups: No Review of Systems Acute medical concerns: No Medical Review of Systems: unchanged Review of Systems Review of Systems Yes Unobtainable due to mental status Mental Status Exam Mental Status Exam Patient Appearance: Fatigued and Disheveled Patient Orientation: Person, Place and Situation Level of Consciousness: Alert Patient Behavior: Guarded, Talkative, Posturing, Suspicious, Restless, Wandering, Verbal Threats, Anxious, Resistive to Care, Distractible, Good Eye Contact and Impulsive Mood Description: Suspicious, Depressed, Hostile, Labile, Angry and Apprehensive Affect Description: Labile Patient Cognition Impaired: Yes Ability to Follow Directions: Fair Speech Pattern: Spontaneous Speech Memory Description: Remote Impaired Hallucinations: None (??) Delusions: Paranoid Ideation, Grandiose and Present Perceptual Disturbances: Derealization Thought Process: Racing, Illogical, Distracted and Rumination Thought Content: positive for Flight of Ideas, positive for Circumstantial, positive for Perseveration and positive for Preoccupation Depressive Symptoms: Increased Irritability and Difficulty Concentrating Abnormal Motor Activity Signs and Symptoms: Aggression, Agitation and Restlessness Judgement: Poor Diagnostics Vital Signs (24Hr): Vital Signs - 24 hr 11/12/23 20:00 11/13/23 07:37 Temperature 98.3 F Pulse Rate 112 H Respiratory Rate 20 18 Blood Pressure 129/101 H Pulse Oximetry 99 Oxygen Delivery Method Room Air BMI result Body Mass Index 20.5 Medications Medications Current Medications Acetaminophen (Acetaminophen 325 Mg Tablet) 650 mg PO Q6H PRN PRN Reason: Headache/Pain Mild Scale (1-3) Al Hydroxide/Mg Hydroxide (Magnesium Hydrox/Alum Hydrox 30 Ml Oral.Susp) 30 ml PO Q6H PRN PRN Reason: Heartburn/Nausea Amlodipine Besylate (Amlodipine Besylate 10 Mg Tablet) 10 mg PO DAILY [facility]; Protocol Last Admin: 11/13/23 08:58 Dose: Not Given Calcium Carbonate/Cholecalciferol (Calcium + Vitamin D 250 Mg Tablet) 250 mg PO DAILY [facility] Last Admin: 11/13/23 08:58 Dose: Not Given Divalproex Sodium (Divalproex Sodium Er 500 Mg Tab.Er.24h) 500 mg PO BID [facility] Last Admin: 11/13/23 08:58 Dose: Not Given Docusate Sodium (Docusate Sodium 100 Mg Capsule) 100 mg PO BID [facility] Last Admin: 11/13/23 08:58 Dose: Not Given Hydroxyzine HCl (Hydroxyzine Hcl 25 Mg Tablet) 25 mg PO Q6H PRN PRN Reason: Anxiety Ibuprofen (Ibuprofen 400 Mg Tablet) 400 mg PO Q8H PRN PRN Reason: Pain, Moderate(Pain Scale 4-6) Lorazepam (Lorazepam 1 Mg Tablet) 1 mg PO Q8H PRN PRN Reason: Anxiety Magnesium Hydroxide (Milk Of Magnesia 30 Ml Oral.Susp) 30 ml PO DAILY PRN PRN Reason: Constipation Melatonin (Melatonin 3 Mg Tablet) 9 mg PO BEDTIME PRN PRN Reason: Sleep Multivitamins/Vitamin C (Multivitamin Tablet) 1 tab PO DAILY [facility] Last Admin: 11/13/23 08:58 Dose: Not Given Olanzapine (Olanzapine 5 Mg Tablet) 5 mg PO Q4H PRN PRN Reason: psychosis, agitation Polyethylene Glycol (Polyethylene Glycol 3350 17 Gm Powd.Pack) 17 gm PO DAILY PRN PRN Reason: Constipation Risperidone (Risperidone 2 Mg Tablet) 2 mg PO BID [facility] Last Admin: 11/13/23 08:59 Dose: Not Given Senna (Sennosides 8.6 Mg Tablet) 8.6 mg PO BID PRN PRN Reason: constipation Trazodone HCl (Trazodone Hcl 50 Mg Tablet) 50 mg PO BEDTIME MRX1 PRN PRN Reason: Insomnia Allergies Allergies Allergy/AdvReac Type Severity Reaction Status Date / Time benztropine [From COGENTIN] Allergy Unknown STOMACHPAIN Verified 10/03/23 11:30 /SWELLING haloperidol [From HALDOL] Allergy Unknown STOMACH Verified 10/03/23 11:30 PAIN SWELLING Assessment & Plan Assessment & Plan (1) Schizoaffective disorder, bipolar type: Status: Acute Code(s): F25.0 - Schizoaffective disorder, bipolar type Plan Acute decompensation of schizoaffective disorder 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 Plan: Collateral contact Clarify status of Wang's when court is open Re-establish regime Olanzapine prn psychosis/agitation 11/12 Continue treatment. Reason for continued inpatient stay Substantial Risk for: rapid decompensation and med/psych decompensation Time Spent With Patient Time: Total time managing care of this patient today ____ minutes.
[2023-11-13] MEDS: LORazepam 2 MG/ML VIAL 1 MG IM (13:29)
[2023-11-13] MEDS: OLANZapine 10 MG VIAL IM (13:29)
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
[2023-11-13 20:00] VITALS: RESP 16
[2023-11-14 08:00] VITALS: BP 175/89; PULSE 107; RESP 18; TEMP 36.4; O2SAT 95
--- NOTE | 2023-11-14 09:58 | P.PNPSI_ITS ---
Subjective Subjective Date of Service: 11/14/23 Reason For Visit: Schizoaffective disorder, Bipolar type Interim History: met with pt; discussed with team; reviewed chart Over the weekend, in the general milieu patient argumentative, intrusive, threatening staff and peers; some peers provoked and needed help being redirected; patient not appropriate to be in the kitchen Earlier this morning, patient remained combative, called a peer a racial epithet as peer walked by, spit towards the social service technician... In the hallway, today on approach as life insurance underwriter introduced self, patient glared at life insurance underwriter, and screamed you are ...you are and walked away, would not talk further. Later on in day, as life insurance underwriter walked by in the chang, she was briefly more cooperative and wanted to know writers name, read writers badehsan...she wants to be called amy Almonte and was pleased as life insurance underwriter complied. While standing at the nurse's station, patient started yelling to life insurance underwriter that says she wants to discharge. She denies any SI or HI and says she's not a harm to herself. When asked why report is that she was walking unsafely in the road, she said they lie... Patient then said call the police, ask them, call the police and send me to long term. Patient accused life insurance underwriter of not asking for any qu estions to which life insurance underwriter shared that each time this is tried, she starts to yell at life insurance underwriter; she acknowledges this, and asks life insurance underwriter to go ahead and ask her questions but she soon starts yelling again. Patient refused to sign CV. Veterinary Epidemiologist tried to give mckeon warning; life insurance underwriter explained to her that talking to this life insurance underwriter or staff is voluntary which she says she knows; life insurance underwriter tried to give the rest of mckeon warning but patient kept yelling at life insurance underwriter saying I do not want to talk to you... Veterinary Epidemiologist again approached her later and tried to discuss court ordered medication however patient again started yelling at life insurance underwriter not letting life insurance underwriter finish sentences. Pt quite hypertensive 175/89 but refuses antihypertensive medications and will not discuss it.. Mental Status Exam Mental Status Exam Narrative: Pt is alert and oriented; behavior disorganized, angry, intrusive, combative and provocative; patient is not in distress; dressed in casual attire, disheveled; mood is described as angry and affect congruent; eye contact intense, glaring; Speech is loud, pressured; significant psychomotor agitation present; thought process is goal directed; Thought content is on discharge; no overt delusional expressed; denies any SI/HI. Denies AVH however internally preoccupied, talking to herself. Patients insight and judgment impaired. Diagnostics Vital Signs (24Hr): Vital Signs - 24 hr 11/13/23 20:00 11/14/23 08:00 Temperature 97.5 F Pulse Rate 107 H Respiratory Rate 16 18 Blood Pressure 175/89 H Pulse Oximetry 95 Oxygen Delivery Method Room Air BMI result Body Mass Index 20.5 Medications Medications Current Medications Acetaminophen (Acetaminophen 325 Mg Tablet) 650 mg PO Q6H PRN PRN Reason: Headache/Pain Mild Scale (1-3) Al Hydroxide/Mg Hydroxide (Magnesium Hydrox/Alum Hydrox 30 Ml Oral.Susp) 30 ml PO Q6H PRN PRN Reason: Heartburn/Nausea Amlodipine Besylate (Amlodipine Besylate 10 Mg Tablet) 10 mg PO DAILY [facility]; Protocol Last Admin: 11/14/23 09:27 Dose: Not Given Calcium Carbonate/Cholecalciferol (Calcium + Vitamin D 250 Mg Tablet) 250 mg PO DAILY [facility] Last Admin: 11/14/23 09:28 Dose: Not Given Divalproex Sodium (Divalproex Sodium Er 500 Mg Tab.Er.24h) 500 mg PO BID [facility] Last Admin: 11/14/23 09:28 Dose: Not Given Docusate Sodium (Docusate Sodium 100 Mg Capsule) 100 mg PO BID [facility] Last Admin: 11/14/23 09:28 Dose: Not Given Hydroxyzine HCl (Hydroxyzine Hcl 25 Mg Tablet) 25 mg PO Q6H PRN PRN Reason: Anxiety Ibuprofen (Ibuprofen 400 Mg Tablet) 400 mg PO Q8H PRN PRN Reason: Pain, Moderate(Pain Scale 4-6) Lorazepam (Lorazepam 1 Mg Tablet) 1 mg PO Q8H PRN PRN Reason: Anxiety Magnesium Hydroxide (Milk Of Magnesia 30 Ml Oral.Susp) 30 ml PO DAILY PRN PRN Reason: Constipation Melatonin (Melatonin 3 Mg Tablet) 9 mg PO BEDTIME PRN PRN Reason: Sleep Multivitamins/Vitamin C (Multivitamin Tablet) 1 tab PO DAILY [facility] Last Admin: 11/14/23 09:28 Dose: Not Given Olanzapine (Olanzapine 5 Mg Tablet) 5 mg PO Q4H PRN PRN Reason: psychosis, agitation Polyethylene Glycol (Polyethylene Glycol 3350 17 Gm Powd.Pack) 17 gm PO DAILY PRN PRN Reason: Constipation Risperidone (Risperidone 2 Mg Tablet) 2 mg PO BID [facility] Last Admin: 11/14/23 09:28 Dose: Not Given Senna (Sennosides 8.6 Mg Tablet) 8.6 mg PO BID PRN PRN Reason: constipation Simethicone (Simethicone 80 Mg Tab.Chew) 80 mg PO QIDWMHS PRN PRN Reason: gas relief Trazodone HCl (Trazodone Hcl 50 Mg Tablet) 50 mg PO BEDTIME MRX1 PRN PRN Reason: Insomnia Allergies Allergies Allergy/AdvReac Type Severity Reaction Status Date / Time benztropine [From COGENTIN] Allergy Unknown STOMACHPAIN Verified 10/03/23 11:30 /SWELLING haloperidol [From HALDOL] Allergy Unknown STOMACH Verified 10/03/23 11:30 PAIN SWELLING Assessment & Plan Assessment & Plan (1) Schizoaffective disorder, bipolar type: Status: Acute Code(s): F25.0 - Schizoaffective disorder, bipolar type Plan Acute decompensation of schizoaffective disorder due to adjunct faculty for medical terminology medication noncompliance. Hospital course: 6/2 Agitated, Verbal and physical aggression to all. Spit at team x 2 without provocation. Olanzapine 10 mg, Lorazepam 1 mg IM given. Calmer later in the day. Significant anger- I have a temper, you need to tolerate it, I will do what I want. Hostile, verbally caustic, confrontive, dismissive; Overall presentation appears manic. Refusing medications. 6/3 Over the weekend, in the general milieu patient argumentative, intrusive, threatening staff and peers; some peers provoked and needed help being redirected; patient not appropriate to be in the kitchen. Patient required medication restraint. Earlier this morning, patient remained combative, called a peer a racial epithet as peer walked by, spit towards the social service technician... In the hallway, today on approach as life insurance underwriter introduced self, patient glared at life insurance underwriter, and screamed you are ...you are and walked away, would not talk further. Later on in day, as life insurance underwriter walked by in the chang, she was briefly more cooperative and wanted to know writers name, read writers onur...she wants to be called amy Almonte and was pleased as life insurance underwriter complied. While standing at the nurse's station, patient started yelling to life insurance underwriter that says she wants to discharge. She denies any SI or HI and says she's not a harm to herself. When asked why report is that she was walking unsafely in the road, she said they lie... Patient then said call the police, ask them, call the [facility] and send me to long term. Patient accused life insurance underwriter of not asking for any questions to which life insurance underwriter shared that each time this is tried, she starts to yell at life insurance underwriter; she acknowledges this, and asks life insurance underwriter to go ahead and ask her questions but she soon starts yelling again. Veterinary Epidemiologist tried to give mckeon warning; life insurance underwriter explained to her that talking to this life insurance underwriter or staff is voluntary which she says she knows, life insurance underwriter tried to give the rest of mckeon warning but patient kept yelling at life insurance underwriter saying I do not want to talk to you... -Veterinary Epidemiologist again approached her later and tried to discuss court ordered medication however patient again started yelling at life insurance underwriter not letting life insurance underwriter finish sentences. -Pt quite hypertensive 175/89 but refuses antihypertensive medications and will not discuss it.. -Patient's yarn worker communicated with social service technician and reported that patient has been off medications since her last hospitalization at [facility], February 2023 Impression: Patient is manic, disorganized with no insight and poor judgment. She is unsafe in the community, reportedly wandering in the street which resulted in the police bringing her to the hospital. Patient is intrusive, threatening peers and staff, spitting, using racial epithets and is in danger of retaliation from peers. Patient is refusing antihypertensive medication. At this time patient is unsafe for discharge as she has not able to care for herself is placing herself in harm's way. She refuses treatment. Will very likely petition the court for involuntary commitment with substituted judgment. Plan: Section 12b Q 5s; will consider one-to-one if situation worsens since patient is provoking peers and is in danger of retaliation Ordered Invega Sustenna 234 mg IM 1 time; patient said she did not want but received it without any issue Continue Risperdal 2 mg b.i.d.; patient refusing Amlodipine Besylate 10 mg PO DAILY [facility]; patient refuses Divalproex Sodium 500 mg PO BID [facility] patient refuses [facility] medications; up for review 11/18/23: Invega Sustenna 234mg IM qmonth Risperidone upt to 10mg daily Loxapine up to 60mg daily Aristada up to 882mg IM qmonth Patient educated on: diagnosis and medication risk/benefits Informed Consent: does not understand Reason for continued inpatient stay Substantial Risk for: harm to self, harm to others and inability to function Time Spent With Patient Time: Total time managing care of this patient today ____ minutes.
[2023-11-14] MEDS: Paliperidone Palmitate 234 MG/1.5 ML SYRINGE IM (17:25)
--- NOTE | 2023-11-14 17:36 | PC.NURSE ---
Mickie was given Invega Sustenna 256mg IM per [facility] order. Security present but no hands on or issues with injection.
[2023-11-14 20:00] VITALS: RESP 18
--- NOTE | 2023-11-15 07:35 | PC.NURSE ---
Pt did not sleep for entire shift, pt spent most of time in front of nurse's station, verbally assaultive i.e. repeatedly telling sanding machine operator you're a whore. Whore. Whore... At approx 0455 pt escalating in hallway due to other pts leaving rooms, pt making false claims about other patients as they walk by, not maintaining personal space, redirection attempted but pt began threatening to kill staff, telling other pts she is only 160 pounds but I will punch you in your 200 something pounds . Pt refusing to maintain space from peers and staff, demanding staff clean poop up off her floor. Throwing used depends briefs at staff. Provider notified.
[2023-11-15 08:00] VITALS: RESP 18
[2023-11-15] MEDS: LORazepam 2 MG/ML VIAL 1 MG IM (08:37)
[2023-11-15] MEDS: OLANZapine 10 MG VIAL IM (08:37)
--- NOTE | 2023-11-15 09:34 | PC.NURSE ---
Mickie was observed around the nurses station, outside of the kitchen this AM. She was redirected frequently as she was yelling at peers and staff. She began to spit at people in the milieu and when redirected spit at the staff member. Once redirected Mickie responded You're making me spit . She was escorted to her room at 0836 with the support of security. IM Lorazepam 1mg and IM Olanzapine 10mg given at 0837. Mickie was released at 0838. She refused VS afterwards but was accepting of breakfast and tea. Mickie requested a clean brief and was assisted by staff.
--- NOTE | 2023-11-15 18:03 | P.PNPSI_ITS ---
Subjective Subjective Date of Service: 11/15/23 Reason For Visit: Schizoaffective disorder, Bipolar type Interim History: Met with patient; discussed with team Patient did not sleep last night; check writer contacted early this morning with staff reporting patient threatening staff and peers. Peers becoming increasingly provoked and difficult to redirect. Behavior continued to escalate, spit in nurse's face and patient could not be redirected, requiring medication restraint and patient received Zyprexa 10 mg and Ativan 1 mg, which helped treat her symptoms this past weekend. Patient placed on one-to-one for patient and milieu safety. After medication restraint, patient became much more calm though remained internally preoccupied and would not engage with check writer. Mental Status Exam Mental Status Exam Narrative: Pt is alert and oriented; behavior disorganized, angry, intrusive, combative and provocative; patient is not in distress; dressed in casual attire, disheveled; mood is described as angry and affect congruent; eye contact intense, glaring; Speech is loud, pressured; significant psychomotor agitation present; thought process is goal directed; Thought content is on discharge; no overt delusional expressed; denies any SI/HI. Denies AVH however internally preoccupied, talking to herself. Patients insight and judgment impaired. Diagnostics Vital Signs (24Hr): Vital Signs - 24 hr 11/14/23 20:00 11/15/23 08:00 Respiratory Rate 18 18 BMI result Body Mass Index 20.5 Medications Medications Current Medications Acetaminophen (Acetaminophen 325 Mg Tablet) 650 mg PO Q6H PRN PRN Reason: Headache/Pain Mild Scale (1-3) Al Hydroxide/Mg Hydroxide (Magnesium Hydrox/Alum Hydrox 30 Ml Oral.Susp) 30 ml PO Q6H PRN PRN Reason: Heartburn/Nausea Amlodipine Besylate (Amlodipine Besylate 10 Mg Tablet) 10 mg PO DAILY [facility]; Protocol Last Admin: 11/15/23 10:12 Dose: Not Given Calcium Carbonate/Cholecalciferol (Calcium + Vitamin D 250 Mg Tablet) 250 mg PO DAILY [facility] Last Admin: 11/15/23 10:13 Dose: Not Given Divalproex Sodium (Divalproex Sodium Er 500 Mg Tab.Er.24h) 500 mg PO BID [facility] Last Admin: 11/15/23 10:13 Dose: Not Given Docusate Sodium (Docusate Sodium 100 Mg Capsule) 100 mg PO BID [facility] Last Admin: 11/15/23 10:13 Dose: Not Given Hydroxyzine HCl (Hydroxyzine Hcl 25 Mg Tablet) 25 mg PO Q6H PRN PRN Reason: Anxiety Ibuprofen (Ibuprofen 400 Mg Tablet) 400 mg PO Q8H PRN PRN Reason: Pain, Moderate(Pain Scale 4-6) Lorazepam (Lorazepam 1 Mg Tablet) 1 mg PO Q8H PRN PRN Reason: Anxiety Magnesium Hydroxide (Milk Of Magnesia 30 Ml Oral.Susp) 30 ml PO DAILY PRN PRN Reason: Constipation Melatonin (Melatonin 3 Mg Tablet) 9 mg PO BEDTIME PRN PRN Reason: Sleep Multivitamins/Vitamin C (Multivitamin Tablet) 1 tab PO DAILY [facility] Last Admin: 11/15/23 10:13 Dose: Not Given Polyethylene Glycol (Polyethylene Glycol 3350 17 Gm Powd.Pack) 17 gm PO DAILY PRN PRN Reason: Constipation Risperidone (Risperidone 2 Mg Tablet) 2 mg PO BID [facility] Last Admin: 11/15/23 10:13 Dose: Not Given Risperidone (Risperidone 1 Mg Tablet) 1 mg PO TID PRN PRN Reason: agitation/psychosis Senna (Sennosides 8.6 Mg Tablet) 8.6 mg PO BID PRN PRN Reason: constipation Simethicone (Simethicone 80 Mg Tab.Chew) 80 mg PO QIDWMHS PRN PRN Reason: gas relief Trazodone HCl (Trazodone Hcl 50 Mg Tablet) 50 mg PO BEDTIME MRX1 PRN PRN Reason: Insomnia Allergies Allergies Allergy/AdvReac Type Severity Reaction Status Date / Time benztropine [From COGENTIN] Allergy Unknown STOMACHPAIN Verified 10/03/23 11:30 /SWELLING haloperidol [From HALDOL] Allergy Unknown STOMACH Verified 10/03/23 11:30 PAIN SWELLING Assessment & Plan Assessment & Plan (1) Schizoaffective disorder, bipolar type: Status: Acute Code(s): F25.0 - Schizoaffective disorder, bipolar type Plan Acute decompensation of schizoaffective disorder due to custodial medication noncompliance. Hospital course: 6/2 Agitated, Verbal and physical aggression to all. Spit at team x 2 without provocation. Olanzapine 10 mg, Lorazepam 1 mg IM given. Calmer later in the day. Significant anger- I have a temper, you need to tolerate it, I will do what I want. Hostile, verbally caustic, confrontive, dismissive; Overall presentation appears manic. Refusing medications. / Over the weekend, in the general milieu patient argumentative, intrusive, threatening staff and peers; some peers provoked and needed help being redirected; patient not appropriate to be in the kitchen. Patient required medication restraint. Earlier this morning, patient remained combative, called a peer a racial epithet as peer walked by, spit towards the social sciences research scientist... In the hallway, today on approach as check writer introduced self, patient glared at check writer, and screamed you are ...you are and walked away, would not talk further. Later on in day, as check writer walked by in the chang, she was briefly more cooperative and wanted to know writers name, read writers badge...she wants to be called amy Almonte and was pleased as check writer complied. While standing at the nurse's station, patient started yelling to check writer that says she wants to discharge. She denies any SI or HI and says she's not a harm to herself. When asked why report is that she was walking unsafely in the road, she said they lie... Patient then said call the police, ask them, call the police and send me to longterm. Patient accused check writer of not asking for any questions to which check writer shared that each time this is tried, she starts to yell at check writer; she acknowledges this, and asks check writer to go ahead and ask her questions but she soon starts yelling again. Senior Engineering Technician tried to give mckeon warning; check writer explained to her that talking to this check writer or staff is voluntary which she says she knows, check writer tried to give the rest of cmkeon warning but patient kept yelling at check writer saying I do not want to talk to you... -Senior Engineering Technician again approached her later and tried to discuss court ordered medication however patient again started yelling at check writer not letting check writer finish sentences. -Pt quite hypertensive 175/89 but refuses antihypertensive medications and will not discuss it.. -Patient's latex foam worker communicated with social sciences research scientist and reported that patient has been off medications since her last hospitalization at [place], February 202311/14 Patient did not sleep last night; check writer contacted early this morning with staff reporting patient threatening staff and peers. Peers becoming increasingly provoked and difficult to redirect. Behavior continued to escalate , spit in nurse's face and patient could not be redirected, requiring medication restraint and patient received Zyprexa 10 mg and Ativan 1 mg, which helped treat her symptoms this past weekend. Patient placed on one-to-one for patient and milieu safety. After medication restraint, patient became much more calm though remained internally preoccupied and would not engage with check writer. Impression: Patient is manic, disorganized with no insight and poor judgment. She is unsafe in the community, reportedly wandering in the street which resulted in the police bringing her to the hospital. Patient is intrusive, threatening peers and staff, spitting, using racial epithets and is in danger of retaliation from peers. Patient is refusing antihypertensive medication. At this time patient is unsafe for discharge as she has not able to care for herself is placing herself in harm's way. She refuses treatment. Will petition the court for involuntary commitment with substituted judgment. Plan: Section 12b; will petition the court for involuntary commitment and substituted judgment Q 5s; will consider one-to-one if situation worsens since patient is provoking peers and is in danger of retaliation Patient received Invega Sustenna 234 mg IM on 11/13 Continue Risperdal 2 mg b.i.d.; patient refusing Amlodipine Besylate 10 mg PO DAILY [facility]; patient refuses Divalproex Sodium 500 mg PO BID [facility] patient refuses [facility] medications; up for review 11/18/23: Invega Sustenna 234mg IM qmonth Risperidone upt to 10mg daily Loxapine up to 60mg daily Aristada up to 882mg IM qmonth Reason for continued inpatient stay Substantial Risk for: harm to self, harm to others and inability to function Time Spent With Patient Time: Total time managing care of this patient today ____ minutes.
[2023-11-16] MEDS: LORazepam 2 MG/ML VIAL 1 MG IM (07:49)
[2023-11-16] MEDS: OLANZapine 10 MG VIAL IM (07:49)
[2023-11-16 08:00] VITALS: BP 000/000; RESP 0; O2SAT 0
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
[2023-11-16 10:48] VITALS: BP 000/000
[2023-11-17 07:00] VITALS: BMI 20.5
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
[2023-11-17 19:56] VITALS: RESP 16
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
[2023-11-19 08:32] VITALS: BMI 20.3
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
--- NOTE | 2023-11-19 13:03 | HE.PHANOTE ---
paliperidone Based on FDA PI, paliperidone IM not recommended in Crcl <50 ml/min. Provider made aware. Will defer to weekday team. Updated BMP ordered
[2023-11-19] MEDS: OLANZapine 10 MG VIAL IM (18:26)
[2023-11-19] MEDS: LORazepam 2 MG/ML VIAL 1 MG IM (18:26)
--- NOTE | 2023-11-19 18:45 | PM.EVENT ---
Event Note Date of Service: 11/19/23 Event Note: Called to evaluate after medical restraint. Patient is alert and calm, no difficulty breathing Time Spent With Patient Time: Total time managing care of this patient today ____ minutes.
--- NOTE | 2023-11-19 19:19 | PC.NURSE ---
Mickie approached nurses station, requested to use a pair of headphones. She was told none were available and she became very upset, started yelling, flailing arms. When male staff tried to verbally redirect her, she grabbed onto his wrist with force and attempted to grab clipboard from him. When he freed himself from instrumentation instructor, she screamed at him shut the fuck up nigger . Dr Wong was tiger texted, he placed orders, IM medications were given one in each deltoid by RNs. Hospitalist Dr Plata was paged to assess Mickie and he came up to see her in less than 15 minutes after page. She was awake, uncooperative and dismissive of Dr Plata and this nurse.
[2023-11-19 20:00] VITALS: RESP 18
--- NOTE | 2023-11-20 02:11 | PC.NURSE ---
Mickie woke up at approximately 0015. She came to the nurses' station, agitated, and raised her voice at this typewriter mechanic, yelling I deserve to be treated like a person, you bitch! Mickie composed herself, asking this typewriter mechanic what medications she had been injected with. This typewriter mechanic gave her that information verbally. Mickie requested a printout of the medications, which this typewriter mechanic provided. Mickie then asked this typewriter mechanic What's my diagnosis, schizoaffective with bipolar type? Nevermind, you bitch. I know you deal drugs. Mickie then became pleasant, requesting snacks, which were provided. Mickie ate and returned to bed.
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
[2023-11-20 22:00] VITALS: RESP 16
[2023-11-21 08:00] VITALS: BP 118/62; PULSE 101; TEMP 36.7; O2SAT 95
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
[2023-11-22 17:11] LABS: Alanine Aminotransferase 21 U/L (0-31); Albumin Level 3.9 g/dL (3.5-5.0); Alkaline Phosphatase 111 U/L (39-117); Anion Gap 13 (12-20); Aspartate Amino Transferase 27 U/L (5-31); Bilirubin Total 0.2 mg/dL (0.0-1.0); Blood Urea Nitrogen 30 mg/dL (9-16); Calcium 9.8 mg/dL (8.4-10.2); Carbon Dioxide 29 mmol/L (22-29); Chloride 105 mmol/L (96-108); Creatinine Clr Calc Pharmacy 35.9; Estimated Glomerular Filt Rate 56; Glucose Random 101 mg/dL (60-115); Potassium 4.3 mmol/L (3.3-5.1); Sodium 143 mmol/L (135-145); Total Protein 7.5 g/dL (6.5-8.0)
[2023-11-22 20:00] VITALS: RESP 16
[2023-11-23 08:00] VITALS: RESP 18
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
[2023-11-24 07:00] VITALS: BMI 19.8
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
--- NOTE | 2023-11-24 13:13 | PC.NURSE ---
Pt refused labs ordered
[2023-11-25 08:00] VITALS: BP 127/76; PULSE 94; RESP 18; TEMP 36.5; O2SAT 96
[2023-11-25 14:00] VITALS: BMI 20.3
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
[2023-11-25 20:00] VITALS: BP 117/73; PULSE 112; RESP 16; TEMP 36.6; O2SAT 94
[2023-11-26 08:00] VITALS: BP 132/61; PULSE 85; RESP 16; TEMP 36.7; O2SAT 92
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
[2023-11-26 20:00] VITALS: PULSE 118; RESP 16; TEMP 37; O2SAT 94
[2023-11-27 08:00] VITALS: BP 120/65; PULSE 92; RESP 16; TEMP 36.9; O2SAT 96
[2023-11-27] MEDS: Multivitamin TABLET 1 TAB PO (08:24)
[2023-11-27] MEDS: Calcium + Vitamin D 250 MG TABLET PO (08:24)
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
[2023-11-27 20:00] VITALS: BP 138/81; PULSE 97; RESP 16; TEMP 36.4; O2SAT 96
[2023-11-28 08:00] VITALS: BP 140/74; PULSE 103; RESP 16; TEMP 36.6; O2SAT 95
[2023-11-28] MEDS: Multivitamin TABLET 1 TAB PO (09:01)
[2023-11-28] MEDS: Calcium + Vitamin D 250 MG TABLET PO (09:01)
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
[2023-11-28 20:00] VITALS: PULSE 99; RESP 16; TEMP 36.4; O2SAT 96
[2023-11-29 08:00] VITALS: BP 138/66; PULSE 90; RESP 16; TEMP 36.9; O2SAT 95
[2023-11-29] MEDS: Multivitamin TABLET 1 TAB PO (08:31)
[2023-11-29] MEDS: Calcium + Vitamin D 250 MG TABLET PO (08:31)
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
[2023-12-01 10:53] LABS: Paliperidone 74.6 ng/mL (20.0-60.0)
== END 2023-11-29 11:30 | disposition home or self-care (01) | DRG 885 ==
PROVIDERS: Admitting Provider Psychiatry & Neurology Psychiatry; Visit Provider Psychiatry & Neurology Psychiatry
DX: F25.0 Schizoaffective disorder, bipolar type (principal); I12.9 Hypertensive chronic kidney disease with stage 1 through stage 4 chronic kidney disease, or unspecified chronic kidney disease; N18.30 Chronic kidney disease, stage 3 unspecified; E78.5 Hyperlipidemia, unspecified; K59.09 Other constipation; Z85.41 Personal history of malignant neoplasm of cervix uteri; Z91.148 Patient's other noncompliance with medication regimen for other reason; Z87.891 Personal history of nicotine dependence; Z79.899 Other long term (current) drug therapy
CPT/HCPCS: 36415; 80053; 80299; 92950; J2060; J2359; J2426

== ENCOUNTER → 2023-11-11 20:01 | Outpatient (BNV) | payer MEDICARE, SELFPAY | PROVIDERS: Admitting Provider Psychiatry & Neurology Psychiatry; Visit Provider Student in an Organized Health Care Education/Training Program | DX: Z02.2 Encounter for examination for admission to residential institution (principal) | CPT/HCPCS: 99429; 99499 ==

== ENCOUNTER → 2023-11-11 20:01 | Outpatient (BNV) | payer MEDICARE, SELFPAY | PROVIDERS: Admitting Provider Psychiatry & Neurology Psychiatry; Visit Provider Clinical Nurse Specialist Psychiatric/Mental Health, Adult | DX: F25.0 Schizoaffective disorder, bipolar type (principal) | CPT/HCPCS: 90792; 99231; 99232; 99238; 99499 ==

== ENCOUNTER 2024-02-17 12:27 | Inpatient (IN) | payer MEDICARE, SELFPAY ==
--- OUTSIDE RECORDS SUMMARY | 2024-02-17 12:31 | XMS_ITS | Continuity of Care Document ---
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 your time with us (such as flu or COVID-19). If you develop symptoms concerning for a viral respiratory infection, please seek testing (and treatment if indicated) from your medical provider or home test kit. ?? You can view and manage your care through the patient portal or by using a health care mya of your choosing. [employer] is a website that allows you to securely view your medical information including your hospital discharge summary, office visit summaries, medications and follow-up visits. You can also request appointments, renew medications, and request access to your medical information using a health care mya of your choosing, or just ask a question. You can enroll at [email or web address] or register during your next office visit. You have been discharged from [facility], Patient Care Unit: W4??. If you have any questions regarding these instructions, including results of studies pending, afteryou leave, please call us and we will be happy to assist you 03/01. [facility] Your Care Team Attending Physician Miranda Renee MD?? Consulting Providers Miranda Renee MD?? Discharging Providers Miranda Renee MD Reason for Your Visit pt was found wandering in the intersection, very decompensated?? Your Diagnosis Schizoaffective disorder, bipolar type Noncompliance with medication regimen Psychiatric Underweight Tests Performed Below is a partial list of the tests performed during your hospitalization. You may have had other tests and procedures not included in this list. Please discuss all test results with your provider. Amphetamine Urine Screen Barbiturate Urine Screen Basic Metabolic Panel Benzodiazepine Urine Screen Cannabinoid Urine Screen CBC w/ Differential Cocaine Urine Screen COVID-19 (Novel Coronavirus), Rapid PCR Ethanol Level FREE T4 HEPATIC FUNCTION PANEL Opiate Screen Urine TSH with T4 Reflex (Adults Only) Urinalysis w/hold for Urine Culture XR Chest Portable No tests performed during this visit.?? Primary Care Provider Justo NUÑEZ, Pelon Peter? Advance Directive Health Care Proxy on File No Patient refuses to discuss Discharge Vitals Temperature: 98.7 DegF Height: 158 cm Pulse Rate: 66 bpm Weight: 45.3 kg Respiratory Rate: 16 br/min Body Mass Index:??18.15 kg/m2??Low Systolic Blood Pressure: 120 mm Hg Body surface area: 1.41 Diastolic Blood Pressure: 70 mm Hg ?? Oxygen Saturation: 98 % ?? Studies Pending All studies ordered during this hospital stay have been completed unless listed below. Please discuss all pending results with your provider listed above in these instructions. ?? No incomplete studies found?? What to do next Instructions From Your Doctor ?? Orders? 11/11/23 18:33:00 EDT?? You Need to Schedule the Following Appointments Follow Up with??Pelon Kemp MD Why: 2 weeks after discharge from psychiatry Where: [address] [place] [address] [address] [place] [address]- Business (1) Discharge Medications MARINO CASTLE :1950 Visit Date:11/07/2023 Medications: Please continue your medications until treatment is completed or stopped by your provider. Medications not listed below should be discontinued. Discuss any questions related to medications with your provider. What How Much When Instructions Next Dose New Trazodone (traZODone 50 mg oral tablet) 50 Milligram Oral Daily at Bedtime as needed for Anxiety Duration: 30 Days Anxiety/ Insomnia/ ??Mild agitation ?? As needed Changed Aripiprazole (Aristada 662 mg/ 2.4 mL intramuscular suspension, extended release) 662 Milligram Intramuscular USE ONE injection INTRAMUSCULARLY ONCE PER MONTH ?? See instructions Changed Risperidone (risperiDONE 2 mg oral tablet) 1 tab(s) Oral Twice a day 11/10 at 9pm Unchanged Divalproex Sodium (divalproex sodium 500 mg oral enteric coated tablet) 500 Milligram Oral Twice a day 11/10 at 9pm ?? What How Much When Comments Stop Taking Amlodipine (amLODIPine 10 mg oral tablet) 1 tab(s) Oral Daily Prescription Given During Visit No new medications prescribed at time of discharge.?? Laboratory Results Below is a partial list of the most recent Laboratory test results done prior to this discharge. You may have had other tests and procedures not included in this list. Please discuss all test resultswith your provider. Est Creatinine Clearance - 31.54 mL/min (11/09/2023) Amphetamine Urine Screen (11/10/2023) ???Amphetamine Screen, Urine - NONE DETECTED Barbiturate Urine Screen (11/10/2023) ???Barbiturate Screen, Urine - NONE DETECTED Basic Metabolic Panel (11/07/2023) ???Sodium - 145 mmol/L???Potassium - 3.6 mmol/L???Chloride - 109 mmol/L???Bicarbonate Level - 26 mmol/L???Anion Gap - 10???Glucose Level - 113 mg/dL???BUN - 25 mg/dL???Creatinine-Blood - 1.17 mg/dL???Estimated GFR Creatinine - 50 ML/MIN/1.73 M2???Calcium - 9.4 mg/dL Benzodiazepine Urine Screen (11/10/2023) ???Benzodiazepine Screen, Urine - NONE DETECTED Cannabinoid Urine Screen (11/10/2023) ???Cannabinoid Screen, Urine - NONE DETECTED CBC w/ Differential (11/07/2023) ???WBC - 4.7 k/mm3???RBC - 4.24 m/mm3???Hgb - 11.2 Gm/dL???Hct - 34.0 %???MCV - 80.2 femtoliters???MCH - 26.4 pg???MCHC - 32.9 g/dL???Platelet Count - 250 k/mm3???RDW-SD - 37.6 femtoliters???MPV - 10.2 femtoliters???Nucleated RBC (Automated) - 0.0 #/100 WBC'S???Abs. NRBC - 0.0 k/mm3???Abs. Neut - 3.1 k/mm3???Abs. Lymph - 1.1 k/mm3???Abs. [place] - 0.4 k/mm3???Abs. Eo - 0.0 k/mm3???Abs. Baso - 0.0 k/mm3???Neut % - 66.8 %???Lymph % - 24.3 %???Haywood % - 7.7 %???Eos % - 0.6 %???Baso % - 0.4 %???Imm Gran - 0.2 %???Abs. Imm Gran - 0.0 k/mm3 Cocaine Urine Screen (11/10/2023) ???Cocaine Metabolite Screen, Urine - NONE DETECTED COVID-19 (Novel Coronavirus), Rapid PCR (11/07/2023) ???COVID-19 by RT-PCR - NEGATIVE Ethanol Level (11/07/2023) ???Ethanol, Serum or Plasma - NONE DETECTED FREE T4 (11/07/2023) ???Free T4 - 1.51 ng/dL HEPATIC FUNCTION PANEL (11/07/2023) ???Protein, Total - 6.1 Gm/dL???Albumin - 3.6 Gm/dL???Alkaline Phosphatase - 99 units/L???AST (SGOT) - 22 units/L? ?ALT (SGPT) - 10 units/L? ?Bilirubin, Total - 0.3 mg/dL? ?Bilirubin, Direct - <0.2 mg/dL???Bilirubin, Indirect - Direct bilirubin is less than the measureable limit. Therefore, indirect Opiate Screen Urine (11/10/2023) ???Opiate Screen, Urine - NONE DETECTED TSH with T4 Reflex (Adults Only) (11/07/2023) ???TSH - 0.25 uIU/mL Urinalysis w/hold for Urine Culture (11/10/2023) ???Appear/Color, Urine - LIGHT YELLOW???Specific [place], Urine - 1.010???pH, Urine - 6.5???Albumin, Urine - NEGATIVE???Glucose, Urine - NEGATIVE???Ketones, Urine - NEGATIVE???Bilirubin, Urine - NEGATIVE???Hemoglobin, Urine - NEGATIVE???Nitrite, Urine - NEGATIVE???Leukocyte, Urine - 1+???Urobilinogen - NORMAL? ?WBC's, Urine - 6 /HPF? ?RBC's, Urine - 1 /HPF? ?Squamous Epith - <1 /HPF? ?Hyaline Cast - 1 LPF???Mucus - SLIGHT???Hold Urine Culture - Testing available 48 hours from time of collection. Allergies (NKA means No Known Allergies) Cindy Lu Problems Active Problems??(7) Abnormal liver enzymes?? History of hyperlipidemia?? Hypernatremia?? Low TSH level?? Psychosis?? Schizoaffective disorder, bipolar type?? Underweight?? Education Materials Below is the list of Educational Leaflet Providered with your Discharge Instructions. Valuables and Belongings I fully understand and agree that [facility] accepts no responsibility for all my personal property including clothing, toilet articles, radios, jewelry, dentures, hearing aids, rings, money, or any other property that is in my possession or is brought to me after admission. I understand certain valuables may be placed in a hospital safe for a short period of time. I understand that the hospital is not liable for loss or damage due to accident, fire, or other natural occurrence while said property is in the safe. I accept full responsibility for any personal property that I keep with me, and will not hold the hospital responsible in case of loss or disappearance. I acknowledge that i have been encouraged to send valuables and belongings home. ?? Review of Valuable and Belonging List: With patient, With witness Date for Pt to Sign Valuables/Belongings: 11/07/23 18:31:00 ?? Other Discharge Information ? Case Management Discharge Plan?? Discharge Plan?? Discharge Rx Program: Discharge Prescription Program ?? Pulmonary Rehab Status?? Pulmonary Rehab Discharge Status?? Respiratory Rate: 16 br/min ? Common Emergency Awareness Tips IS IT A STROKE? Act FAST and Check for these signs: FACE Does the face look uneven? ARM Does one arm drift down? SPEECH Does their speech sound strange? TIME Call at any sign of stroke ?? Heart Attack Signs Chest discomfort: Most heart attacks involve discomfort in the center of the chest and lasts more than a few minutes, or goes away and comes back. It can feel like uncomfortable pressure, squeezing, fullness or pain. Discomfort in upper body: Symptoms can include pain or discomfort in one or both arms, back, neck, jaw or stomach. Shortness of breath: With or without discomfort. Other signs: Breaking out in a cold sweat, nausea, or lightheaded. Remember, MINUTES DO MATTER. If you experience any of these heart attack warning signs, call to get immediate medical attention! ?? Smoking can increase your chances of developing chronic health problems and can cause harmful effects to other family members in your house. If you smoke, you are strongly encouraged to quit. Please call [facility] [employer] Link at [phone] or [phone] ([phone]) or log in to [email or web address] for referrals to smoking cessation programs. ?? 703 Suicide & Crisis Lifeline is available 03/01 if you or someone you know needs to find a reason to keep living. By calling 595 you'll be connected to a skilled, trained counselor at a crisis center in your area. INPATIENT DISCHARGE INSTRUCTIONS SIGNATURE PAGE MARINO CASTLE Location:[facility] Registration Date and Time:11/07/2023 15:38 EDT Primary Care Physician: Pelon Kemp MD, Attending Physician: Víctor NUÑEZ, Miranda, I MARINO CASTLE, have received the above patient education materials/instructions and have verbalized understanding. If ambulance or transport services are being used I further acknowledge beinggiven a choice of service. ?? If you need to contact me, please call me at this number: . Patient/Check Totaler Name: Patient/Check Totaler Signature: Relationship to Patient: Witness Name/Signature: Date: * Víctor NUÑEZ, Miranda: PERFORM Event Display: Discharge/Transfer Note Hospital Authored Date: [id number] Patient: ??MARINO CASTLE ? Age:??73 Years?Sex:??Female?:??1950?? Patient Information Discharge Location: Primary Care Physician: Pelon Kemp MD Admit Date/Time: 11/07/23 15:38 Discharge Disposition Discharge Disposition:??Transfer to??psych when??bed available Discharge Diagnosis Schizo-affective psychosis (F25.9) Schizoaffective disorder, bipolar type (F25.0) Noncompliance with medication regimen (Z91.148) Underweight (R63.6) _ Discharge Medications Divalproex Sodium (divalproex sodium 500 mg oral enteric coated tablet)?500?Milligram?By Mouth?2 times a day Risperidone (Risperdal ODT Tablet)?1.5?Milligram?By Mouth?2 times a day Trazodone (traZODone 50 mg oral tablet)?50?Milligram?By Mouth?Daily at bedtime?as needed?for 30?Days?Anxiety/Insomnia/ Mild agitation?Anxiety ? Medications Started none Medications Discontinued none Doses Changed none PCP Follow-Up/Heads-Up f/u with psychiatry Objective Assessment and Plan 73-year-old female with PMH of schizo- affective disorder bipolar type, medication nonadherence [previously on, not a [facility] order but not currently active], multiple inpatient psychiatric hospitalizations, HLD, hyponatremia who was brought to the [facility] due to disorganized and bizarre behavior/delusions, pressured speech and agitation concerning for acute psychotic episode. ? 1. ??Schizo-affective psychosis ??(F25.9) 2. ??Schizoaffective disorder, bipolar type ??(F25.0) Psychiatry on board, appreciate recommendations continue risperidone??1.5 mg??twice daily Divalproex to 500 mg twice daily Trazodone 50 mg twice daily as needed Awaiting inpatient??bed??for psychiatric hospitalization Patient is medically stable for discharge to psych facility ?? 2.??HTN: previously was on Amlodipine- not sure if she was complaint BP is normal range- will hold it for now and restart low dose if needed ? . Physical Exam Patient ??seen and examined today chest: b/l cta, heart:s1s2+, abdomen:s oft, bs+, non tender, neuro: aaox 1-2 patient is agitated. psych consulted today bed search in [facility] Ding>Psychiatry Follow-Up Appointments Added Follow Up ?Time Frame ?Comments Pelon Kemp MD?2 weeks after discharge from psychiatry Home Health Face to Face ^HomeHealthFTF 32??minutes spent on discharge * Miranda Renee MD: PERFORM Event Display: Discharge/Transfer Note Hospital Authored Date: consider this as progress note for 11/09 * Miranda Renee MD: PERFORM, SIGN, VERIFY Event Display: Patient Education Handout Authored Date: [id number] Patient Care team information Care Team Personnel Name: Mateo Medina RN Position: [facility] RN Member Role: Primary Care Nurse Name: Pelon Kemp MD Position: Reference Physician Member Role: PCP Address: Address: [address] [place] [address] [address] [place] [id number]- Name: Cheri Clark RN Position: [facility] AMB Nurse Member Role: Primary Care Nurse Name: Fatmata Ty RN Position: [facility] SN RN Member Role: Primary Care Nurse Name: Royce Lynch RN Position: [facility] RN Member Role: Primary Care Nurse Name: Padilla Carlson Position: [facility] RN Member Role: Primary Care Nurse Name: Dixie Thomas NP Position: [facility] Associate Professional Member Role: Primary Care Nurse Name: Isha Williamson RN Position: [facility] RN Member Role: Primary Care Nurse Name: Barrington Velásquez RN Position: [facility] RN Member Role: Primary Care Nurse Name: Adriel Doss RN Position: [facility] ED RN W/OE and Tasks Member Role: Primary Care Nurse Name: Mariana Meadows RN Position: [facility] RN Member Role: Primary Care Nurse Name: Suellen Murray RN Position: [facility] ED RN W/OE and Tasks Member Role: Primary Care Nurse Name: Parker Pritchard III, RN Position: [facility] RN Member Role: Primary Care Nurse Care Team Related Persons Name: PT STATES, NO ONE
[2024-02-17 13:47] VITALS: BMI 18.2
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
--- NOTE | 2024-02-17 17:38 | P.CONHOSP_ITS ---
History of Present Illness Data of Consult Service Date: 02/17/24 Primary Care Provider: Pelon Kemp MD HPI Reason for consult: Admission H&P Pt is a 73-year-old female with a PMH significant for?HLD, CKD 3, bipolar schizoaffective disorder, and medication nonadherence previously on [facility] order who is admitted to [facility] psych unit for increased agitation, aggression, and disorganized behavior. Patient was [place] bus [place] yelling at people and threatening to kill them with the machine gun if they touched her. Medical consult for admission H&P. ?Patient is seen in the common area where she is [facility] noted to be speaking to herself. When approached and requested to undergo medical history and examination, patient becomes increasingly agitated and aggressive, telling this interviewer to ?go back to your medical or? and then began screaming ?there is nothing wrong with me physically or mentally?. Labs from [facility] reviewed, significant for creatinine of 1.33. Patient was administered 1 L IVF. Review of Systems Review of Systems: Patient denies any acute medical complaints, though is an unreliable historian and refuses full [facility] Medical History (Updated 02/17/24 @ 19:06 by NICOLAS Mccall) Medical clearance for psychiatric admission Schizoaffective disorder, bipolar type Constipation Benign essential hypertension Chronic kidney disease (CKD) History of cervical cancer Hyperlipidemia Family History Father Cancer Mother Cancer Hypertension Sister No problems noted. Surgical History No significant past surgical history Social History Household Members: Unknown / Unable to assess Household Members Other:: Pt unwilling to participate in admission process. Housing: Apartment Do you presently have visiting nurse or other home services: Yes (Pt unwilling to participate in admission process.) Unable to assess alcohol history related to: Refusing to respond Alcohol intake: current Alcohol intake frequency: holidays/special occasions only Comment: 15 Patient Tobacco Use Status: Former Tobacco user e-Cigarette/Vaping Use: Never Used Second Hand Smoke Exposure: No Use of substances other than those prescribed or required for medical reasons: Unknown Substance Use Type: Unknown Substance Use Type Other:: Toxicology screening showed nothing. Last Used Substance Other:: Pt unwilling to participate in admission process. Currently Displaying Signs/Symptoms of Drug Intoxication Withdrawal: No Other Past Substance Use Problem:: Pt unwilling to participate in admission process. Any prior treatment program specific to substance use: No (Pt unwilling to participate in admission process.) Have you been hit, kicked, punched, or otherwise hurt by someone within the past year? If so, by whom?: No (Pt unwilling to participate in admission process.) Do you feel safe in your current relationship?: No Is there a partner from a previous relationship who is making you feel unsafe now?: No (Pt unwilling to participate in admission process.) Are you made to feel afraid or neglected: No (Pt unwilling to participate in admission process.) Advance Directives: No Advance Directives Information Provided: No Recently lost weight without trying: Unsure How much weight loss: Unsure Eating poorly because of decreased appetite: No Nutrition screen score: 4 Nutrition Risks: No Nutritional Risk Patient : No : No Poor oral hygiene: No (Pt unwilling to participate in admission process.) service: No Current occupational status: disabled Sexual orientation: Unable to collect Cognitive needs: No Hearing needs: No Vision needs: No Meds Allergies Allergy/AdvReac Type Severity Reaction Status Date / Time benztropine [From COGENTIN] Allergy Unknown STOMACHPAIN Verified 10/03/23 11:30 /SWELLING haloperidol [From HALDOL] Allergy Unknown STOMACH Verified 10/03/23 11:30 PAIN SWELLING Active Medications: Current Medications Acetaminophen (Acetaminophen 325 Mg Tablet) 650 mg PO Q6H PRN PRN Reason: Headache/Pain Mild Scale (1-3) Al Hydroxide/Mg Hydroxide (Magnesium Hydrox/Alum Hydrox 30 Ml Oral.Susp) 30 ml PO Q6H PRN PRN Reason: Heartburn/Nausea Hydroxyzine HCl (Hydroxyzine Hcl 25 Mg Tablet) 25 mg PO Q6H PRN PRN Reason: Anxiety Magnesium Hydroxide (Milk Of Magnesia 30 Ml Oral.Susp) 30 ml PO DAILY PRN PRN Reason: Constipation Olanzapine (Olanzapine Odt 10 Mg Tab.Rapdis) 10 mg TRANSLINGU Q6H PRN PRN Reason: agitation Trazodone HCl (Trazodone Hcl 50 Mg Tablet) 50 mg PO BEDTIME MRX1 PRN PRN Reason: Insomnia Physical Exam Vital Signs and Narrative: Vital Signs: BMI result Body Mass Index 18.2 Patient refuses physical examination Assessment and Plan (1) Medical clearance for psychiatric admission: Status: Acute Plan Pt is a 73-year-old female with a PMH significant for?HLD, CKD 3, bipolar schizoaffective disorder, and medication nonadherence previously on [facility] order who is admitted to [facility] unit for increased agitation, aggression, and disorganized behavior. Patient was found at a bus station yelling at people and threatening to kill them with the machine gun if they touched her. Medical consult for admission H&P. Patient is acutely manic/psychotic and not amenable to history or examination. Mood disorder Plan as per Psychiatry CKD 3 Patient's creatinine slightly elevated at 1.33 at [facility] Was given 1 L IVF Monitor kidney function in a.m. labs Pt does not appear to be on medications for chronic medical conditions. Will sign for now. Thank you allowing us to participate in the care of this patient. If any acute issue or need arises, please re-consult.
[2024-02-18 07:55] LABS: Estimated Average Glucose 126 mg/dL
[2024-02-18 08:00] VITALS: BP 147/83; PULSE 101; RESP 15; TEMP 36.7; O2SAT 97
[2024-02-18 08:03] LABS: Alanine Aminotransferase 18 U/L (0-31); Alkaline Phosphatase 106 U/L (39-117); Anion Gap 14 (12-20); Aspartate Amino Transferase 27 U/L (5-31); Bilirubin Total 0.3 mg/dL (0.0-1.0); Blood Urea Nitrogen 20 mg/dL (9-16); Calcium 9.7 mg/dL (8.4-10.2); Carbon Dioxide 27 mmol/L (22-29); Chloride 107 mmol/L (96-108); Cholesterol 168 mg/dL (<200); Creatinine Clr Calc Pharmacy 31.2; Estimated Glomerular Filt Rate 47; Glucose Fasting 97 mg/dL (60-99); HDL Cholesterol 65 mg/dL (>40); LDL Cholesterol Calculated 95 mg/dL (<100); Potassium 4.4 mmol/L (3.3-5.1); Sodium 144 mmol/L (135-145); Total Protein 7.3 g/dL (6.5-8.0); Triglycerides 43 mg/dL (<150)
--- NOTE | 2024-02-18 08:44 | HO.PSYCHPN ---
Subjective Subjective Date of Service: 02/18/24 Reason For Visit: F25 Schizoaffective d/o, bipolar Subjective Notes: Section 12B Interim History: The nursing staff reported the patient has refused her vital signs and medications she slept only 2 hours last night. She had been yelling and screaming, grossly disorganized with labile affect. Aggressive at times but no overt violence so far. Mental Status Exam Mental Status Exam Patient Appearance: Well Grooomed and Appropriate Patient Orientation: Person and Situation Level of Consciousness: Awake and Appropriate Patient Behavior: Guarded and Passive Mood Description: Withdrawn Affect Description: Constricted Patient Cognition Impaired: Yes Ability to Follow Directions: Good Speech Pattern: Loud Hallucinations: Auditory Delusions: Paranoid Ideation Thought Process: Racing and Illogical Thought Content: positive for Loose Associations and positive for Thought Blocking Judgement: Poor Diagnostics Vital Signs (24Hr): Vital Signs - 24 hr 02/18/24 08:00 Temperature 98.1 F Pulse Rate 101 H Respiratory Rate 15 Blood Pressure 147/83 H Pulse Oximetry 97 Oxygen Delivery Method Room Air BMI result Body Mass Index 18.2 Labs 02/18/24 07:29 Labs: Laboratory Results - last 48 hr 02/18/24 07:29 Sodium 144 Potassium 4.4 Chloride 107 Carbon Dioxide 27 Anion Gap 14 BUN 20 H Creatinine 1.14 Estim Creat Clear Calc 31.2 Estimated GFR 47 Fasting Glucose 97 Estimat Average Glucose 126 Hemoglobin A1c % 6.0 Calcium 9.7 Total Bilirubin 0.3 AST 27 ALT 18 Alkaline Phosphatase 106 Total Protein 7.3 Albumin 4.0 Triglycerides 43 Cholesterol 168 LDL Cholesterol, Calc 95 HDL Cholesterol 65 Medications Medications Current Medications Acetaminophen (Acetaminophen 325 Mg Tablet) 650 mg PO Q6H PRN PRN Reason: Headache/Pain Mild Scale (1-3) Al Hydroxide/Mg Hydroxide (Magnesium Hydrox/Alum Hydrox 30 Ml Oral.Susp) 30 ml PO Q6H PRN PRN Reason: Heartburn/Nausea Hydroxyzine HCl (Hydroxyzine Hcl 25 Mg Tablet) 25 mg PO Q6H PRN PRN Reason: Anxiety Magnesium Hydroxide (Milk Of Magnesia 30 Ml Oral.Susp) 30 ml PO DAILY PRN PRN Reason: Constipation Olanzapine (Olanzapine Odt 10 Mg Tab.Rapdis) 10 mg TRANSLINGU Q6H PRN PRN Reason: agitation Trazodone HCl (Trazodone Hcl 50 Mg Tablet) 50 mg PO BEDTIME MRX1 PRN PRN Reason: Insomnia Allergies Allergies Allergy/AdvReac Type Severity Reaction Status Date / Time benztropine [From COGENTIN] Allergy Unknown STOMACHPAIN Verified 10/03/23 11:30 /SWELLING haloperidol [From HALDOL] Allergy Unknown STOMACH Verified 10/03/23 11:30 PAIN SWELLING Assessment & Plan Assessment & Plan (1) Medical clearance for psychiatric admission: Status: Acute Code(s): Z00.8 - Encounter for other general examination Plan Pt is a 73-year-old female with a PMH significant for?HLD, CKD 3, bipolar schizoaffective disorder, and medication nonadherence previously on [facility] order who is admitted to [facility] unit for increased agitation, aggression, and disorganized behavior. Patient was found at a bus station yelling at people and threatening to kill them with the machine gun if they touched her. Medical consult for admission H&P. Patient is acutely manic/psychotic and not amenable to history or examination. Mood disorder Plan as per Psychiatry CKD 3 Patient's creatinine slightly elevated at 1.33 at [facility] Was given 1 L IVF Monitor kidney function in a.m. labs Pt does not appear to be on medications for chronic medical conditions. Will sign for now. Thank you allowing us to participate in the care of this patient. If any acute issue or need arises, please re-consult. Plan 1. Gather collateral information. So far we could not get his role years order in the community. 2. The patient had been refusing medications, we are only to keep her on p.r.n. if she gets too violent or agitated. 3. At this moment the patient is unable to be redirected or have insight into her condition. We will try to deescalate with nonpharmacological tools. Reason for continued inpatient stay Substantial Risk for: inability to function, rapid decompensation and med/psych decompensation Time Spent With Patient Time: Total time managing care of this patient today __20__ minutes.
--- NOTE | 2024-02-18 08:50 | PC.NURSE ---
This engineering technical writer reported BP reading to Dr. Woodard via [employer]. Message received.
[2024-02-18 20:00] VITALS: BP 112/56; PULSE 99; RESP 16; TEMP 36.6; O2SAT 95
--- NOTE | 2024-02-19 09:36 | P.PNPSI_ITS ---
Subjective Subjective Date of Service: 02/19/24 Reason For Visit: F25 Schizoaffective d/o, bipolar Subjective Notes: Section 12B Interim History: The nursing staff reported the patient slept poorly, he ketamine hyperverbal self dialogue in a nonsensical. Yelling at times. On interview the patient remains grossly psychotic with labile mood Mental Status Exam Mental Status Exam Patient Appearance: Appropriate Patient Orientation: Person and Situation Level of Consciousness: Awake and Appropriate Patient Behavior: Guarded and Passive Mood Description: Withdrawn Affect Description: Constricted Patient Cognition Impaired: Yes Ability to Follow Directions: Poor Speech Pattern: Rapid and Loud Hallucinations: Auditory Delusions: Paranoid Ideation and Grandiose Thought Process: Racing and Illogical Thought Content: positive for [place] and positive for Poverty of Content Judgement: Poor Diagnostics Vital Signs (24Hr): Vital Signs - 24 hr 02/18/24 20:00 Temperature 97.9 F Pulse Rate 99 Respiratory Rate 16 Blood Pressure 112/56 L Pulse Oximetry 95 Oxygen Delivery Method Room Air BMI result Body Mass Index 18.2 Labs 02/18/24 07:29 Labs: Laboratory Results - last 48 hr 02/18/24 07:29 Sodium 144 Potassium 4.4 Chloride 107 Carbon Dioxide 27 Anion Gap 14 BUN 20 H Creatinine 1.14 Estim Creat Clear Calc 31.2 Estimated GFR 47 Fasting Glucose 97 Estimat Average Glucose 126 Hemoglobin A1c % 6.0 Calcium 9.7 Total Bilirubin 0.3 AST 27 ALT 18 Alkaline Phosphatase 106 Total Protein 7.3 Albumin 4.0 Triglycerides 43 Cholesterol 168 LDL Cholesterol, Calc 95 HDL Cholesterol 65 Medications Medications Current Medications Acetaminophen (Acetaminophen 325 Mg Tablet) 650 mg PO Q6H PRN PRN Reason: Headache/Pain Mild Scale (1-3) Al Hydroxide/Mg Hydroxide (Magnesium Hydrox/Alum Hydrox 30 Ml Oral.Susp) 30 ml PO Q6H PRN PRN Reason: Heartburn/Nausea Hydroxyzine HCl (Hydroxyzine Hcl 25 Mg Tablet) 25 mg PO Q6H PRN PRN Reason: Anxiety Magnesium Hydroxide (Milk Of Magnesia 30 Ml Oral.Susp) 30 ml PO DAILY PRN PRN Reason: Constipation Olanzapine (Olanzapine Odt 10 Mg Tab.Rapdis) 10 mg TRANSLINGU Q6H PRN PRN Reason: agitation Trazodone HCl (Trazodone Hcl 50 Mg Tablet) 50 mg PO BEDTIME MRX1 PRN PRN Reason: Insomnia Allergies Allergies Allergy/AdvReac Type Severity Reaction Status Date / Time benztropine [From COGENTIN] Allergy Unknown STOMACHPAIN Verified 10/03/23 11:30 /SWELLING haloperidol [From HALDOL] Allergy Unknown STOMACH Verified 10/03/23 11:30 PAIN SWELLING Assessment & Plan Assessment & Plan (1) Schizoaffective disorder, bipolar type: Status: Acute Code(s): F25.0 - Schizoaffective disorder, bipolar type Plan Ms. Villa is a 73 year-old woman with hx of schizoaffective disorder, bipolar type who was brought to [facility] by police on sect 12a, after pt found a bus station yelling at people I'm going to kill you with my machine gun. Pt well known to [facility] through previous admissions with similar presentation. Pt presents as paranoid, hostile, not engaging in conversation with team. Pending guardian and zahira- if it is still active. PLAN 1. admit to S1, sect 12b, 15 minutes checks for safety 2. obtain collateral information 3. aftercare planning. Reason for continued inpatient stay Substantial Risk for: inability to function, rapid decompensation and med/psych decompensation Time Spent With Patient Time: Total time managing care of this patient today __20__ minutes.
[2024-02-20 08:02] VITALS: BP 118/74; PULSE 90; RESP 16; TEMP 36.3; O2SAT 95
--- NOTE | 2024-02-20 08:50 | P.PNPSI_ITS ---
Subjective Subjective Date of Service: 02/20/24 Reason For Visit: F25 Schizoaffective d/o, bipolar Subjective Notes: Johnson Warning and Section 12B Interim History: Pt appears slightly calmer, although very guarded and suspicious. She reports she has to pay her rent and asks his job specification writer get phone number for [facility]. She then adds: I am not mentally ill and I do no need to be here.' She states I haven't taken medication for 7 years. I am not suicidal or homicidal and that's all you need o know! This job specification writer asked about reports that she had threatened to kill people while in the bus station. She denies threatening people and states they just lie for money. She declines anaswering further questions. She later asked about programs going on but later stated I don't need to go, I am not mentally ill. Mental Status Exam Mental Status Exam Narrative: Appearance: wearing hospital gown, fair hygiene, in NAD Behavior: less hostile but still very guarded Psychomotor: no agitation or retardation noted. Speech: clear, regular rate/rhythm/volume, spontaneous TP: mostly linear TC: wanting to get out of the hospital Mood: I'm fine Affect: irritable SI: denies HI: denies VH/AH: internally preoccupied Delusions: paranoid delusions Insight/judgment: impaired x 2 memory/cog: alert, oriented to place, unable to assess orientation to month, year, or situation as pt refused to speak with this job specification writer. Diagnostics Vital Signs (24Hr): Vital Signs - 24 hr 02/20/24 08:02 Temperature 97.3 F Pulse Rate 90 Respiratory Rate 16 Blood Pressure 118/74 Pulse Oximetry 95 Oxygen Delivery Method Room Air BMI result Body Mass Index 18.2 Labs 02/18/24 07:29 Medications Medications Current Medications Acetaminophen (Acetaminophen 325 Mg Tablet) 650 mg PO Q6H PRN PRN Reason: Headache/Pain Mild Scale (1-3) Al Hydroxide/Mg Hydroxide (Magnesium Hydrox/Alum Hydrox 30 Ml Oral.Susp) 30 ml PO Q6H PRN PRN Reason: Heartburn/Nausea Hydroxyzine HCl (Hydroxyzine Hcl 25 Mg Tablet) 25 mg PO Q6H PRN PRN Reason: Anxiety Magnesium Hydroxide (Milk Of Magnesia 30 Ml Oral.Susp) 30 ml PO DAILY PRN PRN Reason: Constipation Olanzapine (Olanzapine Odt 10 Mg Tab.Rapdis) 10 mg TRANSLINGU Q6H PRN PRN Reason: agitation Trazodone HCl (Trazodone Hcl 50 Mg Tablet) 50 mg PO BEDTIME MRX1 PRN PRN Reason: Insomnia Allergies Allergies Allergy/AdvReac Type Severity Reaction Status Date / Time benztropine [From COGENTIN] Allergy Unknown STOMACHPAIN Verified 10/03/23 11:30 /SWELLING haloperidol [From HALDOL] Allergy Unknown STOMACH Verified 10/03/23 11:30 PAIN SWELLING Assessment & Plan Assessment & Plan (1) Schizoaffective disorder, bipolar type: Status: Acute Code(s): F25.0 - Schizoaffective disorder, bipolar type Plan Ms. Villa is a 73 year-old woman with hx of schizoaffective disorder, bipolar type who was brought to [facility] [place] police on sect 12a, after pt found a bus station yelling at people I'm going to kill you with my machine gun. [place] well [place] to [facility] [place] previous admissions with similar presentation. Pt presents as paranoid, hostile, not engaging in conversation with team. Pending guardian and zahira- if it is still active. PLAN 1. admit to S1, sect 12b, 15 minutes checks for safety 2. obtain collateral information 3. aftercare planning. Reason for continued inpatient stay Substantial Risk for: harm to others and inability to function Time Spent With Patient Time: Total time managing care of this patient today ____ minutes.
[2024-02-20 12:27] VITALS: BMI 18.2
--- NOTE | 2024-02-21 08:33 | HO.PSYCHPN ---
Subjective Subjective Date of Service: 02/21/24 Reason For Visit: F25 Schizoaffective d/o, bipolar Subjective Notes: Section 12B Interim History: Pt did not sleep at all. She is more agitated today, yelling at staff, threatening, calling the police telling them she has to pay rent. She initilly refused meeting with this chart writer stating she would only meet with doctor who's name is on her band. This chart writer explained I am the one assigned to her care, later agreed to meet but was mostly yelling, stating people had monetary reasons for keeping her here. She reports she is working with claim attorney because she is NOT mentally ill. Although she denies threatening anyone at the bus station, she is threatening staff and other patients here. She threw water on the floor and then walk into and pushed occupational therapist. She threw papers while meeting with this chart writer, would let this chart writer speak, and walked out of the room. She denied SI/HI, but continues to make threats to different staff and peers here on the unit. Diagnostics Vital Signs (24Hr): BMI result Body Mass Index 18.2 Labs 02/18/24 07:29 Medications Medications Current Medications Acetaminophen (Acetaminophen 325 Mg Tablet) 650 mg PO Q6H PRN PRN Reason: Headache/Pain Mild Scale (1-3) Al Hydroxide/Mg Hydroxide (Magnesium Hydrox/Alum Hydrox 30 Ml Oral.Susp) 30 ml PO Q6H PRN PRN Reason: Heartburn/Nausea Hydroxyzine HCl (Hydroxyzine Hcl 25 Mg Tablet) 25 mg PO Q6H PRN PRN Reason: Anxiety Magnesium Hydroxide (Milk Of Magnesia 30 Ml Oral.Susp) 30 ml PO DAILY PRN PRN Reason: Constipation Olanzapine (Olanzapine Odt 10 Mg Tab.Rapdis) 10 mg TRANSLINGU Q6H PRN PRN Reason: agitation Trazodone HCl (Trazodone Hcl 50 Mg Tablet) 50 mg PO BEDTIME MRX1 PRN PRN Reason: Insomnia Allergies Allergies Allergy/AdvReac Type Severity Reaction Status Date / Time benztropine [From COGENTIN] Allergy Unknown STOMACHPAIN Verified 10/03/23 11:30 /SWELLING haloperidol [From HALDOL] Allergy Unknown STOMACH Verified 10/03/23 11:30 PAIN SWELLING Assessment & Plan Assessment & Plan (1) Schizoaffective disorder, bipolar type: Status: Acute Code(s): F25.0 - Schizoaffective disorder, bipolar type Plan Ms. Villa is a 73 year-old woman with hx of schizoaffective disorder, bipolar type who [place] [facility] [place] sect 12a, after pt found a bus station yelling at people I'm going to kill you with my machine gun. Pt well known to [facility] through previous admissions with similar presentation. Pt presents as paranoid, hostile, not engaging in conversation with team. Pending guardian and zahira- if it is still active. PLAN 1. admit to , sect 12b, 15 minutes checks for safety 2. awaiting for zahira's order. 3. ordered paliperidone 6mg po daily, no back up ordered until receive zahira's order. Reason for continued inpatient stay Substantial Risk for: inability to function Time Spent With Patient Time: Total time managing care of this patient today ____ minutes.
[2024-02-21 10:17] VITALS: BP 131/76; PULSE 104; RESP 16; TEMP 36.9; O2SAT 98
[2024-02-22 08:00] VITALS: BP 151/67; PULSE 83; RESP 18; TEMP 37; O2SAT 93
--- NOTE | 2024-02-22 09:25 | P.PNPSI_ITS ---
Subjective Subjective Date of Service: 02/22/24 Reason For Visit: F25 Schizoaffective d/o, bipolar Subjective Notes: Section 7 Interim History: Pt has not slept for 2 nights in a row, nor taken any naps during the day. She in increasingly more agitated, intrusive with peers and staff. When pt meeting with this abstract writer she denies SI/HI, she also denies ever threatening anyone. However, while on the unit, she is suspicious and paranoid towards staff and continues to make verbal threats to them. Pt this morning started getting closer to peer and staff faces, required verbal redirection but continue to escalate and continue threatening. She approached physician on the unit, grabbed him by his shoulders as he attempted to redirect her. This abstract writer was present at the time also attempting to redirect pt who continued to present as agitated, yelling. Ordered Olanzapine 10mg IM and Ativan 2mg IM. Pt slept for most of the morning after that. Pending form from court stating that zahira's still is active. will schedule risperidon instead. Diagnostics Vital Signs (24Hr): Vital Signs - 24 hr 02/21/24 10:17 Temperature 98.5 F Pulse Rate 104 H Respiratory Rate 16 Blood Pressure 131/76 Pulse Oximetry 98 Oxygen Delivery Method Room Air BMI result Body Mass Index 18.2 Labs 02/18/24 07:29 Medications Medications Current Medications Acetaminophen (Acetaminophen 325 Mg Tablet) 650 mg PO Q6H PRN PRN Reason: Headache/Pain Mild Scale (1-3) Al Hydroxide/Mg Hydroxide (Magnesium Hydrox/Alum Hydrox 30 Ml Oral.Susp) 30 ml PO Q6H PRN PRN Reason: Heartburn/Nausea Hydroxyzine HCl (Hydroxyzine Hcl 25 Mg Tablet) 25 mg PO Q6H PRN PRN Reason: Anxiety Magnesium Hydroxide (Milk Of Magnesia 30 Ml Oral.Susp) 30 ml PO DAILY PRN PRN Reason: Constipation Olanzapine (Olanzapine Odt 10 Mg Tab.Rapdis) 10 mg TRANSLINGU Q6H PRN PRN Reason: agitation Paliperidone (Paliperidone Er 6 Mg Tab.Er.24) 6 mg PO DAILY REJI Last Admin: 02/21/24 17:09 Dose: Not Given Trazodone HCl (Trazodone Hcl 50 Mg Tablet) 50 mg PO BEDTIME MRX1 PRN PRN Reason: Insomnia Allergies Allergies Allergy/AdvReac Type Severity Reaction Status Date / Time benztropine [From COGENTIN] Allergy Unknown STOMACHPAIN Verified 10/03/23 11:30 /SWELLING haloperidol [From HALDOL] Allergy Unknown STOMACH Verified 10/03/23 11:30 PAIN SWELLING Assessment & Plan Assessment & Plan (1) Schizoaffective disorder, bipolar type: Status: Acute Code(s): F25.0 - Schizoaffective disorder, bipolar type Plan Ms. Villa is a 73 year-old woman with hx of schizoaffective disorder, bipolar type who was brought to [facility] by police on sect 12a, after pt found a bus station yelling at people I'm going to kill you with my machine gun. Pt well known to [facility] through previous admissions with similar presentation. Pt presents as paranoid, hostile, not engaging in conversation with team. Pending guardian and zahira- if it is still active. PLAN 1. admit to S1, sect 12b, 15 minutes checks for safety 2. filed for 7&8 given that pt continues to present as agitated, paranoid, intrusive and aggressive. Reason for continued inpatient stay Substantial Risk for: harm to others and inability to function Time Spent With Patient Time: Total time managing care of this patient today ____ minutes.
[2024-02-22] MEDS: OLANZapine 10 MG VIAL IM (09:40)
[2024-02-22] MEDS: LORazepam 2 MG/ML VIAL IM (09:41)
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
--- NOTE | 2024-02-22 14:38 | MHC.CLN ---
NUTRITION DIET=REGULAR. INTAKE APPEARS TO BE VERY GOOD WITH MANY MEALS 100%. RD TO MONITOR WEEKLY.
[2024-02-22] MEDS: risperiDONE 1 MG TABLET PO (22:34)
[2024-02-22] MEDS: OLANZapine ODT 10 MG TAB.RAPDIS TRANSLINGU (22:34)
[2024-02-22] MEDS: traZODone HCL 50 MG TABLET PO (22:34)
--- NOTE | 2024-02-23 08:56 | P.PNPSI_ITS ---
Subjective Subjective Date of Service: 02/23/24 Reason For Visit: F25 Schizoaffective d/o, bipolar Subjective Notes: Section 7 Interim History: Pt slept 2 hrs. She woke up this morning, declined to speak with this script writer other than stating that she needs vit d-calcium. She refused oral medication for antipsychotic. Wang per [facility] pulmonary function technician valid until - includes risperidone oral, no CARRERA. Dose of paliperidone is limited due to renal function. Medication Compliance: No Review of Systems Review of Systems Patient denies any acute medical complaints, though is an unreliable historian and refuses full ros Yes Unobtainable due to mental status Mental Status Exam Mental Status Exam Narrative: Appearance: wearing hospital gown, fair hygiene, in NAD Behavior: less hostile but still very guarded Psychomotor: no agitation or retardation noted. Speech: clear, regular rate/rhythm/volume, spontaneous TP: mostly linear TC: wanting to get out of the hospital Mood: I'm fine Affect: irritable SI: denies HI: denies VH/AH: internally preoccupied Delusions: paranoid delusions Insight/judgment: impaired x 2 memory/cog: alert, oriented to place, unable to assess orientation to month, year, or situation as pt refused to speak with this script writer. Diagnostics Vital Signs (24Hr): BMI result Body Mass Index 18.2 Labs 02/18/24 07:29 Medications Medications Current Medications Acetaminophen (Acetaminophen 325 Mg Tablet) 650 mg PO Q6H PRN PRN Reason: Headache/Pain Mild Scale (1-3) Al Hydroxide/Mg Hydroxide (Magnesium Hydrox/Alum Hydrox 30 Ml Oral.Susp) 30 ml PO Q6H PRN PRN Reason: Heartburn/Nausea Hydroxyzine HCl (Hydroxyzine Hcl 25 Mg Tablet) 25 mg PO Q6H PRN PRN Reason: Anxiety Magnesium Hydroxide (Milk Of Magnesia 30 Ml Oral.Susp) 30 ml PO DAILY PRN PRN Reason: Constipation Olanzapine (Olanzapine Odt 10 Mg Tab.Rapdis) 10 mg TRANSLINGU Q6H PRN PRN Reason: agitation Last Admin: 02/22/24 22:34 Dose: 10 mg Risperidone (Risperidone 2 Mg Tablet) 2 mg PO BID REJI Trazodone HCl (Trazodone Hcl 50 Mg Tablet) 50 mg PO BEDTIME MRX1 PRN PRN Reason: Insomnia Last Admin: 02/22/24 22:34 Dose: 50 mg Allergies Allergies Allergy/AdvReac Type Severity Reaction Status Date / Time benztropine [From COGENTIN] Allergy Unknown STOMACHPAIN Verified 10/03/23 11:30 /SWELLING haloperidol [From HALDOL] Allergy Unknown STOMACH Verified 10/03/23 11:30 PAIN SWELLING Assessment & Plan Assessment & Plan (1) Schizoaffective disorder, bipolar type: Status: Acute Code(s): F25.0 - Schizoaffective disorder, bipolar type Plan Ms. Villa is a 73 year-old woman with hx of schizoaffective disorder, bipolar type who was [place] [facility] [address], after pt found a bus station yelling at people I'm going to kill you with my machine gun. Pt well known to [facility] through previous admissions with similar presentation. Pt presents as paranoid, hostile, not engaging in conversation with team. Pending guardian and wang- if it is still active. PLAN 1. admit to S1, sect 12b, 15 minutes checks for safety 2. filed for 7&8 given that pt continues to present as agitated, paranoid, intrusive and aggressive. 02/22 continue tx. risperidone scheduled 1mg po daily and 2mg po qhs. Reason for continued inpatient stay Substantial Risk for: inability to function Time Spent With Patient Time: Total time managing care of this patient today ____ minutes.
[2024-02-23 09:05] VITALS: BMI 18.3
[2024-02-23 20:00] VITALS: RESP 16
[2024-02-23] MEDS: Calcium + Vitamin D 250 MG TABLET PO (21:00)
[2024-02-24 08:00] VITALS: BP 132/70; PULSE 100; RESP 18; TEMP 37.2; O2SAT 94
[2024-02-24] MEDS: Calcium + Vitamin D 250 MG TABLET PO (08:24)
--- NOTE | 2024-02-24 08:42 | HO.PSYCHPN ---
Subjective Subjective Date of Service: 02/24/24 Reason For Visit: F25 Schizoaffective d/o, bipolar Subjective Notes: Section 7 Interim History: Pt slept only 2hrs. Continues to present as suspicious and paranoid, but calmer. She asks to meet with this engineering technical writer. She had asked yesterday for Vit D and calcium, which was ordered, however, refuses as she was very suspicious as to what RN was actually giving her. She asked this engineering technical writer to speak with Chapter Relations Administrator as she reports does not trust this engineering technical writer. She continues to report that she is NOT a patient here nor Mentally ill. Diagnostics Vital Signs (24Hr): Vital Signs - 24 hr 02/23/24 09:18 02/23/24 20:00 Respiratory Rate 16 Oxygen Delivery Method Room Air BMI result Body Mass Index 18.3 Labs 02/18/24 07:29 Medications Medications Current Medications Acetaminophen (Acetaminophen 325 Mg Tablet) 650 mg PO Q6H PRN PRN Reason: Headache/Pain Mild Scale (1-3) Al Hydroxide/Mg Hydroxide (Magnesium Hydrox/Alum Hydrox 30 Ml Oral.Susp) 30 ml PO Q6H PRN PRN Reason: Heartburn/Nausea Calcium Carbonate/Cholecalciferol (Calcium + Vitamin D 250 Mg Tablet) 250 mg PO BIDWM [facility] Last Admin: 02/24/24 08:24 Dose: 250 mg Hydroxyzine HCl (Hydroxyzine Hcl 25 Mg Tablet) 25 mg PO Q6H PRN PRN Reason: Anxiety Magnesium Hydroxide (Milk Of Magnesia 30 Ml Oral.Susp) 30 ml PO DAILY PRN PRN Reason: Constipation Olanzapine (Olanzapine Odt 10 Mg Tab.Rapdis) 10 mg TRANSLINGU Q6H PRN PRN Reason: agitation Last Admin: 02/22/24 22:34 Dose: 10 mg Risperidone (Risperidone 2 Mg Tablet) 2 mg PO BID [facility] Last Admin: 02/24/24 08:24 Dose: Not Given Trazodone HCl (Trazodone Hcl 50 Mg Tablet) 50 mg PO BEDTIME MRX1 PRN PRN Reason: Insomnia Last Admin: 02/22/24 22:34 Dose: 50 mg Allergies Allergies Allergy/AdvReac Type Severity Reaction Status Date / Time benztropine [From COGENTIN] Allergy Unknown STOMACHPAIN Verified 10/03/23 11:30 /SWELLING haloperidol [From HALDOL] Allergy Unknown STOMACH Verified 10/03/23 11:30 PAIN SWELLING Assessment & Plan Assessment & Plan (1) Schizoaffective disorder, bipolar type: Status: Acute Code(s): F25.0 - Schizoaffective disorder, bipolar type Plan Ms. Villa is a 73 year-old woman with hx of schizoaffective disorder, bipolar type who was brought to [facility] by police on [address], after pt found a bus station yelling at people I'm going to kill you with my machine gun. Pt well known to [facility] through previous admissions with similar presentation. Pt presents as paranoid, hostile, not engaging in conversation with team. Pending guardian and wang- if it is still active. PLAN 1. admit to , sect 12b, 15 minutes checks for safety 2. filed for & given that pt continues to present as agitated, paranoid, intrusive and aggressive. 02/22 continue tx. risperidone scheduled 1mg po daily and 2mg po qhs. 02/23 continue tx. It does appear that Wang's is active has been renew but actual paperwork not sent to hospital. Spoke with [facility] associate attorney, John Orozco ([phone])- confirmed Wang's is active next hearing coming up in Apr. will file to amend Wang as paliperidone has limited dosing due to pt's underlying CKD stage 3. Reason for continued inpatient stay Substantial Risk for: inability to function Time Spent With Patient Time: Total time managing care of this patient today ____ minutes.
[2024-02-24 20:00] VITALS: RESP 16
[2024-02-25 08:05] VITALS: BP 127/57; PULSE 84; RESP 18; TEMP 36.5; O2SAT 95
[2024-02-25] MEDS: Calcium + Vitamin D 250 MG TABLET PO (09:24)
--- NOTE | 2024-02-25 09:24 | HO.PSYCHPN ---
Subjective Subjective Date of Service: 02/25/24 Reason For Visit: F25 Schizoaffective d/o, bipolar Subjective Notes: Section 7 Interim History: Pt slept most nights. Pt very irritable and guarded. denies risperidone. She reports person she met with yesterday was not an claims attorney. She continues to say that she is not mentally ill, nor she needs any treatment with antipsychotics. Meanwhile, very suspicious of nurses and this caption writer, stating you're all lying to me! Review of Systems Review of Systems Patient denies any acute medical complaints, though is an unreliable historian and refuses full ros Yes Unobtainable due to mental status Mental Status Exam Mental Status Exam Narrative: Appearance: wearing hospital gown, fair hygiene, in NAD Behavior: less hostile but still very guarded Psychomotor: no agitation or retardation noted. Speech: clear, regular rate/rhythm/volume, spontaneous TP: mostly linear TC: wanting to get out of the hospital Mood: I'm fine Affect: irritable SI: denies HI: denies VH/AH: internally preoccupied Delusions: paranoid delusions Insight/judgment: impaired x 2 memory/cog: alert, oriented to place, unable to assess orientation to month, year, or situation as pt refused to speak with this caption writer. Diagnostics Vital Signs (24Hr): Vital Signs - 24 hr 02/24/24 20:00 02/25/24 08:05 Temperature 97.7 F Pulse Rate 84 Respiratory Rate 16 18 Blood Pressure 127/57 L Pulse Oximetry 95 Oxygen Delivery Method Room Air BMI result Body Mass Index 18.3 Labs 02/18/24 07:29 Medications Medications Current Medications Acetaminophen (Acetaminophen 325 Mg Tablet) 650 mg PO Q6H PRN PRN Reason: Headache/Pain Mild Scale (1-3) Al Hydroxide/Mg Hydroxide (Magnesium Hydrox/Alum Hydrox 30 Ml Oral.Susp) 30 ml PO Q6H PRN PRN Reason: Heartburn/Nausea Calcium Carbonate/Cholecalciferol (Calcium + Vitamin D 250 Mg Tablet) 250 mg PO BIDWM [facility] Last Admin: 02/24/24 08:24 Dose: 250 mg Hydroxyzine HCl (Hydroxyzine Hcl 25 Mg Tablet) 25 mg PO Q6H PRN PRN Reason: Anxiety Magnesium Hydroxide (Milk Of Magnesia 30 Ml Oral.Susp) 30 ml PO DAILY PRN PRN Reason: Constipation Multivitamins/Vitamin C (Multivitamin Tablet) 1 tab PO DAILY REJI Olanzapine (Olanzapine Odt 10 Mg Tab.Rapdis) 10 mg TRANSLINGU Q6H PRN PRN Reason: agitation Last Admin: 02/22/24 22:34 Dose: 10 mg Risperidone (Risperidone 2 Mg Tablet) 2 mg PO BID REJI Last Admin: 02/25/24 09:20 Dose: Not Given Trazodone HCl (Trazodone Hcl 50 Mg Tablet) 50 mg PO BEDTIME MRX1 PRN PRN Reason: Insomnia Last Admin: 02/22/24 22:34 Dose: 50 mg Allergies Allergies Allergy/AdvReac Type Severity Reaction Status Date / Time benztropine [From COGENTIN] Allergy Unknown STOMACHPAIN Verified 10/03/23 11:30 /SWELLING haloperidol [From HALDOL] Allergy Unknown STOMACH Verified 10/03/23 11:30 PAIN SWELLING Assessment & Plan Assessment & Plan (1) Schizoaffective disorder, bipolar type: Status: Acute Code(s): F25.0 - Schizoaffective disorder, bipolar type Plan Ms. Villa is a 73 year-old woman with hx of schizoaffective disorder, bipolar type who was brought [place] [facility] [place] [address], after pt found a bus station yelling at people I'm going to kill you with my machine gun. [place] well [place] [facility] [place] with similar presentation. Pt presents as paranoid, hostile, not engaging in conversation with team. Pending guardian and wang- if it is still active. PLAN 1. admit to S1, sect 12b, 15 minutes checks for safety 2. filed for 7&8 given that pt continues to present as agitated, paranoid, intrusive and aggressive. 02/22 continue tx. risperidone scheduled 1mg po daily and 2mg po qhs. 02/23 continue tx. It does appear that Wang's is active has been renew but actual paperwork not sent to hospital. Spoke with [facility] claims attorney, John Orozco ([phone])- confirmed Wang's is active next hearing coming up in Apr. will file to amend Wang as paliperidone has limited dosing due to pt's underlying CKD stage 3. 02/24 continue tx. refuses to take risperidone. Reason for continued inpatient stay Substantial Risk for: harm to others and inability to function Time Spent With Patient Time: Total time managing care of this patient today ____ minutes.
[2024-02-25] MEDS: Multivitamin TABLET 1 TAB PO (09:31)
[2024-02-25 20:00] VITALS: RESP 16
[2024-02-26] MEDS: Multivitamin TABLET 1 TAB PO (08:12)
[2024-02-26] MEDS: Calcium + Vitamin D 250 MG TABLET PO ×2 (08:12→21:49)
[2024-02-26 08:30] VITALS: BP 130/60; PULSE 87; RESP 18; TEMP 37.1; O2SAT 94
--- NOTE | 2024-02-26 11:30 | P.PNPSI_ITS ---
Subjective Subjective Date of Service: 02/26/24 Reason For Visit: F25 Schizoaffective d/o, bipolar Subjective Notes: Section 7 Interim History: Pt slept most night. Pt calmer, but very suspicious and paranoid towards this commercial real estate underwriter. She continues to report that she does not need psychotropic medication. She denies SI/HI. Asking what else beside medications she should be doing, reminded to not be intrusive with peers or staff. refuse risperidone. Review of Systems Review of Systems Patient denies any acute medical complaints, though is an unreliable historian and refuses full ros Yes Unobtainable due to mental status Mental Status Exam Mental Status Exam Narrative: Appearance: wearing hospital gown, fair hygiene, in NAD Behavior: less hostile but still very guarded Psychomotor: no agitation or retardation noted. Speech: clear, regular rate/rhythm/volume, spontaneous TP: mostly linear TC: wanting to get out of the hospital Mood: I'm fine Affect: irritable SI: denies HI: denies VH/AH: internally preoccupied Delusions: paranoid delusions Insight/judgment: impaired x 2 memory/cog: alert, oriented to place, unable to assess orientation to month, year, or situation as pt refused to speak with this commercial real estate underwriter. Diagnostics Vital Signs (24Hr): Vital Signs - 24 hr 02/25/24 20:00 02/26/24 08:30 Temperature 98.7 F Pulse Rate 87 Respiratory Rate 16 18 Blood Pressure 130/60 Pulse Oximetry 94 Oxygen Delivery Method Room Air BMI result Body Mass Index 18.3 Labs 02/18/24 07:29 Medications Medications Current Medications Acetaminophen (Acetaminophen 325 Mg Tablet) 650 mg PO Q6H PRN PRN Reason: Headache/Pain Mild Scale (1-3) Al Hydroxide/Mg Hydroxide (Magnesium Hydrox/Alum Hydrox 30 Ml Oral.Susp) 30 ml PO Q6H PRN PRN Reason: Heartburn/Nausea Calcium Carbonate/Cholecalciferol (Calcium + Vitamin D 250 Mg Tablet) 250 mg PO BIDWM [facility] Last Admin: 02/26/24 08:12 Dose: 250 mg Hydroxyzine HCl (Hydroxyzine Hcl 25 Mg Tablet) 25 mg PO Q6H PRN PRN Reason: Anxiety Magnesium Hydroxide (Milk Of Magnesia 30 Ml Oral.Susp) 30 ml PO DAILY PRN PRN Reason: Constipation Multivitamins/Vitamin C (Multivitamin Tablet) 1 tab PO DAILY [facility] Last Admin: 02/26/24 08:12 Dose: 1 tab Olanzapine (Olanzapine Odt 10 Mg Tab.Rapdis) 10 mg TRANSLINGU Q6H PRN PRN Reason: agitation Last Admin: 02/22/24 22:34 Dose: 10 mg Risperidone (Risperidone 2 Mg Tablet) 2 mg PO BID REJI Last Admin: 02/26/24 08:48 Dose: Not Given Trazodone HCl (Trazodone Hcl 50 Mg Tablet) 50 mg PO BEDTIME MRX1 PRN PRN Reason: Insomnia Last Admin: 02/22/24 22:34 Dose: 50 mg Allergies Allergies Allergy/AdvReac Type Severity Reaction Status Date / Time benztropine [From COGENTIN] Allergy Unknown STOMACHPAIN Verified 10/03/23 11:30 /SWELLING haloperidol [From HALDOL] Allergy Unknown STOMACH Verified 10/03/23 11:30 PAIN SWELLING Assessment & Plan Assessment & Plan (1) Schizoaffective disorder, bipolar type: Status: Acute Code(s): F25.0 - Schizoaffective disorder, bipolar type Plan Ms. Villa is a 73 year-old woman with hx of schizoaffective disorder, bipolar type who was brought to [facility] by police on [address] 12[address], after pt found a bus station yelling at people I'm going to kill you with my machine gun. Pt well known to [facility] through previous admissions with similar presentation. Pt presents as paranoid, hostile, not engaging in conversation with team. Pending guardian and wang- if it is still active. PLAN 1. admit to , sect 12b, 15 minutes checks for safety 2. filed for 7&8 given that pt continues to present as agitated, paranoid, intrusive and aggressive. 02/22 continue tx. risperidone scheduled 1mg po daily and 2mg po qhs. 02/23 continue tx. It does appear that Wang's is active has been renew but actual paperwork not sent to hospital. Spoke with [facility] associate attorney, John Orozco ([phone])- confirmed Wang's is active next hearing coming up in Apr. will file to amend Wang as paliperidone has limited dosing due to pt's underlying CKD stage 3. 02/24 continue tx. refuses to take risperidone. 02/25 continue tx. Reason for continued inpatient stay Substantial Risk for: inability to function Time Spent With Patient Time: Total time managing care of this patient today ____ minutes.
[2024-02-26 20:00] VITALS: RESP 16
[2024-02-27 08:07] VITALS: BP 133/65; PULSE 82; RESP 15; TEMP 36.7; O2SAT 97
[2024-02-27] MEDS: Calcium + Vitamin D 250 MG TABLET PO ×2 (08:08→17:50)
[2024-02-27] MEDS: Multivitamin TABLET 1 TAB PO (08:08)
--- NOTE | 2024-02-27 09:34 | HO.PSYCHPN ---
Subjective Subjective Date of Service: 02/27/24 Reason For Visit: F25 Schizoaffective d/o, bipolar Subjective Notes: Section 7 Interim History: Pt slept most night. Pt reports her only diagnosis has been bulimia. She reports she does not need any psychotropic medications. She denies to this global technical writer that people are after her, however, behaviorally is very suspicious and guarded. She denies SI/HI. She reports she plans to attend hearing and explained that she does not have schizoaffective disorder bipolar type. Review of Systems Review of Systems Patient denies any acute medical complaints, though is an unreliable historian and refuses full ros Yes Unobtainable due to mental status Mental Status Exam Mental Status Exam Narrative: Appearance: wearing hospital gown, fair hygiene, in NAD Behavior: less hostile but still very guarded Psychomotor: no agitation or retardation noted. Speech: clear, regular rate/rhythm/volume, spontaneous TP: mostly linear TC: wanting to get out of the hospital Mood: I'm fine Affect: irritable SI: denies HI: denies VH/AH: internally preoccupied Delusions: paranoid delusions Insight/judgment: impaired x 2 memory/cog: alert, oriented to place, unable to assess orientation to month, year, or situation as pt refused to speak with this global technical writer. Diagnostics Vital Signs (24Hr): Vital Signs - 24 hr 02/26/24 20:00 02/27/24 08:07 Temperature 98.1 F Pulse Rate 82 Respiratory Rate 16 15 Blood Pressure 133/65 Pulse Oximetry 97 Oxygen Delivery Method Room Air BMI result Body Mass Index 18.3 Labs 02/18/24 07:29 Medications Medications Current Medications Acetaminophen (Acetaminophen 325 Mg Tablet) 650 mg PO Q6H PRN PRN Reason: Headache/Pain Mild Scale (1-3) Al Hydroxide/Mg Hydroxide (Magnesium Hydrox/Alum Hydrox 30 Ml Oral.Susp) 30 ml PO Q6H PRN PRN Reason: Heartburn/Nausea Calcium Carbonate/Cholecalciferol (Calcium + Vitamin D 250 Mg Tablet) 250 mg PO BIDWM [facility] Last Admin: 02/27/24 08:08 Dose: 250 mg Hydroxyzine HCl (Hydroxyzine Hcl 25 Mg Tablet) 25 mg PO Q6H PRN PRN Reason: Anxiety Magnesium Hydroxide (Milk Of Magnesia 30 Ml Oral.Susp) 30 ml PO DAILY PRN PRN Reason: Constipation Multivitamins/Vitamin C (Multivitamin Tablet) 1 tab PO DAILY REJI Last Admin: 02/27/24 08:08 Dose: 1 tab Olanzapine (Olanzapine Odt 10 Mg Tab.Rapdis) 10 mg TRANSLINGU Q6H PRN PRN Reason: agitation Last Admin: 02/22/24 22:34 Dose: 10 mg Risperidone (Risperidone 2 Mg Tablet) 2 mg PO BID REJI Last Admin: 02/26/24 21:58 Dose: Not Given Trazodone HCl (Trazodone Hcl 50 Mg Tablet) 50 mg PO BEDTIME MRX1 PRN PRN Reason: Insomnia Last Admin: 02/22/24 22:34 Dose: 50 mg Allergies Allergies Allergy/AdvReac Type Severity Reaction Status Date / Time benztropine [From COGENTIN] Allergy Unknown STOMACHPAIN Verified 10/03/23 11:30 /SWELLING haloperidol [From HALDOL] Allergy Unknown STOMACH Verified 10/03/23 11:30 PAIN SWELLING Assessment & Plan Assessment & Plan (1) Schizoaffective disorder, bipolar type: Status: Acute Code(s): F25.0 - Schizoaffective disorder, bipolar type Plan Ms. Villa is a 73 year-old woman with hx of schizoaffective disorder, bipolar type who [place] [facility], after pt found a bus station yelling at people I'm going to kill you with my machine gun. Pt well known to [facility] through previous admissions with similar presentation. Pt presents as paranoid, hostile, not engaging in conversation with team. Pending guardian and wang- if it is still active. PLAN 1. admit to S1, sect 12b, 15 minutes checks for safety 2. filed for 7&8 given that pt continues to present as agitated, paranoid, intrusive and aggressive. 02/22 continue tx. risperidone scheduled 1mg po daily and 2mg po qhs. 02/23 continue tx. It does appear that Wang's is active has been renew but actual paperwork not sent to hospital. Spoke with [facility] defense attorney, John Orozco ([phone])- confirmed Wang's is active next hearing coming up in Apr. will file to amend Wang as paliperidone has limited dosing due to pt's underlying CKD stage 3. 02/24 continue tx. refuses to take risperidone. 02/25 continue tx. 02/26 continue tx. Reason for continued inpatient stay Substantial Risk for: harm to others and inability to function Time Spent With Patient Time: Total time managing care of this patient today ____ minutes.
--- NOTE | 2024-02-27 11:26 | PC.NURSE ---
Pt's erosion control specialist: Aroldo Hanley, phone number [phone].
[2024-02-28 08:00] VITALS: BP 152/70; PULSE 82; RESP 15; TEMP 36.4; O2SAT 98
[2024-02-28] MEDS: Calcium + Vitamin D 250 MG TABLET PO ×2 (08:03→16:03)
[2024-02-28] MEDS: Multivitamin TABLET 1 TAB PO (08:03)
--- NOTE | 2024-02-28 15:22 | HO.PSYCHPN ---
Subjective Subjective Date of Service: 02/28/24 Reason For Visit: F25 Schizoaffective d/o, bipolar Subjective Notes: Section 8 Interim History: Pt slept intermittently about 4 hrs. She reports she feels great! She adds I feel S.A.N.E (spelling each letter). 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 She reports she has done this with her mental energy and has been doing it from the hospital. She does say that people want to hurt her from having this special power (manipulating stock market with her mind and energy) because they are jealous. She is anticipating court will go well and to her favor. Hearing held today- pt committed. Medication Compliance: No Side effects from medications: No Attending Groups: No Diagnostics Vital Signs (24Hr): Vital Signs - 24 hr 02/28/24 08:00 Temperature 97.6 F Pulse Rate 82 Respiratory Rate 15 Blood Pressure 152/70 H Pulse Oximetry 98 Oxygen Delivery Method Room Air BMI result Body Mass Index 18.3 Labs 02/18/24 07:29 Medications Medications Current Medications Acetaminophen (Acetaminophen 325 Mg Tablet) 650 mg PO Q6H PRN PRN Reason: Headache/Pain Mild Scale (1-3) Al Hydroxide/Mg Hydroxide (Magnesium Hydrox/Alum Hydrox 30 Ml Oral.Susp) 30 ml PO Q6H PRN PRN Reason: Heartburn/Nausea Calcium Carbonate/Cholecalciferol (Calcium + Vitamin D 250 Mg Tablet) 250 mg PO BIDWM [facility] Last Admin: 02/28/24 08:03 Dose: 250 mg Hydroxyzine HCl (Hydroxyzine Hcl 25 Mg Tablet) 25 mg PO Q6H PRN PRN Reason: Anxiety Magnesium Hydroxide (Milk Of Magnesia 30 Ml Oral.Susp) 30 ml PO DAILY PRN PRN Reason: Constipation Multivitamins/Vitamin C (Multivitamin Tablet) 1 tab PO DAILY [facility] Last Admin: 02/28/24 08:03 Dose: 1 tab Olanzapine (Olanzapine Odt 10 Mg Tab.Rapdis) 10 mg TRANSLINGU Q6H PRN PRN Reason: agitation Last Admin: 02/22/24 22:34 Dose: 10 mg Risperidone (Risperidone 2 Mg Tablet) 2 mg PO BID [facility] Last Admin: 02/28/24 10:04 Dose: Not Given Trazodone HCl (Trazodone Hcl 50 Mg Tablet) 50 mg PO BEDTIME MRX1 PRN PRN Reason: Insomnia Last Admin: 02/22/24 22:34 Dose: 50 mg Allergies Allergies Allergy/AdvReac Type Severity Reaction Status Date / Time benztropine [From COGENTIN] Allergy Unknown STOMACHPAIN Verified 10/03/23 11:30 /SWELLING haloperidol [From HALDOL] Allergy Unknown STOMACH Verified 10/03/23 11:30 PAIN SWELLING Assessment & Plan Assessment & Plan (1) Schizoaffective disorder, bipolar type: Status: Acute Code(s): F25.0 - Schizoaffective disorder, bipolar type Plan Ms. Villa is a 73 year-old woman with hx of schizoaffective disorder, bipolar type who was brought to [facility] [place] [facility] by police on sect 12a, after pt found a bus station yelling at people I'm going to kill you with my machine gun. Pt well known to [facility] [place] through previous admissions with similar presentation. Pt presents as paranoid, hostile, not engaging in conversation with team. Pending guardian and wang- if it is still active. PLAN 1. admit to , sect 12b, 15 minutes checks for safety 2. filed for 7&8 given that pt continues to present as agitated, paranoid, intrusive and aggressive. 02/22 continue tx. risperidone scheduled 1mg po daily and 2mg po qhs. 02/23 continue tx. It does appear that Wang[facility] is active has been renew but actual paperwork not sent to hospital. Spoke with [facility] banking attorney, John Orozco ([phone])- confirmed Wang's is active next hearing coming up in Apr. will file to amend Wang as paliperidone has limited dosing due to pt's underlying CKD stage 3. 02/24 continue tx. refuses to take risperidone. 02/25 continue tx. 02/26 continue tx. 02/27 pt committed on sect 8. Reason for continued inpatient stay Substantial Risk for: inability to function Time Spent With Patient Time: Total time managing care of this patient today ____ minutes.
[2024-02-29 08:00] VITALS: BP 146/63; PULSE 92; RESP 18; TEMP 36.2; O2SAT 97
[2024-02-29] MEDS: Multivitamin TABLET 1 TAB PO (08:41)
[2024-02-29] MEDS: Calcium + Vitamin D 250 MG TABLET PO ×2 (08:41→17:41)
--- NOTE | 2024-02-29 13:44 | MHC.CLN ---
NUTRITION DIET=REGULAR. INTAKE APPEARS TO BE VERY GOOD WITH MANY MEALS 100%. RD TO MONITOR WEEKLY.
[2024-02-29 20:00] VITALS: RESP 18
[2024-03-01 08:00] VITALS: BP 123/60; PULSE 88; RESP 18; TEMP 36.7; O2SAT 98
[2024-03-01] MEDS: Multivitamin TABLET 1 TAB PO (08:42)
[2024-03-01] MEDS: Calcium + Vitamin D 250 MG TABLET PO ×2 (08:42→17:27)
[2024-03-01 08:53] VITALS: BMI 18.6
[2024-03-01 20:00] VITALS: RESP 18
[2024-03-02 07:50] VITALS: BP 119/57; PULSE 93; RESP 16; TEMP 36.1; O2SAT 96
[2024-03-02] MEDS: Calcium + Vitamin D 250 MG TABLET PO (08:33)
[2024-03-02] MEDS: Multivitamin TABLET 1 TAB PO (08:33)
--- NOTE | 2024-03-02 09:54 | P.PNPSI_ITS ---
Subjective Subjective Date of Service: 02/29/24 Reason For Visit: F25 Schizoaffective d/o, bipolar Subjective Notes: Section 8 Interim History: Pt slept intermittently about 4 hrs. Pt guarded, but not aggressive nor intrusive. She reports she is worried about paying her rent and when she will be discharged. She continues to report she will not take psychotropic medications. medical certificate completed and faxed to [facility] environmental attorney to amend wang's. No SI/HI. Review of Systems Review of Systems Patient denies any acute medical complaints, though is an unreliable historian and refuses full ros Yes Unobtainable due to mental status Mental Status Exam Mental Status Exam Narrative: Appearance: wearing hospital gown, fair hygiene, in NAD Behavior: less hostile but still very guarded Psychomotor: no agitation or retardation noted. Speech: clear, regular rate/rhythm/volume, spontaneous TP: mostly linear TC: wanting to get out of the hospital Mood: I'm fine Affect: irritable SI: denies HI: denies VH/AH: internally preoccupied Delusions: paranoid delusions Insight/judgment: impaired x 2 memory/cog: alert, oriented to place, unable to assess orientation to month, year, or situation as pt refused to speak with this board writer. Patient Appearance: Appropriate Patient Orientation: Person and Situation Level of Consciousness: Awake and Appropriate Patient Behavior: Guarded and Passive Mood Description: Withdrawn Affect Description: Constricted Patient Cognition Impaired: Yes Ability to Follow Directions: Poor Speech Pattern: Rapid and Loud Diagnostics Vital Signs (24Hr): Vital Signs - 24 hr 03/01/24 20:00 03/02/24 07:50 Temperature 97.0 F Pulse Rate 93 Respiratory Rate 18 16 Blood Pressure 119/57 L Pulse Oximetry 96 Oxygen Delivery Method Room Air BMI result Body Mass Index 18.6 Labs 02/18/24 07:29 Medications Medications Current Medications Acetaminophen (Acetaminophen 325 Mg Tablet) 650 mg PO Q6H PRN PRN Reason: Headache/Pain Mild Scale (1-3) Al Hydroxide/Mg Hydroxide (Magnesium Hydrox/Alum Hydrox 30 Ml Oral.Susp) 30 ml PO Q6H PRN PRN Reason: Heartburn/Nausea Calcium Carbonate/Cholecalciferol (Calcium + Vitamin D 250 Mg Tablet) 250 mg PO BIDWM [facility] Last Admin: 03/02/24 08:33 Dose: 250 mg Hydroxyzine HCl (Hydroxyzine Hcl 25 Mg Tablet) 25 mg PO Q6H PRN PRN Reason: Anxiety Magnesium Hydroxide (Milk Of Magnesia 30 Ml Oral.Susp) 30 ml PO DAILY PRN PRN Reason: Constipation Multivitamins/Vitamin C (Multivitamin Tablet) 1 tab PO DAILY [facility] Last Admin: 03/02/24 08:33 Dose: 1 tab Olanzapine (Olanzapine Odt 10 Mg Tab.Rapdis) 10 mg TRANSLINGU Q6H PRN PRN Reason: agitation Last Admin: 02/22/24 22:34 Dose: 10 mg Risperidone (Risperidone 2 Mg Tablet) 2 mg PO BID [facility] Last Admin: 03/02/24 08:48 Dose: Not Given Trazodone HCl (Trazodone Hcl 50 Mg Tablet) 50 mg PO BEDTIME MRX1 PRN PRN Reason: Insomnia Last Admin: 02/22/24 22:34 Dose: 50 mg Allergies Allergies Allergy/AdvReac Type Severity Reaction Status Date / Time benztropine [From COGENTIN] Allergy Unknown STOMACHPAIN Verified 10/03/23 11:30 /SWELLING haloperidol [From HALDOL] Allergy Unknown STOMACH Verified 10/03/23 11:30 PAIN SWELLING Assessment & Plan Assessment & Plan (1) Schizoaffective disorder, bipolar type: Status: Acute Code(s): F25.0 - Schizoaffective disorder, bipolar type Plan Ms. Villa is a 73 year-old woman with hx of schizoaffective disorder, bipolar type who was [place] [facility] [place] [facility] [place] on sect 12a, after pt found a bus station yelling at people I'm going to kill you with my machine gun. Pt well known to [facility] [place] through previous admissions with similar presentation. Pt presents as paranoid, hostile, not engaging in conversation with team. Pending guardian and wang- if it is still active. PLAN 1. admit to S1, sect 12b, 15 minutes checks for safety 2. filed for 7&8 given that pt continues to present as agitated, paranoid, intrusive and aggressive. 02/22 continue tx. risperidone scheduled 1mg po daily and 2mg po qhs. 02/23 continue tx. It does appear that [facility] is active has been renew but actual paperwork not sent to hospital. Spoke with [facility] environmental attorney, John Orozco ([phone])- confirmed Wang's is active next hearing coming up in Apr. will file to amend Wang as paliperidone has limited dosing due to pt's underlying CKD stage 3. 02/24 continue tx. refuses to take risperidone. 02/25 continue tx. 02/26 continue tx. 02/27 pt committed on sect 8. 02/28 continue tx. Reason for continued inpatient stay Substantial Risk for: inability to function Time Spent With Patient Time: Total time managing care of this patient today ____ minutes.
--- NOTE | 2024-03-02 09:56 | HO.PSYCHPN ---
Subjective Subjective Date of Service: 03/01/24 Reason For Visit: F25 Schizoaffective d/o, bipolar Subjective Notes: Section 8 Interim History: Pt slept intermittently about 6 hrs. Pt guarded, but not aggressive nor intrusive. She reports she is worried about paying her rent and when she will be discharged. She continues to report she will not take psychotropic medications. No behavioral concerns. No SI/HI. Review of Systems Review of Systems Patient denies any acute medical complaints, though is an unreliable historian and refuses full ros Yes Unobtainable due to mental status Mental Status Exam Mental Status Exam Narrative: Appearance: wearing hospital gown, fair hygiene, in NAD Behavior: less hostile but still very guarded Psychomotor: no agitation or retardation noted. Speech: clear, regular rate/rhythm/volume, spontaneous TP: mostly linear TC: wanting to get out of the hospital Mood: I'm fine Affect: irritable SI: denies HI: denies VH/AH: internally preoccupied Delusions: paranoid delusions Insight/judgment: impaired x 2 memory/cog: alert, oriented to place, unable to assess orientation to month, year, or situation as pt refused to speak with this real estate underwriter. Diagnostics Vital Signs (24Hr): Vital Signs - 24 hr 03/01/24 20:00 03/02/24 07:50 Temperature 97.0 F Pulse Rate 93 Respiratory Rate 18 16 Blood Pressure 119/57 L Pulse Oximetry 96 Oxygen Delivery Method Room Air BMI result Body Mass Index 18.6 Labs 02/18/24 07:29 Medications Medications Current Medications Acetaminophen (Acetaminophen 325 Mg Tablet) 650 mg PO Q6H PRN PRN Reason: Headache/Pain Mild Scale (1-3) Al Hydroxide/Mg Hydroxide (Magnesium Hydrox/Alum Hydrox 30 Ml Oral.Susp) 30 ml PO Q6H PRN PRN Reason: Heartburn/Nausea Calcium Carbonate/Cholecalciferol (Calcium + Vitamin D 250 Mg Tablet) 250 mg PO BIDWM [facility] Last Admin: 03/02/24 08:33 Dose: 250 mg Hydroxyzine HCl (Hydroxyzine Hcl 25 Mg Tablet) 25 mg PO Q6H PRN PRN Reason: Anxiety Magnesium Hydroxide (Milk Of Magnesia 30 Ml Oral.Susp) 30 ml PO DAILY PRN PRN Reason: Constipation Multivitamins/Vitamin C (Multivitamin Tablet) 1 tab PO DAILY [facility] Last Admin: 03/02/24 08:33 Dose: 1 tab Olanzapine (Olanzapine Odt 10 Mg Tab.Rapdis) 10 mg TRANSLINGU Q6H PRN PRN Reason: agitation Last Admin: 02/22/24 22:34 Dose: 10 mg Risperidone (Risperidone 2 Mg Tablet) 2 mg PO BID [facility] Last Admin: 03/02/24 08:48 Dose: Not Given Trazodone HCl (Trazodone Hcl 50 Mg Tablet) 50 mg PO BEDTIME MRX1 PRN PRN Reason: Insomnia Last Admin: 02/22/24 22:34 Dose: 50 mg Allergies Allergies Allergy/AdvReac Type Severity Reaction Status Date / Time benztropine [From COGENTIN] Allergy Unknown STOMACHPAIN Verified 10/03/23 11:30 /SWELLING haloperidol [From HALDOL] Allergy Unknown STOMACH Verified 10/03/23 11:30 PAIN SWELLING Assessment & Plan Assessment & Plan (1) Schizoaffective disorder, bipolar type: Status: Acute Code(s): F25.0 - Schizoaffective disorder, bipolar type Plan Ms. Villa is a 73 year-old woman with hx of schizoaffective disorder, bipolar type who was brought to [facility] [place] by police on sect 12a, after pt found a bus station yelling at people I'm going to kill you with my machine gun. [place] [facility] [place] previous [place] with similar presentation. Pt presents as paranoid, hostile, not engaging in conversation with team. Pending guardian and wang- if it is still active. PLAN 1. admit to , sect 12b, 15 minutes checks for safety 2. filed for &8 given that pt continues to present as agitated, paranoid, intrusive and aggressive. 02/22 continue tx. risperidone scheduled 1mg po daily and 2mg po qhs. 02/23 continue tx. It does appear that Wang's is active has been renew but actual paperwork not sent to hospital. Spoke with [facility] traffic law attorney, John Orozco ([phone])- confirmed Wang's is active next hearing coming up in Apr. will file to amend Wang as paliperidone has limited dosing due to pt's underlying CKD stage 3. 02/24 continue tx. refuses to take risperidone. 02/25 continue tx. 02/26 continue tx. 02/27 pt committed on sect 8. 02/28 continue tx. 03/01 continue tx. Reason for continued inpatient stay Substantial Risk for: inability to function Time Spent With Patient Time: Total time managing care of this patient today ____ minutes.
--- NOTE | 2024-03-02 11:37 | HO.PSYCHPN ---
Subjective Subjective Date of Service: 03/02/24 Reason For Visit: F25 Schizoaffective d/o, bipolar Interim History: Having lunch with peers. Caustic when approached, avoidant, irritated, but not threatening. Hi, no I don't need anything, GO! Medication Compliance: Intermittent Side effects from medications: No Attending Groups: Intermittent Review of Systems Acute medical concerns: No Medical Review of Systems: unchanged Review of Systems Review of Systems Yes Unobtainable due to mental status Mental Status Exam Mental Status Exam Patient Appearance: Disheveled Patient Orientation: Person and Place Level of Consciousness: Alert Patient Behavior: Suspicious Mood Description: Labile Affect Description: Labile Patient Cognition Impaired: Yes Ability to Follow Directions: Fair Speech Pattern: Spontaneous Speech Memory Description: Remote Impaired Delusions: Present Thought Process: Distracted Thought Content: positive for Perseveration Depressive Symptoms: Increased Irritability Judgement: Poor Diagnostics Vital Signs (24Hr): Vital Signs - 24 hr 03/01/24 20:00 03/02/24 07:50 Temperature 97.0 F Pulse Rate 93 Respiratory Rate 18 16 Blood Pressure 119/57 L Pulse Oximetry 96 Oxygen Delivery Method Room Air BMI result Body Mass Index 18.6 Labs 02/18/24 07:29 Medications Medications Current Medications Acetaminophen (Acetaminophen 325 Mg Tablet) 650 mg PO Q6H PRN PRN Reason: Headache/Pain Mild Scale (1-3) Al Hydroxide/Mg Hydroxide (Magnesium Hydrox/Alum Hydrox 30 Ml Oral.Susp) 30 ml PO Q6H PRN PRN Reason: Heartburn/Nausea Calcium Carbonate/Cholecalciferol (Calcium + Vitamin D 250 Mg Tablet) 250 mg PO BIDWM [facility] Last Admin: 03/02/24 08:33 Dose: 250 mg Hydroxyzine HCl (Hydroxyzine Hcl 25 Mg Tablet) 25 mg PO Q6H PRN PRN Reason: Anxiety Magnesium Hydroxide (Milk Of Magnesia 30 Ml Oral.Susp) 30 ml PO DAILY PRN PRN Reason: Constipation Multivitamins/Vitamin C (Multivitamin Tablet) 1 tab PO DAILY [facility] Last Admin: 03/02/24 08:33 Dose: 1 tab Olanzapine (Olanzapine Odt 10 Mg Tab.Rapdis) 10 mg TRANSLINGU Q6H PRN PRN Reason: agitation Last Admin: 02/22/24 22:34 Dose: 10 mg Risperidone (Risperidone 2 Mg Tablet) 2 mg PO BID [facility] Last Admin: 03/02/24 08:48 Dose: Not Given Trazodone HCl (Trazodone Hcl 50 Mg Tablet) 50 mg PO BEDTIME MRX1 PRN PRN Reason: Insomnia Last Admin: 02/22/24 22:34 Dose: 50 mg Allergies Allergies Allergy/AdvReac Type Severity Reaction Status Date / Time benztropine [From COGENTIN] Allergy Unknown STOMACHPAIN Verified 10/03/23 11:30 /SWELLING haloperidol [From HALDOL] Allergy Unknown STOMACH Verified 10/03/23 11:30 PAIN SWELLING Assessment & Plan Assessment & Plan (1) Schizoaffective disorder, bipolar type: Status: Acute Code(s): F25.0 - Schizoaffective disorder, bipolar type Plan Ms. Villa is a 73 year-old woman with hx of schizoaffective disorder, bipolar type who was brought to [facility] by police on sect 12a, after pt found a bus station yelling at people I'm going to kill you with my machine gun. Pt well known to [facility] through previous admissions with similar presentation. Pt presents as paranoid, hostile, not engaging in conversation with team. Pending guardian and wang- if it is still active. PLAN 1. admit to S1, sect 12b, 15 minutes checks for safety 2. filed for & given that pt continues to present as agitated, paranoid, intrusive and aggressive. 02/22 continue tx. risperidone scheduled 1mg po daily and 2mg po qhs. 02/23 continue tx. It does appear that Wang's is active has been renew but actual paperwork not sent to hospital. Spoke with [facility] trade mark attorney, John Orozco ([phone])- confirmed Wang's is active next hearing coming up in Apr. will file to amend Wang as paliperidone has limited dosing due to pt's underlying CKD stage 3. 02/24 continue tx. refuses to take risperidone. 02/25 continue tx. 02/26 continue tx. 02/27 pt committed on sect 8. 02/28 continue tx. 03/01 continue tx. 03/02 continue tx Reason for continued inpatient stay Substantial Risk for: rapid decompensation Time Spent With Patient Time: Total time managing care of this patient today ____ minutes.
[2024-03-02 20:00] VITALS: RESP 18
[2024-03-03 09:19] VITALS: BP 169/83; PULSE 87; RESP 16; TEMP 36.3; O2SAT 97
[2024-03-03] MEDS: Multivitamin TABLET 1 TAB PO (09:19)
[2024-03-03] MEDS: Calcium + Vitamin D 250 MG TABLET PO (09:19)
--- NOTE | 2024-03-03 11:18 | HO.PSYCHPN ---
Subjective Subjective Date of Service: 03/03/24 Reason For Visit: F25 Schizoaffective d/o, bipolar Subjective Notes: Section 7 Interim History: Patient was seen and discussed in rounds today. Records and plans were reviewed. She is only taking vitamins but no other medications. She stated that she does not ?need anything?. She is mostly quiet and to herself. Eating and sleeping adequately. No changes were made today Mental Status Exam Mental Status Exam Patient Appearance: Disheveled Patient Orientation: Person and Place Level of Consciousness: Alert Patient Behavior: Suspicious Mood Description: Labile Affect Description: Labile Patient Cognition Impaired: Yes Ability to Follow Directions: Fair Speech Pattern: Spontaneous Speech Memory Description: Remote Impaired Delusions: Present Thought Process: Distracted Thought Content: positive for Perseveration Depressive Symptoms: Increased Irritability Judgement: Poor Diagnostics Vital Signs (24Hr): Vital Signs - 24 hr 03/02/24 20:00 03/03/24 09:19 Temperature 97.4 F Pulse Rate 87 Respiratory Rate 18 16 Blood Pressure 169/83 H Pulse Oximetry 97 Oxygen Delivery Method Room Air BMI result Body Mass Index 18.6 Labs 02/18/24 07:29 Medications Medications Current Medications Acetaminophen (Acetaminophen 325 Mg Tablet) 650 mg PO Q6H PRN PRN Reason: Headache/Pain Mild Scale (1-3) Al Hydroxide/Mg Hydroxide (Magnesium Hydrox/Alum Hydrox 30 Ml Oral.Susp) 30 ml PO Q6H PRN PRN Reason: Heartburn/Nausea Calcium Carbonate/Cholecalciferol (Calcium + Vitamin D 250 Mg Tablet) 250 mg PO BIDWM [facility] Last Admin: 03/03/24 09:19 Dose: 250 mg Hydroxyzine HCl (Hydroxyzine Hcl 25 Mg Tablet) 25 mg PO Q6H PRN PRN Reason: Anxiety Magnesium Hydroxide (Milk Of Magnesia 30 Ml Oral.Susp) 30 ml PO DAILY PRN PRN Reason: Constipation Multivitamins/Vitamin C (Multivitamin Tablet) 1 tab PO DAILY [facility] Last Admin: 03/03/24 09:19 Dose: 1 tab Olanzapine (Olanzapine Odt 10 Mg Tab.Rapdis) 10 mg TRANSLINGU Q6H PRN PRN Reason: agitation Last Admin: 02/22/24 22:34 Dose: 10 mg Risperidone (Risperidone 2 Mg Tablet) 2 mg PO BID [facility] Last Admin: 03/03/24 09:19 Dose: Not Given Trazodone HCl (Trazodone Hcl 50 Mg Tablet) 50 mg PO BEDTIME MRX1 PRN PRN Reason: Insomnia Last Admin: 02/22/24 22:34 Dose: 50 mg Allergies Allergies Allergy/AdvReac Type Severity Reaction Status Date / Time benztropine [From COGENTIN] Allergy Unknown STOMACHPAIN Verified 10/03/23 11:30 /SWELLING haloperidol [From HALDOL] Allergy Unknown STOMACH Verified 10/03/23 11:30 PAIN SWELLING Assessment & Plan Assessment & Plan (1) Schizoaffective disorder, bipolar type: Status: Acute Code(s): F25.0 - Schizoaffective disorder, bipolar type Plan Ms. Villa is a 73 year-old woman with hx of schizoaffective disorder, bipolar type who was brought to [facility] [place] on sect 12a, after pt found a bus station yelling at people I'm going to kill you with my machine gun. Pt well known to [facility] [place] through previous admissions with similar presentation. Pt presents as paranoid, hostile, not engaging in conversation with team. Pending guardian and wang- if it is still active. PLAN 1. admit to S1, sect 12b, 15 minutes checks for safety 2. filed for 7&8 given that pt continues to present as agitated, paranoid, intrusive and aggressive. 02/22 continue tx. risperidone scheduled 1mg po daily and 2mg po qhs. 02/23 continue tx. It does appear that Wang[facility] is active has been renew but actual paperwork not sent to hospital. Spoke with [facility] civil litigation attorney, John Orozco ([phone])- confirmed Wang's is active next hearing coming up in Apr. will file to amend Wang as paliperidone has limited dosing due to pt's underlying CKD stage 3. 02/24 continue tx. refuses to take risperidone. 02/25 continue tx. 02/26 continue tx. 02/27 pt committed on sect 8. 02/28 continue tx. 03/01 continue tx. 03/02 continue tx 03/03: Continue current regimen and plans Reason for continued inpatient stay Substantial Risk for: med/psych decompensation Time Spent With Patient Time: Total time managing care of this patient today ____ minutes.
[2024-03-03 20:00] VITALS: RESP 18
[2024-03-04 08:11] VITALS: BP 123/65; PULSE 100; RESP 15; TEMP 36.4; O2SAT 95
[2024-03-04] MEDS: Calcium + Vitamin D 250 MG TABLET PO ×2 (08:12→17:02)
[2024-03-04] MEDS: Multivitamin TABLET 1 TAB PO (08:12)
--- NOTE | 2024-03-04 08:19 | HO.PSYCHPN ---
Subjective Subjective Date of Service: 03/04/24 Reason For Visit: F25 Schizoaffective d/o, bipolar Subjective Notes: Section 7 Interim History: Patient was seen and discussed in rounds today. Records and plans were reviewed. She continues to be somewhat irritable during the day but in the evening she was more pleasant. Walking a lot. Eating and slept 5 hours. Continues to refuse Risperdal with no known reason. No complaints or side effects. No changes were made today Review of Systems Review of Systems Yes all other systems are reviewed and are negative Mental Status Exam Mental Status Exam Patient Appearance: Disheveled Patient Orientation: Person and Place Level of Consciousness: Alert Patient Behavior: Suspicious Mood Description: Labile Affect Description: Labile Patient Cognition Impaired: Yes Ability to Follow Directions: Fair Speech Pattern: Spontaneous Speech Memory Description: Remote Impaired Delusions: Present Thought Process: Distracted Thought Content: positive for Perseveration Depressive Symptoms: Increased Irritability Judgement: Poor Diagnostics Vital Signs (24Hr): Vital Signs - 24 hr 03/03/24 09:19 03/03/24 20:00 03/04/24 08:11 Temperature 97.4 F 97.6 F Pulse Rate 87 100 Respiratory Rate 16 18 15 Blood Pressure 169/83 H 123/65 Pulse Oximetry 97 95 Oxygen Delivery Method Room Air Room Air BMI result Body Mass Index 18.6 Labs 02/18/24 07:29 Medications Medications Current Medications Acetaminophen (Acetaminophen 325 Mg Tablet) 650 mg PO Q6H PRN PRN Reason: Headache/Pain Mild Scale (1-3) Al Hydroxide/Mg Hydroxide (Magnesium Hydrox/Alum Hydrox 30 Ml Oral.Susp) 30 ml PO Q6H PRN PRN Reason: Heartburn/Nausea Calcium Carbonate/Cholecalciferol (Calcium + Vitamin D 250 Mg Tablet) 250 mg PO BIDWM [facility] Last Admin: 03/04/24 08:12 Dose: 250 mg Hydroxyzine HCl (Hydroxyzine Hcl 25 Mg Tablet) 25 mg PO Q6H PRN PRN Reason: Anxiety Magnesium Hydroxide (Milk Of Magnesia 30 Ml Oral.Susp) 30 ml PO DAILY PRN PRN Reason: Constipation Multivitamins/Vitamin C (Multivitamin Tablet) 1 tab PO DAILY [facility] Last Admin: 03/04/24 08:12 Dose: 1 tab Olanzapine (Olanzapine Odt 10 Mg Tab.Rapdis) 10 mg TRANSLINGU Q6H PRN PRN Reason: agitation Last Admin: 02/22/24 22:34 Dose: 10 mg Risperidone (Risperidone 2 Mg Tablet) 2 mg PO BID REJI Last Admin: 03/04/24 08:13 Dose: Not Given Trazodone HCl (Trazodone Hcl 50 Mg Tablet) 50 mg PO BEDTIME MRX1 PRN PRN Reason: Insomnia Last Admin: 02/22/24 22:34 Dose: 50 mg Allergies Allergies Allergy/AdvReac Type Severity Reaction Status Date / Time benztropine [From COGENTIN] Allergy Unknown STOMACHPAIN Verified 10/03/23 11:30 /SWELLING haloperidol [From HALDOL] Allergy Unknown STOMACH Verified 10/03/23 11:30 PAIN SWELLING Assessment & Plan Assessment & Plan (1) Schizoaffective disorder, bipolar type: Status: Acute Code(s): F25.0 - Schizoaffective disorder, bipolar type Plan Ms. Villa is a 73 year-old woman with hx of schizoaffective disorder, bipolar type who was brought to [facility] [place] by police on sect 12a, after pt found a bus station yelling at people I'm going to kill you with my machine gun. [place] well known [place] [facility] [place] previous admissions with similar presentation. Pt presents as paranoid, hostile, not engaging in conversation with team. Pending guardian and wang- if it is still active. PLAN 1. admit to , sect 12b, 15 minutes checks for safety 2. filed for &8 given that pt continues to present as agitated, paranoid, intrusive and aggressive. 02/22 continue tx. risperidone scheduled 1mg po daily and 2mg po qhs. 02/23 continue tx. It does appear that Wang's is active has been renew but actual paperwork not sent to hospital. Spoke with [facility] deputy commonwealth's attorney, John Orozco ([phone])- confirmed Wang's is active next hearing coming up in Apr. will file to amend Wang as paliperidone has limited dosing due to pt's underlying CKD stage 3. 02/24 continue tx. refuses to take risperidone. 02/25 continue tx. 02/26 continue tx. 02/27 pt committed on sect 8. 02/28 continue tx. 03/01 continue tx. 03/02 continue tx 03/03: Continue current regimen and plans 03/04: Continue current regimen and plans Reason for continued inpatient stay Substantial Risk for: med/psych decompensation Time Spent With Patient Time: Total time managing care of this patient today ____ minutes.
[2024-03-04 20:00] VITALS: RESP 18
--- NOTE | 2024-03-05 08:52 | P.PNPSI_ITS ---
Subjective Subjective Date of Service: 03/05/24 Reason For Visit: F25 Schizoaffective d/o, bipolar Subjective Notes: Section 8 Interim History: Pt visible on the unit. She refuses risperidone. She has been calmer, still with same delusions of having sanders to manipulate stock market. No aggression towards self or others. Review of Systems Review of Systems Patient denies any acute medical complaints, though is an unreliable historian and refuses full ros Yes all other systems are reviewed and are negative and Unobtainable due to mental status Mental Status Exam Mental Status Exam Narrative: Appearance: wearing hospital gown, fair hygiene, in NAD Behavior: less hostile but still very guarded Psychomotor: no agitation or retardation noted. Speech: clear, regular rate/rhythm/volume, spontaneous TP: mostly linear TC: wanting to get out of the hospital Mood: I'm fine Affect: irritable SI: denies HI: denies VH/AH: internally preoccupied Delusions: paranoid delusions Insight/judgment: impaired x 2 memory/cog: alert, oriented to place, unable to assess orientation to month, year, or situation as pt refused to speak with this blog writer. Diagnostics Vital Signs (24Hr): Vital Signs - 24 hr 03/04/24 20:00 Respiratory Rate 18 BMI result Body Mass Index 18.6 Labs 02/18/24 07:29 Medications Medications Current Medications Acetaminophen (Acetaminophen 325 Mg Tablet) 650 mg PO Q6H PRN PRN Reason: Headache/Pain Mild Scale (1-3) Al Hydroxide/Mg Hydroxide (Magnesium Hydrox/Alum Hydrox 30 Ml Oral.Susp) 30 ml PO Q6H PRN PRN Reason: Heartburn/Nausea Calcium Carbonate/Cholecalciferol (Calcium + Vitamin D 250 Mg Tablet) 250 mg PO BIDWM [facility] Last Admin: 03/04/24 17:02 Dose: 250 mg Hydroxyzine HCl (Hydroxyzine Hcl 25 Mg Tablet) 25 mg PO Q6H PRN PRN Reason: Anxiety Magnesium Hydroxide (Milk Of Magnesia 30 Ml Oral.Susp) 30 ml PO DAILY PRN PRN Reason: Constipation Multivitamins/Vitamin C (Multivitamin Tablet) 1 tab PO DAILY [facility] Last Admin: 03/04/24 08:12 Dose: 1 tab Olanzapine (Olanzapine Odt 10 Mg Tab.Rapdis) 10 mg TRANSLINGU Q6H PRN PRN Reason: agitation Last Admin: 02/22/24 22:34 Dose: 10 mg Risperidone (Risperidone 2 Mg Tablet) 2 mg PO BID REJI Last Admin: 03/04/24 20:17 Dose: Not Given Trazodone HCl (Trazodone Hcl 50 Mg Tablet) 50 mg PO BEDTIME MRX1 PRN PRN Reason: Insomnia Last Admin: 02/22/24 22:34 Dose: 50 mg Allergies Allergies Allergy/AdvReac Type Severity Reaction Status Date / Time benztropine [From COGENTIN] Allergy Unknown STOMACHPAIN Verified 10/03/23 11:30 /SWELLING haloperidol [From HALDOL] Allergy Unknown STOMACH Verified 10/03/23 11:30 PAIN SWELLING Assessment & Plan Assessment & Plan (1) Schizoaffective disorder, bipolar type: Status: Acute Code(s): F25.0 - Schizoaffective disorder, bipolar type Plan Ms. Villa is a 73 year-old woman with hx of schizoaffective disorder, bipolar type who was brought to [facility] [place] police on sect 12a, after pt found a bus station yelling at people I'm going to kill you with my machine gun. Pt well known to [facility] [place] previous admissions with similar presentation. Pt presents as paranoid, hostile, not engaging in conversation with team. Pending guardian and wang- if it is still active. PLAN 1. admit to , sect 12b, 15 minutes checks for safety 2. filed for &8 given that pt continues to present as agitated, paranoid, intrusive and aggressive. 02/22 continue tx. risperidone scheduled 1mg po daily and 2mg po qhs. 02/23 continue tx. It does appear that Wang's is active has been renew but actual paperwork not sent to hospital. Spoke with [facility] tax attorney, John Orozco ([phone])- confirmed Wang's is active next hearing coming up in Apr. will file to amend Wang as paliperidone has limited dosing due to pt's underlying CKD stage 3. 02/24 continue tx. refuses to take risperidone. 02/25 continue tx. 02/26 continue tx. 02/27 pt committed on sect 8. 02/28 continue tx. 03/01 continue tx. 03/02 continue tx 03/03: Continue current regimen and plans 03/04: Continue current regimen and plans 03/05 continue tx. Reason for continued inpatient stay Substantial Risk for: inability to function Time Spent With Patient Time: Total time managing care of this patient today ____ minutes.
[2024-03-05 10:17] VITALS: BP 113/62; PULSE 88; RESP 18; TEMP 36.2; O2SAT 97
[2024-03-05] MEDS: Calcium + Vitamin D 250 MG TABLET PO ×2 (10:19→16:40)
[2024-03-05] MEDS: Multivitamin TABLET 1 TAB PO (10:19)
[2024-03-06 08:17] VITALS: BP 133/73; PULSE 97; RESP 16; TEMP 36.6; O2SAT 96
[2024-03-06] MEDS: Calcium + Vitamin D 250 MG TABLET PO ×2 (08:18→16:51)
[2024-03-06] MEDS: Multivitamin TABLET 1 TAB PO (08:18)
--- NOTE | 2024-03-06 21:09 | P.PNPSI_ITS ---
Subjective Subjective Date of Service: 03/06/24 Reason For Visit: F25 Schizoaffective d/o, bipolar Subjective Notes: Section 8 Interim History: Pt visible on the unit. She refuses risperidone. She has been calmer, still with same delusions of having sanders to manipulate stock market. No aggression towards self or others. dc tomorrow Review of Systems Review of Systems Patient denies any acute medical complaints, though is an unreliable historian and refuses full ros Yes all other systems are reviewed and are negative and Unobtainable due to mental status Mental Status Exam Mental Status Exam Narrative: Appearance: wearing hospital gown, fair hygiene, in NAD Behavior: less hostile but still very guarded Psychomotor: no agitation or retardation noted. Speech: clear, regular rate/rhythm/volume, spontaneous TP: mostly linear TC: wanting to get out of the hospital Mood: I'm fine Affect: irritable SI: denies HI: denies VH/AH: internally preoccupied Delusions: paranoid delusions Insight/judgment: impaired x 2 memory/cog: alert, oriented to place, unable to assess orientation to month, year, or situation as pt refused to speak with this race and sports book writer. Diagnostics Vital Signs (24Hr): Vital Signs - 24 hr 03/06/24 08:17 Temperature 97.9 F Pulse Rate 97 Respiratory Rate 16 Blood Pressure 133/73 Pulse Oximetry 96 Oxygen Delivery Method Room Air BMI result Body Mass Index 18.6 Labs 02/18/24 07:29 Medications Medications Current Medications Acetaminophen (Acetaminophen 325 Mg Tablet) 650 mg PO Q6H PRN PRN Reason: Headache/Pain Mild Scale (1-3) Al Hydroxide/Mg Hydroxide (Magnesium Hydrox/Alum Hydrox 30 Ml Oral.Susp) 30 ml PO Q6H PRN PRN Reason: Heartburn/Nausea Calcium Carbonate/Cholecalciferol (Calcium + Vitamin D 250 Mg Tablet) 250 mg PO BIDWM [facility] Last Admin: 03/06/24 16:51 Dose: 250 mg Hydroxyzine HCl (Hydroxyzine Hcl 25 Mg Tablet) 25 mg PO Q6H PRN PRN Reason: Anxiety Magnesium Hydroxide (Milk Of Magnesia 30 Ml Oral.Susp) 30 ml PO DAILY PRN PRN Reason: Constipation Multivitamins/Vitamin C (Multivitamin Tablet) 1 tab PO DAILY [facility] Last Admin: 03/06/24 08:18 Dose: 1 tab Olanzapine (Olanzapine Odt 10 Mg Tab.Rapdis) 10 mg TRANSLINGU Q6H PRN PRN Reason: agitation Last Admin: 02/22/24 22:34 Dose: 10 mg Risperidone (Risperidone 2 Mg Tablet) 2 mg PO BID REJI Last Admin: 03/06/24 20:55 Dose: Not Given Trazodone HCl (Trazodone Hcl 50 Mg Tablet) 50 mg PO BEDTIME MRX1 PRN PRN Reason: Insomnia Last Admin: 02/22/24 22:34 Dose: 50 mg Allergies Allergies Allergy/AdvReac Type Severity Reaction Status Date / Time benztropine [From COGENTIN] Allergy Unknown STOMACHPAIN Verified 10/03/23 11:30 /SWELLING haloperidol [From HALDOL] Allergy Unknown STOMACH Verified 10/03/23 11:30 PAIN SWELLING Assessment & Plan Assessment & Plan (1) Schizoaffective disorder, bipolar type: Status: Acute Code(s): F25.0 - Schizoaffective disorder, bipolar type Plan Ms. Villa is a 73 year-old woman with hx of schizoaffective disorder, bipolar type who [place] [facility] sect 12a, after pt found a bus station yelling at people I'm going to kill you with my machine gun. Pt well [place] [facility] [place] previous [place] with similar presentation. Pt presents as paranoid, hostile, not engaging in conversation with team. Pending guardian and wang- if it is still active. PLAN 1. admit to S1, sect 12b, 15 minutes checks for safety 2. filed for 7&8 given that pt continues to present as agitated, paranoid, intrusive and aggressive. 02/22 continue tx. risperidone scheduled 1mg po daily and 2mg po qhs. 02/23 continue tx. It does appear that Wang's is active has been renew but actual paperwork not sent to hospital. Spoke with [facility] attorney general, John Orozco ([phone])- confirmed Wang's is active next hearing coming up in Apr. will file to amend Wang as paliperidone has limited dosing due to pt's underlying CKD stage 3. 02/24 continue tx. refuses to take risperidone. 02/25 continue tx. 02/26 continue tx. 02/27 pt committed on sect 8. 02/28 continue tx. 03/01 continue tx. 03/02 continue tx 03/03: Continue current regimen and plans 03/04: Continue current regimen and plans 03/05 continue tx. 03/06 continue tx. dc tomorrow. Reason for continued inpatient stay Substantial Risk for: inability to function Time Spent With Patient Time: Total time managing care of this patient today ____ minutes.
[2024-03-07 08:00] VITALS: BP 126/69; PULSE 85; RESP 16; TEMP 37.2; O2SAT 96
[2024-03-07] MEDS: Calcium + Vitamin D 250 MG TABLET PO (08:09)
[2024-03-07] MEDS: Multivitamin TABLET 1 TAB PO (08:09)
--- NOTE | 2024-03-07 11:57 | MHC.CLN ---
F/U DIET=REGULAR. CONTINUES WITH INTAKE MOST MEALS 100%. BMI=18.6, UNDERWEIGHT. UNDERWEIGHT APPEARS TO BE BASELINE FOR PATIENT. NOT AT HIGH NUTRITIONAL RISK. RD TO FOLLOW UP WEEKLY.
--- NOTE | 2024-03-07 12:14 | P.DS_ITS ---
DS: Providers Provider Date of Service: 03/07/24 Date of admission: 02/17/24 12:27 Date of discharge: 03/07/24 Primary care physician: Pelon Kemp MD Consults: 02/17/24 15:21 Consult to Hospitalist Routine Comment: Consulting Provider: Hospitalist Reason For Exam: medical H&P Discharging clinician: Torri Travis DS: Diagnosis Discharge Diagnosis (1) Schizoaffective disorder, bipolar type: Status: Acute DS: Medications Discharge Medications Home Medications: Previous Rx's ?Medication ?Instructions ?Recorded calcium carbonate 250 mg-vitamin 1 tab PO BIDWM #60 tabs 03/07/24 D3 3.125 mcg (125 unit) tablet multivitamin (Daily-Lucia tablet) 1 tab PO DAILY #30 tabs 03/07/24 Mental Status Exam Mental Status Exam Narrative: Appearance: wearing hospital gown, fair hygiene, in NAD Behavior: less hostile but still very guarded Psychomotor: no agitation or retardation noted. Speech: clear, regular rate/rhythm/volume, spontaneous TP: mostly linear TC: wanting to get out of the hospital Mood: I'm fine Affect: irritable SI: denies HI: denies VH/AH: internally preoccupied Delusions: paranoid delusions Insight/judgment: impaired x 2 memory/cog: alert, oriented to place, unable to assess orientation to month, year, or situation as pt refused to speak with this assembly instructions writer. DS: Summary Hospital Course Hospital Course: Subjective Notes: Johnson Warning (unable to provide information as pt refuse to speak with assembly instructions writer) and Section 12B Narrative: Ms. Villa is a 73 year-old woman with hx of schizoaffective bipolar type who was brought in by police to [facility] on 02/[place]/2024 after pt [place] bus [place] yelling at people I'm going to kill you with my machine gun. Pt is well known to [facility] through prior admission with similar presentation. In the ED, labs showed cbc with microcytic anemia, BUN 21, Cr. 1.33, low TSH 0.35, normal Free T4. UA with elevated leukocites and WBC. Utox negative. On the unit, pt presents as hostile, yelling at staff, other pts. When this assembly instructions writer approached her, pt yelling, get out, go, I don't need you. Attempts to engage patient in conversation were unsuccessful. Pt has Guardianship that initially in 07/2023, but apparently it has been extended- pending guardianship paperwork and zahira's. Past Psychiatric History: -Hx of IPLOC : 15+ admits-- S1 01/2022, S1 06/2022, [facility] 08/2022, multiple in the past. -Remote hx of SA via lithium OD -She was last admitted to [facility] on S1 on 01/2022 and on M5 in 07/2017. Admission at [facility] from 04/15/2021 to 09/02/2021 on a section VIII. -Past med trials: zyprexa 15 mg HS (did not like wt gain), Trevor julian -Hx of OP psych services at [facility]. Has DMH, ACCS. [facility] is currently in the process of having the pt appointed a legal guardian and acquiring a community zahira's order. SA: Hx of Lynd OD Hx of recent stabilization with Risperdal 2 mg bid, Aristada, Depakote, Remeron Medical Evaluation Reviewed: Yes HOSPITAL COURSE On the unit, pt was admitted on a sect 12b. Pt presented as agitated, paranoid, threatening to harm others, intrusive. She did required IM medication due to intrusive and aggressive behaviors towards staff. She apparently has an active manley, but we never received copy from the courts to verify. Her last zahira's order included paliperidone which dose is limited due to her creatinine clearance of less than 30. She continued to present with paranoid and grandiose delusions, thinking she can manipulate stock market with her her mind, and thinking people were following her because of her sanders. However, pt was much calmer, and did no longer present with intrusive or aggressive behaviors towards others. She denied SI/HI. Her sleep improved. She was eating better, more visible and social with select peers. Status at Discharge Cognitive/behavioral status at discharge: Pt continues to present with paranoid and grandiose delusions. However, pt presents much calmer, not intrusive nor aggressive towards self nor others. Sleeping better. No SI/HI. No insight into mental illness nor need for treatment. Functional status at discharge: independent ambulation Overall status at discharge: patient is progressing back to baseline Time Spent with Patient Time attestation: Total time managing care of this patient today __35__ minutes. Time spent: Greater than 30 minutes Discharge Plan Discharge Anticipated Discharge Date/Time: 03/07/24 12:09 Patient Disposition: Home, Self-Care Discharge Diagnosis: schizoaffective disorder bipolar type Referrals: Pelon Kemp MD [Primary Care Provider] - 03/09/24 2:30 pm (Your appointment is scheduled for 03/09 at 2:30pm) Discharge Medications: New calcium carbonate-vitamin D3 250 mg-3.125 mcg (125 unit) Tablet 1 tab PO BIDWM Qty: 60 0RF multivitamin [Daily-Lucia] Tablet 1 tab PO DAILY Qty: 30 0RF Discontinued calcium carbonate-vitamin D3 250 mg-3.125 mcg (125 unit) Tablet 1 tab PO DAILY 30 Days Qty: 30 1RF multivitamin [Daily-Lucia] Tablet 1 tab PO DAILY 30 Days Qty: 30 1RF Discharge Orders: Discharge Order (Routine); Ordered 03/07/24 Ordered By: Torri Travis Diet: Regular diet Activity on Discharge: As tolerated Stand Alone Forms: Patient Portal Discharge page, Community Support Print Language: Malay Care Plan Goals: 1. maintain mood 2. no SI/HI 3. No aggression towards self or others Health Concerns: Follow up with PCP Plan of Treatment: 1. take medications as prescribed 2. go to nearest ED or call 911 in event of emergency Assessment: pt calmer, continues to present with combination of paranoid and grandiose delusions. No SI/HI. Decrease aggression and intrusive behaviors towards others. no insight into mental illness. Discharge Date/Time: 03/07/24 16:16
== END 2024-03-07 16:16 | disposition home or self-care (01) | DRG 885 ==
PROVIDERS: Social Worker; Admitting Provider Psychiatry & Neurology Psychiatry; PCP Internal Medicine; Visit Provider Psychiatry & Neurology Psychiatry
DX: F25.0 Schizoaffective disorder, bipolar type (principal); I12.9 Hypertensive chronic kidney disease with stage 1 through stage 4 chronic kidney disease, or unspecified chronic kidney disease; N18.30 Chronic kidney disease, stage 3 unspecified; E78.5 Hyperlipidemia, unspecified; Z91.148 Patient's other noncompliance with medication regimen for other reason; Z87.891 Personal history of nicotine dependence; Z79.899 Other long term (current) drug therapy
CPT/HCPCS: 36415; 80053; 80061; 83036; J2060; J2359

== ENCOUNTER → 2024-02-17 12:27 | Outpatient (BNV) | payer MEDICARE, SELFPAY | PROVIDERS: Admitting Provider Psychiatry & Neurology Psychiatry; PCP Internal Medicine; Visit Provider Psychiatry & Neurology Psychiatry | DX: F25.0 Schizoaffective disorder, bipolar type (principal) | CPT/HCPCS: 90792; 99231; 99232; 99239; 99499 ==

== ENCOUNTER → 2024-02-17 12:27 | Outpatient (BNV) | payer MEDICARE, SELFPAY | PROVIDERS: Admitting Provider Psychiatry & Neurology Psychiatry; PCP Internal Medicine; Visit Provider Student in an Organized Health Care Education/Training Program | DX: Z00.8 Encounter for other general examination (principal) | CPT/HCPCS: 99429 ==

== ENCOUNTER 2024-05-23 23:04 | Inpatient (IN) | payer MEDICARE, SELFPAY ==
[2024-05-23 23:27] VITALS: BMI 18.5
[2024-05-23 23:55] VITALS: BP 131/74; PULSE 104; RESP 16; TEMP 36.6; O2SAT 92
--- NOTE | 2024-05-24 01:41 | PC.NURSE ---
Admission Note Mickie Villa, 74 years old woman was presented to [facility] ED [facility] Patient? The patient has a medical and psychiatric history of hypertension, hyperlipidemia, hyperthyroidism, thyroid nodules, hyponatremia, and schizoaffective disorder Mickie arrived at our unit in 2324 on 05/23/24, on 12 , with an admitting diagnosis of Schizoaffective Disorder. The patient? has Wang?s order and copies in the chart. The patient is alert and oriented x 3 with no insight into the situation, appears calm, quiet, and pleasant. Compliant with the admission process. Denied SI/HI/AVH, Denied depression but endorses anxiety, contracted for the safety, ambulates slowly but independently. Patient is high fall risk, VSS, no visible skin issues observed, meds rec completed,. Elimination intact. BMI 18.5, appetite adequate per patient?s report, Lab work is unremarkable, CT head negative. Covid & influenza negative,? Utox negative, refused to sign release paper, unit orientation completed,? patient is being observed on 15 minutes safety check as ordered. The patient is full code. The patient came with no belongings.
--- OUTSIDE RECORDS SUMMARY | 2024-05-24 03:22 | XMS_ITS | Clinical Summary ---
Author Organization Unknown Care Team Providers Care Strategy Intern Name Role Phone NANCY NUÑEZ, VAISHALI Unavailable Unavailable TITO BOWIE, AISHWARYA Unavailable Unavailable TIN BOWIE, TEMPERATURE REGULATOR, LEONA Unavail able Unavailable GURJIT BOWIE, BECKA Unavailable Unavailable SAMINA BOWIE, TONYA Unavailable Unavailable Payers Payer Name Policy Type Policy Number Effective Date Expira tion Date [facility] ADV [id number] MEDICARE - [place] [facility] [id number] Problems Condition Name Condition Details Condition Category Status Onset Date Resolution Date Last Treatment Date Treating Clinician Comments SCHIZOAFFECT CORBY DISORDER, BIPOLAR TYPE Active 08-11 00:00: 00 DELUSIONAL DISORDERS Active 08-11 00:00: 00 Allergies, Adverse Reactions, Alerts Allergy Name Allergy Type Status Severity Reaction(s) Onset Date Inactive Date Treating Clinician Comments NKA Propensity to adverse reactions Active 2022-09 22:32:2 4 Medications Ordered Medication Name Filled Medication Name Start Date Stop Date Current Medication? Ordering Clinician Indication Dosage Frequency Signature (SIG) Comments Components Douglas-Gest Antacid 200 mg calcium (500 mg) chewable tablet 2019-06 00:00: 00 10-19 23:59 :00 No [id number] 500 mg 2 TIMES DAILY 500 mg 2 TIMES DAILY (route: oral) Med Classific ation: Gastroint estinal Therapy Agents Daily Multi-Vitam in tablet 2019-06 00:00: 00 10-19 23:59 :00 No [id number] 1 tablet EVERY AM 1 tablet EVERY AM (route: oral) Med Classific ation: Electroly te Balance-N utritiona l Products divalproex ER 250 mg tablet,exte nded release 24 hr 2019-06 00:00: 00 10-19 23:59 :00 No [id number] 250 mg 2 TIMES DAILY 250 mg 2 TIMES DAILY (route: oral) Med Classific ation: Central Nervous System Agents furosemide 20 mg tablet 2019-06 00:00: 00 10-19 23:59 :00 No [id number] 20 mg EVERY AM 20 mg EVERY AM (route: oral) Med Classific ation: Cardiovas cular Therapy Agents glycopyrrol ate 1 mg tablet 2019-06 00:00: 00 10-19 23:59 :00 No [id number] 1 mg 2 TIMES DAILY 1 mg 2 TIMES DAILY (route: oral) Med Classific ation: Gastroint estinal Therapy Agents Risperdal 1 mg tablet 2019-06 00:00: 00 10-19 23:59 :00 No [id number] 1 mg EVERY AM 1 mg EVERY AM (route: oral) Med Classific ation: Central Nervous System Agents trazodone 50 mg tablet 2019-06 00:00: 00 10-19 23:59 :00 No [id number] 50 mg BEDTIME 50 mg BEDTIME (route: oral) Med Classific ation: Central Nervous System Agents risperidone 1 mg tablet 2019-06 00:00: 00 10-19 23:59 :00 No [id number] 1 mg BEDTIME 1 mg BEDTIME (route: oral) Med Classific ation: Central Nervous System Agents Depakote ER 250 mg tablet,exte nded release 10-21 00:00: 00 07-02 23:59 :00 No [id number] 1 tablet 2 TIMES DAILY 1 tablet 2 TIMES DAILY (route: oral) Med Classific ation: Central Nervous System Agents diphenhydra mine 25 mg tablet 10-21 00:00: 00 07-02 23:59 :00 No [id number] 1 tablet BEDTIME 1 tablet BEDTIME (route: oral) Med Classific ation: Respirato ry Therapy Agents docusate sodium 100 mg capsule 10-21 00:00: 00 07-02 23:59 :00 No [id number] 1 capsule 2 TIMES DAILY 1 capsule 2 TIMES DAILY (route: oral) Med Classific ation: Gastroint estinal Therapy Agents furosemide 20 mg tablet 10-21 00:00: 00 07-02 23:59 :00 No [id number] 1 tablet DAILY 1 tablet DAILY (route: oral) Med Classific ation: Cardiovas cular Therapy Agents glycopyrrol ate 1 mg tablet 10-21 00:00: 00 07-02 23:59 :00 No [id number] 1 tablet 2 TIMES DAILY 1 tablet 2 TIMES DAILY (route: oral) Med Classific ation: Gastroint estinal Therapy Agents multivit,tx with iron 27 mg-calcium- folic acid 0.4 mg-minerals tablet 10-21 00:00: 00 07-02 23:59 :00 No [id number] 1 tablet DAILY 1 tablet DAILY (route: oral) Med Classific ation: Electroly te Balance-N utritiona l Products risperidone 2 mg tablet 10-21 00:00: 00 07-02 23:59 :00 No [id number] 1 tablet EVERY AM 1 tablet EVERY AM (route: oral) Med Classific ation: Central Nervous System Agents risperidone 3 mg tablet 10-21 00:00: 00 07-02 23:59 :00 No [id number] 1 tablet BEDTIME 1 tablet BEDTIME (route: oral) Med Classific ation: Central Nervous System Agents trazodone 150 mg tablet 10-21 00:00: 00 07-02 23:59 :00 No [id number] 1 tablet BEDTIME 1 tablet BEDTIME (route: oral) Med Classific ation: Central Nervous System Agents NONE 03-09 00:00 :00 No [id number] (route: ) amlodipine 10 mg tablet 09-22 00:00: 00 Yes [id number] 1 tablet EVERY AM 1 tablet EVERY AM (route: oral) Med Classific ation: Cardiovas cular Therapy Agents Aristada 662 mg/2.4 mL suspension, extend.rel. IM syringe 09-22 00:00: 00 Yes [id number] Per instruc tions MONTHLY Per instructio ns MONTHLY (route: intramuscu lar) Med Classific ation: Central Nervous System Agents Depakote 500 mg tablet,rafa yed release 09-22 00:00: 00 Yes [id number] 1 tablet 2 TIMES DAILY 1 tablet 2 TIMES DAILY (route: oral) Med Classific ation: Central Nervous System Agents glycopyrrol ate 1 mg tablet -12 00:00: 00 Yes [id number] 1 tablet 2 TIMES DAILY 1 tablet 2 TIMES DAILY (route: oral) Med Classific ation: Gastroint estinal Therapy Agents risperidone 2 mg tablet 09-22 00:00: 00 Yes [id number] 1 tablet 2 TIMES DAILY 1 tablet 2 TIMES DAILY (route: oral) Med Classific ation: Central Nervous System Agents RISPERIDONE ORAL 2018-06- 00:00: 00 06-21 00:00 :00 No 1 mg1 TABLET TWICE A DAY 1 mg1 TABLET TWICE A DAY (route: ) Alternate Route: BY MOUTH . Med Classific ation: CENTRAL NERVOUS SYSTEM AGENTS OSELTAMIVIR ORAL 07-04 00:00: 00 07-08 00:00 :00 No 75 mg1 CAPSULE DAILY FOR 4 MORE DAYS 75 mg1 CAPSULE DAILY FOR 4 MORE DAYS (route: ) Alternate Route: BY MOUTH . Med Classific ation: ANTI-INFE CTIVE AGENTS DAILY-JABARI ORAL 2018-06 0 00:00: 00 05-04 00:00 :00 No 1 TABLET EVERY DAY FOR 30 DAYS 1 TABLET EVERY DAY FOR 30 DAYS (route: ) Alternate Route: BY MOUTH . Med Classific ation: ELECTROLY TE BALANCE-N UTRITIONA L PRODUCTS Vital Signs Vital Name Observation Time Observation Value Commen ts Temperature 2023-05-12 11:21:00.000 98.8 [degF] Temperature 2023-05-10 12:18:00.000 98.6 [degF] Pulse 2023-05-12 11:21:00.000 72 /min Pulse 2023-05-10 12:18:00.000 76 /min O2 Saturation (%) 2023-05-12 11:21:00.000 95 % O2 Saturation (%) 2023-05-10 12:18:00.000 97 % Respirations 2023-05-12 11:21:00.000 20 /min Respirations 2023-05-10 12:18:00.000 20 /min Systolic Blood Pressure 2023-05-12 11:21:00.000 126 mm [Hg] Systolic Blood Pressure 2023-05-10 12:18:00.000 132 mm [Hg] Diastolic Blood Pressure 2023-05-12 11:21:00.000 74 mm [Hg] Diastolic Blood Pressure 2023-05-10 12:18:00.000 84 mm [Hg] Plan of Treatment Planned Activity Planned Date Details Comments Future Scheduled Test SKILLED NU RSE TO EVALUATE PATIENT, IDENTIFY PRIMARY AND CO-MORBID CONDITIONS CODED PER CODING GUIDELINES, AND DEVELOP PATIENT SPECIFIC PLAN OF CARE THAT INCLUDES PATIENT GOAL FOR HOME HEALTH. [code = SKILLED NURSE TO EVALUATE PATIENT, IDENTIFY PRIMARY AND CO-MORBID CONDITIONS CODED PER CODING GUIDELINES, AND DEVELOP PATIENT SPECIFIC PLAN OF CARE THAT INCLUDES PATIENT GOAL FOR HOME HEALTH.] Future Scheduled Test SKILLED NU RSE FOR O/A OF GENERAL HEALTH STATUS OF PAIN, CARDIAC, RESPIRATORY, GASTROINTESTINAL, GENITOURINARY, SKIN, NEUROLOGIC, ENDOCRINE SYSTEMS TO IDENTIFY CHANGES ASSOCIATED WITH EXACERBATION FOR EARLY INTERVENTION OF COMPLICATIONS 1X/WEEK PRN [code = SKILLED NURSE FOR O/A OF GENERAL HEALTH STATUS OF PAIN, CARDIAC, RESPIRATORY, GASTROINTESTINAL, GENITOURINARY, SKIN, NEUROLOGIC, ENDOCRINE SYSTEMS TO IDENTIFY CHANGES ASSOCIATED WITH EXACERBATION FOR EARLY INTERVENTION OF COMPLICATIONS 1X/WEEK PRN] Future Scheduled Test SKILLED NU RSE TO O/A OF PATIENTS MENTAL/BEHAVIORAL STATUS, ASSESS VITAL SIGNS 1X/WEEK PRN ALLOW 2 PRNS FOR MEDICATION MANAGEMENT. [code = SKILLED NURSE TO O/A OF PATIENTS MENTAL/BEHAVIORAL STATUS, ASSESS VITAL SIGNS 1X/WEEK PRN ALLOW 2 PRNS FOR MEDICATION MANAGEMENT.] Future Scheduled Test SKILLED NU RSE TO ADMINISTER MEDICATIONS 1X/ MONTH ( IM INJECTION) AND PRE-POUR MEDICATIONS 1X/WEEK PER MEDICATION LIST. [code = SKILLED NURSE TO ADMINISTER MEDICATIONS 1X/ MONTH ( IM INJECTION) AND PRE-POUR MEDICATIONS 1X/WEEK PER MEDICATION LIST.] Future Scheduled Test SKILLED NU RSE FOR O/A OF ALTERED THOUGHT PROCESS AND/OR DISRUPTION IN COGNITIVE OPERATIONS AND ACTIVITIES [code = SKILLED NURSE FOR O/A OF ALTERED THOUGHT PROCESS AND/OR DISRUPTION IN COGNITIVE OPERATIONS AND ACTIVITIES ] Future Scheduled Test SKILLED NU RSE FOR O/A OF ALTERED MOOD [code = SKILLED NURSE FOR O/A OF ALTERED MOOD] Future Scheduled Test SKILLED NU RSE FOR O/A OF CLIENT'S MEDICATION REGIMEN AND RESPONSE TO ORDERED MEDS. MAY TEACH NEW / CHANGED MEDICATIONS WHEN KNOWLEDGE BASE DEFICITS ARE IDENTIFIED. [code = SKILLED NURSE FOR O/A OF CLIENT'S MEDICATION REGIMEN AND RESPONSE TO ORDERED MEDS. MAY TEACH NEW / CHANGED MEDICATIONS WHEN KNOWLEDGE BASE DEFICITS ARE IDENTIFIED.] Future Scheduled Test SKILLED NU RSE FOR O/A OF CLIENT'S ALTERED PSYCHOSOCIAL BEHAVIOR [code = SKILLED NURSE FOR O/A OF CLIENT'S ALTERED PSYCHOSOCIAL BEHAVIOR] Future Scheduled Test SKILLED NU RSE FOR O/A OF CLIENT'S SOCIAL ISOLATION AND PROVIDE ASSISTANCE TO CLIENT IN DEVELOPMENT OF PLANNED ACTIVITIES [code = SKILLED NURSE FOR O/A OF CLIENT'S SOCIAL ISOLATION AND PROVIDE ASSISTANCE TO CLIENT IN DEVELOPMENT OF PLANNED ACTIVITIES] Goal 2023-01-07 Patient Goal - W ORK BET[employer] ON [employer]; Goal 2022-11-09 Patient Goal - W [employer] Goal 2023-03-09 Patient Goal - W ORK BET[employer] ON [employer]; Goal 2023-05-04 Patient Goal - W ORK BETTER ON [employer]; TO GET BETTER AND STAY OUT OF HOSPITAL Goal 2023-06-23 Patient Goal - W ORK BETTER ON [employer]; TO GET BETTER AND STAY OUT OF HOSPITAL Goal Provider Goal - A PLAN OF CARE WILL BE ESTABLISHED THAT MEETS PATIENT'S CUSTODIAL NEEDS AND INCLUDES PATIENT GOAL FOR HOME HEALTH. Goal Provider Goal - CHANGE IN GENERAL HEALTH STATUS WILL BE IDENTIFIED AND REPORTED TO PHYSICIAN FOR PROMPT INTERVENTION TO MINIMIZE ASSOCIATED RISKS THROUGHOUT CERTIFICATION PERIOD. Goal Provider Goal - ALTERED MENTAL/BEHAVIORAL STATUS WILL BE IDENTIFIED PROMPTLY AND INTERVENTION INITIATED QUICKLY TO MINIMIZE ASSOCIATED RISKS Goal Provider Goal - PATIENT WILL COMPLY WITH MEDICATION WHEN SKILLED NURSE ADMINISTERS AND PRE-POURS MEDICATION. Goal Provider Goal - PATIENT WILL BE ABLE TO PERFORM DAILY FUNCTIONS AND HAVE OPTIMAL IMPROVEMENT IN THOUGHT PROCESS Goal Provider Goal - PATIENT WILL BE ABLE TO PERFORM DAILY FUNCTIONS AND HAVE OPTIMAL IMPROVEMENT IN MOOD STABILITY. Goal Provider Goal - PATIENT WILL VERBALIZE INCREASED KNOWLEDGE OF CURRENT MEDICATION REGIMEN DURING THE CERTIFICATION PERIOD. Goal Provider Goal - PATIENT WILL VERBALIZE ACCEPTANCE OF ALTERED PSYCHOSOCIAL BEHAVIOR AND WILL BE ACCEPTING OF CARGIVER'S ASSISTANCE IN THERAPEUTIC APPROACH TO WELLNESS. Goal Provider Goal - PATIENT WILL DEMONSTRATE AN INCREASED INTEREST IN SOCIALIZATION AND ACTIVITIES BY THE END OF THE CERTIFICATION PERIOD. Reason for Visit INDEPENDENT IN THE COMMUNITY Encounters Start Date/Time End Date/Time Encounter Type Admission Type Attending [facility] Care Department Encounter ID Discharge Date Discharge Status Discharge Condition Discharge Reason Percent Goals Met 2022-09-11 00:00:00 2023-06-23 00:00:00 Outpatient CAMILARTIFIC LEONA TRAN [facility] [id number] 2023-06-23 00:00:00 DISCHARGE TO HOME OR SELF CARE INDEPENDEN T IN THE COMMUNITY NON COMPLIANT WITH PLAN OF TREATMENT 38.10
[2024-05-24 05:58] VITALS: BMI 18.5
[2024-05-24 07:55] VITALS: BP 121/68; PULSE 100; RESP 18; TEMP 36.8; O2SAT 97
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
[2024-05-24 09:06] LABS: Alanine Aminotransferase 14 U/L (0-31); Albumin Level 3.7 g/dL (3.5-5.0); Alkaline Phosphatase 117 U/L (39-117); Anion Gap 11 (12-20); Aspartate Amino Transferase 25 U/L (5-31); Bilirubin Total 0.2 mg/dL (0.0-1.0); Blood Urea Nitrogen 35 mg/dL (9-16); Calcium 9.5 mg/dL (8.4-10.2); Carbon Dioxide 29 mmol/L (22-29); Chloride 108 mmol/L (96-108); Creatinine Clr Calc Pharmacy 33.2; Estimated Glomerular Filt Rate 48; Glucose Random 63 mg/dL (60-115); Potassium 4.5 mmol/L (3.3-5.1); Sodium 143 mmol/L (135-145); Total Protein 7.3 g/dL (6.5-8.0)
--- NOTE | 2024-05-24 15:16 | P.CONHOSP_ITS ---
History of Present Illness Data of Consult Service Date: 05/24/24 Primary Care Provider: Pelon Kemp MD [facility] Reason for consult: Admission H&P Pt is a 74-year-old female with a PMH significant for?HLD, CKD 3, bipolar schizoaffective disorder, and medication nonadherence who is admitted to [facility] for unwitnessed falls, erratic behavior, and reluctance to engage with care due to decompensated psychosis. Patient was previously admitted to [facility] facility and then brought to the ED 3 times out of 4 days for unwitnessed falls at the facility. Medical consult for admission H&P. ?Pt approached in her room where she is seen resting comfortably in bed. Pt is hostile to interview and exam, becoming agitated when approached. Pt denies any acute medical issues. Review of Systems 2 Review of Systems: Patient denies any acute medical issues, the patient refuses to participate in full interview and exam [facility] Medical History (Updated 05/24/24 @ 17:09 by NICOLAS Mccall) Medical clearance for psychiatric admission Schizoaffective disorder, bipolar type Constipation Benign essential hypertension Chronic kidney disease (CKD) History of cervical cancer Hyperlipidemia Family History Father Cancer Mother Cancer Hypertension Sister No problems noted. Surgical History No significant past surgical history Social History Household Members: None Household Members Other:: Pt unwilling to participate in admission process. Housing: Apartment Do you presently have visiting nurse or other home services: No Unable to assess alcohol history related to: Refusing to respond Alcohol intake: current Alcohol intake frequency: holidays/special occasions only Comment: 15 Patient Tobacco Use Status: Former Tobacco user Tobacco use type: Cigarette Smoked in Last 30 Days: No e-Cigarette/Vaping Use: Never Used Patient Interested in Nicotine Replacement: No Second Hand Smoke Exposure: No Use of substances other than those prescribed or required for medical reasons: No Substance Use Type: Unknown Currently Displaying Signs/Symptoms of Drug Intoxication Withdrawal: No Have you been hit, kicked, punched, or otherwise hurt by someone within the past year? If so, by whom?: No Advance Directives: No Advance Directives Information Provided: Yes Do you have thoughts of harming others: None Do you have a plan to hurt others: No Plan Recently lost weight without trying: Unsure How much weight loss: 2-13 pounds Nutrition Risks: No Nutritional Risk Patient : No : No Poor oral hygiene: No service: No Current occupational status: disabled Sexual orientation: Straight/Heterosexual Cognitive needs: No Hearing needs: No Vision needs: No Meds Allergies Allergy/AdvReac Type Severity Reaction Status Date / Time benztropine [From COGENTIN] Allergy Unknown STOMACHPAIN Verified 05/24/24 05:59 /SWELLING haloperidol [From HALDOL] Allergy Unknown STOMACH Verified 05/24/24 05:59 PAIN SWELLING Active Medications: Current Medications Acetaminophen (Acetaminophen 325 Mg Tablet) 650 mg PO Q6H PRN PRN Reason: Headache/Pain Mild Scale (1-3) Al Hydroxide/Mg Hydroxide (Magnesium Hydrox/Alum Hydrox 30 Ml Oral.Susp) 30 ml PO Q6H PRN PRN Reason: Heartburn/Nausea Magnesium Hydroxide (Milk Of Magnesia 30 Ml Oral.Susp) 30 ml PO DAILY PRN PRN Reason: Constipation Melatonin (Melatonin 3 Mg Tablet) 3 mg PO BEDTIME PRN PRN Reason: Insomnia Nicotine (Nicotine 21 Mg Patch.Td24) 21 mg TRANSDERMA DAILY PRN PRN Reason: smoking cessation Nicotine Polacrilex (Nicotine Polacrilex 2 Mg Gum) 4 mg BUCCAL Q2H PRN PRN Reason: Nicotine Cravings Olanzapine (Olanzapine 5 Mg Tablet) 5 mg PO TID PRN PRN Reason: Restlessness Olanzapine (Olanzapine 10 Mg Tablet) 10 mg PO BEDTIME REJI Polyethylene Glycol (Polyethylene Glycol 3350 17 Gm Powd.Pack) 17 gm PO DAILY PRN PRN Reason: Constipation Risperidone (Risperidone 3 Mg Tablet) 3 mg PO BID REJI Last Admin: 05/24/24 09:07 Dose: Not Given Trazodone HCl (Trazodone Hcl 50 Mg Tablet) 50 mg PO BEDTIME MRX1 PRN PRN Reason: Insomnia Home Medications ?Medication ?Instructions ?Recorded ?Confirmed ?Last Taken ?Type melatonin 3 mg tablet 3 mg PO BEDTIME PRN Insomnia 05/23/24 05/23/24 Unknown History olanzapine 10 mg tablet 10 mg PO BEDTIME 05/23/24 05/23/24 05/21/24 21:00 History polyethylene glycol 3350 17 gram 17 g PO DAILY PRN Constipation 05/23/24 05/23/24 Unknown History oral powder packet (Miralax) risperidone 3 mg tablet 3 mg PO BID 05/23/24 05/23/24 Unknown History trazodone 50 mg tablet 50 mg PO BEDTIME PRN Insomnia 05/23/24 05/23/24 Unknown History Physical Exam 2 Vital Signs and Narrative: Vital Signs: Last Vital Signs Temp 98.3 F 05/24/24 07:55 Pulse 100 05/24/24 07:55 Resp 18 05/24/24 07:55 BP 121/68 05/24/24 07:55 Pulse Ox 97 05/24/24 07:55 O2 Del Method Room Air 05/24/24 07:55 BMI result Body Mass Index 18.5 Patient refuses physical exam Results Labs 05/24/24 08:40 Labs: Laboratory Results - last 24 hr 05/24/24 08:40 Anion Gap 11 L Estim Creat Clear Calc 33.2 Estimated GFR 48 Random Glucose 63 Calcium 9.5 Total Bilirubin 0.2 AST 25 ALT 14 Alkaline Phosphatase 117 Total Protein 7.3 Albumin 3.7 Assessment and Plan (1) Medical clearance for psychiatric admission: Status: Acute Plan Pt is a 74-year-old female with a PMH significant for?HLD, CKD 3, bipolar schizoaffective disorder, and medication nonadherence who is admitted to [facility] for unwitnessed falls, erratic behavior, and reluctance to engage with care due to decompensated psychosis. Patient was previously admitted to [facility] facility and then brought to the ED 3 times out of 4 days for unwitnessed falls at the facility. Medical consult for admission H&P. ? Mood disorder Plan as per Psychiatry CKD 3 Creatinine 1.11 at time of presentation Stable, at baseline Patient otherwise has no known acute medical complaints or chronic medical conditions. Will sign off for now. Thank you for allowing us to participate in the care of this patient.
[2024-05-24 18:11] LABS: TSH reflex Free T4 0.02 uIU/mL (0.32-4.0)
[2024-05-24 19:27] LABS: Free T4 (Free Thyroxine) 1.17 ng/dL (0.71-1.85)
[2024-05-25 07:55] LABS: Estimated Average Glucose 117 mg/dL; Hemoglobin A1C 121.2533 umol/L; Hemoglobin A1c % 5.7 % (<6.0); Total Hemoglobin (HGBA1C) 3155.5838 umol/L
[2024-05-25 08:00] VITALS: BP 121/86; PULSE 101; RESP 17; TEMP 36.6; O2SAT 97
[2024-05-25 08:01] LABS: Cholesterol 198 mg/dL (<200); HDL Cholesterol 63 mg/dL (>40); LDL Cholesterol Calculated 118 mg/dL (<100); Triglycerides 85 mg/dL (<150)
--- NOTE | 2024-05-25 12:39 | HO.PSYCHPN ---
Subjective Subjective Date of Service: 05/25/24 Reason For Visit: F25 Schizoaffective disorder Subjective Notes: Section 12B Interim History: Pt slept most of the night. She presents as cooperative, pleasant. She was informed of d/c on Tuesday as she is in much improved condition, not showing any unsafe or aggressive behaviors towards self or others. She denies SI/HI. She reports she does not think she is currently possessed by evil forces, but she was in recent weeks while at the other hospital. She has been visible on the unit, has attended some assigned groups. She definitely seems the most stable she has ever been in the past 3 years. We received copy of [facility], which has much more options for treatment. She will be given Uzedy today. continue Olanzapine with back IM, but most likely this med will be dc on discharge as she will not take oral medications. Mental Status Exam Mental Status Exam Narrative: Appearance: wearing hospital gown, fair hygiene, in NAD Behavior:cooperative. Psychomotor: no agitation or retardation noted. Speech: clear, regular rate/rhythm/volume, spontaneous TP: mostly linear TC: open to be assessed mentally Mood: fine Affect: cooperative SI: denies HI: denies VH/AH: denies Delusions: paranoid delusions- mild residual of being possessed by evil forces. Insight/judgment: some improvement in judgment, not so much insight. memory/cog: alert, oriented to place, month, year, not date. oriented to situation. Diagnostics Vital Signs (24Hr): BMI result Body Mass Index 18.5 Labs 05/24/24 08:40 Labs: Laboratory Results - last 48 hr 05/24/24 05/25/24 08:40 07:19 Sodium 143 Potassium 4.5 Chloride 108 Carbon Dioxide 29 Anion Gap 11 L BUN 35 H Creatinine 1.11 Estim Creat Clear Calc 33.2 Estimated GFR 48 Random Glucose 63 Estimat Average Glucose 117 Hemoglobin A1c % 5.7 Calcium 9.5 Total Bilirubin 0.2 AST 25 ALT 14 Alkaline Phosphatase 117 Total Protein 7.3 Albumin 3.7 Triglycerides 85 Cholesterol 198 LDL Cholesterol, Calc 118 H HDL Cholesterol 63 TSH 0.02 L Free T4 1.17 Medications Medications Current Medications Acetaminophen (Acetaminophen 325 Mg Tablet) 650 mg PO Q6H PRN PRN Reason: Headache/Pain Mild Scale (1-3) Al Hydroxide/Mg Hydroxide (Magnesium Hydrox/Alum Hydrox 30 Ml Oral.Susp) 30 ml PO Q6H PRN PRN Reason: Heartburn/Nausea Magnesium Hydroxide (Milk Of Magnesia 30 Ml Oral.Susp) 30 ml PO DAILY PRN PRN Reason: Constipation Melatonin (Melatonin 3 Mg Tablet) 3 mg PO BEDTIME PRN PRN Reason: Insomnia Nicotine (Nicotine 21 Mg Patch.Td24) 21 mg TRANSDERMA DAILY PRN PRN Reason: smoking cessation Nicotine Polacrilex (Nicotine Polacrilex 2 Mg Gum) 4 mg BUCCAL Q2H PRN PRN Reason: Nicotine Cravings Olanzapine (Olanzapine 5 Mg Tablet) 5 mg PO TID PRN PRN Reason: Restlessness Olanzapine (Olanzapine 10 Mg Tablet) 10 mg PO BEDTIME REJI Last Admin: 05/24/24 21:46 Dose: Not Given Olanzapine (Olanzapine 10 Mg Vial) 10 mg IM DAILY PRN PRN Reason: if refuses oral per wang's Polyethylene Glycol (Polyethylene Glycol 3350 17 Gm Powd.Pack) 17 gm PO DAILY PRN PRN Reason: Constipation Risperidone (Risperidone Er 100 Mg/0.28 Ml Suser.Syr) 100 mg SUBCUT Q30D REJI Trazodone HCl (Trazodone Hcl 50 Mg Tablet) 50 mg PO BEDTIME MRX1 PRN PRN Reason: Insomnia Allergies Allergies Allergy/AdvReac Type Severity Reaction Status Date / Time benztropine [From COGENTIN] Allergy Unknown STOMACHPAIN Verified 05/24/24 05:59 /SWELLING haloperidol [From HALDOL] Allergy Unknown STOMACH Verified 05/24/24 05:59 PAIN SWELLING Assessment & Plan Assessment & Plan (1) Schizoaffective disorder, bipolar type: Status: Acute Code(s): F25.0 - Schizoaffective disorder, bipolar type Plan Ms. Villa is a 74 year-old woman with hx of schizoaffective disorder. She was initially sent from [facility] to [facility] due to frequent falls. 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 Pt had refused further interventions and labs. However, medical team agreed that even if thyroid cancer tx would not be done and dx would not shorten life expectancy. She was also found to be malnourished but declined vitamins and supplemental nutrition. On the unit, pt presents as calm and cooperative. No aggression seen. She does have paranoid delusions of being possessed by evil forces, but this may be more baseline. PLAN 1. Admit to S1, Sect 12b, 15 minutes checks for safety 2. Order Uzedy 100mg IM q30d, pt can't refuse IM per Wang's. Wang's order in the chart. 3. continue olanzapine 10mg po qhs with back up IM per Wang's 4. meeting with [facility] on 05/28/24 5. aftercare planning- sect 12b up 05/29/24. Reason for continued inpatient stay Substantial Risk for: inability to function Time Spent With Patient Time: Total time managing care of this patient today ____ minutes.
[2024-05-25] MEDS: risperiDONE ER 100 MG/0.28 ML SUSER.SYR SUBCUT (14:24)
[2024-05-25] MEDS: OLANZapine 10 MG TABLET PO (19:25)
[2024-05-25 19:54] VITALS: BP 133/69; PULSE 95; RESP 15; TEMP 36.7; O2SAT 95
[2024-05-26 05:26] VITALS: BMI 18.6
--- NOTE | 2024-05-26 06:54 | HO.PSYCHPN ---
Subjective Subjective Date of Service: 05/26/24 Reason For Visit: F25 Schizoaffective disorder Subjective Notes: Section 12B Interim History: The nursing staff reported the patient had been visible in the unit, she attended a few groups. On interview the patient denies new symptoms. Mental Status Exam Mental Status Exam Patient Appearance: Appropriate Patient Orientation: Person and Situation Level of Consciousness: Awake Patient Behavior: Guarded and Passive Mood Description: Withdrawn Affect Description: Constricted Patient Cognition Impaired: Yes Ability to Follow Directions: Good Speech Pattern: Clear Hallucinations: None Delusions: Paranoid Ideation and Ideas of Reference Thought Process: Distracted and Slowed Thinking Thought Content: positive for [place] and positive for Poverty of Content Judgement: Fair Diagnostics Vital Signs (24Hr): Vital Signs - 24 hr 05/25/24 08:00 05/25/24 19:54 Temperature 97.9 F 98.1 F Pulse Rate 101 H 95 Respiratory Rate 17 15 Blood Pressure 121/86 133/69 Pulse Oximetry 97 95 Oxygen Delivery Method Room Air Room Air BMI result Body Mass Index 18.6 Labs 05/24/24 08:40 Labs: Laboratory Results - last 48 hr 05/24/24 05/25/24 08:40 07:19 Sodium 143 Potassium 4.5 Chloride 108 Carbon Dioxide 29 Anion Gap 11 L BUN 35 H Creatinine 1.11 Estim Creat Clear Calc 33.2 Estimated GFR 48 Random Glucose 63 Estimat Average Glucose 117 Hemoglobin A1c % 5.7 Calcium 9.5 Total Bilirubin 0.2 AST 25 ALT 14 Alkaline Phosphatase 117 Total Protein 7.3 Albumin 3.7 Triglycerides 85 Cholesterol 198 LDL Cholesterol, Calc 118 H HDL Cholesterol 63 TSH 0.02 L Free T4 1.17 Medications Medications Current Medications Acetaminophen (Acetaminophen 325 Mg Tablet) 650 mg PO Q6H PRN PRN Reason: Headache/Pain Mild Scale (1-3) Al Hydroxide/Mg Hydroxide (Magnesium Hydrox/Alum Hydrox 30 Ml Oral.Susp) 30 ml PO Q6H PRN PRN Reason: Heartburn/Nausea Magnesium Hydroxide (Milk Of Magnesia 30 Ml Oral.Susp) 30 ml PO DAILY PRN PRN Reason: Constipation Melatonin (Melatonin 3 Mg Tablet) 3 mg PO BEDTIME PRN PRN Reason: Insomnia Nicotine (Nicotine 21 Mg Patch.Td24) 21 mg TRANSDERMA DAILY PRN PRN Reason: smoking cessation Nicotine Polacrilex (Nicotine Polacrilex 2 Mg Gum) 4 mg BUCCAL Q2H PRN PRN Reason: Nicotine Cravings Olanzapine (Olanzapine 5 Mg Tablet) 5 mg PO TID PRN PRN Reason: Restlessness Olanzapine (Olanzapine 10 Mg Tablet) 10 mg PO BEDTIME [facility] Last Admin: 05/25/24 19:25 Dose: 10 mg Olanzapine (Olanzapine 10 Mg Vial) 10 mg IM DAILY PRN PRN Reason: if refuses oral per wang's Polyethylene Glycol (Polyethylene Glycol 3350 17 Gm Powd.Pack) 17 gm PO DAILY PRN PRN Reason: Constipation Risperidone (Risperidone Er 100 Mg/0.28 Ml Suser.Syr) 100 mg SUBCUT Q30D [facility] Last Admin: 05/25/24 14:24 Dose: 100 mg Trazodone HCl (Trazodone Hcl 50 Mg Tablet) 50 mg PO BEDTIME MRX1 PRN PRN Reason: Insomnia Allergies Allergies Allergy/AdvReac Type Severity Reaction Status Date / Time benztropine [From COGENTIN] Allergy Unknown STOMACHPAIN Verified 05/24/24 05:59 /SWELLING haloperidol [From HALDOL] Allergy Unknown STOMACH Verified 05/24/24 05:59 PAIN SWELLING Assessment & Plan Assessment & Plan (1) Schizoaffective disorder, bipolar type: Status: Acute Code(s): F25.0 - Schizoaffective disorder, bipolar type Plan Ms. Villa is a 74 year-old woman with hx of schizoaffective disorder. She was initially sent from [facility] due to frequent falls. 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 Pt had refused further interventions and labs. However, medical team agreed that even if thyroid cancer tx would not be done and dx would not shorten life expectancy. She was also found to be malnourished but declined vitamins and supplemental nutrition. On the unit, pt presents as calm and cooperative. No aggression seen. She does have paranoid delusions of being possessed by evil forces, but this may be more baseline. PLAN 1. Admit to S1, Sect 12b, 15 minutes checks for safety 2. Order Uzedy 100mg IM q30d, pt can't refuse IM per Wang's. Wang's order in the chart. 3. continue olanzapine 10mg po qhs with back up IM per Wang's 4. meeting with [facility] on 05/28/24 5. aftercare planning- sect 12b up 05/29/24. Reason for continued inpatient stay Substantial Risk for: inability to function, rapid decompensation and med/psych decompensation Time Spent With Patient Time: Total time managing care of this patient today __20__ minutes.
[2024-05-26 08:00] VITALS: BP 121/70; PULSE 92; RESP 18; TEMP 37.1; O2SAT 97
[2024-05-26] MEDS: OLANZapine 10 MG TABLET PO (20:44)
[2024-05-27 01:29] VITALS: BP 111/82; PULSE 108; RESP 16; TEMP 36.3; O2SAT 95
--- NOTE | 2024-05-27 06:54 | HO.PSYCHPN ---
Subjective Subjective Date of Service: 05/27/24 Reason For Visit: F25 Schizoaffective disorder Subjective Notes: Section 12B Interim History: The nursing staff reported the patient had been visible in the unit, receive her Risperdal spending use monthly and she slept fairly well. On interview the patient denies new symptoms, waiting for discharge. Mental Status Exam Mental Status Exam Patient Appearance: Appropriate Patient Orientation: Person and Situation Level of Consciousness: Awake and Appropriate Patient Behavior: Guarded and Passive Mood Description: Withdrawn Affect Description: Constricted Patient Cognition Impaired: Yes Ability to Follow Directions: Good Speech Pattern: Clear Hallucinations: None Delusions: Not Present Thought Process: Distracted and Slowed Thinking Thought Content: positive for [place] and positive for Poverty of Content Judgement: Fair Diagnostics Vital Signs (24Hr): Vital Signs - 24 hr 05/26/24 08:00 05/27/24 01:29 Temperature 98.7 F 97.4 F Pulse Rate 92 108 H Respiratory Rate 18 16 Blood Pressure 121/70 111/82 Pulse Oximetry 97 95 Oxygen Delivery Method Room Air Room Air BMI result Body Mass Index 18.6 Labs 05/24/24 08:40 Labs: Laboratory Results - last 48 hr 05/25/24 07:19 Estimat Average Glucose 117 Hemoglobin A1c % 5.7 Triglycerides 85 Cholesterol 198 LDL Cholesterol, Calc 118 H HDL Cholesterol 63 Medications Medications Current Medications Acetaminophen (Acetaminophen 325 Mg Tablet) 650 mg PO Q6H PRN PRN Reason: Headache/Pain Mild Scale (1-3) Al Hydroxide/Mg Hydroxide (Magnesium Hydrox/Alum Hydrox 30 Ml Oral.Susp) 30 ml PO Q6H PRN PRN Reason: Heartburn/Nausea Magnesium Hydroxide (Milk Of Magnesia 30 Ml Oral.Susp) 30 ml PO DAILY PRN PRN Reason: Constipation Melatonin (Melatonin 3 Mg Tablet) 3 mg PO BEDTIME PRN PRN Reason: Insomnia Nicotine (Nicotine 21 Mg Patch.Td24) 21 mg TRANSDERMA DAILY PRN PRN Reason: smoking cessation Nicotine Polacrilex (Nicotine Polacrilex 2 Mg Gum) 4 mg BUCCAL Q2H PRN PRN Reason: Nicotine Cravings Olanzapine (Olanzapine 5 Mg Tablet) 5 mg PO TID PRN PRN Reason: Restlessness Olanzapine (Olanzapine 10 Mg Tablet) 10 mg PO BEDTIME REJI Last Admin: 05/26/24 20:44 Dose: 10 mg Olanzapine (Olanzapine 10 Mg Vial) 10 mg IM DAILY PRN PRN Reason: if refuses oral per wang's Polyethylene Glycol (Polyethylene Glycol 3350 17 Gm Powd.Pack) 17 gm PO DAILY PRN PRN Reason: Constipation Risperidone (Risperidone Er 100 Mg/0.28 Ml Suser.Syr) 100 mg SUBCUT Q30D REJI Last Admin: 05/25/24 14:24 Dose: 100 mg Trazodone HCl (Trazodone Hcl 50 Mg Tablet) 50 mg PO BEDTIME MRX1 PRN PRN Reason: Insomnia Allergies Allergies Allergy/AdvReac Type Severity Reaction Status Date / Time benztropine [From COGENTIN] Allergy Unknown STOMACHPAIN Verified 05/24/24 05:59 /SWELLING haloperidol [From HALDOL] Allergy Unknown STOMACH Verified 05/24/24 05:59 PAIN SWELLING Assessment & Plan Assessment & Plan (1) Schizoaffective disorder, bipolar type: Status: Acute Code(s): F25.0 - Schizoaffective disorder, bipolar type Plan Ms. Villa is a 74 year-old woman with hx of schizoaffective disorder. She was initially sent from [facility] to [facility] due to frequent falls. 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 Pt had refused further interventions and labs. However, medical team agreed that even if thyroid cancer tx would not be done and dx would not shorten life expectancy. She was also found to be malnourished but declined vitamins and supplemental nutrition. On the unit, pt presents as calm and cooperative. No aggression seen. She does have paranoid delusions of being possessed by evil forces, but this may be more baseline. PLAN 1. Admit to S1, Sect 12b, 15 minutes checks for safety 2. Order Uzedy 100mg IM q30d, pt can't refuse IM per Wang's. Wang's order in the chart. 3. continue olanzapine 10mg po qhs with back up IM per Wang's 4. meeting with [facility] on 05/28/24 5. aftercare planning- sect 12b up 05/29/24. Reason for continued inpatient stay Substantial Risk for: inability to function, rapid decompensation and med/psych decompensation Time Spent With Patient Time: Total time managing care of this patient today __20__ minutes.
[2024-05-27 08:00] VITALS: BP 138/97; PULSE 113; RESP 18; TEMP 37
[2024-05-27] MEDS: OLANZapine 10 MG TABLET PO (20:21)
[2024-05-28 01:20] VITALS: BP 139/65; PULSE 118; RESP 18; TEMP 36.6; O2SAT 94
[2024-05-28 08:00] VITALS: BP 128/68; PULSE 108; RESP 16; TEMP 37.1; O2SAT 96
--- NOTE | 2024-05-28 11:03 | HO.PSYCHPN ---
Subjective Subjective Date of Service: 05/28/24 Reason For Visit: F25 Schizoaffective disorder Subjective Notes: Section 12B Interim History: Pt slept most of the night. No overt psychosis or delusions. Residual symptoms but this is most stable we have seen her in 2 years. No SI/HI. No aggression. She does have cough, teary eye, mild congestion- rvs/covid/flu swap ordered. meeting with [facility] done today. agreement to dc back home at end of [id number]- 05/29/24. Diagnostics Vital Signs (24Hr): Vital Signs - 24 hr 05/28/24 01:20 05/28/24 08:00 Temperature 97.8 F 98.7 F Pulse Rate 118 H 108 H Respiratory Rate 18 16 Blood Pressure 139/65 128/68 Pulse Oximetry 94 96 Oxygen Delivery Method Room Air Room Air BMI result Body Mass Index 18.6 Labs 05/24/24 08:40 Medications Medications Current Medications Acetaminophen (Acetaminophen 325 Mg Tablet) 650 mg PO Q6H PRN PRN Reason: Headache/Pain Mild Scale (1-3) Al Hydroxide/Mg Hydroxide (Magnesium Hydrox/Alum Hydrox 30 Ml Oral.Susp) 30 ml PO Q6H PRN PRN Reason: Heartburn/Nausea Magnesium Hydroxide (Milk Of Magnesia 30 Ml Oral.Susp) 30 ml PO DAILY PRN PRN Reason: Constipation Melatonin (Melatonin 3 Mg Tablet) 3 mg PO BEDTIME PRN PRN Reason: Insomnia Nicotine (Nicotine 21 Mg Patch.Td24) 21 mg TRANSDERMA DAILY PRN PRN Reason: smoking cessation Nicotine Polacrilex (Nicotine Polacrilex 2 Mg Gum) 4 mg BUCCAL Q2H PRN PRN Reason: Nicotine Cravings Olanzapine (Olanzapine 5 Mg Tablet) 5 mg PO TID PRN PRN Reason: Restlessness Olanzapine (Olanzapine 10 Mg Tablet) 10 mg PO BEDTIME [facility] Last Admin: 05/27/24 20:21 Dose: 10 mg Olanzapine (Olanzapine 10 Mg Vial) 10 mg IM DAILY PRN PRN Reason: if refuses oral per zahira's Polyethylene Glycol (Polyethylene Glycol 3350 17 Gm Powd.Pack) 17 gm PO DAILY PRN PRN Reason: Constipation Risperidone (Risperidone Er 100 Mg/0.28 Ml Suser.Syr) 100 mg SUBCUT Q30D [facility] Last Admin: 05/25/24 14:24 Dose: 100 mg Trazodone HCl (Trazodone Hcl 50 Mg Tablet) 50 mg PO BEDTIME MRX1 PRN PRN Reason: Insomnia Allergies Allergies Allergy/AdvReac Type Severity Reaction Status Date / Time benztropine [From COGENTIN] Allergy Unknown STOMACHPAIN Verified 05/24/24 05:59 /SWELLING haloperidol [From HALDOL] Allergy Unknown STOMACH Verified 05/24/24 05:59 PAIN SWELLING Assessment & Plan Assessment & Plan (1) Schizoaffective disorder, bipolar type: Status: Acute Code(s): F25.0 - Schizoaffective disorder, bipolar type Plan Ms. Villa is a 74 year-old woman with hx of schizoaffective disorder. She was initially sent from [facility] to [facility] due to frequent falls. 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 Pt had refused further interventions and labs. However, medical team agreed that even if thyroid cancer tx would not be done and dx would not shorten life expectancy. She was also found to be malnourished but declined vitamins and supplemental nutrition. On the unit, pt presents as calm and cooperative. No aggression seen. She does have paranoid delusions of being possessed by evil forces, but this may be more baseline. PLAN 1. continue tx. d/c olanzapine qhs. dc at end of sect 12b 05/29/24. Reason for continued inpatient stay Substantial Risk for: inability to function Time Spent With Patient Time: Total time managing care of this patient today ____ minutes.
[2024-05-28 15:34] LABS: Influenza A PCR NEGATIVE (Negative); Influenza B PCR NEGATIVE (Negative); Resp Syncy Virus RNA Qual PCR NEGATIVE (Negative); SARS COV2 PCR INHOUSE NEGATIVE (Negative)
[2024-05-28 20:00] VITALS: RESP 16
[2024-05-29 08:00] VITALS: BP 142/68; PULSE 113; RESP 18; TEMP 37.2; O2SAT 95
--- NOTE | 2024-05-29 09:40 | P.DS_ITS ---
DS: Providers Provider Date of Service: 05/29/24 Date of admission: 05/23/24 23:04 Date of discharge: 05/29/24 Primary care physician: Pelon Kemp MD Consults: 05/24/24 00:15 Consult to Hospitalist Routine Comment: Consulting Provider: [facility] Hospitalists Reason For Exam: admission physical Discharging clinician: Torri Travis DS: Diagnosis Discharge Diagnosis (1) Schizoaffective disorder, bipolar type: Status: Acute DS: Medications Discharge Medications Home Medications: Previous Rx's ?Medication ?Instructions ?Recorded risperidone 100 mg/0.28 mL 100 mg (0.28 mL) subcut Q30D #0.28 05/29/24 subcutaneous extend release susp mL syringe (Uzedy) Mental Status Exam Mental Status Exam Narrative: Appearance: wearing hospital gown, fair hygiene, in NAD Behavior:cooperative. Psychomotor: no agitation or retardation noted. Speech: clear, regular rate/rhythm/volume, spontaneous TP: mostly linear TC: wanting to get out of the hospital Mood: fine Affect: cooperative SI: denies HI: denies VH/AH: denies Delusions: paranoid delusions Insight/judgment: impaired x 2 memory/cog: alert, oriented to place, month, year, not date. oriented to situation. Data Data Completed and Pending Completed studies during hospitalization [Text1]: 05/24/24 05/25/24 05/28/24 08:40 07:19 14:45 Sodium 143 Potassium 4.5 Chloride 108 Carbon Dioxide 29 Anion Gap 11 L BUN 35 H Creatinine 1.11 Estim Creat Clear Calc 33.2 Estimated GFR 48 Random Glucose 63 Estimat Average Glucose 117 Hemoglobin A1c % 5.7 Calcium 9.5 Total Bilirubin 0.2 AST 25 ALT 14 Alkaline Phosphatase 117 Total Protein 7.3 Albumin 3.7 Triglycerides 85 Cholesterol 198 LDL Cholesterol, Calc 118 H HDL Cholesterol 63 TSH 0.02 L Free T4 1.17 Influenza Type A (PCR) NEGATIVE Influenza Type B (PCR) NEGATIVE RSV RNA Qual (PCR) NEGATIVE SARS-CoV-2 RNA (RT-PCR) NEGATIVE DS: Summary Hospital Course Hospital Course: Mr. Villa is a 74 year-old woman with hx of schizoaffective disorder who is well known to this unit through previous admission with similar presentation. Pt was transferred to [facility] from [facility] where she was receiving psychiatric treatment. Apparently, pt presented with several episodes of lightheadedness and falls. While at [facility], she was after she was found to have a 6 cm mediastinal mass that was felt to be most likely goiter than thyroid cancer. Mr. Villa refused biopsy and further imaging and intervention. However, it appears that after reviewing necessity of biopsy and further interventions, it was determine that biopsy even if finding of papillary thyroid concern would not required treatment nor would shorten life expectancy. Pt was also found to have hyperthyroidism, malnourished. Other medical work up included EKG which did not show arrhythmias as potential cause for falls. Head CT did not show acute findings but does show chronic atrophy and microvascular changes. Ms. Villa has had a guardian and wang's. There was a new affivadit that was filed sometime in 02/2024. We do not have copy of renew active Wang's yet. On the unit, pt presents as calm and cooperative. She reports she was at [facility] where she claims doctor did not find anything wrong with her medically. She reports they only found mental things explaining that she was possessed by evil forces that attack her in the mornings. She reports she is no longer being possessed. She reports she was sent here to be assessed about these evil po ssessions. She denies SI/HI. 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 She denies any physical concerns. Past Psychiatric History: -Hx of IPLOC : 15+ admits-- S1 01/2022, S1 06/2022, [facility] 08/2022, multiple in the past. -Remote hx of SA via lithium OD -She was last admitted to [facility] on S1 on 01/2022 and on M5 in 07/2017. Admission at [facility] from 04/15/2021 to 09/02/2021 on a section VIII. -Past med trials: zyprexa 15 mg HS (did not like wt gain), Trevor julian -Hx of OP psych services at [facility]. Has DMH, ACCS. [facility] is currently in the process of having the pt appointed a legal guardian and acquiring a community wang's order. SA: Hx of [place] OD Hx of recent stabilization with Risperdal 2 mg bid, Aristada, Depakote, Remeron Medical Evaluation Reviewed: Yes HOSPITAL COURSE On the unit, pt was admitted on a Sect 12b. She had been medically admitted for hyperthyroidism, and goiter. She was also receiving risperidone and olanzapine. She has an updated Wang's that includes several medications. She seemed to have been responding to risperidone better than paliperidone and also because of her chronic renal disease stage 3 dose of paliperidone is limited. She was given Uzedy (risperidone) 100mg IM on 05/25/2024, next dose in 30 days. She is well known to this unit and this proposal lead writer through several prior admission with similar presentation. This is the most stable we have ever seen her. 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 However, she was much less paranoid towards staff and peers. She was visible on the unit. She attended some assigned groups. She was sleeping and eating well. She even asked for talk therapy while on the unit which she used to talk about her feeling about being possessed by evil forces. She had no insight into her mental illness nor need for treatment and this may never change but she was in a cceptance of medication on her Wang's without resistance. She also did not believe that medically was something wrong with her when discussing findings of her having a goiter and hyperthyroidism. There were no incidences of disruptive behaviors nor need for restraints. Collateral information was gathered from ACCS team. They pick up attendant pt on day of discharge. She did have cold like symptoms day prior to discharge. Covid/ RSV/Flu were negative. She was afebrile. No signs of respiratoy distress and O2sat on room air>95% which seems to be her usual. she had some cough and mild congestion, she declined tylenol or antihistamines. Status at Discharge Cognitive/behavioral status at discharge: Pt with brighter, non labile affect. She does have residual paranoid delusions and psychosis but much less than she has had in the past. No SI/HI. No aggression towards self or others. Sleeping and eating. Functional status at discharge: independent ambulation Overall status at discharge: patient is back to baseline Time Spent with Patient Time attestation: Total time managing care of this patient today __35__ minutes. Time spent: Greater than 30 minutes Discharge Plan Discharge Anticipated Discharge Date/Time: 05/29/24 09:34 Patient Disposition: Home, Self-Care Discharge Diagnosis: schizoaffective disorder Referrals: [facility] [Other] - 3-5 Days (A referral has been made for you for [facility]. They will reach out to you to do a in person visit to evaluate your needs in the home. They will need your compliance to undergo the evaluation. If you have any questions or concerns about this evaluation please contact the number listed.) Pelon Kemp MD [Primary Care Provider] - 1 Week (Your Providers office has been contacted on your behalf. The office will call you directly to schedule your follow up Appt. with Dr. Kemp.) Anne Alfaro APRN [Advanced Practice Nurse] - 07/09/24 2:00 pm (This appointment will be for your Psychiatric provider. Anne will see you in person at the office address listed. The appointment is what they have currently for your provider. The office will be in touch if an appointment comes up before that date. If you need a medication refill you can call the number listed to refill that. You have also been referred to Therapy through [facility] as well, they are currently looking for a therapist for you within the network of your insurance, they will reach out to you when they have someone available.) Discharge Medications: New Uzedy 100 mg/0.28 mL Suspension,Extended Rel Syring 100 mg subcut Q30D Qty: 0.28 3RF Discontinued olanzapine 10 mg Tablet 10 mg PO BEDTIME risperidone 3 mg Tablet 3 mg PO BID trazodone 50 mg Tablet 50 mg PO BEDTIME PRN (Reason: Insomnia) melatonin 3 mg Tablet 3 mg PO BEDTIME PRN (Reason: Insomnia) polyethylene glycol 3350 [Miralax] 17 gram Powder In Packet 17 g PO DAILY PRN (Reason: Constipation) Discharge Orders: Discharge Order (Routine); Ordered 05/29/24 Ordered By: Torri Travis Diet: Regular diet Activity on Discharge: As tolerated Stand Alone Forms: Patient Portal Discharge page Print Language: Estonian Care Plan Goals: 1. Maintain mood 2. No aggression towards self or others 3. decrease delusions and psychosis Health Concerns: Follow up with PCP- hyperthyroidism and goiter. Plan of Treatment: 1. Take medications as prescribed- per Wang's 2. Go to nearest ED or call 911 in event of emergency Assessment: Pt calmer, more cooperative. Less paranoid delusions. Less psychosis. No aggression towards self or others. Sleeping and eating well.
--- NOTE | 2024-05-29 10:57 | PC.NURSE ---
Pt aware of discharge, reported readiness for discharge. D/C instructions appointments/med given to the pt. Left the unit accompanied by [facility] staff. No belongings when admitted to [facility] except two rings which she took with her. Left the hospital at 10:45.
== END 2024-05-29 10:45 | disposition home or self-care (01) | DRG 885 ==
PROVIDERS: Psychiatry & Neurology Psychiatry; Social Worker; Student in an Organized Health Care Education/Training Program; Admitting Provider Psychiatry & Neurology Psychiatry; PCP Internal Medicine; Visit Provider Psychiatry & Neurology Psychiatry
DX: F25.0 Schizoaffective disorder, bipolar type (principal); I12.9 Hypertensive chronic kidney disease with stage 1 through stage 4 chronic kidney disease, or unspecified chronic kidney disease; N18.30 Chronic kidney disease, stage 3 unspecified; Z87.891 Personal history of nicotine dependence; Z20.822 Contact with and (suspected) exposure to COVID-19; Z62.810 Personal history of physical and sexual abuse in childhood; Z62.811 Personal history of psychological abuse in childhood; Z91.148 Patient's other noncompliance with medication regimen for other reason; Z79.899 Other long term (current) drug therapy
CPT/HCPCS: 0241U; 36415; 80053; 80061; 83036; 84439; 84443; J2799

== ENCOUNTER → 2024-05-23 23:04 | Outpatient (BNV) | payer MEDICARE, SELFPAY | PROVIDERS: Admitting Provider Psychiatry & Neurology Psychiatry; PCP Internal Medicine; Visit Provider Social Worker | DX: F25.0 Schizoaffective disorder, bipolar type (principal) | CPT/HCPCS: 90792; 99231; 99232; 99239 ==

== ENCOUNTER → 2024-05-23 23:04 | Outpatient (BNV) | payer MEDICARE, SELFPAY | PROVIDERS: Admitting Provider Psychiatry & Neurology Psychiatry; PCP Internal Medicine; Visit Provider Student in an Organized Health Care Education/Training Program | DX: Z02.2 Encounter for examination for admission to residential institution (principal) | CPT/HCPCS: 99429 ==

== ENCOUNTER 2024-07-25 14:51 | Outpatient (AMB) | payer MEDICARE, SELFPAY ==
--- NOTE | 2024-07-25 14:53 | A.OFFPC_ITS ---
Vital Signs 07/25/24 14:54 Height 5 ft 2 in Weight 97 lb 4 oz BMI 17.8 BP 126/82 Blood Pressure Location Lt brachial Position Sitting Pulse Source Pulse Oximeter Oxygen Delivery Method Room Air Intake Visit Reasons: [facility] Behavior Health Family Practice Nurse Practitioner Required: No Accompanied by: Self / Same As Patient Allergies benztropine [From COGENTIN] Allergy (Unknown, Verified 07/25/24 15:08) STOMACHPAIN/SWELLING haloperidol [From HALDOL] Allergy (Unknown, Verified 07/25/24 15:08) STOMACH PAIN SWELLING Medication List - Last Reconciled 07/25/24 by Pelon Kemp MD risperidone ER (Uzedy) 100 mg (0.28 mL) subcut Q30D Tobacco use date assessed: 07/25/24 Fall risk assessment: No Falls in past year Last assessed Fall Risk: 07/25/24 Dental Screening Dental Screen Date: 07/25/24 Did you have a dental visit in the last 12 months?: No Did you have a dental problem in the last 6 months where you did not have access to dental care?: No Was dental information given to patient?: No HPI [facility] Behavior Health HPI Details Patient comes in today for her follow-up visit States that she feels okay but reports that her back has been bothering her a lot lately, especially over the left side She denies any recent injury or trauma to her back She was admitted again to the psychiatry unit at [facility] a couple of months ago for psychiatric decompensation She was supposed to be on maintenance treatment with monthly injections of IM Risperidone but per the HD staff, she is currently on no medications although she continues to follow-up with Psychiatry and with her therapist regularly Patient is currently living alone but does have regular visits from [facility], who assists her with her needs although patient states that she is mostly independent and does not need much help with anything She denies any headaches or dizziness Denies any chest pains, no shortness of breath No nausea/vomiting, no abdominal pain No change in bowel habits noted [facility] Medical History Schizoaffective disorder, bipolar type Constipation Benign essential hypertension Chronic kidney disease (CKD) History of cervical cancer Hyperlipidemia Surgical History No significant past surgical history Family History Father Cancer Mother Cancer Hypertension Sister No problems noted. Social History Household Members: None Household Members Other:: Pt unwilling to participate in admission process. Housing: Apartment Do you presently have visiting nurse or other home services: No Unable to assess alcohol history related to: Refusing to respond Alcohol intake: current Alcohol intake frequency: holidays/special occasions only Comment: 15 Patient Tobacco Use Status: Former Tobacco user Tobacco use type: Cigarette e-Cigarette/Vaping Use: Never Used Second Hand Smoke Exposure: No Substance Use Type: Unknown service: No Current occupational status: disabled Sexual orientation: Straight/Heterosexual Cognitive needs: No Hearing needs: No Vision needs: No Questionnaire PHQ-9 Over the last 2 weeks, how often have you been bothered by any of the following problems? 1. Little interest or pleasure in doing things: not at all 2. Feeling down, depressed, or hopeless: not at all 3. Trouble falling or staying asleep, or sleeping too much: not at all 4. Feeling tired or having little energy: not at all 5. Poor appetite or overeating: not at all 6. Feeling bad about yourself - or that you are a failure or have let yourself or your family down: not at all 7. Trouble concentrating on things, such as reading the newspaper or watching television: not at all 8. Moving or speaking so slowly that other people could have noticed. Or the opposite - being so fidgety or restless that you have been moving around a lot more than usual: not at all 9. Thoughts that you would be better off or of hurting yourself in some way: not at all Total score: 0 Depression Screening Interpretation: Negative Depression Screening Done: Yes 68441 - PHQ-9 Billing: Yes Source: Developed by Drs. Parker Bhatti, Cathie Segura, Robby Javed and colleagues, with an educational aramis from [employer]. Thrive Questionnaire Date Thrive assessed: 07/25/24 I am a: Patient What is your living situation today?: I have a steady place to live Within the past 12 months, did the food you bought not last and you didn't have the money to get more?: Never true Within the past 12 months, did you worry whether your food would run out before you got money to buy more?: Never true Do you have trouble paying for medicines?: No Do you have trouble getting transportation to medical appointments?: No Do you have trouble paying your heating and electricity bill?: No Do you have trouble taking care of your child, family member or friend?: No Do you have trouble with day-to-day activities such as bathing, preparing meals, shopping, managing finances, etc.?: No Are you currently unemployed and looking for a job?: No Are you interested in more education?: No Please select the resources that you would like help with: None Currently or been in a relationship where the following occur: No concerns reported THRIVE Score: 0 AUDIT C Alcohol Use Questionnaire (AUDIT-C) 1. How often do you have a drink containing alcohol?: Monthly or less 2. How many drinks containing alcohol do you have on a typical day when you are drinking?: 1 or 2 Total Score: 1 Score Reviewed/Action Taken: Yes MARK-7 AMB Questionnaire MARK-7 Date MARK - 7 assessed: 07/25/24 Feeling nervous, anxious, or on edge: 0 = Not at all Not being able to stop or control worryin = Not at all Worrying too much about different things: 0 = Not at all Trouble relaxin = Not at all Being so restless that it is hard to sit still: 0 = Not at all Becoming easily annoyed or irritable: 0 = Not at all Feeling afraid as if something awful might happen: 0 = Not at all Total MARK-7 score (0-4 normal; 5-9 mild; 10-14 moderate; 15-21 severe): 0 Source: Developed by Drs. Parker Bhatti, Cathie Segura, Robby Javed and colleagues, with an educational aramis from [employer]. Review of Systems Const Details: ROS obtained from both patient and [facility] staff - patient appears more lucid today and less disorganized than previous Denies chills, Denies fatigue, Denies fever(s) and Denies headache(s) ENT Denies dysphagia, Denies dizziness, Denies otalgia, Denies headache(s), Denies neck pain, Denies odynophagia and Denies sore throat Card Denies chest pain, Denies palpitations and Denies dyspnea Resp Denies chest congestion, Denies cough and Denies dyspnea GI Denies abdominal pain, Denies constipation, Denies dysphagia, Denies heartburn, Denies diarrhea, Denies nausea, Denies odynophagia and Denies vomiting Denies difficulty voiding, Denies nocturia and Denies dysuria Musc Reports back pain and Denies neck pain Skin/Breast Denies rash Neuro Denies dizziness and Denies headache(s) Endo Denies fatigue and Denies palpitations Physical exam (Primary Care) Vital Signs: Last Vital Signs BP 126/82 07/25/24 14:54 Oxygen Delivery Method Room Air 07/25/24 14:54 BMI result Body Mass Index 17.8 Tobacco/Smoking Status: Tobacco use Status Tobacco use date assessed 07/25/24 07/25/24 15:04 Patient Tobacco Use Status Former Tobacco user 07/25/24 15:04 Tobacco use type Cigarette 07/25/24 15:04 e-Cigarette/Vaping Use Never Used 07/25/24 15:04 PHQ-9: PHQ-9 Score PHQ-9: Total score 0 07/25/24 15:04 Depression Screening Interpretation: Negative Thrive Assessment: Date of Thrive Assessment Date Thrive assessed 07/25/24 07/25/24 15:04 Currently or been in a relationship where the following occur: No concerns reported Const General: no acute distress and alert HENMT Ears: TM's normal bilaterally and EAC's normal Throat: Yes posterior oropharynx normal and Yes tonsils normal Neck Neck: Yes supple and No lymphadenopathy Thyroid: Thyroid normal Resp Auscultation: clear to auscultation bilaterally, no rales and no wheezes Cardio Rate: regular rate Rhythm: regular rhythm Heart sounds: no murmurs GI Palpation (GI): Soft to palpation and nontender Auscultation: normal bowel sounds General: Yes no CVA tenderness Back/Spine/Pelvis Back: no CVA tenderness Thoracic/Lumbar Spine: Thoracic/lumbar scoliosis Skin Rashes: no rashes Extrem General: Yes no clubbing, cyanosis or edema Psych Other: thought process is very disorganized and delusional - cannot carry on any productive conversation during appointment today Affect: Labile affect present Thought process: Flight of ideas present Coding Level of Care Code Est Pt Level 4 (44003) Diagnoses Other idiopathic scoliosis, thoracolumbar region M41.25 Scoliosis type: idiopathic Idiopathic scoliosis type: other Spinal region: thoracolumbar Benign essential hypertension I10 Stage 3b chronic kidney disease N18.32 Chronic kidney disease stage: stage 3 (moderate) Chronic kidney disease stage 3 subtype: stage 3b (GFR 30-44) Pure hypercholesterolemia E78.00 Hyperlipidemia type: pure hypercholesterolemia Schizoaffective disorder, bipolar type F25.0 Additional Codes PHQ-9 - 05415 - PHQ-9 Billing: Yes ([id number]) Assessment & Plan Assessment & Plan (1) Scoliosis: Code(s): M41.9 - Scoliosis, unspecified Category: Medical Qualifiers: Scoliosis type: idiopathic Idiopathic scoliosis type: other Spinal region: thoracolumbar Qualified Code(s): M41.25 - Other idiopathic scoliosis, thoracolumbar region Plan: Have advised patient that her back pain is mostly due to her scoliosis, which is quite severe, and that other than physical therapy, will may not really help much, there is no other effective solution or cure for her current condition Thoracolumbar spine x-rays done back in September 2023 revealed (+) severe S-shaped thoracolumbar scoliosis and moderate multilevel degenerative changes in the thoracic spine. There is also advanced multilevel lumbar spondylosis and facet arthritis in the [id number] lumbar spine Have advised her that she can take some OTC Tylenol PRN for pain; we can also send in Rx for some muscle relaxants but patient states that she will think about it for now (2) Benign essential hypertension: Code(s): I10 - Essential (primary) hypertension Category: Medical Plan: Reinforced low sodium diet although patient likely will not be able to comply with this due to her psychiatric issues She was on Amlodipine 10 mg QD in the past but patient has been refusing to take any of her meds Her BP appears reasonably controlled today so she may not really require any antihypertensives currently (3) Chronic kidney disease (CKD): Code(s): N18.9 - Chronic kidney disease, unspecified Category: Medical Qualifiers: Chronic kidney disease stage: stage 3 (moderate) Chronic kidney disease stage 3 subtype: stage 3b (GFR 30-44) Qualified Code(s): N18.32 - Chronic kidney disease, stage 3b Plan: She has also refused to get any follow up labs done in the past although her GFR was at 48 and serum creatinine was at 1.11 when they were last checked on 05/2024 when she was admitted at the hospital back then - her numbers then are consistent with CKD stage 3a She has been insistent and has argued in the past that she does not have CKD and wanted to have this erased from her records a few times before (4) Hyperlipidemia: Code(s): E78.5 - Hyperlipidemia, unspecified Category: Medical Qualifiers: Hyperlipidemia type: pure hypercholesterolemia Qualified Code(s): E78.00 - Pure hypercholesterolemia, unspecified Plan: Her total cholesterol level was at 198 mg/dl and LDL cholesterol at 118 mg/dl when they were last checked at [facility] on 05/25/2024 Reinforced low cholesterol diet (5) Schizoaffective disorder, bipolar type: Code(s): F25.0 - Schizoaffective disorder, bipolar type Category: Medical Plan: Patient was reportedly doing well on Invega Sustenna injections in the past but as the electrocardiogram technician refused to sign patient's orders for Section 7 and 8 last year, psychiatry could not force patient to take her meds and had to discharge her back to her home per court order She has since been admitted to [facility] for crisis and paranoid delusions and psychiatric decompensations a few times over the past year and should be on Risperidone ER 100 mg SQ monthly but patient states that she is currently NOT taking any medications at all (corroborated by [facility] staff) She is reportedly seeing her therapist and psychiatrist regularly Follow up with psychiatry as scheduled Plan Follow up in 4 months
[2024-07-25 14:54] VITALS: BP 126/82; BMI 17.8
--- OUTSIDE RECORDS SUMMARY | 2024-07-25 16:03 | XMS_ITS | Clinical Summary ---
Author Organization [facility] ity Address [address] [place] [address] Care Team Providers Care Brick Baker Name Role Phone Pelon Kemp MD Primary Care Provider [phone] Surgical History Surgery Date Site/Laterality Comments COLPOSCOPY PROCEDURE: VA COLPOSCOPY ENTIRE VAGINA W/VAGINA/CERVIX BX Medical History Medical History Date Comments Schizoaffective disorder (CMS/HCC) DX:Schizoaffective disorder Family History Medical History Relation Name Comments Heart attack Father fatal 84 Hypertension Father Prostate cancer Father Hypertension Mother Other cancer Mother Relation Name Status Comments Father Mother Social History Tobacco Use Types Packs/Day Years Used Date Smoking Tobacco: Every Day Cigarettes Alcohol Use Standard Drinks/Week Comments No 0 (1 standard drink = 0.6 oz pur e alcohol) Comments Unknown Sex and Gender Information Value Date Recorded Sex Assigned at Not on file Legal Sex Female 1:17 PM EST Gender Identity Not on file Sexual Orientation Not on file Obstetrics History Plan of Treatment Health Maintenance Due Date Last Done Comments Breast Cancer Screening 1950 Pneumococcal Vaccine: 50+ Ye ars (1 of 2 - PCV) 1958 DTaP,Tdap,and Td Vaccines (1 - Tdap) 1971 Zoster Vaccines (1 of 2) 2002 Colorectal Cancer Screening: Colonoscopy 05/11/2022 Depression Screening 05/11/2022 Falls Risk Assessment 05/11/2022 Hepatitis C Screening 05/11/2022 Osteoporosis Screening (Bone Density Screening) 05/11/2022 Social Influencers of Health Screening 05/11/2022 COVID-19 Vaccine ( - 2023-2 5 season) 2024 Influenza Vaccine (#1) 2024 RSV Immunization Patients 60 + Years Old (1 - 1-dose 75+ series) 2027 HIB Vaccines Aged Out No longer eligi ble based on patient's age to complete this topic HPV Vaccines Aged Out No longer eligi ble based on patient's age to complete this topic Hepatitis A Vaccines Aged Out No long er eligible based on patient's age to complete this topic Hepatitis B Vaccines Aged Out No long er eligible based on patient's age to complete this topic IPV Vaccines Aged Out No longer eligi ble based on patient's age to complete this topic MMR Vaccines Aged Out No longer eligi ble based on patient's age to complete this topic Meningococcal ACWY Vaccine Aged Out N o longer eligible based on patient's age to complete this topic RSV Immunization Patients Un suni 20 months Aged Out No longer eligible b ased on patient's age to complete this topic Varicella Vaccines Aged Out No longer eligible based on patient's age to complete this topic Care Teams Brick Baker Relationship Specialty Start Date End Date Pelon Kemp MD [address] [place] [address] Dr [address] [place], [place] PCP - General 02/20/16
== END 2024-07-25 15:16 | disposition home or self-care (01) ==
PROVIDERS: PCP Internal Medicine; Visit Provider Internal Medicine
DX: M41.25 Other idiopathic scoliosis, thoracolumbar region (principal); I10 Essential (primary) hypertension; N18.32 Chronic kidney disease, stage 3b; E78.00 Pure hypercholesterolemia, unspecified; F25.0 Schizoaffective disorder, bipolar type

== ENCOUNTER → 2024-07-25 14:51 | Outpatient (BNVA) | payer MEDICARE, SELFPAY | PROVIDERS: PCP Internal Medicine; Visit Provider Internal Medicine | DX: M41.25 Other idiopathic scoliosis, thoracolumbar region (principal); I12.9 Hypertensive chronic kidney disease with stage 1 through stage 4 chronic kidney disease, or unspecified chronic kidney disease; N18.32 Chronic kidney disease, stage 3b; E78.00 Pure hypercholesterolemia, unspecified; F25.0 Schizoaffective disorder, bipolar type | CPT/HCPCS: 96127; 99212 ==

== ENCOUNTER 2024-08-22 12:35 | Inpatient (IN) | payer MEDICARE, OTHER, SELFPAY ==
[2024-08-22 12:53] VITALS: BMI 22.3
--- NOTE | 2024-08-22 12:55 | ED.GENADULT ---
HPI - General Adult General Chief complaint: Psychiatric Symptoms Stated complaint: SEC 12,YELLING BUT COOPERATIVE PER EMS Time Seen by Provider: 08/22/24 12:44 History of Present Illness ED Provider: Dr. Garsia HPI narrative: 74 y/o F patient; PMH schizoaffective disorder (bipolar type), HTN, CKD, HLD; presents via police with concern for acute psychosis. History from police/EMS and patient. Patient states she is currently homeless. She approached the police station today as someone stole her wallet. While in the police station the patient was found to be agitated and belligerent. When asked direct questions the patient responds none of your business bitch . Related Data Previous Rx's ?Medication ?Instructions ?Recorded risperidone 100 mg/0.28 mL 100 mg (0.28 mL) subcut Q30D #0.28 05/29/24 subcutaneous extend release susp mL syringe (Uzedy) Allergies Allergy/AdvReac Type Severity Reaction Status Date / Time benztropine [From COGENTIN] Allergy Unknown STOMACHPAIN Verified 08/22/24 12:54 /SWELLING haloperidol [From HALDOL] Allergy Unknown STOMACH Verified 08/22/24 12:54 PAIN SWELLING Review of Systems Review of Systems: Yes all other systems are reviewed and are negative PMFSH Past Medical History Attestation statement: The following information was validated with the patient. Source: old records reviewed Medical History Schizoaffective disorder, bipolar type Constipation Benign essential hypertension Chronic kidney disease (CKD) History of cervical cancer Hyperlipidemia Surgical History No significant past surgical history Family History Family History Father Cancer Mother Cancer Hypertension Sister No problems noted. Social History Social History Household Members: None Household Members Other:: Pt unwilling to participate in admission process. Housing: Apartment Do you presently have visiting nurse or other home services: No Unable to assess alcohol history related to: Refusing to respond Alcohol intake: current Alcohol intake frequency: holidays/special occasions only Comment: 15 Patient Tobacco Use Status: Former Tobacco user Tobacco use type: Cigarette e-Cigarette/Vaping Use: Never Used Second Hand Smoke Exposure: No Use of substances other than those prescribed or required for medical reasons: Refusing to respond Substance Use Type: Unknown Advance Directives: Yes Advance Directives on File: Yes Advance Directives Date on File: 02/18/23 Do you have a plan to hurt others: No Plan service: No Current occupational status: disabled Sexual orientation: Straight/Heterosexual Cognitive needs: No Hearing needs: No Vision needs: No Physical Exam ED Vital Signs: Vital Signs - 24 hr 08/22/24 14:48 08/22/24 14:55 Temperature 97.5 F Pulse Rate 105 H 114 H Respiratory Rate 18 16 Blood Pressure 136/58 L 136/58 L Pulse Oximetry 95 Oxygen Delivery Method Room Air BMI result Body Mass Index 22.3 Patient is afebrile and hemodynamically stable. Const Other: Agitated, swearing, no physical aggression noted HENMT Head: Yes normal to inspection and Yes atraumatic Eyes Pupils: Equal, round and reactive pupils present EOM: EOMs intact bilaterally Neck Neck: Yes normal visual inspection, Yes full ROM, Yes supple and No tender Chest Chest palpation & inspection: normal inspection of the chest and normal palpation of entire chest wall Resp Effort & Inspection: normal respiratory effort, able to speak in complete sentences, no cough and no respiratory distress Auscultation: clear to auscultation bilaterally Cardio Rate: regular rate Rhythm: regular rhythm Peripheral pulses: Peripheral pulses 2+ throughout GI Inspection: Yes normal to inspection, No Abdominal wall edema and No distended Palpation (GI): Soft to palpation, not firm, nontender, no guarding and not rigid Auscultation: normal bowel sounds Back/Spine/Pelvis Back: No back tenderness Neuro Cranial nerves: Yes Equal, round and reactive pupils present Course Course Course Narrative: Patient is afebrile and hemodynamically stable. Ordered for medical clearance labs. Requested for care team evaluation. Provided Olanzepine 10mg IM for acute decompensated psychosis. Reevaluation(s) Reevaluation #1: Labs and urine reviewed. Recreational drugs and ethanol negative. Pending CARE team evaluation. Plan: Transition care to Dr. Mcqueen Condition: Stable Medications Administered Discontinued Medications Generic Name Dose Route Start Last Admin Trade Name Freq PRN Reason Stop Dose Admin Olanzapine 10 mg 08/22/24 12:55 08/22/24 13:24 Olanzapine 10 Mg Vial IM 08/22/24 12:56 10 mg ONCE ONE Administration Medical Decision Making Lab Data 08/22/24 14:42 08/22/24 14:42 Labs: Lab Results 08/22/24 Range/Units 14:42 WBC 8.0 (4.8-10.8) X10*3/uL RBC 4.95 (4.20-5.50) X10*6/uL Hgb 12.4 (12.0-16.0) g/dl Hct 37.3 (37.0-47.0) % MCV 75.4 L (80.0-98.0) fL MCH 25.1 L (27.0-33.0) pg MCHC 33.2 (31.0-35.0) g/dl RDW 15.2 (11.0-16.0) % Plt Count 285 (160-400) X10*3/uL MPV 10.4 (9.4-12.3) fL Immature Gran % (Auto) 0.3 (0.0-0.4) % Neut % (Auto) 76.7 H (45-73) % Lymph % (Auto) 15.6 L (20-40) % [place] % (Auto) 6.8 (2-11) % Eos % (Auto) 0.3 (0-4) % Baso % (Auto) 0.3 (0-2) % Lymph # (Auto) 1.2 (1.2-4.9) X10*3/uL [place] # (Auto) 0.5 (0.1-1.2) X10*3/uL Eos # (Auto) 0.0 (0.0-0.4) X10*3/uL Baso # (Auto) 0.0 (0.0-0.2) X10*3/uL Abs Immat Gran (auto) 0.02 (0.00-0.03) X10*3/uL Absolute Neuts (auto) 6.1 (2.0-8.3) x10*3/uL Absolute Nucleated RBC 0.000 (0.0-0.012) X10*3/uL Nucleated RBC % (auto) 0.0 (0.0-0.2) /100WBC Sodium 144 (135-145) mmol/L Potassium 5.7 H D (3.3-5.1) mmol/L Chloride 109 H (96-108) mmol/L Carbon Dioxide 23 (22-29) mmol/L Anion Gap 18 (12-20) BUN 40 H (9-16) mg/dL Creatinine 1.43 H (0.5-1.4) mg/dL Estim Creat Clear Calc 30.7 Estimated GFR 36 Random Glucose 157 H (60-115) mg/dL Calcium 10.0 (8.4-10.2) mg/dL Urine Opiates Screen Not Detected (Not Detect) Ur Buprenorphine Scrn Not Detected (Not Detect) ng/mL Ur Oxycodone Screen Not Detected (Not Detect) ng/mL Urine Methadone Screen Not Detected (Not Detect) ng/mL Urine Fentanyl Screen Not Detected (Not Detect) Ur Barbiturates Screen Not Detected (Not Detect) Ur Phencyclidine Scrn Not Detected (Not Detect) Ur Amphetamines Screen Not Detected (Not Detect) U Benzodiazepines Scrn Not Detected (Not Detect) Urine Cocaine Screen Not Detected (Not Detect) U Marijuana (THC) Screen Not Detected (Not Detect) Ethyl Alcohol < 10 mg/dL Discharge Plan Discharge Clinical Impression: Schizoaffective disorder, bipolar type Patient Disposition: Still a Patient Prescriptions: No Action Uzedy 100 mg/0.28 mL Suspension,Extended Rel Syring 100 mg subcut Q30D Qty: 0.28 3RF Interventions: [place]-Suicide Risk Severity Scale Last Done: 08/22/24 14:50 Print Language: Belgian
[2024-08-22] MEDS: OLANZapine 10 MG VIAL IM ×2 (13:24→23:30)
[2024-08-22 14:47] LABS: MANUAL DIFF FLAG NO
[2024-08-22 14:48] VITALS: BP 136/58; PULSE 105; RESP 18; TEMP 36.4
[2024-08-22 14:49] LABS: Basophils Percent Auto 0.3 % (0-2); Eosinophils Percent Auto 0.3 % (0-4); Hematocrit 37.3 % (37.0-47.0); Hemoglobin 12.4 g/dl (12.0-16.0); Imm Gran Abs Auto 0.02 X10*3/uL (0.00-0.03); Imm Gran Pct Auto 0.3 % (0.0-0.4); Lymphocytes Absolute Auto 1.2 X10*3/uL (1.2-4.9); Lymphocytes Percent Auto 15.6 % (20-40); Mean Corpuscular HGB Conc 33.2 g/dl (31.0-35.0); Mean Corpuscular Hemoglobin 25.1 pg (27.0-33.0); Mean Corpuscular Volume 75.4 fL (80.0-98.0); Mean Platelet Volume 10.4 fL (9.4-12.3); Monocytes Absolute Auto 0.5 X10*3/uL (0.1-1.2); Monocytes Percent Auto 6.8 % (2-11); Neutrophils Absolute Auto 6.1 x10*3/uL (2.0-8.3); Neutrophils Percent Auto 76.7 % (45-73); Platelet Count 285 X10*3/uL (160-400); Red Blood Count 4.95 X10*6/uL (4.20-5.50); Red Cell Distribution Width 15.2 % (11.0-16.0)
[2024-08-22 14:55] VITALS: BP 136/58; PULSE 114; RESP 16; O2SAT 95
[2024-08-22 15:01] LABS: Amphetamine Screen Urine Not Detected (Not Detect); Barbiturates, Urine Not Detected (Not Detect); Benzodiazepines Screen Urine Not Detected (Not Detect); Buprenorphine Scr Not Detected (Not Detect); Cannabinoid Screen Urine Not Detected (Not Detect); Cocaine Screen Urine Not Detected (Not Detect); Fentanyl, urine Not Detected (Not Detect); Methadone Screen, Urine Not Detected (Not Detect); Opiate Screen Urine Not Detected (Not Detect); Oxycodone Screen Urine Not Detected (Not Detect); Phencyclidine Screen Urine Not Detected (Not Detect)
[2024-08-22 15:09] LABS: Anion Gap 18 (12-20); Blood Urea Nitrogen 40 mg/dL (9-16); Carbon Dioxide 23 mmol/L (22-29); Chloride 109 mmol/L (96-108); Creatinine Clr Calc Pharmacy 30.7; Estimated Glomerular Filt Rate 36; Ethanol < 10 mg/dL; Glucose Random 157 mg/dL (60-115); Potassium 5.7 mmol/L (3.3-5.1); Sodium 144 mmol/L (135-145)
--- NOTE | 2024-08-22 15:29 | PC.NURSE ---
RN to RN phone report given to Lisa in POD. Patient rolled over to pod w/ security.
--- OUTSIDE RECORDS SUMMARY | 2024-08-22 16:28 | XMS_ITS | Clinical Summary ---
Author Organization [facility] ity Address [address] [place] [address] Care Team Providers Care Ferryboat Deckhand Name Role Phone Pelon Kemp MD Primary Care Provider Surgical History Surgery Date Site/Laterality Comments COLPOSCOPY PROCEDURE: DE COLPOSCOPY ENTIRE VAGINA W/VAGINA/CERVIX BX Medical History [...] Last Done Comments Breast Cancer Screening 1952 DTaP,Tdap,and Td Vaccines (1 - Tdap) 1971 Pneumococcal Vaccine: 50+ Ye ars (1 of 2 - PCV) 1971 Zoster Vaccines (1 of 2) 2002 Colorectal Cancer Screening: Colonoscopy 05/11/2022 Depression Screening 05/11/2022 Falls Risk Assessment 05/11/2022 Hepatitis C Screening 05/11/2022 Osteoporosis Screening (Bone Density Screening) 05/11/2022 Social Influencers of Health Screening 05/11/2022 COVID-19 Vaccine (1 - 2023-2 5 season) 2024 Influenza Vaccine [...] patient's age to complete this topic Meningococcal B Vacine Aged Out No lo nger eligible based on patient's age to complete this topic RSV Immunization Patients Un suni 20 months Aged Out No longer eligible b ased on patient's age to complete this topic Varicella Vaccines Aged Out No longer eligible based on patient's age to complete this topic Care Teams Ferryboat Deckhand Relationship Specialty Start Date End Date Pelon Kemp MD [address] [place] [address] Dr [address] [place] PCP - General 02/20/16
[2024-08-22 23:30] VITALS: BP 93/62; PULSE 116; RESP 16; TEMP 36.5; O2SAT 97
[2024-08-22] MEDS: diphenhydrAMINE HCL 50 MG/ML VIAL IM (23:30)
[2024-08-22] MEDS: LORazepam 2 MG/ML VIAL IM (23:30)
--- NOTE | 2024-08-23 00:03 | PC.NURSE ---
Patient is in sitting in milieu loud disruptive triggering other patient when attempted to redirect patient try to swung at staff provider notified/ordered/Ativan 2 mg IM, Olanzapine 10 mg IM, and Benadryl 50 mg IM, administered as ordered at 2330, patient is on 1:1 for safety observation respiration 16, even, bilaterally, appears sleeping at this time, will continue to monitor
--- NOTE | 2024-08-23 06:28 | PC.NURSE ---
Patient is S/P chemical restraint, patient slept through the night, no distress observed/reported, disposition per care team is section 12 inpatient Linda-bed search, 15 minutes safety check, patient is paranoid with non-sensical thought process, will continue to monitor
[2024-08-23 08:05] LABS: Appearance Urine Clear; Color Urine Yellow; Glucose Urine UA Negative (Negative); Leukocyte Esterase Urine Trace (Negative); Nitrite Urine Negative (Negative); UMIC TRIGGER UA YES; Urine Blood Negative (Negative); Urine Ketones 15 mg/dL (Negative); Urine Protein 30 (1+) mg/dL (Neg-Trace)
[2024-08-23 08:10] LABS: Bacteria Urine None Seen (None Seen); Hyaline Casts Urine 0-2 /LPF (0-2); RBC Urine 0-2 /HPF (0-2); Squamous Epithelial Cell Urine 0-2 /HPF (0-2); WBC Urine 0-5 /HPF (0-5)
--- NOTE | 2024-08-23 11:17 | PC.NURSE ---
patient now awake, ambulated to the bathroom independently
--- NOTE | 2024-08-23 11:21 | MHC.EDTECH ---
Patient refusing labs at this time.
[2024-08-23 12:16] VITALS: BP 123/82; TEMP 36.6
--- NOTE | 2024-08-23 12:24 | MHC.EDTECH ---
Patient agreeable to having vital signs checked. While this tech was applying BP cuff patient became aggitated with this tech touching her arm and began yelling and slapping this tech. Patient redirected and deescalated. Only able to obtain BP and temp.
--- NOTE | 2024-08-23 12:37 | PC.NURSE ---
sitting in common area, occasionally yelling and swearing at staff.
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
[2024-08-23 15:13] VITALS: RESP 18
[2024-08-23] MEDS: OLANZapine 10 MG VIAL IM (15:13)
--- NOTE | 2024-08-23 15:13 | PC.NURSE ---
patient medicated with IM zyprexa, patient willing to take medication.
[2024-08-23 15:28] VITALS: RESP 18
[2024-08-23 15:43] VITALS: RESP 20
[2024-08-23 15:53] VITALS: RESP 18
--- NOTE | 2024-08-23 16:10 | PC.NURSE ---
patient refusing vital signs, continues to ambulate in the hallways - still yelling at staff on and off. attempted to give patient PO medications, patient continues to refuse medications
[2024-08-23 16:13] VITALS: RESP 20
[2024-08-23] MEDS: Paliperidone Palmitate 234 MG/1.5 ML SYRINGE IM (17:47)
--- NOTE | 2024-08-23 17:55 | PC.NURSE ---
able to medicated patient w/ eliel karimi. continues to refuse po medications
--- NOTE | 2024-08-23 19:34 | PC.NURSE ---
patient loiters in milieu, standing holding on front of nurse station drop bitch , kill yourself i dont care about anyone in this place talk about poisoning my mother
--- NOTE | 2024-08-24 00:17 | PC.NURSE ---
patient who had been prior relaxing in the common area now adjourned to her room
[2024-08-24] MEDS: LORazepam 2 MG/ML VIAL IM (05:47)
[2024-08-24] MEDS: OLANZapine 10 MG VIAL IM (05:47)
--- NOTE | 2024-08-24 05:51 | PC.NURSE ---
late entry patient had made two very loud outbursts and redirected, patient had only slept maybe total 2 hrs this evening, and exhibited impulsive behaviour toward others going in othwer rooms and yelling threatening antagonstic statements eg: kill yourself . perhaps 3 very loud phrases in ten minutes. primarily to keep patient safe from others reactive behavior, t/w pursued mediations which patient refused orally.
[2024-08-24 06:00] VITALS: RESP 18
--- NOTE | 2024-08-24 06:30 | PC.NURSE ---
denise talked to t/w regarding elevated K, [facility] ordered f/up BMP. client declined presently.
--- NOTE | 2024-08-24 07:52 | PC.NURSE ---
ASSUMED CARE OF PT THIS AM. HAS EATEN ALL OF HER BREAKFAST. APPEARS IN NAD, MOVING AROUND HER ROOM STEADILY, INDEPENDENTLY. MAKING REQUESTS APPROPRIATELY. REFUSING EKG THIS AM.
[2024-08-24 08:07] VITALS: BP 155/90; PULSE 88; RESP 16; TEMP 36.4
--- NOTE | 2024-08-24 08:10 | PC.NURSE ---
PT SOMNOLENT AFTER BREAKFAST, BP WNL, UNABLE TO OBTAIN SPO2, RR WNL. PT ASSISTED INTO BED.
--- NOTE | 2024-08-24 10:37 | PHA.MEDREC ---
Pharmacy Consult ? Medication Reconciliation Pharmacy has reviewed the medication reconciliation completed by nursing. Spoke with nursing, pt unable to answer last dose. Pt did received Invega in hospital yesterday.
[2024-08-24 10:58] LABS: Anion Gap 11 (12-20); Blood Urea Nitrogen 33 mg/dL (9-16); Calcium 9.7 mg/dL (8.4-10.2); Carbon Dioxide 29 mmol/L (22-29); Chloride 111 mmol/L (96-108); Creatinine Clr Calc Pharmacy 39.5; Estimated Glomerular Filt Rate 48; Glucose Random 73 mg/dL (60-115); Sodium 147 mmol/L (135-145)
[2024-08-24 11:10] VITALS: BP 148/81; PULSE 87; RESP 14; TEMP 36.6; O2SAT 97
[2024-08-24 13:00] VITALS: BP 141/77; PULSE 89; RESP 18; TEMP 36.8; O2SAT 96
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
--- NOTE | 2024-08-24 18:04 | PC.ADMIT ---
Patient arrived to the unit about 13:00 from [facility] POD. Dx of Schizoaffective D/O, Bipolar type, Unspecified Hypertension, CKD, Hyperlipidemia, Hx of cervical cancer. VS as follow; BP 141/77. P 89, R 18, T 98.2, O2sat 96% on RA. Oriented to self only, looked tired, sleepy. Per POD nurse, patient was brought to the [facility] ER by police for paranoia, aggression and erratic behaviors. Patient had IM Ativan and Zyprexa this morning while in a POD. Skin check completed and WNL. Thick toenails on both big toes. Initially upon arrival to the unit, patient was not able to participate in admission assessments d/t mental status. Not able to sign legal forms. Went to bed and slept till supper. She woke up at 5PM, ate her meal and went back to her room. Angela refused to participate in assessments. Gets irritated with everybody around her. Refusing to answer questions, wants to be left alone. Her gait is slow but steady. Legal status:12B. Patient Will continue to monitor.
--- NOTE | 2024-08-25 10:56 | HO.PSYCHPN ---
Subjective Subjective Date of Service: 08/25/24 Reason For Visit: Psychosis Subjective Notes: Section 12B Interim History: Patient psychotically agitated belligerent with other patients and staff yelling she will not take medication. Patient seems somewhat emaciated would not engage. Has been out in the milieu dealings belligerent. Required a single room Patient reportedly had been on long-acting injectable Risperdal unclear when last dose was given Medication Compliance: No Mental Status Exam Mental Status Exam Narrative: Patient casually dressed intermittently out in the milieu would not engage in discussion loud stating she would not take medication demanding otherwise irritable easily agitated dysphoric limited insight and judgment was not physically aggressive Diagnostics Vital Signs (24Hr): Vital Signs - 24 hr 08/24/24 11:10 08/24/24 13:00 Temperature 97.8 F 98.2 F Pulse Rate 87 89 Respiratory Rate 14 18 Blood Pressure 148/81 H 141/77 H Pulse Oximetry 97 96 Oxygen Delivery Method Room Air Room Air BMI result Body Mass Index 22.3 Labs 08/22/24 14:42 08/24/24 10:25 Labs: Laboratory Results - last 48 hr 08/24/24 10:25 Sodium 147 H Potassium 4.0 D Chloride 111 H Carbon Dioxide 29 Anion Gap 11 L BUN 33 H Creatinine 1.11 Estim Creat Clear Calc 39.5 Estimated GFR 48 Random Glucose 73 Calcium 9.7 Medications Medications Current Medications Acetaminophen (Acetaminophen 325 Mg Tablet) 650 mg PO Q6H PRN PRN Reason: Headache/Pain, Scale 1-10 Al Hydroxide/Mg Hydroxide (Magnesium Hydrox/Alum Hydrox 30 Ml Oral.Susp) 30 ml PO Q6H PRN PRN Reason: Heartburn/Nausea Magnesium Hydroxide (Milk Of Magnesia 30 Ml Oral.Susp) 30 ml PO DAILY PRN PRN Reason: Constipation Nicotine Polacrilex (Nicotine Polacrilex 2 Mg Gum) 2 mg BUCCAL Q2H PRN PRN Reason: Nicotine Cravings Risperidone (Risperidone 2 Mg Tablet) 2 mg PO BID [facility] Last Admin: 08/24/24 21:22 Dose: Not Given Trazodone HCl (Trazodone Hcl 50 Mg Tablet) 50 mg PO BEDTIME MRX1 PRN PRN Reason: Insomnia Allergies Allergies Allergy/AdvReac Type Severity Reaction Status Date / Time benztropine [From COGENTIN] Allergy Unknown STOMACHPAIN Verified 08/22/24 12:54 /SWELLING haloperidol [From HALDOL] Allergy Unknown STOMACH Verified 08/22/24 12:54 PAIN SWELLING Assessment & Plan Assessment & Plan (1) Schizoaffective disorder, bipolar type: Status: Acute Code(s): F25.0 - Schizoaffective disorder, bipolar type (2) Benign essential hypertension: Status: Acute Code(s): I10 - Essential (primary) hypertension (3) Chronic kidney disease (CKD): Qualifiers: Chronic kidney disease stage: stage 3 (moderate) Chronic kidney disease stage 3 subtype: stage 3b (GFR 30-44) Qualified Code(s): N18.32 - Chronic kidney disease, stage 3b Status: Acute Code(s): N18.9 - Chronic kidney disease, unspecified Plan continue/restart home regimen. Hx and collateral when possible. 12b signed. 08/25/2024 Patient history of schizoaffective disorder bipolar type brought in after acting bizarrely in the community not taking medication unclear how well she has been taking care of herself otherwise. Seems to have significant weight loss. Labs reviewed no remarkable changes Risperdal 2 mg b.i.d. was ordered will order olanzapine 5 mg b.i.d. IM if patient refuses p.o. Informed Consent: does not understand Reason for continued inpatient stay Substantial Risk for: inability to function, rapid decompensation and med/psych decompensation Time Spent With Patient Time: Total time managing care of this patient today ____ minutes.
--- NOTE | 2024-08-25 13:14 | PC.NURSE ---
Patient refused scheduled risperidone 2mg PO this morning. Provider Dr. Brown notified of refusal and that pt has a [place] order with no back up medications ordered in pt's MAR to be given at this time.
[2024-08-25 14:37] VITALS: BP 124/75; PULSE 99; RESP 17; O2SAT 95
[2024-08-25] MEDS: OLANZapine 10 MG VIAL 5 MG IM (21:36)
[2024-08-26 08:06] VITALS: RESP 16
[2024-08-26] MEDS: OLANZapine 10 MG VIAL 5 MG IM (09:10)
[2024-08-26 20:00] VITALS: BP 130/73; PULSE 88; RESP 18; TEMP 36.5; O2SAT 94
[2024-08-26] MEDS: risperiDONE 2 MG TABLET PO (20:17)
--- NOTE | 2024-08-26 20:41 | P.PNPSI_ITS ---
Subjective Subjective Date of Service: 08/26/24 Reason For Visit: Psychosis Interim History: The patient has been somewhat irritable withdrawn reactive suspicious of others. Somewhat isolative. She did receive olanzapine had been refusing p.o. Risperdal Medication Compliance: No Side effects from medications: No Attending Groups: No Mental Status Exam Mental Status Exam Narrative: Patient thin casually dressed withdrawn minimally engaged. Speech mostly of a negative her hostile nature clear to understand mood depressed anxious irritable no noted SI or HI suspiciousness paranoia impulse control not grossly self- harming or harming others marked lack of insight judgment Diagnostics Vital Signs (24Hr): Vital Signs - 24 hr 08/26/24 08:06 Respiratory Rate 16 BMI result Body Mass Index 22.3 Labs 08/22/24 14:42 08/24/24 10:25 Medications Medications Current Medications Acetaminophen (Acetaminophen 325 Mg Tablet) 650 mg PO Q6H PRN PRN Reason: Headache/Pain, Scale 1-10 Al Hydroxide/Mg Hydroxide (Magnesium Hydrox/Alum Hydrox 30 Ml Oral.Susp) 30 ml PO Q6H PRN PRN Reason: Heartburn/Nausea Magnesium Hydroxide (Milk Of Magnesia 30 Ml Oral.Susp) 30 ml PO DAILY PRN PRN Reason: Constipation Nicotine Polacrilex (Nicotine Polacrilex 2 Mg Gum) 2 mg BUCCAL Q2H PRN PRN Reason: Nicotine Cravings Olanzapine (Olanzapine 10 Mg Vial) 5 mg IM BID PRN PRN Reason: Psychosis Last Admin: 08/26/24 09:10 Dose: 5 mg Risperidone (Risperidone 2 Mg Tablet) 2 mg PO BID REJI Last Admin: 08/26/24 20:17 Dose: 2 mg Trazodone HCl (Trazodone Hcl 50 Mg Tablet) 50 mg PO BEDTIME MRX1 PRN PRN Reason: Insomnia Allergies Allergies Allergy/AdvReac Type Severity Reaction Status Date / Time benztropine [From COGENTIN] Allergy Unknown STOMACHPAIN Verified 08/22/24 12:54 /SWELLING haloperidol [From HALDOL] Allergy Unknown STOMACH Verified 08/22/24 12:54 PAIN SWELLING Assessment & Plan Assessment & Plan (1) Schizoaffective disorder, bipolar type: Status: Acute Code(s): F25.0 - Schizoaffective disorder, bipolar type (2) Benign essential hypertension: Status: Acute Code(s): I10 - Essential (primary) hypertension (3) Chronic kidney disease (CKD): Qualifiers: Chronic kidney disease stage: stage 3 (moderate) Chronic kidney disease stage 3 subtype: stage 3b (GFR 30-44) Qualified Code(s): N18.32 - Chronic kidney disease, stage 3b Status: Acute Code(s): N18.9 - Chronic kidney disease, unspecified Plan continue/restart home regimen. Hx and collateral when possible. 12b signed. 08/25/2024 Patient history of schizoaffective disorder bipolar type brought in after acting bizarrely in the community not taking medication unclear how well she has been taking care of herself otherwise. Seems to have significant weight loss. Labs reviewed no remarkable changes Risperdal 2 mg b.i.d. was ordered will order olanzapine 5 mg b.i.d. IM if patient refuses p.o. 08/26/2024 Still need to obtain last date of long-acting Risperdal injection. Monitor patient's food intake limited engagement olanzapine refuses Risperdal Informed Consent: does not understand Reason for continued inpatient stay Substantial Risk for: inability to function and rapid decompensation Time Spent With Patient Time: Total time managing care of this patient today _25___ minutes.
[2024-08-27 05:24] VITALS: BMI 16.8
[2024-08-27 07:54] LABS: Estimated Average Glucose 126 mg/dL; Hemoglobin A1C 137.7986 umol/L; Total Hemoglobin (HGBA1C) 3298.3156 umol/L
[2024-08-27 08:00] VITALS: BP 136/77; PULSE 79; RESP 16; TEMP 36.9; O2SAT 97
[2024-08-27 08:00] LABS: Cholesterol 185 mg/dL (<200); HDL Cholesterol 65 mg/dL (>40); LDL Cholesterol Calculated 104 mg/dL (<100); Triglycerides 83 mg/dL (<150)
[2024-08-27 08:14] LABS: Free T4 (Free Thyroxine) 1.27 ng/dL (0.71-1.85); Thyroid Stimulating Hormone 0.08 uIU/mL (0.32-4.0)
[2024-08-27] MEDS: risperiDONE 2 MG TABLET PO ×2 (08:28→19:26)
[2024-08-27 08:33] LABS: Vitamin B12 1342 pg/mL (200-900)
--- NOTE | 2024-08-27 13:21 | P.PNPSI_ITS ---
Subjective Subjective Date of Service: 08/27/24 Reason For Visit: Psychosis Interim History: irritable, demanding, telling MD where to sit and that he is lying when he explains that psych is derived from macanese after pt asserts it is not b[place]. states she will not take a shower unless she is provided with her pocketbook and IDs. denies any problems to several specific questions, then asserts, no more questions, repeatedly saying that until MD ends interview and moves off. per staff, irritable, and paranoid. refusing risperidone. Mental Status Exam Mental Status Exam Narrative: Patient thin casually dressed withdrawn minimally engaged. Speech mostly of a negative her hostile nature clear to understand mood depressed anxious irritable no noted SI or HI suspiciousness paranoia impulse control not grossly self- harming or harming others marked lack of insight judgment Diagnostics Vital Signs (24Hr): Vital Signs - 24 hr 08/26/24 20:00 08/27/24 08:00 Temperature 97.7 F 98.4 F Pulse Rate 88 79 Respiratory Rate 18 16 Blood Pressure 130/73 136/77 Pulse Oximetry 94 97 Oxygen Delivery Method Room Air Room Air Oxygen Flow Rate 97 BMI result Body Mass Index 16.8 Labs 08/22/24 14:42 08/24/24 10:25 Labs: Laboratory Results - last 48 hr 08/27/24 07:30 Estimat Average Glucose 126 Hemoglobin A1c % 6.0 Triglycerides 83 Cholesterol 185 LDL Cholesterol, Calc 104 H HDL Cholesterol 65 Vitamin B12 1342 H Folate 14.0 TSH 0.08 L Free T4 1.27 Medications Medications Current Medications Acetaminophen (Acetaminophen 325 Mg Tablet) 650 mg PO Q6H PRN PRN Reason: Headache/Pain, Scale 1-10 Al Hydroxide/Mg Hydroxide (Magnesium Hydrox/Alum Hydrox 30 Ml Oral.Susp) 30 ml PO Q6H PRN PRN Reason: Heartburn/Nausea Magnesium Hydroxide (Milk Of Magnesia 30 Ml Oral.Susp) 30 ml PO DAILY PRN PRN Reason: Constipation Nicotine Polacrilex (Nicotine Polacrilex 2 Mg Gum) 2 mg BUCCAL Q2H PRN PRN Reason: Nicotine Cravings Olanzapine (Olanzapine 10 Mg Vial) 5 mg IM BID PRN PRN Reason: Psychosis Last Admin: 08/26/24 09:10 Dose: 5 mg Risperidone (Risperidone 2 Mg Tablet) 2 mg PO BID REJI Last Admin: 08/27/24 08:28 Dose: 2 mg Trazodone HCl (Trazodone Hcl 50 Mg Tablet) 50 mg PO BEDTIME MRX1 PRN PRN Reason: Insomnia Allergies Allergies Allergy/AdvReac Type Severity Reaction Status Date / Time benztropine [From COGENTIN] Allergy Unknown STOMACHPAIN Verified 08/22/24 12:54 /SWELLING haloperidol [From HALDOL] Allergy Unknown STOMACH Verified 08/22/24 12:54 PAIN SWELLING Assessment & Plan Assessment & Plan (1) Schizoaffective disorder, bipolar type: Status: Acute Code(s): F25.0 - Schizoaffective disorder, bipolar type (2) Benign essential hypertension: Status: Acute Code(s): I10 - Essential (primary) hypertension (3) Chronic kidney disease (CKD): Qualifiers: Chronic kidney disease stage: stage 3 (moderate) Chronic kidney disease stage 3 subtype: stage 3b (GFR 30-44) Qualified Code(s): N18.32 - Chronic kidney disease, stage 3b Status: Acute Code(s): N18.9 - Chronic kidney disease, unspecified Plan 08/24: continue/restart home regimen. Hx and collateral when possible. 12b signed. 08/25: Patient history of schizoaffective disorder bipolar type brought in after acting bizarrely in the community not taking medication unclear how well she has been taking care of herself otherwise. Seems to have significant weight loss. Labs reviewed no remarkable changes Risperdal 2 mg b.i.d. was ordered will order olanzapine 5 mg b.i.d. IM if patient refuses p.o. 08/26: Still need to obtain last date of long-acting Risperdal injection. Monitor patient's food intake limited engagement olanzapine if refuses Risperdal. 08/27: challenging, irritable, paranoid. refusing medication. Reason for continued inpatient stay Substantial Risk for: harm to others and inability to function Time Spent With Patient Time: Total time managing care of this patient today __25__ minutes.
[2024-08-27 15:45] VITALS: BMI 17.9
--- NOTE | 2024-08-27 15:46 | MHC.CLN ---
NUTRITION PATIENT WEIGHT TODAY=44.33 KG. HEIGHT=5'2 AND BMI=17.9. WEIGHT=44.33KG IS IN LINE WITH PRIOR WEIGHT HX. RD TO FOLLOW UP FOR PO INTAKE AND WEIGHT.
[2024-08-28] MEDS: risperiDONE 2 MG TABLET PO (08:13)
--- NOTE | 2024-08-28 11:21 | HO.PSYCHPN ---
Subjective Subjective Date of Service: 08/28/24 Reason For Visit: Psychosis Interim History: seated in milieu. awake, alert, oppositional. denies having met with MD yesterday, accuses MD of lying about it. no questions, concerns, complaints, requests. per staff, 12b up tomorrow. Mental Status Exam Mental Status Exam Narrative: Patient thin casually dressed withdrawn minimally engaged. Speech mostly of a negative, hostile, nature, clear to understand. mood irritable. no noted SI or HI. suspiciousness, paranoia. not grossly self-harming or harming others. marked lack of insight judgment. Diagnostics Vital Signs (24Hr): BMI result Body Mass Index 17.9 Labs 08/22/24 14:42 08/24/24 10:25 Labs: Laboratory Results - last 48 hr 08/27/24 07:30 Estimat Average Glucose 126 Hemoglobin A1c % 6.0 Triglycerides 83 Cholesterol 185 LDL Cholesterol, Calc 104 H HDL Cholesterol 65 Vitamin B12 1342 H Folate 14.0 TSH 0.08 L Free T4 1.27 Medications Medications Current Medications Acetaminophen (Acetaminophen 325 Mg Tablet) 650 mg PO Q6H PRN PRN Reason: Headache/Pain, Scale 1-10 Al Hydroxide/Mg Hydroxide (Magnesium Hydrox/Alum Hydrox 30 Ml Oral.Susp) 30 ml PO Q6H PRN PRN Reason: Heartburn/Nausea Magnesium Hydroxide (Milk Of Magnesia 30 Ml Oral.Susp) 30 ml PO DAILY PRN PRN Reason: Constipation Nicotine Polacrilex (Nicotine Polacrilex 2 Mg Gum) 2 mg BUCCAL Q2H PRN PRN Reason: Nicotine Cravings Risperidone (Risperidone Er 200 Mg/0.56 Ml Suser.Syr) 200 mg SUBCUT ONCE ONE Stop: 08/29/24 09:01 Trazodone HCl (Trazodone Hcl 50 Mg Tablet) 50 mg PO BEDTIME MRX1 PRN PRN Reason: Insomnia Allergies Allergies Allergy/AdvReac Type Severity Reaction Status Date / Time benztropine [From COGENTIN] Allergy Unknown STOMACHPAIN Verified 08/22/24 12:54 /SWELLING haloperidol [From HALDOL] Allergy Unknown STOMACH Verified 08/22/24 12:54 PAIN SWELLING Assessment & Plan Assessment & Plan (1) Schizoaffective disorder, bipolar type: Status: Acute Code(s): F25.0 - Schizoaffective disorder, bipolar type (2) Benign essential hypertension: Status: Acute Code(s): I10 - Essential (primary) hypertension (3) Chronic kidney disease (CKD): Qualifiers: Chronic kidney disease stage: stage 3 (moderate) Chronic kidney disease stage 3 subtype: stage 3b (GFR 30-44) Qualified Code(s): N18.32 - Chronic kidney disease, stage 3b Status: Acute Code(s): N18.9 - Chronic kidney disease, unspecified Plan 08/24: continue/restart home regimen. Hx and collateral when possible. 12b signed. 08/25: Patient history of schizoaffective disorder bipolar type brought in after acting bizarrely in the community not taking medication unclear how well she has been taking care of herself otherwise. Seems to have significant weight loss. Labs reviewed no remarkable changes Risperdal 2 mg b.i.d. was ordered will order olanzapine 5 mg b.i.d. IM if patient refuses p.o. 08/26: Still need to obtain last date of long-acting Risperdal injection. Monitor patient's food intake limited engagement olanzapine if refuses Risperdal. 08/27: challenging, irritable, paranoid. refusing medication. 08/28: receiving meds via IM back-up. 12b up tomorrow. case D/W SW. events leading up to hospitalization and while hospitalized cannot be described as dangerous, thus there is no further basis on which to hold the patient. will DC PO risperidone today and give SC uzedy tomorrow prior to discharge. due to renal impairment in the CrCl 30-60 mL/min range, no more than 75% of max rec dose to be given per uptodate, or 150 mg rather than 200 mg. Reason for continued inpatient stay Substantial Risk for: inability to function and rapid decompensation Time Spent With Patient Time: Total time managing care of this patient today __35__ minutes.
[2024-08-28 19:43] VITALS: BP 125/80; PULSE 119; TEMP 37.4; O2SAT 94
[2024-08-29 08:00] VITALS: BP 155/83; PULSE 98; RESP 16; TEMP 36.6; O2SAT 98
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
[2024-08-29] MEDS: risperiDONE ER 125 MG/0.35 ML SUSER.SYR SUBCUT (12:30)
--- NOTE | 2024-08-29 13:17 | PC.NURSE ---
Patient was aware of discharge, reported readiness for discharge. Discharge instructions given to the patient. Angela left the unit at 13:09, took her belongings.
== END 2024-08-29 13:09 | disposition home or self-care (01) | DRG 885 ==
LOC: HO.ED 20:06 → HO.PGERI 08-24 12:07
PROVIDERS: Emergency Medicine; Admitting Provider Psychiatry & Neurology Psychiatry; Emergency Provider Emergency Medicine; PCP Internal Medicine; Visit Provider Psychiatry & Neurology Psychiatry
DX: F25.0 Schizoaffective disorder, bipolar type (principal); Z59.02 Unsheltered homelessness; I12.9 Hypertensive chronic kidney disease with stage 1 through stage 4 chronic kidney disease, or unspecified chronic kidney disease; N18.32 Chronic kidney disease, stage 3b; Z79.899 Other long term (current) drug therapy
CPT/HCPCS: 36415; 80048; 80061; 80307; 81001; 81003; 82607; 82746; 83036; 84439; 84443; 85025; 99285; J1200; J2060; J2359; J2426; J2799; S9485

== ENCOUNTER → 2024-08-24 12:06 | Outpatient (BNV) | payer OTHER, SELFPAY | PROVIDERS: Admitting Provider Psychiatry & Neurology Psychiatry; Emergency Provider Emergency Medicine; PCP Internal Medicine; Visit Provider Psychiatry & Neurology Psychiatry | DX: F25.0 Schizoaffective disorder, bipolar type (principal); I10 Essential (primary) hypertension; N18.32 Chronic kidney disease, stage 3b | CPT/HCPCS: 90792; 99232; 99239 ==

== ENCOUNTER → 2024-08-24 12:06 | Outpatient (BNV) | payer OTHER, SELFPAY | PROVIDERS: Admitting Provider Psychiatry & Neurology Psychiatry; Emergency Provider Emergency Medicine; PCP Internal Medicine; Visit Provider Psychiatry & Neurology Psychiatry | DX: F25.0 Schizoaffective disorder, bipolar type (principal); I10 Essential (primary) hypertension; N18.32 Chronic kidney disease, stage 3b | CPT/HCPCS: 99232 ==

== ENCOUNTER 2025-01-18 10:59 | Outpatient (AMB) | payer MEDICARE, SELFPAY ==
--- OUTSIDE RECORDS SUMMARY | 2025-01-18 11:01 | XMS_ITS | Clinical Summary ---
Author Organization [facility] ity Address [address] [place] [address] Care Team Providers Care Leaf Coverer Name Role Phone Pelon Kemp MD Primary Care Provider [phone] Surgical History Surgery Date Site/Laterality Comments COLPOSCOPY PROCEDURE: DE COLPOSCOPY ENTIRE VAGINA W/VAGINA/CERVIX BX Medical History Medical History Date Comments Schizoaffective disorder (CMS/HCC V24, CMS/HCC V 28) DX:Schizoaffective disorder Family History Medical History Relation [...] Pneumococcal Vaccine: 50+ Ye ars (1 of 1 - PCV) 2002 Zoster Vaccines (1 of 2) 2002 COVID-19 Vaccine ( - 2023-2 5 season) 2024 Depression Screening 06/13/2024 Influenza Vaccine (#1) 2025 06/30/2017 RSV Immunization Adult Patie nts (1 - 1-dose 75+ series) 2027 HIB [...] age to complete this topic Meningococcal B Vaccine Aged Out No l onger eligible based on patient's age to complete this topic RSV Immunization Patients Un suni 20 months Aged Out No longer eligible b ased on patient's age to complete this topic Varicella Vaccines Aged Out No longer eligible based on patient's age to complete this topic Care Teams Leaf Coverer Relationship Specialty Start Date End Date Pelon Kemp MD [address] [place] [address] Dr [address] [place] PCP - General 02/20/16
--- NOTE | 2025-01-18 11:02 | MHC.PC.OV ---
Vital Signs 01/18/25 11:04 01/18/25 11:09 Height 5 ft 2 in 5 ft 2 in Weight 92 lb 4 oz BMI 16.9 BP 124/76 Blood Pressure Location Lt brachial Lt brachial Position Sitting Sitting Respiration 18 Pulse 94 Pulse Source Pulse Oximeter Pulse Oximeter Temp Source Temporal Artery Scan Pulse Oximetry (%) 95 Oxygen Delivery Method Room Air Room Air Intake Visit Reasons: [facility] 01/03 [employer] Required: No Accompanied by: [employer] Worker Allergies benztropine (From COGENTIN) Allergy (Unknown, Verified 01/18/25 11:07) STOMACHPAIN/SWELLING haloperidol (From HALDOL) Allergy (Unknown, Verified 01/18/25 11:07) STOMACH PAIN SWELLING Tobacco use date assessed: 01/18/25 Fall risk assessment: No Falls in past year Last assessed Fall Risk: 01/18/25 Dental Screening Dental Screen Date: 01/18/25 Did you have a dental visit in the last 12 months?: Yes Did you have a dental problem in the last 6 months where you did not have access to dental care?: No Was dental information given to patient?: Patient has dentist HPI HPI Comments History of Present Illness Details 74 y/o Female patient who presents to the clinic today for HDF. She was admitted at [facility] on 12/14 - 01/03 for evaluation of increasing agitation, uncooperative behaviour and danger to self and others. She nonadherence to medications I have not taken my medications for 4 days now, I feel the same . I do not need medications . Patient with multiple Psychiatric admissions and under [facility] Order. [facility] Medical History Schizoaffective disorder, bipolar type Constipation Benign essential hypertension Chronic kidney disease (CKD) History of cervical cancer Hyperlipidemia Surgical History No significant past surgical history Family History Father Cancer Mother Cancer Hypertension Sister No problems noted. Social History Household Members: None Household Members Other:: Pt unwilling to participate in admission process. Housing: Apartment Do you presently have visiting nurse or other home services: Yes Unable to assess alcohol history related to: Refusing to respond Alcohol intake: current Alcohol intake frequency: holidays/special occasions only Comment: 15 Patient Tobacco Use Status: Refuse Tobacco use screen Tobacco use type: Cigarette e-Cigarette/Vaping Use: Never Used Second Hand Smoke Exposure: No Substance Use Type: Unknown Advance Directives Date on File: 02/18/23 service: No Current occupational status: disabled Sexual orientation: Straight/Heterosexual Cognitive needs: No Hearing needs: No Vision needs: No Questionnaire PHQ-9 Over the last 2 weeks, how often have you been bothered by any of the following problems? 1. Little interest or pleasure in doing things: not at all 2. Feeling down, depressed, or hopeless: not at all 3. Trouble falling or staying asleep, or sleeping too much: not at all 4. Feeling tired or having little energy: not at all 5. Poor appetite or overeating: not at all 6. Feeling bad about yourself - or that you are a failure or have let yourself or your family down: not at all 7. Trouble concentrating on things, such as reading the newspaper or watching television: not at all 8. Moving or speaking so slowly that other people could have noticed. Or the opposite - being so fidgety or restless that you have been moving around a lot more than usual: not at all 9. Thoughts that you would be better off or of hurting yourself in some way: not at all Total score: 0 [id number] - PHQ-9 Billing: Yes Source: Developed by Drs. Parker Bhatti, Cathie Segura, Robby Javed and colleagues, with an educational aramis from [employer]. Thrive Questionnaire Date Thrive assessed: 01/18/25 I am a: Patient What is your living situation today?: I choose not to answer this question Within the past 12 months, did the food you bought not last and you didn't have the money to get more?: I choose not to answer this question Within the past 12 months, did you worry whether your food would run out before you got money to buy more?: I choose not to answer this question Do you have trouble paying for medicines?: I choose not to answer this question Do you have trouble getting transportation to medical appointments?: I choose not to answer this question Do you have trouble paying your heating and electricity bill?: I choose not to answer this question Do you have trouble taking care of your child, family member or friend?: I choose not to answer this question Do you have trouble with day-to-day activities such as bathing, preparing meals, shopping, managing finances, etc.?: I choose not to answer this question Are you currently unemployed and looking for a job?: I choose not to answer this question Are you interested in more education?: I choose not to answer this question Please select the resources that you would like help with: None Currently or been in a relationship where the following occur: I choose not to answer THRIVE Score: 0 AUDIT C Alcohol Use Questionnaire (AUDIT-C) 1. How often do you have a drink containing alcohol?: Never Total Score: 0 MARK-7 AMB Questionnaire MARK-7 Date MARK - 7 assessed: 01/18/25 Feeling nervous, anxious, or on edge: 0 = Not at all Not being able to stop or control worryin = Not at all Worrying too much about different things: 0 = Not at all Trouble relaxin = Not at all Being so restless that it is hard to sit still: 0 = Not at all Becoming easily annoyed or irritable: 0 = Not at all Feeling afraid as if something awful might happen: 0 = Not at all Total MARK-7 score (0-4 normal; 5-9 mild; 10-14 moderate; 15-21 severe): 0 Source: Developed by Drs. Parker Bhatti, Cathie Segura, Robby Javed and colleagues, with an educational aramis from [employer]. MARK-7 Assessment Billing MARK-7 Assessment Tool: MARK-7 Assessment 13633 Review of Systems Const All systems reviewed & are unremarkable except as noted in HPI and below Physical exam (Primary Care) Vital Signs: Last Vital Signs Pulse 94 01/18/25 11:04 Resp 18 01/18/25 11:09 BP 124/76 01/18/25 11:04 Pulse Ox 95 01/18/25 11:04 Oxygen Delivery Method Room Air 01/18/25 11:09 BMI result Body Mass Index 16.9 Tobacco/Smoking Status: Tobacco use Status Tobacco use date assessed 01/18/25 01/18/25 11:10 Patient Tobacco Use Status Refuse Tobacco use screen 01/18/25 11:10 Tobacco use type Cigarette 01/18/25 11:10 e-Cigarette/Vaping Use Never Used 01/18/25 11:10 PHQ-9: PHQ-9 Score PHQ-9: Total score 0 01/18/25 11:11 Thrive Assessment: Date of Thrive Assessment Date Thrive assessed 01/18/25 01/18/25 11:10 Currently or been in a relationship where the following occur: I choose not to answer Const General: no acute distress and poor hygiene Nutritional Appearance: underweight Orientation/consciousness: patient oriented x3 Resp Effort & Inspection: normal respiratory effort Auscultation: clear to auscultation bilaterally Cardio Heart sounds: S1 normal heart sound present and S2 normal heart sound present Neuro General: patient oriented x3 Psych Speech and movement: Normal speech and movement present Affect: Irritable affect present Attitude: Guarded attititude/behavior present Coding Level of Care Code Est Pt Level 4 (22439) Diagnoses Schizoaffective disorder, bipolar type F25.0 Additional Codes MARK-7 Assessment Billing - MARK-7 Assessment Tool: MARK-7 Assessment 83804 ([id number]) PHQ-9 - 73587 - PHQ-9 Billing: Yes ([id number]) Time Spent (min) 20 Assessment & Plan Assessment & Plan (1) Schizoaffective disorder, bipolar type: Code(s): F25.0 - Schizoaffective disorder, bipolar type Category: Medical Plan: Non Compliant - refuses to take medications. Managed by Psych @ [facility] (Dr. Fabiola Alfaro).
[2025-01-18 11:04] VITALS: BP 124/76; PULSE 94; O2SAT 95; BMI 16.9
[2025-01-18 11:09] VITALS: RESP 18
== END 2025-01-18 11:31 | disposition home or self-care (01) ==
LOC: HO.HMCH 10:59
PROVIDERS: PCP Internal Medicine; Visit Provider Nurse Practitioner Family
DX: F25.0 Schizoaffective disorder, bipolar type (principal)

== ENCOUNTER → 2025-01-18 10:59 | Outpatient (BNVA) | payer MEDICARE, SELFPAY | PROVIDERS: PCP Internal Medicine; Visit Provider Nurse Practitioner Family | DX: F25.0 Schizoaffective disorder, bipolar type (principal) | CPT/HCPCS: 96127; 99212 ==